=== PATIENT | female | born 1945 | race Caucasian/White ===

== ENCOUNTER 2020-06-28 23:58 | Emergency (ER) | payer MEDICARE, SELFPAY ==
--- NOTE | ~2020-06-28 | XR_ITS ---
EXAMINATION: XR WRIST, LEFT CLINICAL INFORMATION: Fall. COMPARISON: 05/07/2019 TECHNIQUE: Two views of the left wrist. FINDINGS: Osteopenia. There is repeat acute fracture of the distal radial metaphysis. There is dorsal and radial displacement of the distal fragment. Mild impaction. This is at the site of a prior fracture. There is also an acute distal ulnar metaphyseal fracture without significant displacement. Prominent soft tissue swelling of the wrist. The carpal rows are well aligned. XR/XR wrist LT min 3V IMPRESSION: Acute distal radial and ulnar metaphyseal fractures.
--- NOTE | ~2020-06-28 | XR_ITS ---
EXAMINATION: XR WRIST, LEFT CLINICAL INFORMATION: Closed reduction COMPARISON: 06/29/2020 TECHNIQUE: Two views of the left wrist. FINDINGS: Osteopenia. Fine osseous and soft tissue detail is partially obscured by overlying splinting material. There is improved alignment of the distal radial metaphyseal fracture, with residual dorsal displacement by 0.6 cm. Near-anatomic alignment of the ulnar fracture. The carpal rows remain well aligned. Prominent soft tissue swelling. XR/XR wrist LT min 3V IMPRESSION: Improved alignment of the distal radial metaphyseal fracture status post reduction. Nondisplaced ulnar fracture.
[2020-06-29 00:13] VITALS: BP 172/75; PULSE 60; RESP 16; TEMP 36.5; O2SAT 95; BMI 34.1
[2020-06-29] MEDS: Morphine Sulfate 4 MG/ML CARTRIDGE IVPUSH ×2 (00:25→01:00)
--- NOTE | 2020-06-29 00:39 | PC.NURSE ---
XRAY is at bedside
[2020-06-29] MEDS: Lidocaine HCl 1 % MPF 5 ML VIAL 10 ML SUBCUT (00:47)
[2020-06-29 01:02] VITALS: BP 154/60; PULSE 60; RESP 16; O2SAT 98
--- NOTE | 2020-06-29 01:10 | PC.NURSE ---
Provider is at bedside attemptng to reduce the left wrist
[2020-06-29 01:26] LABS: MANUAL DIFF FLAG NO
[2020-06-29 01:27] LABS: Basophils Absolute Auto 0.1 X10*3/uL (0.0-0.2); Basophils Percent Auto 0.6 % (0-2); Eosinophils Absolute Auto 0.2 X10*3/uL (0.0-0.4); Eosinophils Percent Auto 2.4 % (0-4); Hematocrit 39.3 % (37-47); Hemoglobin 12.8 g/dl (12.0-16.0); Imm Gran Abs Auto 0.01 X10*3/uL (0.00-0.03); Imm Gran Pct Auto 0.1 % (0.0-0.4); Lymphocytes Absolute Auto 2.7 X10*3/uL (1.2-4.9); Lymphocytes Percent Auto 30.8 % (20-40); Mean Corpuscular HGB Conc 32.6 g/dl (31.0-35.0); Mean Corpuscular Hemoglobin 28.6 pg (27.0-33.0); Mean Corpuscular Volume 87.7 fL (80-98); Mean Platelet Volume 10.4 fL (9.4-12.3); Monocytes Absolute Auto 0.6 X10*3/uL (0.1-1.2); Monocytes Percent Auto 7.3 % (2-11); Neutrophils Absolute Auto 5.1 X10*3/uL (2.0-8.3); Neutrophils Percent Auto 58.8 % (45-73); Platelet Count 177 X10*3/uL (160-400); Red Blood Count 4.48 X10*6/uL (4.20-5.50); Red Cell Distribution Width 13.5 % (11.0-16.0); White Blood Count 8.6 X10*3/uL (4.8-10.8)
--- NOTE | 2020-06-29 01:27 | PC.NURSE ---
repeat xray is at bedside
--- NOTE | 2020-06-29 01:29 | ED.FALL ---
HPI - Fall General Chief Complaint: Fall Stated Complaint: ?left broken arm Time Seen by Provider: 06/29/20 00:15 Source: EMS Mode of arrival: EMS Limitations: no limitations History of Present Illness HPI Narrative: This is a 75-year-old female with multiple comorbidities including history of hepatitis, liver cirrhosis, hypertension, CAD who presents via EMS from home with complaint of left wrist pain. States she walked outside her residence to walk her dog she tripped and landed onto her left wrist. States she felt a popping sensation in the wrist and denies any other injury. Denies striking head torso to the ground. Denies LOC. No neck pain. No torso pain. No lower extremity pain. No hip pain. States the only area of pain is her left wrist. Denies any other recent illness or medical complaints. Patient was given 4 mg of Zofran EN route by EMS and 50 mics of fentanyl. Placed in a splint and transferred to the emergency room. MD complaint: fall Onset (ago): minute(s) Fall from: standing Fall witnessed: no Place fall occurred: home Loss of consciousness: none Prolonged down time: no Symptoms prior to fall: none Context: tripped/slipped Location of injury: other (Left wrist) Location of injury - extremities: left: hand (Wrist) Severity: moderate Severity scale (1-10): 9 Quality: aching Associated symptoms (after fall): denies Related Data Previous Rx's Medication Instructions Recorded oxycodone 5 mg PO Q8H PRN 3 Days #10 tab 06/29/20 Allergies Allergy/AdvReac Type Severity Reaction Status Date / Time No Known Allergies Allergy Verified 06/29/20 00:23 [No Known Allergies*] Review of Systems Review of Systems: Constitutional: No Weight loss, No Fever, No Chills, No Night Sweats, No Fatigue, No Malaise ENT/Mouth: No Hearing loss, No Ear Pain, No Nasal Congestion, No Sinus Pain, No Hoarseness, No sore throat, No Rhinorrhea, No Swallowing Difficulty Eyes: No Eye Pain, No Swelling, No Redness, No Foreign Body, No Discharge, No Vision Changes Cardiovascular: No Chest Pain, No SOB, No Dyspnea on Exertion, No Orthopnea, No Edema, No Palpitations Respiratory: No Cough, No Sputum, No Wheezing, No Smoke Exposure, No Dyspnea Gastrointestinal: No Nausea, No Vomiting, No Diarrhea, No Constipation, No abdominal Pain, No Hematochezia, No Melena Genitourinary: no irregular bleeding, No Dysuria, No Urinary Frequency, No Hematuria, No Urinary Incontinence, No Urgency, No Flank Pain, No Urinary Flow Changes, No Hesitancy Musculoskeletal: No joint pain, No Myalgias, No Joint Swelling, as noted per HPI Skin: No Skin Lesions, No rash Neuro: No Weakness, No Numbness, No Paresthesias, No Loss of Consciousness, No Dizziness, No Headache Psych: No Social Issues Heme/Lymph: No Bruising, No Bleeding,No Lymphadenopathy Endocrine: No Polyuria, No Polydipsia, No Temperature Intolerance Yes all other systems are reviewed and are negative [facility] Past Medical History Medical History Cirrhosis Hepatitis C Hypercholesteremia Hypertension Surgical History Hx of appendectomy Hx of tonsillectomy S/P breast augmentation S/P CABG x 4 Tubal ligation status Social History Social History Advance Directives: No Advance Directives Information Provided: No Physical Exam Vital Signs: Vital Signs: Last Vital Signs Temp 97.7 F 06/29/20 00:13 Pulse 60 06/29/20 01:02 Resp 16 06/29/20 01:02 BP 154/60 H 06/29/20 01:02 Pulse Ox 98 06/29/20 01:02 Body Mass Index 34.1 Reviewed Const: General: cooperative; No intoxicated appearing Nutritional Appearance: average body habitus Orientation/consciousness: patient oriented x3 HENMT: Head: Yes normal to inspection Ears: hearing grossly normal bilaterally Eyes: General: appearance normal, both eyes and all related structures Visual Antoine: normal visual antoine by confrontation Neck: Neck: Yes normal visual inspection, No positive Brudzinski's sign, No positive Kernig's sign and No tender Thyroid: Thyroid normal Chest: Chest palpation & inspection: normal inspection of the chest Resp: Effort & Inspection: normal respiratory effort Auscultation: clear to auscultation bilaterally Cardio: Jugular venous distension: no JVD Rhythm: regular rhythm Heart sounds: S1 normal heart sound present and S2 normal heart sound present GI: Inspection: Yes normal to inspection Palpation (GI): Soft to palpation Percussion: Yes normal to percussion Auscultation: normal bowel sounds : General: Yes no CVA tenderness Back/Spine/Pelvis: Back: no CVA tenderness Skin: General skin exam: no rashes or lesions noted Neuro: General: patient oriented x3 Extrem: General: Yes normal to inspection Right upper extremity: wrist (Obvious deformity at the wrist joint with hematoma and abrasion to anterior) Details: abrasion Course Course Course Narrative: Uncomfortable appearing upon arrival evaluated directly upon arrival. Bedside x-ray done showed acute distal radial and ulna metaphyseal fracture. Patient was given IV morphine and hematoma block was performed with traction and reduction and placed in a sugar-tong splint and arm sling. Post reduction x-rays done showed improved alignment. Neurovascularly intact. Cap refill within normal limits. Able to move her foot digits. Sensation within normal limits. Will discuss case with orthopedics plan will be home with outpatient follow-up. Given there was abrasion on the anterior aspect the wrist I did give her empiric dose of cefazolin and will place her on p.o. antibiotics. Consultations Consultation #1: Case discussed with orthopedics Evangelina RAMÍREZ- Plan reviewed agreeable with hematoma block reduction pre and post reduction imaging reviewed. Recommendation for follow-up with Dr. Rhodes in office. Procedures Orthopedic Fracture Reduction Fracture #1: Side: left Fracture Reduction Location: radius and ulna Analgesia: hematoma block Technique: traction/counter-traction Post Reduction X-rays Demonstrate: anatomical reduction Post-reduction neuro exam: intact Post-reduction vascular exam: intact Splint Applied: Yes Patient Tolerated Procedure: well MDM - Fall Lab Data Result diagrams: 06/29/20 01:21 06/29/20 01:21 Labs: Lab Results 06/29/20 Range/Units 01:21 WBC 8.6 (4.8-10.8) X10*3/uL RBC 4.48 (4.20-5.50) X10*6/uL Hgb 12.8 (12.0-16.0) g/dl Hct 39.3 (37-47) % MCV 87.7 (80-98) fL MCH 28.6 (27.0-33.0) pg MCHC 32.6 (31.0-35.0) g/dl RDW 13.5 (11.0-16.0) % Plt Count 177 (160-400) X10*3/uL MPV 10.4 (9.4-12.3) fL Immature Gran % (Auto) 0.1 (0.0-0.4) % Neut % (Auto) 58.8 (45-73) % Lymph % (Auto) 30.8 (20-40) % [place] % (Auto) 7.3 (2-11) % Eos % (Auto) 2.4 (0-4) % Baso % (Auto) 0.6 (0-2) % Lymph # (Auto) 2.7 (1.2-4.9) X10*3/uL [place] # (Auto) 0.6 (0.1-1.2) X10*3/uL Eos # (Auto) 0.2 (0.0-0.4) X10*3/uL Baso # (Auto) 0.1 (0.0-0.2) X10*3/uL Abs Immat Gran (auto) 0.01 (0.00-0.03) X10*3/uL Absolute Neuts (auto) 5.1 (2.0-8.3) X10*3/uL Absolute Nucleated RBC 0.000 (0.0-0.012) X10*3/uL Nucleated RBC % (auto) 0.0 (0.0-0.2) /100WBC Discharge Plan Discharge Clinical Impression: Fall Fracture, wrist, open Qualifiers: Encounter type: initial encounter Laterality: left Qualified Code(s): S62.102B - Fracture of unspecified carpal bone, left wrist, initial encounter for open fracture Patient Disposition: Home, Self-Care Instructions: Wrist Fracture in Adults (ED), Splint Care (ED) Additional Instructions: Take your medication as prescribed Follow-up with Orthopedics as discussed Previous splint in place until the follow-up with orthopedics Do not drink alcohol or drive while taking pain medication Take Tylenol for [id number] pain For more severe pain take oxycodone Thank you Prescriptions: New oxycodone 5 mg tablet 5 mg PO Q8H PRN (Reason: pain) 3 Days Qty: 10 RF: 0 Referrals: Becka Rhodes MD [Physician] - 2 days (mproved alignment of the distal radial metaphyseal fracture status post reduction. Nondisplaced ulnar fracture.)
[2020-06-29] MEDS: ceFAZolin Sodium/Dextrose,Iso 2 GM/50 ML PIGGYBACK IV (01:36)
[2020-06-29 02:48] LABS: Alanine Aminotransferase 38 U/L (0-31); Albumin Level 3.9 g/dL (3.5-5.0); Alkaline Phosphatase 96 U/L (39-117); Anion Gap 15 (12-20); Aspartate Amino Transferase 53 U/L (5-31); Bilirubin Total 0.5 mg/dL (0.0-1.0); Blood Urea Nitrogen 21 mg/dL (9-16); Calcium 9.4 mg/dL (8.4-10.2); Carbon Dioxide 25 mmol/L (22-29); Chloride 105 mmol/L (96-108); Creatinine Clr Calc Pharmacy 55.3; Estimated Glomerular Filt Rate 56; Glucose Random 105 mg/dL (60-115); Potassium 3.6 mmol/L (3.3-5.1); Sodium 141 mmol/L (135-145); Total Protein 6.9 g/dL (6.5-8.0)
[2020-06-29] MEDS: Acetaminophen 325 MG TABLET 650 MG PO (04:21)
[2020-06-29] MEDS: Lidocaine HCl 1 % 20 ML VIAL SUBCUT (04:23)
== END 2020-06-29 04:24 | disposition home or self-care (01) ==
PROVIDERS: Nurse Practitioner Primary Care; Emergency Provider Internal Medicine; PCP Family Medicine
DX: S62.102A Fracture of unspecified carpal bone, left wrist, initial encounter for closed fracture (principal); M25.532 Pain in left wrist; W18.31XA Fall on same level due to stepping on an object, initial encounter; Y93.K1 Activity, walking an animal; Y92.410 Unspecified street and highway as the place of occurrence of the external cause; Y99.9 Unspecified external cause status
CPT/HCPCS: 29105; 36415; 73110; 80053; 85025; 96365; 96372; 96375; 99284; J0690; J2270

== ENCOUNTER → 2020-07-05 10:42 | Outpatient (BNVA) | payer MEDICARE, SELFPAY | PROVIDERS: PCP Family Medicine; Visit Provider Orthopaedic Surgery | DX: S52.502A Unspecified fracture of the lower end of left radius, initial encounter for closed fracture (principal); S52.602A Unspecified fracture of lower end of left ulna, initial encounter for closed fracture; G56.02 Carpal tunnel syndrome, left upper limb | CPT/HCPCS: 99202 ==

== ENCOUNTER 2020-07-07 06:53 | Day surgery (SDC) | payer MEDICARE, SELFPAY ==
--- NOTE | 2020-07-06 14:23 | P.CONAN_ITS ---
Documented by User: Deanna Colbert 07/06/20 14:25 HPI - Anesthesia Eval Consult details Narrative: 75yo F for Left Radius Distal Fracture ORIF,carpal tunnel release Pending: Cardiac clearance (07/06/20 @ 1100) PMFSH Active Problems Active Problems: All Active Problems (Updated 07/05/20 @ 11:36 by Becka Rhodes MD) Carpal tunnel syndrome of left wrist (Acute) Fracture of distal end of left ulna (Acute) Distal radius fracture, left (Acute) Past Medical History Medical History CAD (coronary artery disease) Cirrhosis Hepatitis C Hypercholesteremia Hypertension Surgical History Surgical History Hx of appendectomy Hx of tonsillectomy S/P breast augmentation S/P CABG x 4 Tubal ligation status Social History Social History Smoking Status: Former smoker Smoking Quit Date: 1993 Use of substances other than those prescribed or required for medical reasons: No Are you DNR?: No Advance Directives: No Advance Directives Information Provided: Yes Current occupational status: retired Current occupation: rt handed Meds Allergies Allergy/AdvReac Type Severity Reaction Status Date / Time No Known Allergies Allergy Verified 07/05/20 10:44 [No Known Allergies*] Exam Exam Date and Time: July 06, 2020 1423 Pertinent Lab Results Pertinent Lab Results: Laboratory Tests 06/29/20 06/29/20 01:21 01:21 WBC 8.6 Hgb 12.8 Hct 39.3 Plt Count 177 Sodium 141 Potassium 3.6 Chloride 105 Carbon Dioxide 25 BUN 21 H Creatinine 0.96 Laboratory Tests 06/29/20 01:21 Total Bilirubin 0.5 AST 53 H ALT 38 H Alkaline Phosphatase 96 Total Protein 6.9 Albumin 3.9 Assessment and Plan Assessment Anesthesia Assessment: Chart Reviewed Documented by User: Viki Giles 07/07/20 08:32 [facility] Past Medical History Medical History CAD (coronary artery disease) Cirrhosis Hepatitis C Hypercholesteremia Hypertension Surgical History Surgical History Hx of appendectomy Hx of tonsillectomy S/P breast augmentation S/P CABG x 4 Tubal ligation status Social History Social History Smoking Status: Former smoker Smoking Quit Date: 1993 Use of substances other than those prescribed or required for medical reasons: No Are you DNR?: No Advance Directives: No Advance Directives Information Provided: Yes Current occupational status: retired Current occupation: rt handed [employer] Allergies Allergy/AdvReac Type Severity Reaction Status Date / Time No Known Allergies Allergy Verified 07/05/20 10:44 [No Known Allergies*] Exam Airway Mallampati Class: II TM Dist: >3cm Neck ROM: Full Assessment and Plan Assessment Anesthesia Assessment: Anesthesia Plan Discussed and Chart Reviewed Final Anesthetic Review NPO: Yes ASA Class: III Final Preanesthetic Review: No Changes in Pt Med Stat, Meds/Allgs Chart Reviewed, Consent Obtained/Reviewed and Anes Risks/Benef Reviewed Patient Risk: Intermediate Procedure Risk: Low Assessment/Block/Sedation in SS: Assess/Block/Sedation-SS Anesthetic Plan Anesthetic Plan: MAC: and Regional Block Disposition: Standard PACU
--- NOTE | ~2020-07-07 | FL_ITS ---
EXAMINATION: XR FLUOROSCOPY WITH IMAGES CLINICAL INFORMATION: Reduction distal radial fracture. COMPARISON: Radiographs left wrist x2 exams on 06/29/2020 TECHNIQUE: Fluoroscopy performed by Dr. Becka Rhodes. Fluoroscopy time: 2.5 minutes Dose: [id number] uGy Images: 11 FINDINGS: The distal radial and distal ulnar fractures are reduced with plates and multiple screws. There is near-anatomic alignment. Improved alignment from prior exams. Ulnar variance is near neutral. No dislocation. FL/FL guidance in OR IMPRESSION: Status post reduction fractures distal left radius and distal ulnar.
[2020-07-07 07:18] VITALS: BP 154/71; PULSE 71; RESP 16; TEMP 36.4; O2SAT 97; BMI 33.1
--- NOTE | 2020-07-07 09:02 | MHC.SHP ---
Pre-Procedural Eval Section B Chief Complaint: distal radius fx Allergies: Allergies Allergy/AdvReac Type Severity Reaction Status Date / Time No Known Allergies Allergy Verified 07/05/20 10:44 [No Known Allergies*] Plan I have reviewed the history and physical and performed a pertinent physical examination on my patient. No changes have occurred unless specified.
--- NOTE | 2020-07-07 09:02 | W.PM.OPN ---
Operative Note Operative Note Date of Service: 07/07/20 Narrative: Operative Note Narrative: Preop diagnosis: 1. Left Distal radius fracture, extra-articular 2. Left distal ulnar shaft fracture Postop diagnosis: Same Procedure: 1. Left Distal radius fracture open reduction internal fixation, extra-articular 2. Left distal ulnar shaft fracture open reduction internal fixation Surgeon: Becka Rhodes MD Anesthesia: Mac plus regional block Findings: Comminution of distal ulnar shaft Implants: A 5 hole Accu Med volar locking plate, with 5x 2.3 mm locking pegs/screws, and 5 x 3.5 mm cortical screws A 3 hole Accu mid volar distal ulnar locking plate with 4 x 2.3 mm locking pegs, and 2 x 3.5 mm cortical screws and 3.5 mm locking screw Tourniquet time: 91 minutes plus 60 minutes equals 151 minutes total tourniquet time. 37 minutes down in between. EBL: 5.0 ml Specimen: None Drains: None Complications: None Disposition: Brought to the recovery room in stable condition Plan: Follow-up in 10-14 days for wound check, suture removal and postop radiographs The patient will be placed in either a [place] cast in 45? of supination Encouraged no lifting of anything heavier than a cell phone. Please encourage active and passive range of motion of the digits. Follow-up at 4-5 weeks postop for repeat radiographs. Indications: The patient is a 75 year old left distal radius and distal ulna fractures, in a patient who previously had a distal radius fracture treated non operatively. . The risks and benefits of operative treatment, including but not limited to risk of damage to blood vessels, nerves, tendons, infection, recurrence, persistent pain or numbness, incomplete resolution of preoperative symptoms, or need for further surgery were discussed with the patient and they wished to proceed with surgery. Procedure: Once consent was obtained patient was brought back to the operating suite and placed in the operating table in a supine position. A regional block was performed by the anesthesia team. Perioperative antibiotics and anesthesia was administered by the anesthesia team. A tourniquet was applied to the proximal aspect of the left upper extremity and the limb was prepped and draped in a standard surgical fashion. The limb was elevated exsanguinated with Esmarch bandage and the tourniquet inflated to 250 mm of mercury for a total tourniquet time of 91 minutes plus 60 minutes for a total of 151 minutes with 37 minutes down time in between. The FluoroScan was used throughout the case to assess our reduction, and facilitate implant placement. I made an 8 cm longitudinal incision over the distal aspect of the flexor carpi radialis tendon. The incision was made through the skin to the subcutaneous tissue using a 15. Blade. Then carefully dissected down to flexor carpi radialis tendon she tenotomy scissors. The FCR tendon sheath was then incised longitudinally using tenotomy scissors under direct visualization. The FCR tendon was then retracted ulnarly. I then made a longitudinal incision in the volar forearm fascia through the floor of FCR tendon sheath using tenotomy scissors under direct visualization. I identified the interval between the radial artery and the flexor tendons. This interval was developed further with my index finger, releasing some of the muscular fibers of the flexor pollicis longus. A dull weatlander retractor was then placed. I then created an ulnarly based flap of the pronator quadratus by releasing the radial and distal edges using a 15. Blade. A Perez elevator was used to elevate the pronator quadratus from the volar surface of the distal radius. This then revealed to us our distal radius fracture. The fracture is extra-articular. There certainly was some evidence that she had had a previous fracture that had been treated non operatively and healed with some loss of volar tilt, height and radial inclination. An open reduction was then performed on our distal radius fracture. I provisionally secured the fracture using a single 0.54 K-wire through the radial styloid , advanced across the distal radial metaphyseal fracture to the shaft. I then placed a narrow 5 hole [facility] volar locking plate on the volar surface of the distal radius. I placed a single K-wire through the distal aspect of the plate and into the distal radius. This was assessed using fluoroscopic images. I was satisfied with the placement of our plate. I then placed five 2.3 mm locking screws/pegs in the distal aspect of the plate and distal radius by 1st drilling bicortically with a 2.0 mm drill bit, measuring with a depth gauge, and placing the appropriate length locking screws/pegs. The placement of our plate and screws was then assessed again using fluoroscopic images. The once satisfied with the placement of the volar locking plate and screws on the distal aspect of the distal radius, the K-wire across the fracture was removed, and the plate was then reduced to the shaft of the radius. I then placed 5 3.5 mm cortical screws to the proximal aspect of the plate and into the shaft of the radius. This was done by 1st drilling bicortically with a 2.5 mm drill bit, measuring with a depth gauge, and placing the appropriate length screw. Final radiographs were then obtained. I was satisfied with our reduction and placement of all implants. After further evaluating the distal ulnar shaft fluoroscopically and clinically it was evident that she would benefit from open reduction internal fixation of the left distal ulna as well. There is some comminution in the distal shaft, though this fracture appear to be almost a step-cut type pattern, where it was partially transverse at the neck and then a fairly long longitudinal split of perhaps 1.5 cm, and then on another short transverse in the shaft. At this point the tourniquet was deflated at 91 minutes for a total down time of 37 minutes. The distal radius wound was irrigated with normal saline. Hemostasis was obtained with a brief period of local pressure and some bipolar electrocautery. The pronator quadratus was reduced back over the volar locking plate using some 3-0 Vicryl suture material. The subcutaneous layer was then reapproximated using some 4-0 Vicryl suture, and the skin edges were reapproximated using some 5 0 Prolene suture. The wound was then infiltrated with some 1% lidocaine with epinephrine postop pain control. I then turned my attention to the distal ulna fracture. The limb was again elevated and exsanguinated with an Esmarch bandage the tourniquet inflated to 250 mm of mercury for a 2nd tourniquet time of 60 minutes for a total combined tourniquet time of 152 minutes . This was a somewhat comminuted, long step cut type fracture of the distal shaft. I made a 6 cm longitudinal incision over the ulnar aspect of the left distal ulna. This was done using a 15. Blade through the skin the subcutaneous tissues. I carefully dissected down to the level of the ulnar aspect of the distal ulnar shaft and head. Care was taken to protect the dorsal cutaneous branch of the ulnar nerve in the distal aspect of the incision. I then made a longitudinal incision in the most ulnar insertion of the pronator quadratus. This was then reflected off the volar surface of the distal ulna. I then placed a 3 hole distal ulnar locking plate on the volar surface of the distal radius. I 1st placed a 3.5 mm cortical screw through the oval hole by drilling bicortically with a 2.8 mm drill bit, measuring with a depth gauge and placing the appropriate length screw. This provided good provisional fixation for our fracture. I then placed four 2.3 mm locking screws in the distal aspect of the plate and distal ulna by 1st positioning the drill guide, drilling bicortically with a 2.0 mm drill, measuring with a depth gauge, and then placing the appropriate length locking peg. One more 3.5 mm cortical screw was placed in the shaft. I then placed a 3.5 mm locking screw in the most proximal hole of the shaft after 1st placing the locking drill guide, drilling bicortically, and measured with a depth gauge. I was satisfied with our reduction and placement of all implants on multiple fluoroscopic images. The pronator quadratus and the ulnar fascia was repaired using some 4-0 Vicryl suture. The skin edges were reapproximated with some 5 0 Prolene suture material and the wound was infiltrated with some 1% lidocaine with epinephrine for postop pain control. The DRUJ was found to have some mild laxity, but I believe this will do well in a [place] cast in some supination. A dressing and a sugar-tong splint was then placed. The patient appears to have tolerated the procedure well and with no complications. All digits were well vascularized conclusion of the case.
[2020-07-07 13:20] VITALS: BP 139/42; PULSE 72; RESP 16; TEMP 36.3; O2SAT 98
[2020-07-07] MEDS: Acetaminophen 325 MG TABLET 650 MG PO (13:25)
[2020-07-07 13:45] VITALS: BP 159/64; PULSE 65; RESP 18; O2SAT 95
== END 2020-07-07 14:32 | disposition home or self-care (01) ==
PROVIDERS: PCP Family Medicine; Visit Provider Orthopaedic Surgery
PROC: (CPT 25607; principal; 2020-07-07 08:40)
DX: S52.552A Other extraarticular fracture of lower end of left radius, initial encounter for closed fracture (principal); S52.602A Unspecified fracture of lower end of left ulna, initial encounter for closed fracture; X58.XXXA Exposure to other specified factors, initial encounter; Y93.9 Activity, unspecified; Y92.9 Unspecified place or not applicable; I10 Essential (primary) hypertension; B19.20 Unspecified viral hepatitis C without hepatic coma; Z87.891 Personal history of nicotine dependence
CPT/HCPCS: 25607; 25545; C1713; C1769; J0690; J1100; J2405; J3010

== ENCOUNTER → 2020-07-11 13:14 | Outpatient (BNVA) | payer MEDICARE, SELFPAY | PROVIDERS: Visit Provider Physician Assistant | DX: S52.502A Unspecified fracture of the lower end of left radius, initial encounter for closed fracture (principal); S52.602A Unspecified fracture of lower end of left ulna, initial encounter for closed fracture | CPT/HCPCS: 29125; 99212 ==

== ENCOUNTER 2020-07-19 08:49 | Outpatient (REF) | payer MEDICARE, SELFPAY ==
--- NOTE | ~2020-07-19 | XR_ITS ---
EXAMINATION: XR WRIST, LEFT CLINICAL INFORMATION: Pain left wrist. COMPARISON: Left wrist 06/29/2020. TECHNIQUE: PA, lateral, and oblique views of the left wrist. FINDINGS: The cast has been removed. There is volar plate and screws stabilizing the distal radial and ulnar metaphyseal fractures. There is decrease in the radioulnar carpal joint space. There is diffuse osteopenia. The soft tissues are normal. XR/XR wrist LT min 3V IMPRESSION: Volar plate and screws stabilizing the distal radial and ulnar metaphyseal fractures in alignment. No other fracture is seen.
== END 2020-07-19 08:50 | disposition home or self-care (01) ==
LOC: HO.HOSX 08:49
PROVIDERS: Visit Provider Orthopaedic Surgery
DX: M25.532 Pain in left wrist (principal); S52.502A Unspecified fracture of the lower end of left radius, initial encounter for closed fracture; S52.202A Unspecified fracture of shaft of left ulna, initial encounter for closed fracture; X58.XXXA Exposure to other specified factors, initial encounter; Y93.9 Activity, unspecified; Y92.9 Unspecified place or not applicable; Y99.8 Other external cause status; G56.02 Carpal tunnel syndrome, left upper limb; I10 Essential (primary) hypertension; E78.00 Pure hypercholesterolemia, unspecified; Z87.891 Personal history of nicotine dependence; Z48.02 Encounter for removal of sutures; Z98.51 Tubal ligation status; Z98.890 Other specified postprocedural states
CPT/HCPCS: 73110; 99212

== ENCOUNTER → 2020-08-02 13:59 | Outpatient (BNVA) | payer MEDICARE, SELFPAY | PROVIDERS: Visit Provider Physician Assistant | DX: S52.602A Unspecified fracture of lower end of left ulna, initial encounter for closed fracture (principal); S52.502A Unspecified fracture of the lower end of left radius, initial encounter for closed fracture | CPT/HCPCS: 29075; 99212 ==

== ENCOUNTER 2020-08-09 08:34 | Outpatient (REF) | payer MEDICARE, SELFPAY ==
--- NOTE | ~2020-08-09 | XR_ITS ---
EXAMINATION: XR WRIST, LEFT CLINICAL INFORMATION: Fractures distal radius and ulna. Pain. Follow up. COMPARISON: Radiographs left wrist 07/19/2020, 06/29/2020. TECHNIQUE: The left wrist is imaged in 4 views. FINDINGS: There are distal radial and distal ulnar fracture status post open reduction and internal fixation with radial and ulnar volar side plate and multiple screws. The hardware is intact. There is no destructive process or osteolysis. No change in alignment. Fracture lines are less distinct. Again, there is generalized osteopenia. Mild narrowing radial carpal compartment again seen with scattered chondrocalcinosis. No erosive change. XR/XR wrist LT min 3V IMPRESSION: Status post open reduction and internal fixation distal radial and ulnar fractures. Hardware intact. No change in alignment. No osteolysis.
== END 2020-08-09 08:35 | disposition home or self-care (01) ==
LOC: HO.HOSX 08:34
PROVIDERS: Visit Provider Orthopaedic Surgery
DX: M25.532 Pain in left wrist (principal); S52.602D Unspecified fracture of lower end of left ulna, subsequent encounter for closed fracture with routine healing; S52.502D Unspecified fracture of the lower end of left radius, subsequent encounter for closed fracture with routine healing; G56.02 Carpal tunnel syndrome, left upper limb
CPT/HCPCS: 73110; 99212

== ENCOUNTER 2020-09-07 08:22 | Outpatient (REF) | payer MEDICARE, SELFPAY ==
--- NOTE | ~2020-09-07 | XR_ITS ---
EXAMINATION: XR WRIST, LEFT CLINICAL INFORMATION: Left wrist pain. COMPARISON: Multiple priors, most recent left wrist radiographs dated 08/09/2020. TECHNIQUE: PA, lateral, and oblique views of the left wrist. FINDINGS: Volar stabilization plates with fixation screws at the distal radius and ulna. No hardware fracture. No perihardware lucency to suggest loosening or infection. Redemonstration of distal radial and ulnar fractures in unchanged anatomic alignment. Mild increase in new bone/callus formation when compared to the prior examination. No abnormal soft tissue calcification. XR/XR wrist LT min 3V IMPRESSION: Distal radius and distal ulnar orthopedic hardware without evidence of complication. Distal radial and ulnar fractures in unchanged anatomic alignment with new bone/callus formation.
== END 2020-09-07 08:23 | disposition home or self-care (01) ==
LOC: HO.HOSX 08:22
PROVIDERS: Visit Provider Orthopaedic Surgery
DX: S52.602D Unspecified fracture of lower end of left ulna, subsequent encounter for closed fracture with routine healing (principal); S52.502D Unspecified fracture of the lower end of left radius, subsequent encounter for closed fracture with routine healing; G56.02 Carpal tunnel syndrome, left upper limb
CPT/HCPCS: 73110; 99212

== ENCOUNTER 2020-09-13 09:00 | Outpatient (RCR) | payer MEDICARE, SELFPAY | END 2020-09-26 16:22 | disposition home or self-care (01) | LOC: HO.PT 09:00 | PROVIDERS: PCP Nurse Practitioner Family; Visit Provider Nurse Practitioner Family | DX: R26.9 Unspecified abnormalities of gait and mobility (principal) | CPT/HCPCS: 97110; 97112; 97116; 97162; 97530 ==

== ENCOUNTER 2020-09-21 10:30 | Outpatient (RCR) | payer MEDICARE, SELFPAY ==
--- NOTE | 2020-07-27 11:49 | MHC.OT.OEV ---
[address] [phone] F: [phone] Occupational Therapy Evaluation Diagnosis: Post-op ORIF left distal radius fracture and left ulna fracture Date of Onset: 06/28/20 Date of Surgery: 07/07/20 Attending Provider: Dr Rhodes Prescribed Treatment: Eval and Marni MD Follow Up Appointment: 08/09/20 History of Current Condition: 75 yo female w/ history of falls, tripped and fell while she was walking the dog, landing out of her left hand/wrist. She went to the ED and x-rays showed left extra-articular distal radius fracture and left ulna shaft fracture. She was referred to Dr Rhodes and is now post-op surgical repair w/ ORIF of radius and ulna. She has been placed in sugar tong cast and now referred to OT for initiation of therapy w/ digits and shoulder. She is scheduled for cast removal when she sees Dr Rhodes in two weeks. 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, homecare, cooking Does light activities (dishes, feeding dog, walking dog) Living Situation, Family and/or Social Support: Lives alone, has dog Current Level of Function and Occupation Self Care, Employment, Leisure: Unable to do bimanual tasks, opening containers, heavy chores, plant garden Sleep: Difficulty going to sleep, ibuprophen at bedtime Driving: Using dominant right hand for driving Balance: Impaired at baseline Pain Assessment Pain Score: 2 Pain Scale Used: Numeric (0 - 10) Pain Location and Description: Pain free at rest Occasional discomfort in wrist where the plates are Aggravating Factors: Worse at nighttime cramping/aching Alleviating Factors: Occasional ibuprophen, mostly at bedtime Skin and Soft Tissue Assessment Skin and Soft Tissue: Swelling Comments: Edema in digits Nerve assessment Ulnar Nerve: Not Tested Median Nerve: Not Tested Radial Nerve: Not Tested Comments: Sensory Assessment Temperature: B/L Impaired Light Touch: B/L Impaired Comments: Reports numbness and tingling in left thumb and index finger [place] mago 3.61 diminished light touch B/L median nerve distibution of hand 4.31 dminished protection sensation B/L ulnar nerve distribution Edema Assessment Upper Extremity: Left Impaired Dexterity Assessment Dexterity: Left Impaired AROM(PROM) Strength Cervical Cervical Flexion: Cervical Extension: Cervical Lateral Flexion: Cervical Rotation: Comments: WFL Shoulder Flexion: R 170 L 80 Extension: Abduction: R 160 L 70 Internal Rotation: External Rotation: Comments: Pt w/ history of left shoulder fracture 2019 (seen in PT at [facility]) Flexion: Extension: Abduction: Internal Rotation: External Rotation: Comments: Elbow Flexion: Extension: Pronation: Supination: Comments: NT, some flexion available within sugar tong, extension blocked Flexion: Extension: Pronation: Supination: Comments: Wrist Flexion: Extension: Ulnar Deviation: Radial Deviation: Comments: NT, wrist casted in neutral Flexion: Extension: Ulnar Deviation: Radial Deviation: Comments: Thumb Thumb CMC Flexion: Thumb MCP Flexion: Thumb IP Flexion: Radial Abduction: Palmar Abduction: [place] ([place] 0-10): Comments: less than full active IP flex, full PROM within splint, limited due to cast Digits Index MCP: PIP: DIP: Long MCP: PIP: DIP: Ring MCP: PIP: DIP: Small MCP: PIP: DIP: Comments: index 1 cm tip-cast, D3-D5 tip-cast 1 cm gap w/ hook fist Gross Grasp: R 56 lb Lateral Pinch: Two-Point Pinch: Three-Jaw Audie: Comments: Patient Education Primary Language: Estonian Business Editor Required: No Current Knowledge: Understands information with skills for self-management Teaching Method: Demonstration Handouts Verbal Education Needs Identified on Evaluation: ADL's Disease Information Exercise Pain Safety How did patient/family demonstrate learning? Patient demonstrates Patient verbalizes Barriers to Learning: None Readiness for Learning: Accepting Who was educated? Patient Comments: Plan of Care Assessment: 75 yo right hand dominant female presents three weeks post-op ORIF of left distal radius fracture and ulnar shaft fracture, also with carpal tunnel release. She is in sugar tong cast and able to move into some elbow flexion, but extension blocked. She is referred to OT at this time for management of finger edema and range. At baseline, she has decreased shoulder range due to old fracture, she also has a history of falls and has [employer]ING [employer]PER[employer] for assist w/ self care and heavier homecare. She will benefit from cont'd therapy services to progress digit range, educate on edema management and progress range and strength as appropriate once cast is removed and okay for activity and progression of post-op treatment. STG Duration: 2 weeks Short Term Goals: Ind w/ Edema management techniques Ind w/ Digit ROM Update STG and LTG as appropriate LTG Duration: Senior Living Goals: Frequency and Duration: The patient will be seen 2x/wk for 8 weeks Treatment Plan: Therapeutic Exercise Therapeutic Activity Home Exercise Program Splinting Patient Education Desensitization/Sensory Re-ed Edema Control ADL Training Ultrasound Paraffin Fluidotherapy MHP Cold Packs Joint Mobilization Soft Tissue Mobilization Kinesiotaping Will progress as appropriate Electronically Signed By: Anabella Patel OTR/L Please sign and return to therapist, Thank you for your referral.
--- NOTE | 2020-09-21 11:10 | MHC.OT.DC ---
[address] [phone] F: [phone] Occupational Therapy Discharge Note Provider: Dr Rhodes Diagnosis: Post-op ORIF left distal radius fracture and left ulna fracture Date of Surgery: 07/07/20 Date of Evaluation: 07/27/20 Date of Discharge: 09/21/20 Treatments to Date: 10 Discharge Status: Achieved Goals Improved Function Discharge Summary: Maxine doing very well 11 weeks post-op. Goals met except dexterity, but improved greatly. Pt reporting mild pain and numbness occasionally only. Still motivated and has good sense of HEP. Electronically Signed By: Anabella Patel OTR/L Please Sign and return to therapist, thank you for your referral.
== END 2020-09-21 11:11 | disposition home or self-care (01) ==
LOC: HO.OT 10:30
PROVIDERS: PCP Family Medicine; Visit Provider Orthopaedic Surgery
DX: S52.502A Unspecified fracture of the lower end of left radius, initial encounter for closed fracture (principal); S52.602A Unspecified fracture of lower end of left ulna, initial encounter for closed fracture
CPT/HCPCS: 97035; 97110; 97140; 97165

== ENCOUNTER 2021-07-26 08:26 | Outpatient (REF) | payer MEDICARE, SELFPAY ==
--- NOTE | ~2021-07-26 | XR_ITS ---
EXAMINATION: XR WRIST, LEFT CLINICAL INFORMATION: Pain COMPARISON: Previous x-ray most recent August 2020 TECHNIQUE: PA, lateral, and oblique views of the left wrist. FINDINGS: The bones are osteopenic. There is orthopedic hardware with plate and screws in the distal radius and ulna that appear unchanged. There are old healed fractures of the distal radius and ulna. There is an old healed fracture of the fifth metacarpal head. There is an old ulnar styloid fracture. There is mild arthritis at the radiocarpal joint. There is question of partial ankylosis or joint space narrowing of the trapezoid capitate joint. Soft tissues are unremarkable. XR/XR wrist LT min 3V IMPRESSION: Old healed fractures of the distal radius and ulna and fifth metacarpal head.
== END 2021-07-26 08:27 | disposition home or self-care (01) ==
LOC: HO.HOSX 08:26
PROVIDERS: Visit Provider Orthopaedic Surgery
DX: M25.532 Pain in left wrist (principal)
CPT/HCPCS: 73110; 99212

== ENCOUNTER 2022-11-20 08:54 | Emergency (ER) | payer MEDICARE, SELFPAY ==
--- NOTE | ~2022-11-20 | CT_ITS ---
EXAMINATION: CT ANGIOGRAM OF THE CHEST WITH AND WITHOUT CONTRAST (CT PULMONARY ANGIOGRAM FOR PE) CLINICAL INFORMATION: Reason for Exam chest pain with positive d-dimer COMPARISON: None available. TECHNIQUE: Prior to contrast administration, noncontrast localization images were obtained. Subsequently, multidetector volumetric imaging was performed from the thoracic inlet to below the diaphragms following the administration of 65 mL Omnipaque 350 intravenous contrast. No contrast reaction reported Sagittal, coronal, and MIP oblique sagittal reformatted images were obtained on the CT workstation, uploaded to PACS, and reviewed. This CT examination was performed using dose optimization techniques as appropriate, variously including the following: *Automated exposure control *Adjustment of mA and/or kV according to patient size (this includes techniques or standardized protocols for targeted exams where dose is matched to indication/reason for exam; i.e. extremities or head) *Use of iterative reconstruction technique Total exam dose-length product 413 mGy-cm FINDINGS: QUALITY OF STUDY/CONTRAST BOLUS: Satisfactory. PULMONARY ARTERIES: No central pulmonary embolus is detected. There is no evidence of aortic dissection. No aneurysm is evident. THORACIC AORTA: No aneurysm. LUNG: There is a 3.8 x 2.9 cm soft tissue mass encasing the right lower lobe bronchus, inseparable from the right inferior pulmonary vein. Medial basal bronchus of the right lower lobe is focal bleed encased and abruptly terminates. There is atelectasis in the lateral inferior right upper lobe abutting the pleural surface with a few central calcifications in this region, perhaps the sequela of prior granulomatous disease. PLEURA: Small right pleural fluid or thickening is noted. MEDIASTINUM: Normal heart size. No pericardial effusion. No hilar or mediastinal lymphadenopathy. No evidence of septal bowing or right heart strain. 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 The heart is somewhat enlarged, especially the left atrium and ventricle. CHEST WALL/AXILLA: No axillary or internal mammary lymphadenopathy. OSSEOUS STRUCTURES: Mild loss of height is evident at T6 and T7. Generalized demineralization is present. There are degenerative changes in the mid dorsal spine. Sternotomy wires are evident. UPPER ABDOMEN: There are multiple splenic granulomata. No reflux of contrast into the hepatic veins to suggest elevated right heart pressures. CT/CT angio chest PE protocol IMPRESSION: 1. No detected central pulmonary embolus, aortic dissection or pneumothorax. 2. Ill-defined soft tissue in the right inferior hilum, encasing the right lower lobe bronchus, abutting the inferior right pulmonary vein, and focal bullae narrowing and perhaps obliterating the medial basal right lower lobe bronchus. Although perhaps the sequela of prior granulomatous disease, bronchogenic carcinoma is not excluded. 3. Patchy peripheral atelectasis in the lateral inferior right lower lobe with more central calcifications both parenchymal and pleural, perhaps the sequela of prior granulomatous exposure. 4. Cardiomegaly and coronary artery calcifications, noting changes of sternotomy and CABG, 5. Numerous splenic granulomata. 6. Mild compression fracture deformities at T6 and T7. VTE: None detected
--- NOTE | ~2022-11-20 | XR_ITS ---
EXAMINATION: XR CHEST AP portable, 9:08 AM CLINICAL INFORMATION: Chest pain COMPARISON: 02/12/2012 TECHNIQUE: Frontal view of the chest was obtained. FINDINGS: The patient is undergone median sternotomy since 2011. The lungs are clear. There are no pleural effusions. The cardiomediastinal silhouette is not enlarged. The aorta is uncoiled. Prior left shoulder fracture is noted with elevation of the left humeral head. XR/XR chest 1V IMPRESSION: 1. No acute disease, noting interval sternotomy since 2011.
--- NOTE | 2022-11-20 09:01 | ED_ITS ---
HPI - Abdominal Pain General Chief Complaint: Chest Pain Stated Complaint: EPIGASTRIC PAIN SINCE SATURDAY Time Seen by Provider: 11/20/22 08:59 Source: patient and EMS Mode of arrival: EMS Limitations: no limitations History of Present Illness HPI narrative: Discussed with EMS epigastric pain for the past 3 days, EKG in the field was not ischemic. Patient noticed when she breaths in she has pain to both sides of her chest. She is a former nurse. Onset (ago): hour(s) Pain Consistency: intermittent Location: chest Related Data Home Medications Medication Instructions Recorded Confirmed acetaminophen 325 mg tablet 0 mg PO BID 07/26/21 atorvastatin 40 mg tablet 40 mg PO DAILY PRN 07/26/21 emollient combination no.10 (AASHISH ml topical DAILY 07/26/21 Cream topical emulsion) erythromycin 5 mg/gram (0.5 %) eye 0 mg ophthalmic-Right QID 07/26/21 ointment hydrochlorothiazide 25 mg tablet 25 mg PO DAILY 07/26/21 lisinopril 20 mg tablet 20 mg PO DAILY 07/26/21 metoprolol succinate 50 mg 50 mg PO DAILY 07/26/21 tablet,extended release 24 hr Previous Rx's Medication Instructions Recorded oxycodone 5 mg tablet 5 mg PO Q8H PRN pain 3 days #10 06/29/20 tabs oxycodone-acetaminophen 5 mg-325 1 - 2 tab PO Q6H PRN pain #30 tabs 07/07/20 mg tablet Allergies Allergy/AdvReac Type Severity Reaction Status Date / Time No Known Allergies Allergy Verified 07/26/21 15:42 [No Known Allergies*] Review of Systems Review of Systems Yes all other systems are reviewed and are negative Denies Sensory deficit (Neuro) [facility] Past Medical History Medical History CAD (coronary artery disease) Cirrhosis Hypertension Hypercholesteremia Hepatitis C Surgical History S/P breast augmentation Tubal ligation status Hx of appendectomy Hx of tonsillectomy S/P CABG x 4 Social History Social History Alcohol intake: never Smoked in Last 30 Days: No Use of substances other than those prescribed or required for medical reasons: No Advance Directives: No Advance Directives Information Provided: Yes Current occupational status: retired Current occupation: rt handed Physical Exam ED Vital Signs: Vital Signs - 24 hr 11/20/22 09:05 11/20/22 11:43 Temperature 98.4 F Pulse Rate 65 65 Respiratory Rate 18 12 Blood Pressure 152/52 H 149/63 H Pulse Oximetry 95 98 Oxygen Delivery Method Room Air Room Air BMI result Body Mass Index 35.3 Const General: healthy appearing Nutritional Appearance: average body habitus Orientation/consciousness: oriented to person and patient oriented x3 Limitations: no limitations HENMT Head: Yes normal to inspection Ears: external ears normal General nose exam: Normal external nose present Mouth: Normal oral and palatal mucosa present and oropharynx normal Throat: Yes posterior oropharynx normal Eyes General: appearance normal, both eyes and all related structures Neck Neck: Yes normal visual inspection Chest Chest palpation & inspection: normal inspection of the chest Resp Auscultation: clear to auscultation bilaterally Cardio Jugular venous distension: no JVD Rate: regular rate Rhythm: regular rhythm Heart sounds: S1 normal heart sound present and S2 normal heart sound present GI Inspection: Yes normal to inspection Palpation (GI): Soft to palpation, nontender and No hepatosplenomegaly present Auscultation: normal bowel sounds General: Yes no CVA tenderness Back/Spine/Pelvis Back: no CVA tenderness Skin General skin exam: no rashes or lesions noted Neuro General: oriented to person and patient oriented x3 Cranial nerves: Yes CN's II-XII intact bilaterally Motor exam (neuro): 5/5 motor strength present throughout Sensory Exam: No Sensory deficit (Neuro) Extrem General: Yes normal to inspection Psych Appearance: grossly normal Course Reevaluation(s) Reevaluation #1: patient with a history of pulmonary cancer, ddimer positive, CT negative for PE but there is a mass in the right hilum. 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 (no elevated WBC, normal troponin, elevated ddimer) 11/20/22 09:42 11/20/22 09:42 Labs: Lab Results 11/20/22 Range/Units 09:42 WBC 8.2 (4.8-10.8) X10*3/uL RBC 4.48 (4.20-5.50) X10*6/uL Hgb 11.9 L (12.0-16.0) g/dl Hct 37.2 (37.0-47.0) % MCV 83.0 (80.0-98.0) fL MCH 26.6 L (27.0-33.0) pg MCHC 32.0 (31.0-35.0) g/dl RDW 15.5 (11.0-16.0) % Plt Count 183 (160-400) X10*3/uL MPV 10.1 (9.4-12.3) fL Immature Gran % (Auto) 0.6 H (0.0-0.4) % Neut % (Auto) 79.4 H (45-73) % Lymph % (Auto) 11.2 L (20-40) % [place] % (Auto) 7.2 (2-11) % Eos % (Auto) 1.0 (0-4) % Baso % (Auto) 0.6 (0-2) % Lymph # (Auto) 0.9 L (1.2-4.9) X10*3/uL [place] # (Auto) 0.6 (0.1-1.2) X10*3/uL Eos # (Auto) 0.1 (0.0-0.4) X10*3/uL Baso # (Auto) 0.1 (0.0-0.2) X10*3/uL Abs Immat Gran (auto) 0.05 H (0.00-0.03) X10*3/uL Absolute Neuts (auto) 6.5 (2.0-8.3) x10*3/uL Absolute Nucleated RBC 0.000 (0.0-0.012) X10*3/uL Nucleated RBC % (auto) 0.0 (0.0-0.2) /100WBC D-Dimer High Sensitivty 319 NG/ML Sodium 138 (135-145) mmol/L Potassium 3.5 (3.3-5.1) mmol/L Chloride 105 (96-108) mmol/L Carbon Dioxide 24 (22-29) mmol/L Anion Gap 13 (12-20) BUN 13 (9-16) mg/dL Creatinine 0.81 (0.5-1.4) mg/dL Estim Creat Clear Calc 60.1 Estimated GFR > 60 Random Glucose 97 (60-115) mg/dL Calcium 9.3 (8.4-10.2) mg/dL Troponin I High Sens < 2.7 (<3.5-17.0) ng/L Independent Interpretation I performed an independent interpretation of an: EKG (sinus 64, no st or twave changes) Radiology Impression Discussion of test interpretation with radiology: I have reviewed the radiologist's reading. (right hilar mass) Prescription Management I considered prescription management with: Antibiotic (no evidence of pneumonia will not start abx) Medications Administered Generic Name Dose Route Start Last Admin Trade Name Freq PRN Reason Stop Dose Admin Sodium Chloride 1,000 mls @ 250 mls/hr 11/20/22 10:45 11/20/22 11:28 Ns IVCONT 11/20/22 14:44 250 mls/hr .Q4H IRMA Administration Discontinued Medications Generic Name Dose Route Start Last Admin Trade Name Freq PRN Reason Stop Dose Admin Iohexol 100 ml 11/20/22 11:30 11/20/22 11:30 Iohexol 350 Mg/Ml 100 Ml Infus..Btl IV 11/20/22 11:31 65 ml ONCE ONE Administration Discharge Plan Discharge Clinical Impression: Lung mass Chest pain Qualifiers: Chest pain type: chest pain on breathing Qualified Code(s): R07.1 - Chest pain on breathing Patient Disposition: Home, Self-Care Instructions: Chest Pain (ED) Additional Instructions: take CAT scan to your thoracic surgeon Prescriptions: No Action oxycodone 5 mg tablet 5 mg PO Q8H PRN (Reason: pain) 3 Days Qty: 10 0RF oxycodone-acetaminophen 5-325 mg tablet 1 - 2 tab PO Q6H PRN (Reason: pain) Qty: 30 0RF lisinopril 20 mg tablet 20 mg PO DAILY hydrochlorothiazide 25 mg tablet 25 mg PO DAILY metoprolol succinate 50 mg tablet extended release 24 hr 50 mg PO DAILY atorvastatin 40 mg tablet 40 mg PO DAILY PRN AASHISH Cream Emulsion topical DAILY erythromycin 5 mg/gram (0.5 %) ointment 0 mg ophthalmic-Right QID acetaminophen 325 mg tablet 0 mg PO BID Referrals: Physician,Nonstaff [Primary Care Provider] - 5 days
--- NOTE | 2022-11-20 09:04 | ECG_ITS ---
Test Reason : CHEST PAIN Blood Pressure : / mmHG Vent. Rate : 064 BPM Atrial Rate : 064 BPM P-R Int : 194 ms QRS Dur : 088 ms QT Int : 402 ms P-R-T Axes : 046 007 022 degrees QTc Int : 414 ms Normal sinus rhythm with sinus arrhythmia Normal ECG No previous ECGs available Referred By: Rod Gallegos Electronically Signed By:LESTER AYALA
[2022-11-20 09:05] VITALS: BP 152/52; BP 170/90; PULSE 65; PULSE 70; RESP 18; TEMP 36.9; O2SAT 95; O2SAT 98; BMI 35.3
--- OUTSIDE RECORDS SUMMARY | 2022-11-20 09:28 | XMS_ITS | Continuity of Care Document ---
Author Name Unknown Organization [facility] Address Unknown Care Team Providers Care Labels Molder Name Role Phone Erik PEÑA, Kirsten Jauregui Primary Care Physician ( [phone] Encounter [facility] Date(s): 11/07/20 - 03/01/21 [facility] Attending Physician: Shaan Smith MD Referring Physician: Kirsten Valencia MD Allergies, Adverse Reactions, Alerts Substance Reaction Severity Status NKA Active Immunizations Given and Recorded Vaccine Date Status Refusal Reason SARS-CoV-2 (COVID-19) mRNA BNT-162b2 vac 04/21/20 Recorded SARS-CoV-2 (COVID-19) mRNA BNT-162b2 vac 04/01/20 Recorded SARS-CoV-2 (COVID-19) mRNA BNT-162b2 vac 03/31/20 Recorded Influenza Virus Vaccine (oldterm) 10/27/19 Recorde d Influenza Virus Vaccine (oldterm) 11/11/09 Recorde d Zoster Vaccine Live 03/27/17 Recorded pneumococcal 23-valent vaccine 03/26/17 Recorded pneumococcal 23-valent vaccine 11/24/08 Recorded pneumococcal 13-valent vaccine 12/27/15 Recorded tetanus/diphtheria/pertussis, acel(Tdap) 10/20/12 Recorded tetanus-diphtheria toxoids (Td) 01/19/08 Recorded Hepatitis A Adult Vaccine 04/06/07 Recorded Not Given Vaccine Date Status Refusal Reason influenza virus vaccine, inactivated 1 04/28/16 No t Given Patient Refuses 1Result Comment: Patient has received flu vax this season Medications aspirin 81 mg oral tablet 1 tablet = 81 mg, By Mouth, Daily, 0 Refills, Maintenance, 03/01/16 13:51:57 Start Date: 03/01/16 Status: Ordered atorvastatin 40 mg oral tablet See Instructions, TAKE 1 TABLET BY MOUTH DAILY TAKE 1 TABLET OF 40 MG WITH 1 TABLET OF 20 MG FOR TOTAL 60 MG DAILY, # 90 tablet, 0 Refills, [facility] #[id number], 158, cm, 01/04/21 12:51:00 EST, Height, 93.2, kg, 05/04/20 10:09:00 EST, Dry Weight Start Date: 01/25/21 Status: Ordered calcium citrate 950 mg oral tablet 1 tablet = 950 mg, By Mouth, 2 times a day, # 180 tablet, 0 Refills, Maintenance, 01/04/21 13:18:00EST, Tablet, [facility] #[id number], Partial fill upon patient request if the prescription is for a schedule II opioid drug., 158, cm, 01/04/21 12... Start Date: 01/04/21 Status: Ordered cholecalciferol 2000 intl units oral tablet 2 tablet, By Mouth, Daily, # 180 tablet, 1 Refills, [facility] #[id number], 158, cm, 01/04/21 12:51:00 EST, Height, 93.2, kg, 05/04/20 10:09:00 EST, Dry Weight Start Date: 01/17/21 Status: Ordered female umbilical hernia belt female umbilical hernia belt, See Instructions, # 1 each, Refills 0, Tot. Refills 0, Maintenance, stop wearing for any increase in discomfort and contact general surgeon, 09/09/19 14:53:00 EDT, Supply Start Date: 09/09/19 Status: Ordered hydrochlorothiazide 25 mg oral tablet 1, tablet, By Mouth, Daily, # 90 tablet, Refills 1, Route to Pharmacy Electronically, [facility] #[id number], 158, cm, 11/25/20 12:59:00 EDT, Height, 93.2, kg, 05/04/20 10:09:00 EST, Dry Weight Start Date: 12/30/20 Status: Ordered ibuprofen 600 mg oral tablet 1, tablet, By Mouth, Every 6 hours, PRN, for 30 days, TAKE WITH FOOD OR MILK., # 90 tablet, Refills0, Physician Stop, NEEDED FOR PAIN, Route to Pharmacy Electronically, [facility] #[id number], 158, cm, 01/04/21 12:51:00 EST, Height, 93.2, kg,... Start Date: 02/07/21 Stop Date: 03/09/21 Status: Ordered lisinopril 20 mg oral tablet 1, tablet, By Mouth, Daily, # 90 tablet, Refills 1, Route to Pharmacy Electronically, [facility] #[id number], 158, cm, 08/01/20 11:06:00 EDT, Height, 93.2, kg, 05/04/20 10:09:00 EST, Dry Weight Start Date: 10/24/20 Status: Ordered Metoprolol Succinate ER 50 mg oral tablet, extended release 1 tablet, By Mouth, Daily, # 90 tablet, 1 Refills, [facility] #[id number], 158, cm, 11/25/20 12:59:00 EDT, Height, 93.2, kg, 05/04/20 10:09:00 EST, Dry Weight Start Date: 12/30/20 Status: Ordered pantoprazole 20 mg oral delayed release tablet 1 tablet, By Mouth, Daily, # 90 tablet, 0 Refills, 158, cm, 11/25/20 12:59:00 EDT, Height, 93.2, kg, 05/04/20 10:09:00 EST, Dry Weight Start Date: 12/30/20 Status: Ordered PreserVision AREDS 2 oral capsule 1 capsule, By Mouth, 2 times a day, PLEASE DISPENSE IN BUBBLE/BLISTER PACK, # 180 capsule, 1 Refills, Maintenance, 09/18/20 20:09:00 EDT, Capsule, [facility] #[id number], PLEASE DISPENSE IN BUBBLE/BLISTER PACK, 1 capsule By Mouth 2 times a day,x9... Start Date: 09/18/20 Stop Date: 03/17/21 Status: Ordered Ventolin HFA 108 mcg/inh inhalation aerosol with adapter 2 puffs, Inhalation, Every 4 hours, TAKE 2 PUFFS EVERY 4 HOURS IF NEEDED FOR WHEEZING, # 1 each, 5 Refills, Maintenance, 02/16/20 10:48:00 EST, Inhaler, [facility] #[id number], Partial fill uponpatient request if the prescription is for a schedu... Start Date: 02/16/20 Stop Date: 08/14/20 Status: Ordered Problem List Condition Effective Dates Status Health Status Inform ant Carotid artery stenosis- dop pler 02/2020= less than 50% bilat(Confirmed) 1 Active Interstitial cystitis(Confirmed) Active Chronic lower back pain(Confirmed) Active Cirrhosis(Confirmed) Active Vitamin B12 deficiency(Confirmed) Active CAD (coronary artery disease)(Confirmed) Active Renal cyst(Confirmed) Active Aortic dilatation- abd US 2020 normal caliber(Confirmed) 2 Active Ex-smoker, 1-2 ppd X 22 year s, quit 11/18/1993(Confirmed) Active GERD (gastroesophageal reflu x disease)(Confirmed) Active History of arm fracture - 02/2019(Confirmed) Active Hemorrhoids(Confirmed) Active Hiatal hernia- EGD 11/2019(C onfirmed) 3 Active History of alcohol abuse(Confirmed) Active History of coronary artery b ypass graft x 4 04/2016(Confirmed) Active History of substance abuse(Confirmed) Active COVID-19 vaccine series comp leted- Pfizer 03/2020(Confirmed) Active Hyperlipidemia(Confirmed) Active Hypertension(Confirmed) Active Urinary frequency(Confirmed) Active Abnormal renal finding- ABD US incidental mild renal cortical thinning, normal renal function - 02/2020(Confirmed) Active H/O Malignant melanoma - 2000(Confirmed) Active Depression with anxiety(Confirmed) Active Obese class II(Confirmed) Active Obesity(Confirmed) Active Osteoarthritis(Confirmed) Active Osteoporosis - 03/2019 dexa [facility](Confirmed) Active History of Hepatitis B(Confirmed) Active Umbilical hernia(Confirmed) Active COVID-19 vaccine series star anil- 03/31 #1 Pfizer(Confirmed) Active Varicella(Confirmed) Active PVC (premature ventricular contraction)(Confirmed) Active History of Hepatitis C- foll owed by GI , gets US per GI q 6 mo(Confirmed) 4 Active Vitamin D deficiency(Confirmed) Active 1doppler 02/2020= less than 50% bilat 2- abd US 02/2020 normal caliber 3EGD 11/2019 4followed by GI , gets US per GI q 6 mo Social History Social History Type Response Tobacco Use: quit 1993 1-2pp d 31yrs. Sex
--- OUTSIDE RECORDS SUMMARY | 2022-11-20 09:28 | XMS_ITS | Continuity of Care Document ---
Author Name Unknown Organization [facility] Address [address] [place] [address], [address] [place] [address]- Care Team Providers Care Host And Hostess Name Role Phone Ishan PEÑA, [facility] Primary Care Physician ( [phone] Encounter [facility] Date(s): 03/05/22 - 03/12/22 [facility] [address] [place] [address], [address] [place], [place] [address] Attending Physician: Mane Beyer DO Allergies, Adverse Reactions, Alerts No Known Allergies Immunizations Given and Recorded Vaccine Date Status Refusal Reason influenza virus vaccine, inactivated 11/24/21 Loco rded influenza virus vaccine, inactivated 12/10/20 Loco rded [id number] bivalent booster vax 11/24/21 Recorded SARS-CoV-2 mRNA ([id number]) vax 05/26/21 Recorded tetanus/diphtheria/pertussis, acel(Tdap) 12/17/20 Recorded tetanus/diphtheria/pertussis, acel(Tdap) 10/20/12 Recorded SARS-CoV-2 (COVID-19) mRNA BNT-162b2 vac 11/26/20 Recorded SARS-CoV-2 (COVID-19) mRNA BNT-162b2 vac 04/21/20 Recorded SARS-CoV-2 (COVID-19) mRNA BNT-162b2 vac 04/01/20 Recorded SARS-CoV-2 (COVID-19) mRNA BNT-162b2 vac 03/31/20 Recorded Influenza Virus Vaccine (oldterm) 10/27/19 Recorde d Influenza Virus Vaccine (oldterm) 11/11/09 Recorde d Zoster Vaccine Live 03/27/17 Recorded pneumococcal 23-valent vaccine 03/26/17 Recorded pneumococcal 23-valent vaccine 11/24/08 Recorded pneumococcal 13-valent vaccine 12/27/15 Recorded tetanus-diphtheria toxoids (Td) 01/19/08 Recorded Hepatitis A Adult Vaccine 04/06/07 Recorded Not Given Vaccine Date Status Refusal Reason influenza virus vaccine, inactivated 1 04/28/16 No t Given Patient Refuses 1Result Comment: Patient has received flu vax this season Medications amLODIPine 5 mg oral tablet 5 mg, 1, tablet, By Mouth, Daily, # 90 tablet, Refills 3, Tot. Refills 3, Maintenance, 01/15/22 16:59:00 EST, [place] [facility] [place] upon patient request if the prescription is for a schedule II opioid drug.... Start Date: 01/15/22 Stop Date: 01/10/23 Status: Ordered aspirin 81 mg oral tablet 1 tablet = 81 mg, By Mouth, Daily, 0 Refills, Maintenance, 03/01/16 13:51:57 Start Date: 03/01/16 Status: Ordered atorvastatin 20 mg oral tablet See Instructions, TAKE 1 TABLET BY MOUTH DAILY TAKE 1 TABLET OF 20 MG WITH 1 TABLET OF 40 MG FOR TOTAL OF 60 MG DAILY, # 90 tablet, 1 Refills, [facility] #[id number], 159, cm, 07/26/21 11:39:00 EDT, Height, 93.2, kg, 05/04/20 10:09:00 EST, Dry We... 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 1 bottle., #1 each, 0 Refills, Maintenance, 03/28/21 11:42:00 EST, [facility] #[id number], Partial fill upon patient request if the prescription is for a lam... Start Date: 03/28/21 Status: Ordered Colace sodium 100 mg oral capsule 100 mg, 1, capsule, By Mouth, 2 times a day, PRN, # 20 capsule, Refills 0, Tot. Refills 0, Maintenance, for constipation, 02/24/22 11:17:00 EST, Route to Pharmacy Electronically, [facility], Partial fill upon patient request if the presc... Start Date: 02/24/22 Status: Ordered gabapentin 300 mg oral capsule 300 mg, By Mouth, 3 times a day, # 63 tablet, Refills 0, Tot. Refills 0, Maintenance, 02/24/22 11:16:00 EST, Route to Pharmacy Electronically, [facility], Partial fill upon patient request if the prescription is for a schedule II opioid... Start Date: 02/24/22 Stop Date: 03/17/22 Status: Ordered hydrochlorothiazide 25 mg oral tablet See Instructions, TAKE 1 TABLET BY MOUTH DAILY, # 90 tablet, Refills 0, Instructions Replace Required Details, Route to Pharmacy Electronically, [facility] #[id number], 159, cm, 07/26/21 11:39:00 EDT, Height, 93.2, kg, 05/04/20 10:09:00 EST, Dry... Start Date: 10/02/21 Status: Ordered lisinopril 20 mg oral tablet 1, tablet, By Mouth, Daily, OF LISINOPRIL., # 90 tablet, Refills 0, Route to Pharmacy Electronically, [facility] #[id number], 159, cm, 07/26/21 11:39:00 EDT, Height, 93.2, kg, 05/04/20 10:09:00 EST, Dry Weight Start Date: 10/16/21 Status: Ordered lisinopril 5 mg oral tablet 5 mg, 1, tablet, By Mouth, Daily, # 30 tablet, Refills 0, Maintenance, 11/01/21 10:49:00 EDT, Partial fill upon patient request if the prescription is for a schedule II opioid drug. Start Date: 11/01/21 Status: Ordered metoprolol 25 mg oral tablet, extended release 25 mg, 1, tablet, By Mouth, Daily, # 90 tablet, Refills 3, Tot. Refills 3, Maintenance, 01/15/22 16:59:00 EST, Route to Pharmacy Electronically, [facility], Partial fill upon patient request if the prescription is for a schedule II opioid drug... Start Date: 01/15/22 Stop Date: 01/10/23 Status: Ordered Multivitamin Daily, 0 Refills, Maintenance, 07/26/21 11:43:00 EDT, Partial fill upon patient request if the prescription is for a schedule II opioid drug. Start Date: 07/26/21 Status: Ordered pantoprazole 20 mg oral delayed release tablet See Instructions, TAKE 1 TABLET BY MOUTH DAILY, # 90 tablet, 0 Refills, 158, cm, 03/28/21 10:29:00 EST, Height, 93.2, kg, 05/04/20 10:09:00 EST, Dry Weight Start Date: 03/29/21 Status: Ordered PreserVision AREDS 2 oral capsule 1 capsule, By Mouth, 2 times a day, PLEASE DISPENSE IN BUBBLE/BLISTER PACK, # 180 capsule, 1 Refills, Maintenance, 09/18/20 20:09:00 EDT, Capsule, [facility] #[id number], PLEASE DISPENSE IN BUBBLE/BLISTER PACK, 1 capsule By Mouth 2 times a day,x9... Start Date: 09/18/20 Stop Date: 03/17/21 Status: Ordered Readi-Cat 2 oral suspension See Instructions, Oral Contrast 2 Bottles 450 ml each Dx: Hernia, # 900 mL, 0 Refills, Maintenance,11/01/21 15:08:00 EDT, [id number], Partial fill upon patient request if the prescription isfor a schedule II opioid drug., Oral Contrast; 2... Start Date: 11/01/21 Status: Ordered Ventolin HFA 108 mcg/inh inhalation aerosol with adapter 2 puffs, Inhalation, Every 4 hours, TAKE 2 PUFFS EVERY 4 HOURS IF NEEDED FOR WHEEZING, # 1 each, 5 Refills, Maintenance, 02/16/20 10:48:00 EST, Inhaler, [facility] #[id number], Partial fill uponpatient request if the prescription is for a schedu... Start Date: 02/16/20 Stop Date: 08/14/20 Status: Ordered Problem List Condition Confirmation Course Effective Dates Status H ealth Status Informant Interstitial cystitis Confirmed Active Chronic lower back pain Confirmed Active Cirrhosis Confirmed Active Vitamin B12 deficiency Confirmed Active CAD (coronary artery disease) Confirmed Active Renal cyst Confirmed Active Aortic dilatation- abd US 02/2020 normal caliber 1 Confirmed Active Ex-smoker, 1-2 ppd X 22 years, quit 11/18/1993 Confirmed Active GERD (gastroesophageal reflux disease) Confirmed Active History of arm fracture - 02/2019 Confirmed Active Hemorrhoids Confirmed Active Hiatal hernia- EGD 11/2019 2 Confirmed Active History of alcohol abuse Confirmed Active History of coronary artery bypass graft x 4 04/2016 Confirmed Active History of substance abuse Confirmed Active Hyperlipidemia Confirmed Active Hypertension Confirmed Active Urinary frequency Confirmed Active H/O Malignant melanoma - 2000 Confirmed Active Depression with anxiety Confirmed Active Obesity Confirmed Active Osteoarthritis Confirmed Active Osteoporosis - 03/2019 dexa [facility] Confirmed Active Prurigo nodularis- itchy unroofed nodules - dx by Dr Katharine [facility], 2013, rx Biafine topical emulsion bid Confirmed Active Severe obesity (BMI 35.0-39.9) with comorbidity Confirmed Active History of Hepatitis B Confirmed Active Umbilical hernia Confirmed Active Varicella Confirmed Active PVC (premature ventricular contraction) Confirmed Active History of Hepatitis C- followed by GI , gets US per GI q 6 mo 3 Confirmed Active Vitamin D deficiency Confirmed Active 1- abd US 02/2020 normal caliber 2EGD 11/2019 3followed by GI , gets US per GI q 6 mo Vital Signs Most recent to oldest [Reference Range]: 1 Height 160 cm (03/05/22 9:47 AM) Weight 90.2 kg (03/05/22 9:47 AM) Oxygen Saturation [94-100 %] 96 % (03/05/22 9:47 AM) Pulse Rate [55-90 bpm] 87 bpm (03/05/22 9:47 AM) Body Mass Index [18.5-24.99 kg/m2] 35.23 kg/m2 *>HHI* (03/05/22 9:47 AM) Blood Pressure [90-138/55-84 mm Hg] 142/ 66mm Hg *H* (03/05/22 9:47 AM) Respiratory Rate [16-30 br/min] 20 br/mi n (03/05/22 9:47 AM) Temperature [96.8-100.4 DegF] 98.5 DegF (03/05/22 9:47 AM) Blood pressure sites Arm, left (03/05/22 9:47 AM) Temperature Route Temporal (03/05/22 9:47 AM) Weight Obtained Via Standing scale (03/05/22 9:47 AM) Social History Social History Type Response Tobacco Use: quit 1993 1-2pp d 31yrs. Sex Patient Care team information Care Team Personnel Name: Jarod Olmstead MD Position: S Primary Care Physician Member Role: PCP Address: [facility] [address] [facility] [place] [address]- [place] Name: Wen Stoll RN Position: [facility] RN Member Role: Primary Care Nurse Name: Jeanne Gallagher Position: [facility] Outreach Member Role: Lifetime Consulting Physician Name: Katerina Campos RN Position: [facility] RN Member Role: Primary Care Nurse Name: Bryanna Guzman RN Position: [facility] RN Member Role: Primary Care Nurse Care Team Related Persons Name: ADEN GARCIA Name: FRANCIS GARCIA Address: home
--- OUTSIDE RECORDS SUMMARY | 2022-11-20 09:28 | XMS_ITS | Continuity of Care Document ---
Author Name Unknown Organization [facility] Address [address] [place] [address]- Care Team Providers Care Fiber Heel Piece Shaper Name Role Phone Erik PEÑA, Kirsten Jauregui Primary Care Physician Encounter [facility] [place] Date(s): 06/03/20 - 07/03/20 [facility] [address] [place] [id number]- Allergies, Adverse Reactions, Alerts Substance Reaction Severity Status NKA Active Immunizations Given and Recorded Vaccine Date Status Refusal Reason SARS-CoV-2 (COVID-19) mRNA BNT-162b2 vac 04/01/20 Recorded Influenza Virus Vaccine (oldterm) 10/27/19 Recorde d Influenza Virus Vaccine (oldterm) 11/11/09 Recorde d pneumococcal 23-valent vaccine 03/26/17 Recorded pneumococcal 23-valent vaccine 11/24/08 Recorded pneumococcal 13-valent vaccine 12/27/15 Recorded tetanus/diphtheria/pertussis, acel(Tdap) 10/20/12 Recorded tetanus-diphtheria toxoids (Td) 01/19/08 Recorded Not Given Vaccine Date Status Refusal Reason influenza virus vaccine, inactivated 1 04/28/16 No t Given Patient Refuses 1Result Comment: Patient has received flu vax this season Medications aspirin 81 mg oral tablet 1 tablet = 81 mg, By Mouth, Daily, 0 Refills, Maintenance, 03/01/16 13:51:57 Start Date: 03/01/16 Status: Ordered atorvastatin 20 mg oral tablet 1 tablet = 20 mg, By Mouth, Daily, Take 1 tablet of 20 mg with 1 tablet of 40 mg for total of 60 mgdaily, # 90 tablet, 1 Refills, Maintenance, 04/20/20 16:09:00 EST, Tablet, [facility] #[id number], Partial fill upon patient request if the prescr... Start Date: 04/20/20 Status: Ordered cholecalciferol 4000 intl units oral tablet = 100 mcg, By Mouth, Daily, # 90 tablet, 1 Refills, Maintenance, 02/10/20 16:38:00 EST, [facility] #[id number], Partial fill upon patient request if the prescription is for a schedule II opioid drug., 165.1, cm, 02/10/20 15:04:00 EST, Height Start Date: 02/10/20 Stop Date: 08/08/20 Status: Ordered female umbilical hernia belt female umbilical hernia belt, See Instructions, # 1 each, Refills 0, Tot. Refills 0, Maintenance, stop wearing for any increase in discomfort and contact general surgeon, 09/09/19 14:53:00 EDT, Supply Start Date: 09/09/19 Status: Ordered hydrochlorothiazide 25 mg oral tablet 25 mg, 1, tablet, By Mouth, Daily, # 90 tablet, Refills 1, Tot. Refills 1, Maintenance, 01/07/20 14:52:00 EST, Route to Pharmacy Electronically, [facility] #[id number], 165.1, cm, 12/10/19 10:57:00 EDT, Height Start Date: 01/07/20 Stop Date: 07/05/20 Status: Ordered Lipitor 40 mg oral tablet 1 tablet = 40 mg, By Mouth, Daily, Take 1 tablet of 40 mg with 1 tablet of 20 mg for total 60 mg daily, # 90 tablet, 1 Refills, Maintenance, 04/06/20 14:02:00 EST, Tablet, [facility] #[id number], 165.1, cm, 04/06/20 8:13:00 EST, Height Start Date: 04/06/20 Status: Ordered lisinopril 20 mg oral tablet 20 mg, 1, tablet, By Mouth, Daily, # 90 tablet, Refills 1, Tot. Refills 1, Maintenance, 10/29/19 14:56:00 EDT, Route to Pharmacy Electronically, [facility] #[id number], 165.1, cm, 10/28/19 9:59:00 EDT, Height Start Date: 10/29/19 Stop Date: 04/26/20 Status: Ordered metoprolol 50 mg oral tablet, extended release 50 mg, 1, tablet, By Mouth, Daily, # 90 tablet, Refills 1, Tot. Refills 1, Maintenance, 01/07/20 14:51:00 EST, Route to Pharmacy Electronically, [facility] #[id number], 165.1, cm, 12/10/19 10:57:00 EDT, Height Start Date: 01/07/20 Stop Date: 07/05/20 Status: Ordered pantoprazole 20 mg oral delayed release tablet = 20 mg, By Mouth, Daily, # 90 each, 1 Refills, Maintenance, 04/06/20 9:27:00 EST, [facility], 165.1, cm, 04/06/20 8:13:00 EST, Height Start Date: 04/06/20 Stop Date: 10/03/20 Status: Ordered PreserVision AREDS 2 oral capsule 1 capsule, By Mouth, Daily, PLEASE DISPENSE IN BUBBLE/BLISTER PACK, # 90 capsule, 1 Refills, Maintenance, 04/01/20 14:07:00 EST, Capsule, [facility] #[id number], PLEASE DISPENSE IN BUBBLE/BLISTER PACK, 1 capsule By Mouth Daily,x90 days,Instr:PLEA... Start Date: 04/01/20 Stop Date: 09/28/20 Status: Ordered Ventolin HFA 108 mcg/inh inhalation aerosol with adapter 2 puffs, Inhalation, Every 4 hours, TAKE 2 PUFFS EVERY 4 HOURS IF NEEDED FOR WHEEZING, # 1 each, 5 Refills, Maintenance, 02/16/20 10:48:00 EST, Inhaler, [facility] #[id number], Partial fill uponpatient request if the prescription is for a schedu... Start Date: 02/16/20 Stop Date: 08/14/20 Status: Ordered Vitamin D3 5000 IU Vitamin D3 5000 IU, See Instructions, # 90 capsule, Refills 0, Tot. Refills 0, Maintenance, Take one capsule daily, 07/03/19 15:28:00 EDT, Supply, 165.1, cm, 04/24/19 8:48:00 EST, Height Start Date: 07/03/19 Status: Ordered Problem List Condition Effective Dates [...] abuse(Confirmed) Active COVID-19 vaccine series comp leted- [employer] 03/2020(Confirmed) Active Hyperlipidemia(Confirmed) Active Hypertension(Confirmed) Active Urinary frequency(Confirmed) Active Abnormal renal finding- ABD US incidental mild renal cortical thinning, normal renal function - 02/2020(Confirmed) Active H/O Malignant melanoma - 2000(Confirmed) Active Depression with anxiety(Confirmed) Active Obesity(Confirmed) Active Osteoarthritis(Confirmed) Active Osteopenia(Confirmed) Active Osteoporosis - 03/2019 dexa [facility](Confirmed) Active [...]
--- OUTSIDE RECORDS SUMMARY | 2022-11-20 09:28 | XMS_ITS | Continuity of Care Document ---
Author Name Unknown Organization [facility] Address [address] [place] [id number]- Care Team Providers Care Senior Research Project Manager Name Role Phone Erik PEÑA, Kirsten Jauregui Primary Care Physician [place] [facility] [place](s): 10/25/20 - 11/24/20 [facility] [address] [place] [phone]- [place] Allergies, Adverse Reactions, Alerts Substance Reaction Severity [...] mgdaily, # 90 tablet, 1 Refills, Maintenance, 07/22/20 14:03:00 EDT, Tablet, [email or web address] #[id number], Partial fill upon patient request if the prescr... Start Date: 07/22/20 Status: Ordered cholecalciferol 4000 intl units oral tablet = 100 mcg, By Mouth, Daily, # 90 tablet, 1 Refills, Maintenance, 02/10/20 16:38:00 EST, [email or web address] #[id number], Partial fill upon patient request if the [...] tablet, Refills 1, Tot. Refills 1, Maintenance, 07/09/20 14:57:00 EDT, Route to Pharmacy Electronically, [email or web address] #[id number], 165.1, cm, 07/06/20 11:29:00 EDT, Height, 93.2, kg, 05/04/20 10:09:00 Dr... DOMINIK Start Date: 07/09/20 Stop Date: 01/05/21 Status: Ordered Lipitor 40 mg oral tablet 1 tablet = 40 mg, By Mouth, Daily, Take 1 tablet of 40 mg with 1 tablet of 20 mg for total 60 mg daily, # 90 tablet, 1 Refills, Maintenance, 07/22/20 14:03:00 EDT, Tablet, [email or web address] #[id number], 158, cm, 07/22/20 13:04:00 EDT, Height, 93.2, kg,... Start Date: 07/22/20 Stop Date: 01/18/21 Status: Ordered lisinopril 20 mg oral tablet 1, tablet, By Mouth, Daily, # 90 tablet, Refills 1, Route to Pharmacy Electronically, [email or web address] #[id number], 158, cm, 08/01/20 11:06:00 EDT, Height, 93.2, kg, 05/04/20 10:09:00 EST, Dry Weight Start Date: 10/24/20 Status: Ordered metoprolol 50 mg oral tablet, extended release 50 mg, 1, tablet, By Mouth, Daily, # 90 tablet, Refills 1, Tot. Refills 1, Maintenance, 07/09/20 14:57:00 EDT, Route to Pharmacy Electronically, [email or web address] #[id number], 165.1, cm, 07/06/20 11:29:00 EDT, Height, 93.2, kg, 05/04/20 10:09:00 EST, Dr... Start Date: 07/09/20 Stop Date: 01/05/21 Status: Ordered pantoprazole 20 mg oral delayed release tablet 1 tablet, By Mouth, Daily, # 90 tablet, 0 Refills, Maintenance, 10/06/20 11:51:00 EDT, 158, cm, 08/01/20 11:06:00 EDT, Height, 93.2, kg, 05/04/20 10:09:00 EST, Dry Weight Start Date: 10/06/20 Status: Ordered PreserVision AREDS 2 oral capsule 1 capsule, By Mouth, 2 times a day, PLEASE DISPENSE IN BUBBLE/BLISTER PACK, # 180 capsule, 1 Refills, Maintenance, 09/18/20 20:09:00 EDT, Capsule, [email or web address] #[id number], PLEASE DISPENSE IN BUBBLE/BLISTER PACK, 1 capsule By Mouth 2 times a day,x9... Start Date: 09/18/20 Stop Date: 03/17/21 Status: Ordered Ventolin HFA 108 mcg/inh inhalation aerosol with adapter 2 puffs, Inhalation, Every 4 hours, TAKE 2 PUFFS EVERY 4 HOURS IF NEEDED FOR WHEEZING, # 1 each, 5 Refills, Maintenance, 02/16/20 10:48:00 EST, Inhaler, [email or web address] #[id number], Partial fill uponpatient request if the prescription [...] abuse(Confirmed) Active COVID-19 vaccine series comp leted- [employer] 03/2020(Confirmed) Active Hyperlipidemia(Confirmed) Active Hypertension(Confirmed) Active Urinary frequency(Confirmed) Active Abnormal renal finding- ABD US incidental mild renal cortical thinning, normal renal function - 02/2020(Confirmed) Active H/O Malignant melanoma - 2000(Confirmed) Active Depression with anxiety(Confirmed) Active Obesity(Confirmed) Active Osteoarthritis(Confirmed) Active Osteoporosis - [...]
--- OUTSIDE RECORDS SUMMARY | 2022-11-20 09:28 | XMS_ITS | Continuity of Care Document ---
Author Name Unknown Organization [facility] Address [address] [place] [address]- Care Team Providers Care Volunteer Specialist Name Role Phone Erik PEÑA, Kirsten Jauregui Primary Care Physician ( [phone] Encounter [facility] Date(s): 04/01/20 - 05/01/20 [facility] [address] [place] [address]- Allergies, Adverse Reactions, Alerts Substance Reaction Severity [...] 1 Refills, Maintenance, 04/20/20 16:09:00 EST, Tablet, [facility] #[id number], Partial fill upon patient request if the prescr... Start Date: 04/20/20 Status: Ordered cholecalciferol 4000 intl units oral tablet = 100 mcg, By Mouth, Daily, # 90 tablet, 1 Refills, Maintenance, 02/10/20 16:38:00 EST, [facility] #[id number], Partial fill upon patient request if the [...] 01/07/20 14:52:00 EST, Route to Pharmacy Electronically, [facility] #[id number], 165.1, cm, 12/10/19 10:57:00 EDT, Height Start Date: 01/07/20 Stop Date: 07/05/20 Status: Ordered Lipitor 40 mg oral tablet 1 tablet = 40 mg, By Mouth, Daily, Take 1 tablet of 40 mg with 1 tablet of 20 mg for total 60 mg daily, # 90 tablet, 1 Refills, Maintenance, 04/06/20 14:02:00 EST, Tablet, [facility] #[id number], 165.1, cm, 04/06/20 8:13:00 EST, Height Start Date: 04/06/20 Status: Ordered lisinopril 20 mg oral tablet 20 mg, 1, tablet, By Mouth, Daily, # 90 tablet, Refills 1, Tot. Refills 1, Maintenance, 10/29/19 14:56:00 EDT, Route to Pharmacy Electronically, [facility] #[id number], 165.1, cm, 10/28/19 9:59:00 EDT, Height Start Date: 10/29/19 Stop Date: 04/26/20 Status: Ordered metoprolol 50 mg oral tablet, extended release 50 mg, 1, tablet, By Mouth, Daily, # 90 tablet, Refills 1, Tot. Refills 1, Maintenance, 01/07/20 14:51:00 EST, Route to Pharmacy Electronically, [facility] #[id number], 165.1, cm, 12/10/19 10:57:00 EDT, Height Start [...] 1 Refills, Maintenance, 04/01/20 14:07:00 EST, Capsule, [facility] #[id number], PLEASE DISPENSE IN BUBBLE/BLISTER PACK, 1 capsule By Mouth Daily,x90 days,Instr:PLEA... Start Date: 04/01/20 Stop Date: 09/28/20 Status: Ordered Ventolin HFA 108 mcg/inh inhalation aerosol with adapter 2 puffs, Inhalation, Every 4 hours, TAKE 2 PUFFS EVERY 4 HOURS IF NEEDED FOR WHEEZING, # 1 each, 5 Refills, Maintenance, 02/16/20 10:48:00 EST, Inhaler, [facility] #[id number], Partial fill uponpatient request if the prescription [...] 04/2016(Confirmed) Active History of substance abuse(Confirmed) Active Hyperlipidemia(Confirmed) Active Hypertension(Confirmed) Active Urinary frequency(Confirmed) Active Abnormal renal finding- ABD US incidental mild renal cortical thinning, normal renal function - 02/2020(Confirmed) Active H/O Malignant melanoma - 2000(Confirmed) Active Depression with anxiety(Confirmed) Active Obesity(Confirmed) Active Osteoarthritis(Confirmed) Active Osteopenia(Confirmed) Active Osteoporosis - 03/2019 dexa [facility](Confirmed) Active History of Hepatitis B(Confirmed) Active Umbilical hernia(Confirmed) Active COVID-19 vaccine series star anil- 2 #1 Pfizer(Confirmed) Active Varicella(Confirmed) Active PVC (premature [...]
--- OUTSIDE RECORDS SUMMARY | 2022-11-20 09:28 | XMS_ITS | Continuity of Care Document ---
Author Name Unknown Organization [facility] ter Address [address] [place] [id number]- Care Team Providers Care Fur Sorter Name Role Phone Erik PEÑA, Kirsten Jauregui Primary Care Physician ( [phone] Encounter [facility] Date(s): 05/26/19 - 05/26/[address] [address]- [facility] Discharge Disposition: A-D/C Home Attending Physician: Not on Staff, Attending MD Admitting Physician: Not on Staff, Admitting MD Referring Physician: Not on Staff, Referring MD Allergies, Adverse Reactions, Alerts Substance Reaction Severity Status NKA Active Immunizations Given and Recorded Vaccine Date Status Refusal Reason pneumococcal 23-valent vaccine 03/26/17 Recorded pneumococcal 23-valent vaccine 11/24/08 Recorded pneumococcal 13-valent vaccine 12/27/15 Recorded tetanus/diphtheria/pertussis, acel(Tdap) 10/20/12 Recorded Influenza Virus Vaccine (oldterm) 11/11/09 Recorde d tetanus-diphtheria toxoids (Td) 01/19/08 Recorded Not Given Vaccine Date Status Refusal Reason influenza virus vaccine, inactivated 1 04/28/16 No t Given Patient Refuses 1Result Comment: Patient has received flu vax this season Medications acetaminophen 325 mg oral tablet 650 mg, By Mouth, Every 4 hours, PRN, for 30 days, greater than 101F or Mild Pain, # 360 tablet, Refills 1, Tot. Refills 1, Acute 07/24/19 13:20:00 EDT, Temperature, 05/25/19 13:20:00 EDT, Route to Pharmacy Electronically, [facility] #[id number],... Start Date: 05/25/19 Stop Date: 07/24/19 Status: Ordered aspirin 81 mg oral tablet 1 tablet = 81 mg, By Mouth, Daily, 0 Refills, Maintenance, 03/01/16 13:51:57 Start Date: 03/01/16 Status: Ordered hydrochlorothiazide 25 mg oral tablet Refills 0, Maintenance, 04/24/19 8:57:00 EST Start Date: 04/24/19 Status: Ordered Lipitor 40 mg oral tablet 1 tablet = 40 mg, By Mouth, Daily, # 30 tablet, 0 Refills, Maintenance, Tablet Start Date: 04/17/16 Status: Ordered lisinopril 20 mg oral tablet 20 mg, 1, tablet, By Mouth, Daily, # 30 tablet, Refills 0, Maintenance, 04/24/17 14:04:02 Start Date: 04/24/17 Status: Ordered metoprolol succinate 50 mg oral capsule, extended release 1 capsule = 50 mg, By Mouth, Daily, # 90 capsule, 0 Refills, Maintenance, 04/24/19 9:40:00 EST, ER Capsule, [facility] #[id number], 165.1, cm, 04/24/19 8:48:00 EST, Height Start Date: 04/24/19 Stop Date: 07/23/19 Status: Ordered pantoprazole 20 mg oral delayed release tablet 20 mg, By Mouth, Daily, # 30 tablet, Refills 0, Tot. Refills 0, Maintenance, 05/02/16 11:59:13, Print Requisition Start Date: 05/02/16 Stop Date: 06/01/16 Status: Ordered PreserVision AREDS 2 oral capsule 1 capsule, By Mouth, Daily, 0 Refills, Maintenance, 03/01/16 13:51:26 Start Date: 03/01/16 Status: Ordered Vitamin B-12 1000 mcg oral tablet 1,000 mcg, 1, tablet, By Mouth, Daily, # 90 tablet, Refills 0, Maintenance, 04/24/19 8:57:00 EST Start Date: 04/24/19 Status: Ordered Vitamin D3 1000 intl units oral capsule 1 capsule = 1,000 International_Units, By Mouth, Daily, # 100 capsule, 0 Refills, Maintenance, 04/24/17 14:04:25, Capsule Start Date: 04/24/17 Status: Ordered VITAMIN D3 5000UNIT CAPSULES TAKE 1 CAPSULE BY MOUTH ONCE DAILY. 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) Active History of substance abuse(Confirmed) Active Hyperlipidemia(Confirmed) Active Hypertension(Confirmed) Active Urinary frequency(Confirmed) Active H/O Malignant melanoma - 2000(Confirmed) Active Depression with anxiety(Confirmed) Active Obesity(Confirmed) Active Osteoarthritis(Confirmed) Active Osteopenia(Confirmed) Active Osteoporosis - 03/2019 dexa [facility](Confirmed) Active History of Hepatitis B(Confirmed) Active Varicella(Confirmed) Active PVC (premature ventricular contraction)(Confirmed) Active History of Hepatitis C(Confirmed) Active Social History Social History Type Response Tobacco Use: quit 1993 1-2pp d 31yrs. Sex
--- OUTSIDE RECORDS SUMMARY | 2022-11-20 09:28 | XMS_ITS | Continuity of Care Document ---
Author Name Unknown Organization [facility] Address [address] [place] [address]- Care Team Providers Care Consultant Teacher Name Role Phone Erik PEÑA, Kirsten Jauregui Primary Care Physician ( [phone] Encounter [facility] Date(s): 03/24/21 - 04/23/21 [facility] [address] [place] [address]- Allergies, Adverse Reactions, Alerts No Known Allergies Immunizations Given and Recorded Vaccine Date Status Refusal Reason tetanus/diphtheria/pertussis, acel(Tdap) 12/17/20 Recorded tetanus/diphtheria/pertussis, acel(Tdap) 10/20/12 Recorded influenza virus vaccine, inactivated 12/10/20 Loco rded SARS-CoV-2 (COVID-19) mRNA BNT-162b2 vac 11/26/20 Recorded [...] tablet = 20 mg, By Mouth, Daily, take with Atorvastatin 40 mg to make total of 60 mg, # 30 tablet, 0 Refills, Maintenance, 04/03/21 15:44:00 EST, Partial fill upon patient request if the prescription is for a schedule II opioid drug. Start Date: 04/03/21 Status: Ordered atorvastatin 40 mg oral tablet See Instructions, TAKE 1 TABLET BY MOUTH DAILY TAKE 1 TABLET OF 40 MG WITH 1 TABLET OF 20 MG FOR TOTAL 60 MG DAILY, # 90 tablet, 0 Refills, [facility] #[id number], 158, cm, 01/04/21 12:51:00 EST, Height, 93.2, kg, 05/04/20 10:09:00 EST, Dry Weight Start Date: 01/25/21 Status: Ordered Biafine topical emulsion See Instructions, PRN Prurigo Nodularis, apply to affected area twice a day as needed. 1 bottle., #1 each, 0 Refills, Maintenance, 03/28/21 11:42:00 EST, [facility] #[id number], Partial fill upon patient request if the prescription is for a lam... Start Date: 03/28/21 Status: Ordered hydrochlorothiazide 25 mg oral tablet 1, tablet, By Mouth, Daily, # 90 tablet, Refills 1, Route to Pharmacy Electronically, [facility] #[id number], 158, cm, 11/25/20 12:59:00 EDT, Height, 93.2, kg, 05/04/20 10:09:00 EST, Dry Weight Start Date: 12/30/20 Status: Ordered lisinopril 20 mg oral tablet 20 mg, 1, tablet, By Mouth, Daily, with 5 mg to total 25 mg of lisinopril, # 90 tablet, Refills 1, Tot. Refills 1, Maintenance, 04/18/21 15:36:00 EST, Route to Pharmacy Electronically, [facility] #[id number], Partial fill upon patient request if... Start Date: 04/18/21 Stop Date: 10/15/21 Status: Ordered lisinopril 5 mg oral tablet 5 mg, 1, tablet, By Mouth, Daily, with 20 mg to total 25 mg daily, # 90 tablet, Refills 1, Tot. Refills 1, Maintenance, 04/18/21 15:37:00 EST, Route to Pharmacy Electronically, [facility] #[id number], Partial fill upon patient request if the pres... Start Date: 04/18/21 Stop Date: 10/15/21 Status: Ordered Metoprolol Succinate ER 50 mg oral tablet, extended release 1 tablet, By Mouth, Daily, # 90 tablet, 1 Refills, [facility] #[id number], 158, cm, 11/25/20 12:59:00 EDT, Height, 93.2, [...] 1 Refills, Maintenance, 09/18/20 20:09:00 EDT, Capsule, [facility] #[id number], PLEASE DISPENSE IN BUBBLE/BLISTER PACK, 1 capsule By Mouth 2 times a day,x9... 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
--- OUTSIDE RECORDS SUMMARY | 2022-11-20 09:28 | XMS_ITS | Continuity of Care Document ---
Author Name Unknown Organization [facility] Address [address] [place] [address]- Care Team Providers Care Diesel Engine Specialist Name Role Phone Erik PEÑA, Kirsten Jauregui Primary Care Physician Encounter [facility] Date(s): 07/22/20 - 07/29/20 [facility] [address] [place] [address]- Encounter Diagnosis Medicare annual wellness visit, subsequent(Discharge Diagnosis) - 07/22/20 Breast cancer screening(Discharge Diagnosis) - 07/22/20 Osteoporosis - 03/2019 dexa [facility](Discharge Diagnosis) - 07/22/20 Cirrhosis(Discharge Diagnosis) - 07/22/20 Hypertension(Discharge Diagnosis) - 07/22/20 BMI 37.0-37.9, adult(Discharge Diagnosis) - 07/22/20 Attending Physician: Kirsten Valencia MD Referring Physician: Erik PEÑA, Koko Arambula Allergies, Adverse Reactions, Alerts Substance Reaction Severity [...] 1 Refills, Maintenance, 07/22/20 14:03:00 EDT, Tablet, [facility] #[id number], Partial fill upon patient request if the prescr... Start Date: 07/22/20 Status: Ordered cholecalciferol 4000 intl units oral tablet = 100 mcg, By Mouth, Daily, # 90 tablet, 1 Refills, Maintenance, 02/10/20 16:38:00 EST, [facility] #[id number], Partial fill upon patient request if the [...] 07/09/20 14:57:00 EDT, Route to Pharmacy Electronically, [facility] #[id number], 165.1, cm, 07/06/20 11:29:00 EDT, Height, 93.2, kg, 05/04/20 10:09:00 ESTDr... Start Date: 07/09/20 Stop Date: 01/05/21 Status: Ordered Lipitor 40 mg oral tablet 1 tablet = 40 mg, By Mouth, Daily, Take 1 tablet of 40 mg with 1 tablet of 20 mg for total 60 mg daily, # 90 tablet, 1 Refills, Maintenance, 07/22/20 14:03:00 EDT, Tablet, [facility] #[id number], 158, cm, 07/22/20 13:04:00 EDT, Height, 93.2, kg,... Start Date: 07/22/20 Stop Date: 01/18/21 Status: Ordered lisinopril 20 mg oral tablet 20 mg, 1, tablet, By Mouth, Daily, # 90 tablet, Refills 1, Tot. Refills 1, Maintenance, 10/29/19 14:56:00 EDT, Route to Pharmacy Electronically, [facility] #[id number], 165.1, cm, 10/28/19 9:59:00 EDT, Height Start Date: 10/29/19 Stop Date: 04/26/20 Status: Ordered lisinopril 5 mg oral tablet 5 mg, 1, tablet, By Mouth, Daily, add to 20 mg tab for 25 mg a day dose , 07/22/20, # 30 tablet, Refills 0, Tot. Refills 0, Maintenance, 07/22/20 16:38:00 EDT, Do Not Route, Partial fill upon patient request if the prescription is for a schedule II opi... Start Date: 07/22/20 Status: Ordered metoprolol 50 mg oral tablet, extended release 50 mg, 1, tablet, By Mouth, Daily, # 90 tablet, Refills 1, Tot. Refills 1, Maintenance, 07/09/20 14:57:00 EDT, Route to Pharmacy Electronically, [facility] #[id number], 165.1, cm, 07/06/20 11:29:00 EDT, Height, 93.2, [...] 1 Refills, Maintenance, 04/01/20 14:07:00 EST, Capsule, [facility] #[id number], PLEASE DISPENSE IN BUBBLE/BLISTER PACK, 1 capsule By Mouth Daily,x90 days,Instr:PLEA... Start Date: 04/01/20 Stop Date: 09/28/20 Status: Ordered Ventolin HFA 108 mcg/inh inhalation aerosol with adapter 2 puffs, Inhalation, Every 4 hours, TAKE 2 PUFFS EVERY 4 HOURS IF NEEDED FOR WHEEZING, # 1 each, 5 Refills, Maintenance, 02/16/20 10:48:00 EST, Inhaler, [facility] #[id number], Partial fill uponpatient request if the prescription [...] gets US per GI q 6 mo Diagnosis Diagnosis Type Effective Dates Health Status Clinical Service Informant Medicare annual wellness visit, subsequent Discharge Diagnosis 07/22/20 Breast cancer screening Discharge Diagnosis 07/22/20 Osteoporosis - 03/2019 dexa [facility] Discharge Diagnosis 07/22/20 Cirrhosis Discharge Diagnosis 07/22/20 Hypertension Discharge Diagnosis 07/22/20 BMI 37.0-37.9, adult Discharge Diagnosis 07/22/20 Vital Signs Most recent to oldest [Reference Range]: 1 Height 158 cm (07/22/20 1:04 PM) Weight 93 kg (07/22/20 1:04 PM) Oxygen Saturation [94-100 %] 96 % (07/22/20 1:04 PM) Pulse Rate [55-90 bpm] 68 bpm (07/22/20 1:04 PM) Body Mass Index [18.5-24.99] 37.25 *>HHI* (07/22/20 1:04 PM) Blood Pressure [90-138/55-84 mm Hg] 144/ 79mm Hg *H* (07/22/20 1:04 PM) Respiratory Rate [16-30 br/min] 20 br/mi n (07/22/20 1:04 PM) Blood pressure sites Arm, right (07/22/20 1:04 PM) Social History Social History Type Response Tobacco Use: quit 1993 1-2pp d 31yrs. Sex
--- OUTSIDE RECORDS SUMMARY | 2022-11-20 09:28 | XMS_ITS | Continuity of Care Document ---
Author Name Unknown Organization [facility] ter Address [address] [place] [id number]- Care Team Providers [employer] Division Chair Name Role Phone Ishan PEÑA, [facility] Primary Care Physician Encounter [facility] Date(s): 02/22/22 - 02/24/[address] [address]- Discharge Disposition: A-D/C Home Attending Physician: Mane Beyer DO Admitting Physician: Mane Beyer DO Referring Physician: Mane Beyer DO Allergies, Adverse Reactions, Alerts No Known Allergies Immunizations Given and Recorded Vaccine Date Status Refusal Reason influenza virus vaccine, inactivated 11/24/21 Loco rded influenza virus vaccine, inactivated 12/10/20 Loco rded [id number] bivalent booster vax 11/24/21 Recorded SARS-CoV-2 mRNA ([id number]) vax 05/26/21 Recorded tetanus/diphtheria/pertussis, acel(Tdap) 12/17/20 Recorded tetanus/diphtheria/pertussis, acel(Tdap) 10/20/12 Recorded SARS-CoV-2 (COVID-19) mRNA BNT-162b2 vac 11/26/20 Recorded SARS-CoV-2 (COVID-19) mRNA BNT-162b2 vac 04/21/20 Recorded SARS-CoV-2 (COVID-19) mRNA BNT-162b2 vac 04/01/20 Recorded SARS-CoV-2 (COVID-19) mRNA BNT-162b2 vac 03/31/20 Recorded Influenza Virus Vaccine (oldterm) 10/27/19 Recorde d Influenza Virus Vaccine (oldterm) 11/11/09 Recorde d Zoster Vaccine Live 1/31/18 Recorded pneumococcal 23-valent vaccine 03/26/17 Recorded pneumococcal 23-valent vaccine 11/24/08 Recorded pneumococcal 13-valent vaccine 12/27/15 Recorded tetanus-diphtheria toxoids (Td) 01/19/08 Recorded Hepatitis A Adult Vaccine 04/06/07 Recorded Not Given Vaccine Date Status Refusal Reason influenza virus vaccine, inactivated 1 04/28/16 No t Given Patient Refuses 1Result Comment: Patient has received flu vax this season Medications acetaminophen 325 mg oral tablet 975 mg, By Mouth, Every 8 hours, for 7 days, # 63 tablet, Refills 0, Tot. Refills 0, Acute 03/03/2310:16:00 EST, 02/24/22 11:16:00 EST, Route to Pharmacy Electronically, [facility], Partial fill upon patient request if the prescription... Start Date: 02/24/22 Stop Date: 03/03/22 Status: Ordered amLODIPine 5 mg oral tablet 5 mg, 1, tablet, By Mouth, Daily, # 90 tablet, Refills 3, Tot. Refills 3, Maintenance, 01/15/22 16:59:00 EST, Route to Pharmacy Electronically, [facility], Partial fill upon patient request if the prescription is for a schedule II opioid drug.... Start Date: 01/15/22 Stop Date: 01/10/23 Status: Ordered amLODIPine 5 mg oral tablet 5 mg, Tablet, By Mouth, 02/24/22 9:00:00 EST Start Date: 02/24/22 Stop Date: 02/24/22 Status: Completed aspirin 81 mg oral tablet 1 tablet = 81 mg, By Mouth, Daily, 0 Refills, Maintenance, 03/01/16 13:51:57 Start Date: 03/01/16 Status: Ordered atorvastatin 20 mg oral tablet See Instructions, TAKE 1 TABLET BY MOUTH DAILY TAKE 1 TABLET OF 20 MG WITH 1 TABLET OF 40 MG FOR TOTAL OF 60 MG DAILY, # 90 tablet, 1 Refills, [email or web address] #[id number], 159, cm, 07/26/21 11:39:00 EDT, Height, 93.2, kg, 05/04/20 10:09:00 EST, Dry We... 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 1 bottle., #1 each, 0 Refills, Maintenance, 03/28/21 11:42:00 EST, [facility] #[id number], Partial fill upon patient request if the prescription is for a lam... Start Date: 03/28/21 Status: Ordered Colace sodium 100 mg oral capsule 100 mg, 1, capsule, By Mouth, 2 times a day, PRN, # 20 capsule, Refills 0, Tot. Refills 0, Maintenance, for constipation, 02/24/22 11:17:00 EST, Route to Pharmacy Electronically, [facility], Partial fill upon patient request if the presc... Start Date: 02/24/22 Status: Ordered gabapentin 300 mg oral capsule 300 mg, By Mouth, 3 times a day, # 63 tablet, Refills 0, Tot. Refills 0, Maintenance, 02/24/22 11:16:00 EST, Route to Pharmacy Electronically, [facility], Partial fill upon patient request if the prescription is for a schedule II opioid... Start Date: 02/24/22 Stop Date: 03/17/22 Status: Ordered hydrochlorothiazide 25 mg oral tablet See Instructions, TAKE 1 TABLET BY MOUTH DAILY, # 90 tablet, Refills 0, Instructions Replace Required Details, Route to Pharmacy Electronically, [facility] #[id number], 159, cm, 07/26/21 11:39:00 EDT, Height, 93.2, kg, 05/04/20 10:09:00 EST, Dry... Start Date: 10/02/21 Status: Ordered ibuprofen 600 mg oral tablet 600 mg, 1, tablet, By Mouth, 3 times a day, for 7 days, # 21 tablet, Refills 0, Tot. Refills 0, Acute 03/03/22 11:19:00 EST, 02/24/22 11:19:00 EST, Route to Pharmacy Electronically, [facility], Partial fill upon patient request if the pr... Start Date: 02/24/22 Stop Date: 03/03/22 Status: Ordered lisinopril 20 mg oral tablet 1, tablet, By Mouth, Daily, OF LISINOPRIL., # 90 tablet, Refills 0, Route to Pharmacy Electronically, [email or web address] #[id number], 159, cm, 07/26/21 11:39:00 EDT, Height, 93.2, [...] 01/15/22 16:59:00 EST, Route to Pharmacy Electronically, [facility], Partial fill upon patient request if the prescription is for a schedule II opioid drug... Start Date: 01/15/22 Stop Date: 01/10/23 Status: Ordered metoprolol 25 mg oral tablet, extended release 25 mg, XL Tablet, By Mouth, 02/24/22 9:00:00 EST Start Date: 02/24/22 Stop Date: 02/24/22 Status: Completed Multivitamin Daily, 0 Refills, Maintenance, 07/26/21 11:43:00 EDT, Partial fill upon patient request if the prescription is for a schedule II opioid drug. Start Date: 07/26/21 Status: Ordered oxyCODONE 5 mg oral tablet 5 mg, 1, tablet, By Mouth, Every 6 hours, PRN, for 3 days, # 10 tablet, Refills 0, Tot. Refills 0, Acute 02/27/22 11:17:00 EST, Pain , Moderate, 02/24/22 11:17:00 EST, Route to Pharmacy Electronically, [facility], Partial fill upon patie... Start Date: 02/24/22 Stop Date: 02/27/22 Status: Ordered OxyCODONE IR Tablet 5 mg, Tablet, By Mouth, Every 4 hours, PRN for Pain , Moderate, Routine, 02/22/22 14:16:00 EST Start Date: 02/22/22 Stop Date: 02/25/22 Status: Discontinued pantoprazole 20 mg oral delayed release tablet [...] 1 Refills, Maintenance, 09/18/20 20:09:00 EDT, Capsule, [facility] #[id number], PLEASE DISPENSE IN BUBBLE/BLISTER PACK, 1 capsule [...] 5 Refills, Maintenance, 02/16/20 10:48:00 EST, Inhaler, [facility] #[id number], Partial fill uponpatient request if the prescription [...] Confirmed Active Depression with anxiety Confirmed Active Obese class I Confirmed Active Obesity Confirmed Active Osteoarthritis Confirmed Active Osteoporosis - 03/2019 [facility] Confirmed Active Prurigo nodularis- itchy unroofed nodules - dx by Dr Katharine [facility], 2013, rx Biafine topical emulsion bid Confirmed Active History of Hepatitis B Confirmed Active Umbilical hernia Confirmed Active Varicella Confirmed Active PVC (premature ventricular contraction) Confirmed Active History of Hepatitis C- followed by GI , gets US per GI q 6 mo 3 Confirmed Active Vitamin D deficiency Confirmed Active 1- abd US 02/2020 normal caliber 2EGD 11/2019 3followed by GI , gets US per GI q 6 mo Results Radiology Reports * Exam Date Time Procedure Performing Provider Status 02/24/22 6:43 AM Chest 2 Views Frontal and Lat Baltazar Acosta; Auth (Verified) Notes: (Chest 2 Views Frontal and Lat) Reason For Exam: Tube Placement RESULT: Chest 2 Views Frontal and Lat Chest 2 Views Frontal and Lat Reason: Tube Placement; Clinical Question(s): Tube Placement COMPARISON: Chest x-ray from 02/23/2022 FINDINGS: LINES AND TUBES: Right basilar chest tube unchanged. LUNGS AND PLEURA: No pneumothorax. Minimal atelectasis and/or trace effusions at the lung bases. HEART, MEDIASTINUM AND JERRY: Status post median sternotomy. Heart size at upper limit of normal. Normal mediastinal and hilar contour. BONES AND SOFT TISSUES: No acute abnormality. IMPRESSION: Status post median sternotomy and cardiac surgery. Right basilar chest tube. No pneumothorax. Bibasilar atelectasis and/or trace effusions. WSN: [id number] Ordering Physician: May Dictated By: Rober Zepeda MD Dictated Date/Time: 02/24/22 4:02 pm Reviewed By: Rober Zepeda MD Signed By: Rober Zepeda MD Signed Date/Time: 02/24/22 4:02 pm Transcribed By: JOSEP Transcribed Date/Time: 02/24/22 4:01 pm * Exam Date Time Procedure Performing Provider Status 02/24/22 10:40 AM Chest 2 Views Frontal and Lat Cindy Roca; Auth (Verified) Notes: (Chest 2 Views Frontal and Lat) Reason For Exam: Post-pull;Other: RESULT: Chest 2 Views Frontal and Lat Chest 2 Views Frontal and Lat Reason: Other:; Post-pull; Clinical Question(s): Pneumothorax COMPARISON: Chest x-ray 02/24/2022 and 6:34 AM FINDINGS: LINES AND TUBES: Right basilar chest tube has been removed. LUNGS AND PLEURA: Right mid lung zone atelectasis and/or scarring. Trace bilateral effusions unchanged. No pneumothorax. HEART, MEDIASTINUM AND JERRY: Status post median sternotomy. Mild prominence of the cardiac silhouette, unchanged. Normal mediastinal and hilar contour. BONES AND SOFT TISSUES: No acute abnormality. IMPRESSION: Removal of right chest tube. No pneumothorax. Status post median sternotomy. Trace effusions and minimal dependent atelectasis. WSN: [id number] Ordering Physician: Sissy May Dictated By: Rober Zepeda MD Dictated Date/Time: 02/24/22 4:01 pm Reviewed By: Rober Zepeda MD Signed By: Rober Zepeda MD Signed Date/Time: 02/24/22 4:01 pm Transcribed By: JOSEP Transcribed Date/Time: 02/24/22 3:59 pm * Exam Date Time Procedure Performing Provider Status 02/23/22 6:03 AM Chest 2 Views Frontal and Lat Jazmin Echevarria; Maria R (Verified) Notes: (Chest 2 Views Frontal and Lat) Reason For Exam: Tube Placement RESULT: Chest 2 Views Frontal and Lat Chest 2 Views Frontal and Lat Reason: Tube Placement; Clinical Question(s): Tube Placement patient post robotic-assisted right lower lobe wedge resection, completion superior segmentectomy and mediastinal lymphadenectomy on 02/22/2022. COMPARISON: 02/22/[address] of the chest on 02/15/2022. FINDINGS: LINES AND TUBES: Right-sided chest tube in place, tip directed toward the posterior superior right lung. LUNGS AND PLEURA: Mild left basilar atelectasis. Increased density in the posterior infrahilar region on the right, likely related to postop status. No pulmonary vascular congestion. No pleural effusion. No pneumothorax. HEART, MEDIASTINUM AND JERRY: Heart is normal in size. Tortuous thoracic aorta. Normal mediastinal and hilar contour. BONES AND SOFT TISSUES: No acute abnormality. Median sternotomy sutures noted. IMPRESSION: Postop film demonstrates increased density in the posterior infrahilar region on the right, likely related to postoperative atelectasis. There is a right-sided chest tube in position, directed towardthe superior posterior hemithorax. WSN: [id number] Ordering Physician: May Dictated By: Manisha Concepcion MD, I Dictated Date/Time: 02/23/22 8:22 am Reviewed By: Manisha Concepcion MD, I Signed By: Manisha Concepcion MD, I Signed Date/Time: 02/23/22 8:22 am Transcribed By: JOSEP Transcribed Date/Time: 02/23/22 8:01 am * Exam Date Time Procedure Performing Provider Status 02/22/22 2:20 PM Chest Portable Sanaz Lemons; [facility] (Verified) Notes: (Chest Portable) Reason For Exam: Postop RESULT: Chest Portable Chest Portable REASON: Postop; Clinical Question(s): Postop COMPARISON: Chest radiograph from 04/29/2016; CT chest from 02/15/2022 FINDINGS: LINES AND TUBES: Interval placement of a right chest tube with side port overlying the middle lobe and the tip projecting towards the apex. LUNGS AND PLEURA: Clear lungs. Normal pulmonary vascularity. No pleural effusion. No pneumothorax. HEART, MEDIASTINUM AND JERRY: Heart is normal in size. Aorta is tortuous and partially calcified. Mild fullness of the right paratracheal soft tissues appears similar to prior studies and likely in part related to patient rotation. BONES AND SOFT TISSUES: No acute abnormality. Intact median sternotomy wires. IMPRESSION: 1. Right chest tube with tip projecting towards the apex. No pneumothorax. 2. No focal consolidation. I have personally reviewed the images and I agree with this report. WSN: [id number] Ordering Physician: May Dictated By: Joshua Joy MD Dictated Date/Time: 02/22/22 4:48 pm Reviewed By: Brian Lowe MD Signed By: Brian Lowe MD Signed Date/Time: 02/22/22 4:53 pm Transcribed By: JOSEP Transcribed Date/Time: 02/22/22 3:26 pm Vital Signs Most recent to oldest [Reference Range]: 1 2 3 Height 160 cm (12/29/22 5:27 PM) 160 cm (02/22/22 7:38 AM) 160 cm (02/20/22 3:56 PM) Weight 87.6 kg (02/22/22 5:27 PM) 87.6 kg (02/22/22 7:38 AM) 87.6 kg (02/20/22 3:56 PM) Oxygen Saturation [94-100 %] 93 % *L* (02/24/22 11:24 AM) 98 % (02/24/22 6:00 AM) 97 % (02/24/22 2:26 AM) Pulse Rate [55-90 bpm] 57 bpm (02/24/22 8:39 AM) 56 bpm (02/24/22 6:00 AM) 61 bpm (02/24/22 2:26 AM) Body Mass Index [18.5-24.99 kg/m2] 34.22 kg/m2 *>HHI* (02/22/22 5:27 PM) 34.22 kg/m2 *>HHI* (02/22/22 7:38 AM) 34.22 kg/m2 *>HHI* (02/20/22 3:56 PM) Blood Pressure [90-138/55-84 mm Hg] 117/53mm Hg (02/24/22 11:24 AM) 138/56mm Hg (02/24/22 8:40 AM) 138/56mm Hg (02/24/22 8:39 AM) Respiratory Rate [16-30 br/min] 14 br/min *L* (02/24/22 11:24 AM) 16 br/min (02/24/22 7:54 AM) 20 br/min (02/24/22 6:54 AM) Temperature [96.8-100.4 DegF] 97.6 DegF (02/24/22 11:24 AM) 97.8 DegF (02/24/22 6:00 AM) 98.1 DegF (02/24/22 2:26 AM) Liters per Minute 2 L/min (02/24/22 6:00 AM) 2 L/min (02/24/22 2:26 AM) 1 L/min (02/23/22 10:30 PM) Mode of Delivery (Oxygen) Room air (02/24/22 11:24 AM) Nasal cannula (02/24/22 6:00 AM) Nasal cannula (02/24/22 2:26 AM) Blood pressure sites Arm, left (02/24/22 11:24 AM) Arm, left (02/24/22 6:00 AM) Arm, left (02/24/22 2:26 AM) Temperature Route Oral (02/24/22 11:24 AM) Oral (02/24/22 6:00 AM) Oral (02/24/22 2:26 AM) Dry Weight 87.6 kg (02/22/22 5:27 PM) 98.4 kg (02/22/22 7:38 AM) 87.6 kg (02/20/22 3:56 PM) Weight Obtained Via Patient/family state d (02/20/22 3:56 PM) Dry Weight Obtained Via Standing scale (02/22/22 7:38 AM) Patient/family stated (02/20/22 3:56 PM) Social History Social History Type Response Tobacco Use: quit 1993 1-2pp d 31yrs. Sex History and physical note * Event Display: History and Physical Hospital Authored Date: Note * Wen Stoll RN: PERFORM Event Display: Discharge/Transfer Note Hospital Authored Date: [id number] Nursing Discharge Note Entered On: 02/24/2022 16:40 EST Performed On: 02/24/2022 16:39 EST by Wen Stoll RN Nursing Discharge Note 2 Discharge Time : 02/24/2022 16:00 EST Discharge Level of Care at Discharge : Home/Senior Care/Foster Care Patient Left Unit Via : Wheelchair Patient Accompanied Off Unit with : Responsible adult DC Instructions Provided & Signed by Pt : Yes Patient Understands D/C Instructions : Yes Patient Instructions Discharge Signed : Yes Did Pt have Specialty Bed or Wound Vac : No Wen Stoll RN - 02/24/2022 16:39 EST * Sissy PEÑA, May: MODIFY Sissy PEÑA, May: MODIFY, MODIFY Sissy PEÑA, May: MODIFY, SIGN, VERIFY Event Display: Discharge/Transfer Note Hospital Authored Date: [id number] Patient: MAXINE BOO Age: 76 years Sex: Female : 1945 Associated Diagnoses: None Author: Estiven Buck MD Discharge Information Admission Date: 02/22/2022 Discharge Date 02/24/2022 Primary Care Provider: Jarod Olmstead MD Principal Discharge Diagnosis Nodule of right lung: Present on admission - yes. Medications MEDICATION LIST (Selected) Prescriptions Prescribed Biafine topical emulsion: See Instructions, PRN Prurigo Nodularis, apply to affected area twice a day as needed. 1 bottle., # 1 each, 0 Refills, Maintenance, 03/28/21 11:42:00 EST, [facility] #[id number], Partial fill upon patient request if the prescription is for a lam... Colace sodium 100 mg oral capsule: 100 mg, 1, capsule, By Mouth, 2 times a day, PRN, # 20 capsule, Refills 0, Tot. Refills 0, Maintenance, for constipation, 02/24/22 11:17:00 EST, Route to Pharmacy Electronically, [facility], Partial fill upon patient request if the presc... PreserVision AREDS 2 oral capsule: 1 capsule, By Mouth, 2 times a day, PLEASE DISPENSE IN BUBBLE/BLISTER PACK, # 180 capsule, 1 Refills, Maintenance, 09/18/20 20:09:00 EDT, Capsule, [facility] #[id number], PLEASE DISPENSE IN BUBBLE/BLISTER PACK, 1 capsule By Mouth 2 times a day,x9... Readi-Cat 2 oral suspension: See Instructions, Oral Contrast 2 Bottles 450 ml each Dx: Hernia, # 900 mL, 0 Refills, Maintenance, 11/01/21 15:08:00 EDT, [facility] #[id number], Partial fill upon patient request if the prescription is for a schedule II opioid drug., Oral Contrast; 2... Ventolin HFA 108 mcg/inh inhalation aerosol with adapter: 2 puffs, Inhalation, Every 4 hours, TAKE 2 PUFFS EVERY 4 HOURS IF NEEDED FOR WHEEZING, # 1 each, 5 Refills, Maintenance, 02/16/20 10:48:00 EST, Inhaler, [email or web address] #[id number], Partial fill upon patient request if the prescription is for a schedu... acetaminophen 325 mg oral tablet: 975 mg, By Mouth, Every 8 hours, for 7 days, # 63 tablet, Refills0, Tot. Refills 0, Acute 03/03/22 11:16:00 EST, 02/24/22 11:16:00 EST, Route to Pharmacy Electronically, [facility], Partial fill upon patient request if the prescription... amLODIPine 5 mg oral tablet: 5 mg, 1, tablet, By Mouth, Daily, # 90 tablet, Refills 3, Tot. Refills3, Maintenance, 01/15/22 16:59:00 EST, Route to Pharmacy Electronically, [facility], Partial fill upon patient request if the prescription is for a schedule II opioid drug.... atorvastatin 20 mg oral tablet: See Instructions, TAKE 1 TABLET BY MOUTH DAILY TAKE 1 TABLET OF 20 MG WITH 1 TABLET OF 40 MG FOR TOTAL OF 60 MG DAILY, # 90 tablet, 1 Refills, [facility] #[id number], 159, cm, 07/26/21 11:39:00 EDT, Height, 93.2, kg, 05/04/20 10:09:00 EST, Dry We... gabapentin 300 mg oral capsule: 300 mg, By Mouth, 3 times a day, # 63 tablet, Refills 0, Tot. Refills 0, Maintenance, 02/24/22 11:16:00 EST, Route to Pharmacy Electronically, [facility], Partial fill upon patient request if the prescription is for a schedule II opioid... hydrochlorothiazide 25 mg oral tablet: See Instructions, TAKE 1 TABLET BY MOUTH DAILY, # 90 tablet,Refills 0, Instructions Replace Required Details, Route to Pharmacy Electronically, [facility] #[id number], 159, cm, 07/26/21 11:39:00 EDT, Height, 93.2, kg, 05/04/20 10:09:00 EST, Dry... ibuprofen 600 mg oral tablet: 600 mg, 1, tablet, By Mouth, 3 times a day, for 7 days, # 21 tablet, Refills 0, Tot. Refills 0, Acute 03/03/22 11:19:00 EST, 02/24/22 11:19:00 EST, Route to Pharmacy Electronically, [facility], Partial fill upon patient request if the pr... lisinopril 20 mg oral tablet: 1, tablet, By Mouth, Daily, OF LISINOPRIL., # 90 tablet, Refills 0, Route to Pharmacy Electronically, [facility] #[id number], 159, cm, 07/26/21 11:39:00 EDT, Height, 93.2, kg, 05/04/20 10:09:00 EST, Dry Weight metoprolol 25 mg oral tablet, extended release: 25 mg, 1, tablet, By Mouth, Daily, # 90 tablet, Refills 3, Tot. Refills 3, Maintenance, 01/15/22 16:59:00 EST, Route to Pharmacy Electronically, [facility], Partial fill upon patient request if the prescription is for a schedule II opioid drug... oxyCODONE 5 mg oral tablet: 5 mg, 1, tablet, By Mouth, Every 6 hours, PRN, for 3 days, # 10 tablet,Refills 0, Tot. Refills 0, Acute 02/27/22 11:17:00 EST, Pain , Moderate, 02/24/22 11:17:00 EST, Route to Pharmacy Electronically, [facility], Partial fill upon patie... pantoprazole 20 mg oral delayed release tablet: See Instructions, TAKE 1 TABLET BY MOUTH DAILY, # 90 tablet, 0 Refills, 158, cm, 03/28/21 10:29:00 EST, Height, 93.2, kg, 05/04/20 10:09:00 EST, Dry Weight Documented Medications Documented Multivitamin: Daily, 0 Refills, Maintenance, 07/26/21 11:43:00 EDT, Partial fill upon patient request if the prescription is for a schedule II opioid drug. aspirin 81 mg oral tablet: 1 tablet = 81 mg, By Mouth, Daily, 0 Refills, Maintenance, 03/01/16 13:51:57 lisinopril 5 mg oral tablet: 5 mg, 1, tablet, By Mouth, Daily, # 30 tablet, Refills 0, Maintenance,11/01/21 10:49:00 EDT, Partial fill upon patient request if the prescription is for a schedule II opioid drug.. Aware of diagnosis: patient, family. Procedures PREOPERATIVE DIAGNOSIS: Right lower lobe lung nodule POSTOPERATIVE DIAGNOSIS: Right lower lobe non-small cell lung cancer PROCEDURE: 1. Diagnostic bronchoscopy 2. Robotic assisted right lower lobe wedge resection 3. Robotic assisted right lower lobe completion superior segmentectomy 4. Robotic assisted mediastinal lymphadenectomy 5. Intercostal nerve blocks of right rib spaces 4 through 10 SURGEON: Mane Beyer DO . Allergies Allergic Reactions (Selected) NKA Discharge condition: good Compared to admission: improved Hospital Course Maxine Ko is a 76-year-old female with a history of CAD s/p CABG, cirrhosis, HTN, HLD, hepatitis B and C, and recently found RLL lung nodule who presented for robotic-assisted RLL wedge resection with completion superior segmentectomy and mediastinal lymph node dissection on 02/[address] Beyer. Intra-operative pathology returned as non-small cell lung cancer. The procedure was uncomplicated and there were no issues post-op. She was advanced quickly to a vegan diet and was voiding spontaneously after Alvarez removal in the OR. On POD1 her right chest tube was placed to water seal as she had no air leak, but her output was >400cc and too high to pull that day. On POD2 it decreased to 265cc in 24 hours so it was removed. Post-pull CXR showed no evidence of pneumothorax. Patient had nursing ambulation trial with no desaturations noted. The patient was cleared for discharge on 02/24. At that time she was tolerating a vegan diet without nausea or vomiting, her pain was well controlled on oral pain medications, she was ambulating and voiding spontaneously. The patient was instructed to follow-up with Dr. Beyer in 2 weeks with a CXR before her appointment. She was given scripts for Tylenol, Colace, gabapentin, ibuprofen, and oxycodone. She was already taking metoprolol prior to her surgery and was continued on her home dose. On day of discharge patient's physical exam was as follows: Vital Signs Temperature 97.8 (06:30) Systolic Blood Pressure 138 (08:42) Diastolic Blood Pressure 56 (08:42) Pulse 57 (08:42) SpO2 98 (06:30) Respiratory Rate 20 (06:55) Physical Exam Gen: No acute distress, awake and conversant Neuro: Alert and oriented x3 Head: Normocephalic, atraumatic Cardiac: RRR, no murmurs, no gallops Resp: CTAB Abdomen: Soft, non-distended, no tenderness or guarding Ext: No lower extremity edema bilaterally Skin: No rashes, warm and well perfused Wound: Incisions clean, dry, intact, covered with skin glue. Chest tube site covered with Xeroform and gauze Discharge Plan Diet/Activity/Patient Education/Follow Up Follow Up with: Jarod Olmstead; ; Daphnie Fulton Within 2 to 3 weeks The office should contact younext week with an appointment. You will also need a chest X- ray beforehand. If you do not hear backby the end of the week, please call the office.. Discharge Disposition Discharge: home. Report sent to all consultants: Ishan PEÑA, Jarod. * Dodie GARCIA, Wen: PERFORM Event Display: Patient Education/Instruction Authored Date: [id number] Inpatient Adult Discharge Instructions [address] [address] Name: MAXINE KO : 1945 Visit: 02/22/2022 05:41:00 Current Date: 02/24/2022 15:35 Account: [id number] Inpatient Adult Discharge Instructions We would like to thank you for allowing us to assist you with your healthcare needs. The following includes patient education materials and information regarding your injury/illness. Our entire staffstrives to provide an excellent experience for our patients and their families. PLEASE ENSURE YOU FOLLOW-UP PER THE INSTRUCTIONS BELOW! ?? YOUR OPINION IS IMPORTANT TO US! Please complete the survey you may receive by mail or email. Your feedback will be used to make improvements to the healthcare experiences of our patients and their families. Surveys are administered by [employer] ?? If further treatment with your primary care physician or another doctor is recommended, it is important for you to keep the appointment. Call your primary care physician or return to the Emergency Department immediately if your condition worsens, fails to improve, or new symptoms develop. If you need to find a doctor, you can call [facility] madvertise for a referral at [phone] or toll free at [phone]) or log in to [email or web address].. ?? You can view and manage your care through the patient portal or by using a health care marjorie of your choosing. [employer] is a website that allows you to securely view your medical information including your hospital discharge summary, office visit summaries, medications and follow-up visits. You can also request appointments, renew medications, and request access to your medical information using a health care marjorie of your choosing, or just ask a question. You can enroll at [email or web address] or register during your next office visit. You have been discharged from [facility], Patient Care Unit: SW5. If you have any questions regarding these instructions after you leave, please call us and we will be happy to assist you. [facility] Your Care Team Attending Physician Mane Beyer DO Consulting Providers Mane Beyer DO Discharging Providers Estiven Buck MD Reason for Admission PULMONARY NODULE ROBOT ASSIST WEDGE MLD Your Diagnosis Nodule of right lung Tests Performed Below is a partial list of the tests performed during your hospitalization. You may have had other tests and procedures not included in this list. Please discuss all test results with your provider. BUN CBC w/ Differential Creatinine Electrolytes Ionized Calcium Magnesium Level Phosphorus Level CXR W/ Frontal and Lat XR Chest Portable * Primary Care Provider Ishan PEÑA, [facility] Advance Directive Health Care Proxy on File Yes - Health Care Proxy Caregiver Relationship: Sister Discharge Vitals Temperature: 97.6 DegF Height: 160 cm Pulse Rate: 57 bpm Weight: 87.6 kg Respiratory Rate:??14 br/min??Low Body Mass Index:??34.22 kg/m2??Critical Systolic Blood Pressure: 117 mm Hg Body surface area: 1.97 Diastolic Blood Pressure:??53 mm Hg??Low ?? Oxygen Saturation:??93 %??Low ?? Studies Pending All tests and labs ordered during this hospital stay have been completed unless listed below. Please discuss all pending results with your provider listed above in these instructions. ?? COVID-19 (2019 Novel Coronavirus) PCR Pathology Tissue Request () Chest 2 Views Frontal and Lat (CXR W/ Frontal and Lat) What to do next Instructions From Your Doctor Your incisions were covered with skin glue, which will peel off on its own. Your chest tube site was covered with a dressing that should remain in place for 2 days; afterwards it may be removed and bandaged as needed for drainage. You may shower after the chest tube dressing site is removed, but donot scrub at your incisions. Discharge Orders Scheduled Follow-Up Appointments 2022 2:15 PM EST ?? With: Ailin PEÑA, Yousif Fofana Where: [facility] Gastroenterology [address] [place] [id number]- Saturday 1:00 PM EST ?? With: Where: [facility] Radiology [facility] [address] [place] [address]- Saturday 10:15 AM EST ?? With: Sylwia Elizabeth NP Where: [facility] Cardiology [address] [place] [phone]- You Need to Schedule the Following Appointments Follow Up with??Daphnie Fulton When??Within 2 to 3 weeks Why: The office should contact you next week with an appointment. You will also need a chest X-ray beforehand. If you do not hear back by the end of the week, please call the office. Where: [address] [facility] [place] [address]- [facility] (1) Follow Up with??Jarod Olmstead When??In 0 days Discharge Medications MAXINE BOO :1945 Visit Date:02/22/2022 Medications: Please continue your medications until treatment is completed or stopped by your provider. Medications not listed below should be discontinued. Discuss any questions related to medications with your provider. What How Much When Why Instructions Next Dose New Docusate (Colace sodium 100 mg oral capsule) 1 capsule Oral Twice a day as needed for for constipation Pickup at [facility] 3 As needed New Ibuprofen (ibuprofen 600 mg oral tablet) 1 tab(s) Oral 3 times a day Duration: 7 Days Pickup at [facility] 3 As needed for pain New Oxycodone (oxyCODONE 5 mg oral tablet) 1 tab(s) Oral Every 6 hours as needed for Pain , Moderate Duration: 3 Days Pickup at [facility] 3 As needed for pain Changed Acetaminophen (acetaminophen 325 mg oral tablet) 975 Milligram Oral Every 8 hours Duration: 7 Days Pickup at [facility] 3 Changed Gabapentin (gabapentin 300 mg oral capsule) 300 Milligram Oral 3 times a day Duration: 21 Days Pickup at [facility] 3 Unchanged Albuterol (Ventolin HFA 108 mcg/ inh inhalation aerosol with adapter) 2 puff(s) Inhalation Every 4 hours Duration: 30 Days TAKE 2 PUFFS EVERY 4 HOURS IF NEEDED FOR WHEEZING ?? Unchanged Amlodipine (amLODIPine 5 mg oral tablet) 1 tab(s) Oral Daily Duration: 90 Days Unchanged Aspirin (aspirin 81 mg oral tablet) 1 tab(s) Oral Daily Unchanged Atorvastatin (atorvastatin 20 mg oral tablet) See instructions TAKE 1 TABLET BY MOUTH DAILY TAKE 1 TABLET OF 20 MG WITH 1 TABLET OF 40 MG FOR TOTAL OF 60 MG DAILY?? Unchanged Barium Sulfate (Readi-Cat 2 oral suspension) See instructions Oral Contrast 2 Bottles 450 ml each Dx: Hernia ?? Unchanged Emollients, Topical (Biafine topical emulsion) See instructions Prurigo nodularis- itchy unroofed nodules - dx by Dr Katharine Boyd Derm, 2013, rx Biafine topicalemulsion bid apply to affected area twice a day as needed. ??1 bottle. ?? Unchanged Hydrochlorothiazide (hydrochlorothiazide 25 mg oral tablet) See instructions TAKE 1 TABLET BY MOUTH DAILY ?? Unchanged Lisinopril (lisinopril 20 mg oral tablet) 1 tab(s) Oral Daily OF LISINOPRIL. ?? Unchanged Lisinopril (lisinopril 5 mg oral tablet) 1 tab(s) Oral Daily Unchanged Metoprolol (metoprolol 25 mg oral tablet, extended release) 1 tab(s) Oral Daily Duration: 90 Days Unchanged Multivitamin Daily Unchanged Multivitamin With Minerals (PreserVision AREDS 2 oral capsule) 1 capsule Oral Twice a day Duration: 90 Days PLEASE DISPENSE IN BUBBLE/ BLISTER PACK ?? Unchanged Pantoprazole (pantoprazole 20 mg oral delayed release tablet) See instructions TAKE 1 TABLET BY MOUTH DAILY ?? Pharmacy Information [facility] 3: [address], [place] [id number] [phone] Test Results Below is a partial list of the most recent Laboratory test results done prior to this discharge. You may have had other tests and procedures not included in this list. Please discuss all test resultswith your provider. BUN (02/23/2022) ???BUN - 10 mg/dL CBC w/ Differential (02/23/2022) ???WBC - 6.5 k/mm3???RBC - 3.55 m/mm3???Hgb - 10.2 Gm/dL???Hct - 31.5 %???MCV - 88.7 femtoliters???MCH - 28.7 pg???MCHC - 32.4 g/dL???Platelet Count - 134 k/mm3???RDW-SD - 44.8 femtoliters???MPV - 10.6 femtoliters???Nucleated RBC (Automated) - 0.0 #/100 WBC'S???Abs. NRBC - 0.0 k/mm3???Abs. Neut - 4.6 k/mm3???Abs. Lymph - 1.2 k/mm3???Abs. [place] - 0.5 k/mm3???Abs. Eo - 0.1 k/mm3???Abs. Baso - 0.0 k/mm3???Neut % - 71.6 %???Lymph % - 18.1 %???[place] % - 7.6 %???Eos % - 1.9 %???Baso % - 0.5 %???Imm Gran - 0.3 %???Abs. Imm Gran - 0.0 k/mm3 Creatinine (02/23/2022) ???Creatinine-Blood - 0.7 mg/dL???Estimated GFR Creatinine - 87 ML/MIN/1.73 M2 Electrolytes (02/23/2022) ???Sodium - 137 mmol/L???Potassium - 3.7 mmol/L???Chloride - 101 mmol/L???Bicarbonate Level - 27 mmol/L???Anion Gap - 9 Ionized Calcium (02/23/2022) ???Calcium, Ionized pH Corrected - 1.20 mmol/L Magnesium Level (02/23/2022) ???Magnesium - 1.9 mg/dL Phosphorus Level (02/23/2022) ???Phosphorus - 3.6 mg/dL Allergies (NKA means No Known Allergies) NKA Problems Active Problems??(31) Aortic dilatation- abd US 02/2020 normal caliber?? CAD (coronary artery disease)?? Chronic lower back pain?? Cirrhosis?? Depression with anxiety?? Ex-smoker, 1-2 ppd X 22 years, quit 11/18/1993?? GERD (gastroesophageal reflux disease)?? H/O Malignant melanoma - 2000?? Hemorrhoids?? Hiatal hernia- EGD 11/2019?? History of alcohol abuse?? History of arm fracture - 02/2019?? History of coronary artery bypass graft x 4 04/2016?? History of Hepatitis B?? History of Hepatitis C- followed by GI , gets US per GI q 6 mo?? History of substance abuse?? Hyperlipidemia?? Hypertension?? Interstitial cystitis?? Obese class I?? Obesity?? Osteoarthritis?? Osteoporosis - 03/2019 dexa [facility]?? Prurigo nodularis- itchy unroofed nodules - dx by Dr Katharine Boyd Derm, 2013, rx Biafine topical?? PVC (premature ventricular contraction)?? Renal cyst?? Umbilical hernia?? Urinary frequency?? Varicella?? Vitamin B12 deficiency?? Vitamin D deficiency?? Education Materials Below is the list of Educational Leaflet Providered with your Discharge Instructions. Thoracic Post Thoracoscopy?? Valuables and Belongings I fully understand and agree that [facility] accepts no responsibility for all my personal property including clothing, toilet articles, radios, jewelry, dentures, hearing aids, rings, money, or any other property that is in my possession or is brought to me after admission. I understand certain valuables may be placed in a hospital safe for a short period of time. I understand that the hospital is not liable for loss or damage due to accident, fire, or other natural occurrence while said property is in the safe. I accept full responsibility for any personal property that I keep with me, and will not hold the hospital responsible in case of loss or disappearance. I acknowledge that i have been encouraged to send valuables and belongings home. ?? Review of Valuable and Belonging List: With patient Possessions released to: to PACU Date for Pt to Sign Valuables/Belongings: 02/22/22 17:34:00 ?? Other Discharge Information ?? Wound Assessment?? Wound Assessment?? Wound Location I: Chest, right lateral ? Pulmonary Rehab Status?? Pulmonary Rehab Discharge Status?? Respiratory Rate:??14 br/min??Low ? Common Emergency Awareness Tips IS IT A STROKE? Act FAST and Check for these signs: FACE Does the face look uneven? ARM Does one arm drift down? SPEECH Does their speech sound strange? TIME Call at any sign of stroke ?? Heart Attack Signs Chest discomfort: Most heart attacks involve discomfort in the center of the chest and lasts more than a few minutes, or goes away and comes back. It can feel like uncomfortable pressure, squeezing, fullness or pain. Discomfort in upper body: Symptoms can include pain or discomfort in one or both arms, back, neck, jaw or stomach. Shortness of breath: With or without discomfort. Other signs: Breaking out in a cold sweat, nausea, or lightheaded. Remember, MINUTES DO MATTER. If you experience any of these heart attack warning signs, call to get immediate medical attention! ?? Smoking can increase your chances of developing chronic health problems and can cause harmful effects to other family members in your house. If you smoke, you are strongly encouraged to quit. Please call [facility] [employer]AIN[employer] Link at [phone] or [phone] ([phone]) or log in to [email or web address] for referrals to smoking cessation programs. ?? The National Suicide Prevention Hotline is available 17/09 if you or someone you know needs to find a reason to keep living. By calling 2-788-638-Modabound (5848) you'll be connected to a skilled, trained counselor at a crisis center in your area. INPATIENT DISCHARGE INSTRUCTIONS SIGNATURE PAGE MAXINE BOO Location:[facility] Registration Date and Time:02/22/2022 05:41 EST Primary Care Physician: Ishan PEÑA, [facility], I MAXINE BOO, have received the above patient education materials/instructions and haveverbalized understanding. If ambulance or transport services are being used I further acknowledge being given a choice of service. ?? If you need to contact me, please call me at this number: . Patient/Power Tool Repair Technician Name: Patient/Power Tool Repair Technician Signature: Relationship to Patient: Witness Name/Signature: Date: * Sissy PEÑA, May: PERFORM, SIGN, VERIFY Event Display: Patient Education Handout Authored Date: [id number] * Sissy PEÑA, May: PERFORM Event Display: Patient Education Leaflets Authored Date: [id number] Thoracic Post Thoracoscopy ?? 309 Post-Thoracoscopy/Thoractomy Discharge Instructions General Care Pain Management ??? Please stay ahead of your pain.? Take prescribed pain medication EVERY 4-6 hours for the first 24-48 hours at home.? Once pain sets in, it is difficult to play catch up and control yourpain.? Pain after surgery is expected &&should improve daily. ? ? Stay on top of your pain control.? As mentioned above, once pain sets in, it can affect you many different ways???..such as your breathing, ambulation, appetite etc. ??? You will be able to function?? more and have more stamina if you get ahead of your pain ??? If taking more than one pain medication, alternate times so you are taking pain medications every couple of hours instead of all at once Showering/Bathing ??? After your chest tube dressing is removed: ??? SHOWER every day ??? Gently wash your incisions with an antibacterial soap.? NO BATHS until all of your incisions are completely healed (check with your surgeon). Activity ??? WALK every day. Strive to walk at least 30 minutes without stopping daily. ??? NO heavy lifting, pushing, or pulling (10 lbs maximum) for 1-2 weeks after discharge. ??? Do not drive any vehicle (car, truck, golf cart, tractor etc) ??? Continue to USE your incentive spirometer every 2-3 hours for 1 week after your hospital discharge. Exercise ??? Follow your exercise sheet as instructed (see attached). Call your surgeon if you have: ??? FEVER over 101.0 F ??? Increasing chest pain, change in pain, or shortness of breath. ??? Increasing redness, swelling, pain, or drainage from an incision. Common Questions Post-Procedure? Drainage out of the chest tube site ??? Drainage out of the chest tube incision is very typical.?? Especially when coughing or bearing down.? It???s actually better for the incision to drain and have material leave the chest cavity at any time within the first 5 days at home.? Continue to cover with dry sterile dressing andchange dressing until drainage stops At the ends of my incision, there is a string or redness/ irritation ??? In order to close the incision, surgeons use a dissolvable suture beneath the top layer of skin.? At times the ends of the string can appear before the incision heals. Continue to monitor.? If there is increasing redness, swelling, pain or drainage from the incision, please call the office. When can I fly in an airplane? Depending on the surgery/cause of hospital stay there may be restrictions on flying in an airplane.? Increases in atmospheric pressure, such as flying or deep sea diving, can affect the pressure in the chest cavity.? Please check with your surgeon if you plan or have planned a trip within the next 3 months. My bowels have been irregular since surgery, what do I do? Narcotic pain medication and anesthesia can cause constipation.Upon discharge a prescription for a stool-softener/laxative was prescribed. ??? Follow the directions and take the medicine twice daily for constipation, if needed.? If you did not receive this prescription or you have not moved your bowels within 3 days of discharge, please call the office. My chest tube site is red with thick yellow drainage? This can be normal for some chest tube incisions.? Healing starts from the inside and works its way to the skin. ??? Each week from your surgery date this incision will look better. ??? The healing process is slow, so be patient.? You can address any concerns at your post operative visit and always call the office if you have any questions. ? * [employer] , CIS S: TRANSCRIBE Rober Zepeda MD: VERIFY Event Display: Result: Authored Date: Chest 2 Views Frontal and Lat Reason: Other:; Post-pull; Clinical Question(s): Pneumothorax COMPARISON: Chest x-ray 02/24/2022 and 6:34 AM FINDINGS: LINES AND TUBES: Right basilar chest tube has been removed. LUNGS AND PLEURA: Right mid lung zone atelectasis and/or scarring. Trace bilateral effusions unchanged. No pneumothorax. HEART, MEDIASTINUM AND JERRY: Status post median sternotomy. Mild prominence of the cardiac silhouette, unchanged. Normal mediastinal and hilar contour. BONES AND SOFT TISSUES: No acute abnormality. IMPRESSION: Removal of right chest tube. No pneumothorax. Status post median sternotomy. Trace effusions and minimal dependent atelectasis. WSN: [id number] Ordering Physician: May Dictated By: Rober Zepeda MD Dictated Date/Time: 02/24/22 4:01 pm Reviewed By: Rober Zepeda MD Signed By: Rober Zepeda MD Signed Date/Time: 02/24/22 4:01 pm Transcribed By: JOSEP Transcribed Date/Time: 02/24/22 3:59 pm * Sabrina , CIS S: TRANSCRIBE Rober Zepeda MD: VERIFY Event Display: Result: Authored Date: [id number] Chest 2 Views Frontal and Lat Reason: Tube Placement; Clinical Question(s): Tube Placement COMPARISON: Chest x-ray from 02/23/2022 FINDINGS: LINES AND TUBES: Right basilar chest tube unchanged. LUNGS AND PLEURA: No pneumothorax. Minimal atelectasis and/or trace effusions at the lung bases. HEART, MEDIASTINUM AND JERRY: Status post median sternotomy. Heart size at upper limit of normal. Normal mediastinal and hilar contour. BONES AND SOFT TISSUES: No acute abnormality. IMPRESSION: Status post median sternotomy and cardiac surgery. Right basilar chest tube. No pneumothorax. Bibasilar atelectasis and/or trace effusions. WSN: [id number] Ordering Physician: Sissy May Dictated By: Rober Zepeda MD Dictated Date/Time: 02/24/22 4:02 pm Reviewed By: Rober Zepeda MD Signed By: Rober Zepeda MD Signed Date/Time: 02/24/22 4:02 pm Transcribed By: JOSEP Transcribed Date/Time: 02/24/22 4:01 pm * Event Display: Adult Preadmission Health Questionnaire Authored Date: * Event Display: Cardiac Rhythm Strips Authored Date: * Event Display: Cardiac Rhythm Strips Authored Date: * [employer] , CIS S: TRANSCManisha Umanzor MD I: VERIFY Event Display: Result: Authored Date: [id number] Chest 2 Views Frontal and Lat Reason: Tube Placement; Clinical Question(s): Tube Placement patient post robotic-assisted right lower lobe wedge resection, completion superior segmentectomy and mediastinal lymphadenectomy on 02/22/2022. COMPARISON: 02/22/[address] of the chest on 02/15/2022. FINDINGS: LINES AND TUBES: Right-sided chest tube in place, tip directed toward the posterior superior right lung. LUNGS AND PLEURA: Mild left basilar atelectasis. Increased density in the posterior infrahilar region on the right, likely related to postop status. No pulmonary vascular congestion. No pleural effusion. No pneumothorax. HEART, MEDIASTINUM AND JERRY: Heart is normal in size. Tortuous thoracic aorta. Normal mediastinal and hilar contour. BONES AND SOFT TISSUES: No acute abnormality. Median sternotomy sutures noted. IMPRESSION: Postop film demonstrates increased density in the posterior infrahilar region on the right, likely related to postoperative atelectasis. There is a right-sided chest tube in position, directed towardthe superior posterior hemithorax. WSN: [id number] Ordering Physician: Sissy May Dictated By: Manisha Concepcion MD, I Dictated Date/Time: 02/23/22 8:22 am Reviewed By: Manisha Concepcion MD, I Signed By: Manisha Concepcion MD, I Signed Date/Time: 02/23/22 8:22 am Transcribed By: JOSEP Transcribed Date/Time: 02/23/22 8:01 am Hospital Progress note * Wen Stoll RN: PERFORM, MODIFY, MODIFY, SIGN, VERIFY Event Display: Progress Note Hospital Authored Date: [id number] Patient: MAXINE BOO Age: 76 years Sex: Female : 1945 Associated Diagnoses: None Author: Dodie GARCIA, Wen Findings Problem Related to Alteration in Respiratory Function (new) : Alteration in Respiratory Function/new 02/24/2022 12:00 EST Alteration in Resp Status Related to Thoracic Surgery, Other: Segmentectomy with lymph node removal Goals & Outcomes, Respiratory Pt will maintain/resume baseline physical assessment, Pt will notdevelop complications r/t mechanical ventilation, Pt will maintain adequate nutritional intake, Pt will maintain/resume normal fluid/electrolyte balance, Pt will not develop complications r/t immobility, Pt will demonstrate proper technique w/self care procedures Interventions, Respiratory Assess/monitor tolerance to IV infusions; verify rate/dose, Assess for and report S&S of respiratory distress, Position for comfort & optimal oxygenation, Teach/encourage use of incentive spirometer Goals/Interventions, Respiratory Yes Respiratory, Problem Start 02/22/2022 18:19 Reviewed Plan with, Respiratory Patient Patient Progression, Respiratory Patient progressing according to plan . Narrative/Incidental Pt. AO x 4; pain kept at a minimum throghout shift. PRN oxy given per pt. request with positive effect. VS stable; Normal sinus to sinus bradycardia in the high 50's on school lunch monitor. Pt. started shift with R lateral chest tube in place to water seal topaz; draining serosanginous drainage. MD at bedside to pull chest tube around 0900. Pt. was transported off monitor, with MD approval, to post removal chest tube xray. Pt. is up OOB ambulating on her own with one assist stand by. Was on 2L NC while in chair and laying down; MD was able to get pt. to take O2 off. Ambulation trial without O2 during shift with PCT; pt maintained sats above 92%. MD made aware. Pt. voiding in bathroom, clear yellow urine. No bowel movement during shift; positive bowel sounds. Pt. able to make needs known, callbell within reach, see biophysical for furhter assessment. Pt. seen by MD, DC papers ordered. This RN went over DC papers and made sure pt. had all valuables and belongings upon DC. All IV's removed. Accompanied off floor with PCT. . * Sissy PEÑA, May: PERFORM, SIGN, VERIFY Event Display: Progress Note Hospital Authored Date: Patient: MAXINE BOO Age: 76 years Sex: Female : 1945 Associated Diagnoses: None Author: Sissy PEÑA, May Progress Note Overnight Events & Current Issues No acute events overnight. Chest tube placed to water seal yesterday and she has had no issues. Tolerating a diet without nausea/vomiting. Has been OOB and ambulating, ambulated to CXR this morning. Pain is well controlled and she has no SOB. However, on AM rounds she was wearing 2L NC; when asked why she reports it is for her peace of mind and comfort. RN reports that she only desaturates to 89%with ambulation briefly and then promptly brings herself back up to the 90s, all on room air. Vitals Vital Signs Vitals : VITAL SIGNS SECTION 02/24/2022 11:24 EST Temperature 97.6 DegF Temperature Route Oral Respiratory Rate 14 br/min L Systolic Blood Pressure 117 mm Hg Diastolic Blood Pressure 53 mm Hg L Blood pressure sites Arm, left Oxygen Saturation 93 % L Mode of Delivery (Oxygen) Room air . I & O Intake: PO 1043 mL. Output: urine 2100 mL. Chest Tubes Chest tube drainage 24 hours 265 mL Air Leak: No. Suction: H2O seal. Quality/Care Management DVT Prophylaxis: receiving subcutaneous LMWH. Alvarez Cath: No. Ambulation: greater than or equal to 3 times over 24 hours. Review of Systems Review of systems Constitutional: no fever. Respiratory: shortness of breath. Cardiovascular: no peripheral edema. Gastrointestinal: no abdominal pain. Results Review Surgical Pain Surgical Pain Chest tube pain Pain Control Usually Current medications (Selected) Inpatient Medications Ordered Celecoxib Capsule: 200 mg, Capsule, By Mouth, 2 times a day, Routine, 02/22/22 14:16:00 EST Gabapentin Capsule: 300 mg, Capsule, By Mouth, 3 times a day, Routine, 02/22/22 15:00:00 EST Lovenox Inj: 40 mg, Injection, Subcutaneous Injection, Daily, (DVT Prophylaxis), Routine, 02/23/22 9:00:00 EST MOM Liquid: 30 mL, Suspension, By Mouth, Daily, PRN for Constipation, Routine, 02/22/22 14:16:00 EST OxyCODONE IR Tablet: 5 mg, Tablet, By Mouth, Every 4 hours, PRN for Pain , Moderate, Routine, 02/22/22 14:16:00 EST Senokot S Tablet: 1 tablet, Tablet, By Mouth, 2 times a day, Routine, 02/22/22 14:16:00 EST Tylenol Tablet: 975 mg, Tablet, By Mouth, Every 8 hours, Routine, 02/22/22 15:00:00 EST Zofran Inj: 4 mg, Injection, IV Push, Every 6 hours, PRN for Nausea & Vomiting, Routine, 02/22/22 14:16:00 EST albuterol CFC free 90 mcg/inh inhalation aerosol: 180 mcg, 2 puffs, Inhaler, Inhalation, Every 4 hours, PRN for Wheezing/Shortness of Breath, Routine, 02/22/22 14:18:00 EST amLODIPine 5 mg oral tablet: 5 mg, Tablet, By Mouth, Daily, Routine, 02/22/22 14:18:00 EST aspirin 81 mg oral tablet, chewable: 81 mg, Chew Tablet, By Mouth, Daily, Routine, 02/22/22 14:18:00 EST atorvastatin 20 mg oral tablet: 60 mg, Tablet, By Mouth, Daily, Routine, 02/22/22 14:18:00 EST metoprolol 25 mg oral tablet, extended release: 25 mg, XL Tablet, By Mouth, Daily, Routine, 02/22/22 14:19:00 EST pantoprazole 20 mg oral delayed release tablet: 20 mg, EC Tablet, By Mouth, Daily, Indicated for: Continuation from Home, Routine, 02/22/22 14:19:00 EST Prescriptions Prescribed Biafine topical emulsion: See Instructions, PRN Prurigo Nodularis, apply to affected area twice a day as needed. 1 bottle., # 1 each, 0 Refills, Maintenance, 03/28/21 11:42:00 EST, [email or web address] #[id number], Partial fill upon patient request if the prescription is for a lam... Colace sodium 100 mg oral capsule: 100 mg, 1, capsule, By Mouth, 2 times a day, PRN, # 20 capsule, Refills 0, Tot. Refills 0, Maintenance, for constipation, 02/24/22 11:17:00 EST, Route to Pharmacy Electronically, [facility], Partial fill upon patient request if the presc... PreserVision AREDS 2 oral capsule: 1 capsule, By Mouth, 2 times a day, PLEASE DISPENSE IN BUBBLE/BLISTER PACK, # 180 capsule, 1 Refills, Maintenance, 09/18/20 20:09:00 EDT, Capsule, [facility] #[id number], PLEASE DISPENSE IN BUBBLE/BLISTER PACK, 1 capsule By Mouth 2 times a day,x9... Readi-Cat 2 oral suspension: See Instructions, Oral Contrast 2 Bottles 450 ml each Dx: Hernia, # 900 mL, 0 Refills, Maintenance, 11/01/21 15:08:00 EDT, [id number], Partial fill upon patient request if the prescription is for a schedule II opioid drug., Oral Contrast; 2... Ventolin HFA 108 mcg/inh inhalation aerosol with adapter: 2 puffs, Inhalation, Every 4 hours, TAKE 2 PUFFS EVERY 4 HOURS IF NEEDED FOR WHEEZING, # 1 each, 5 Refills, Maintenance, 02/16/20 10:48:00 EST, Inhaler, [email or web address] #[id number], Partial fill upon patient request if the prescription is for a schedu... acetaminophen 325 mg oral tablet: 975 mg, By Mouth, Every 8 hours, for 7 days, # 63 tablet, Refills0, Tot. Refills 0, Acute 03/03/22 11:16:00 EST, 02/24/22 11:16:00 EST, Route to Pharmacy Electronically, [facility], Partial fill upon patient request if the prescription... amLODIPine 5 mg oral tablet: 5 mg, 1, tablet, By Mouth, Daily, # 90 tablet, Refills 3, Tot. Refills3, Maintenance, 01/15/22 16:59:00 EST, Route to Pharmacy Electronically, [facility], Partial fill upon patient request if the prescription is for a schedule II opioid drug.... atorvastatin 20 mg oral tablet: See Instructions, TAKE 1 TABLET BY MOUTH DAILY TAKE 1 TABLET OF 20 MG WITH 1 TABLET OF 40 MG FOR TOTAL OF 60 MG DAILY, # 90 tablet, 1 Refills, [facility] #[id number], 159, cm, 07/26/21 11:39:00 EDT, Height, 93.2, kg, 05/04/20 10:09:00 EST, Dry We... gabapentin 300 mg oral capsule: 300 mg, By Mouth, 3 times a day, # 63 tablet, Refills 0, Tot. Refills 0, Maintenance, 02/24/22 11:16:00 EST, Route to Pharmacy Electronically, [facility], Partial fill upon patient request if the prescription is for a schedule II opioid... hydrochlorothiazide 25 mg oral tablet: See Instructions, TAKE 1 TABLET BY MOUTH DAILY, # 90 tablet,Refills 0, Instructions Replace Required Details, [id number], 159, cm, 07/26/21 11:39:00 EDT, Height, 93.2, kg, 05/04/20 10:09:00 EST, Dry... ibuprofen 600 mg oral tablet: 600 mg, 1, tablet, By Mouth, 3 times a day, for 7 days, # 21 tablet, Refills 0, Tot. Refills 0, Acute 03/03/22 11:19:00 EST, 02/24/22 11:19:00 EST, Route to Pharmacy Electronically, [facility], Partial fill upon patient request if the pr... lisinopril 20 mg oral tablet: 1, tablet, By Mouth, Daily, OF LISINOPRIL., # 90 tablet, Refills 0, Route to Pharm[facility] Electronically, [id number], 159, cm, 07/26/21 11:39:00 EDT, Height, 93.2, kg, 05/04/20 10:09:00 EST, Dry Weight metoprolol 25 mg oral tablet, extended release: 25 mg, 1, tablet, By Mouth, Daily, # 90 tablet, Refills 3, Tot. Refills 3, Maintenance, 01/15/22 16:59:00 EST, [facility] Pharm[facility], [facility], Partial fill upon patient request if the prescription is for a schedule II opioid drug... oxyCODONE 5 mg oral tablet: 5 mg, 1, tablet, By Mouth, Every 6 hours, PRN, for 3 days, # 10 tablet,Refills 0, Tot. Refills 0, Acute 02/27/22 11:17:00 EST, Pain , Moderate, 02/24/22 11:17:00 EST, Route to Pharmacy Electronically, [facility], Partial fill upon patie... pantoprazole 20 mg oral delayed release tablet: See Instructions, TAKE 1 TABLET BY MOUTH DAILY, # 90 tablet, 0 Refills, 158, cm, 03/28/21 10:29:00 EST, Height, 93.2, kg, 05/04/20 10:09:00 EST, Dry Weight Documented Medications Documented Multivitamin: Daily, 0 Refills, Maintenance, 07/26/21 11:43:00 EDT, Partial fill upon patient request if the prescription is for a schedule II opioid drug. aspirin 81 mg oral tablet: 1 tablet = 81 mg, By Mouth, Daily, 0 Refills, Maintenance, 03/01/16 13:51:57 lisinopril 5 mg oral tablet: 5 mg, 1, tablet, By Mouth, Daily, # 30 tablet, Refills 0, Maintenance,11/01/21 10:49:00 EDT, Partial fill upon patient request if the prescription is for a schedule II opioid drug. Physical Examination Physical exam General: NAD. Neurologic: alert & oriented x 3 . Respiratory: Chest tube dressing clean/dry/intact. Surgical wounds are clean and well approximated.. Cardiac: RRR. Abdomen/GI: soft. Extremities: no edema. Impression and Plan Maxine Ko is a 76-year-old female with a history of CAD s/p CABG, cirrhosis, HTN, HLD, hepatitis B and C, and recently found RLL lung nodule who presented for robotic-assisted RLL wedge resection with completion superior segmentectomy and mediastinal lymph node dissection on 02/[address] Beyer. Intra-operative pathology returned as non-small cell lung cancer. The procedure was uncomplicated and there were no issues post-op. Diagnosis: Non-small cell lung cancer of RLL Comment: On POD1 her right chest tube was placed to water seal as she had no air leak, but her output was >400cc and too high to pull yesterday. Today it has decreased to 265cc in 24hours so will plan for removal. Otherwise, she is on minimal supplemental oxygen but no prolonged desaturations noted by RN; she drops to 89% with ambulation then quickly normalizes on her own. Will perform ambulation trial to see if pulmonary rehab consultant eval is required but otherwise she may be cleared for discharge later today. Plan: - Vegan diet - D/C chest tube - Post-pull CXR - Pain control: Tylenol/Celebrex/gabapentin/oxycodone - Ambulation trial; if she desaturates will require Pulm rehab consultant eval - If she passes ambulation trial plan for discharge later today - Encourage OOB and ambulation - Home metoprolol resumed - DVT ppx: [place]ovenox [place] [phone] with any questions or concerns. Case discussed with Dr. Beyer. * Bryanna Guzman RN: PERFORM, SIGN, VERIFY Event Display: Progress Note Hospital Authored Date: Patient: MAXINE BOO Age: 76 years Sex: Female : 1945 Associated Diagnoses: None Author: Bryanna Guzman RN Findings Problem Related to Alteration in Respiratory Function (new) : Alteration in Respiratory Function/new 02/24/2022 6:00 EST Alteration in Resp Status Related to Thoracic Surgery, Other: Segmentectomy with lymph node removal Goals & Outcomes, Respiratory Pt will maintain/resume baseline physical assessment, Pt will notdevelop complications r/t mechanical ventilation, Pt will maintain adequate nutritional intake, Pt will maintain/resume normal fluid/electrolyte balance, Pt will not develop complications r/t immobility, Pt will demonstrate proper technique w/self care procedures Interventions, Respiratory Assess/monitor tolerance to IV infusions; verify rate/dose, Assess for and report S&S of respiratory distress, Position for comfort & optimal oxygenation, Chest tube drainage, maintain drainage/suction as ordered, Initiate pulmonary rehab nurse consult, Monitor sputum color & consistency. Report changes to MD, Teach/encourage use of incentive spirometer, Teach the proper use of inhalers Goals/Interventions, Respiratory Yes Respiratory, Problem Start 02/22/2022 18:19 Reviewed Plan with, Respiratory Patient Patient Progression, Respiratory Patient progressing according to plan . Evaluation Patient a/o x 4, intercare level. SR on cardiac tele, no edema, + pulses. Lung sounds clear w/ rub on right side. Right lateral chest tube in place, serosanguenous output to water seal [place]. Pt dressing changed satruated with serosanguenous leakage. ABD sounds +, belly soft non tender. Pt urinating CYU in bathroom. Pt ambulated around unit before bed and again to xray in the morning. Pain controlled with PRN meds. Pt sat's 96-92%, pt insists on wearing 2L of oxygen via NC. Educated pt on not needing the O2 but she states: it makes me feel better . Pt does not wear O2 when ambulating. Safetymeasures in place. See CIS for further notes.. Portable XR Chest Views * [facility] , CIS S: TRANSCRIBE Chrissy PEÑA, Brian Tamayo: VERIFY Rufino PEÑA, Joshua A: SIGN Event Display: Result: Authored Date: [id number] Chest Portable REASON: Postop; Clinical Question(s): Postop COMPARISON: Chest radiograph from 04/29/2016; CT chest from 02/15/2022 FINDINGS: LINES AND TUBES: Interval placement of a right chest tube with side port overlying the middle lobe and the tip projecting towards the apex. LUNGS AND PLEURA: Clear lungs. Normal pulmonary vascularity. No pleural effusion. No pneumothorax. HEART, MEDIASTINUM AND JERRY: Heart is normal in size. Aorta is tortuous and partially calcified. Mild fullness of the right paratracheal soft tissues appears similar to prior studies and likely in part related to patient rotation. BONES AND SOFT TISSUES: No acute abnormality. Intact median sternotomy wires. IMPRESSION: 1. Right chest tube with tip projecting towards the apex. No pneumothorax. 2. No focal consolidation. I have personally reviewed the images and I agree with this report. WSN: [id number] Ordering Physician: May Dictated By: Joshua Joy MD Dictated Date/Time: 02/22/22 4:48 pm Reviewed By: Brian Lowe MD Signed By: Brian Lowe MD Signed Date/Time: 02/22/22 4:53 pm Transcribed By: JOSEP Transcribed Date/Time: 02/22/22 3:26 pm Patient Care team information Care Team Personnel Name: Jarod Olmstead MD Position: [facility] Primary Care Physician Member Role: PCP Address: Address: [address] [place] [address] [address]rd Floor [place], [place] [address] Name: Wne Stoll RN Position: [facility] RN Member Role: Primary Care Nurse Name: Jeanne Gallagher Position: [facility] Outreach Member Role: Lifetime Consulting Physician Name: Katerina Campos RN Position: [facility] RN Member Role: Primary Care Nurse Name: Bryanna Guzman RN Position: [facility] RN Member Role: Primary Care Nurse Care Team Related Persons Name: ADEN GARCIA Name: FRANCIS GARCIA Address: [place]
--- OUTSIDE RECORDS SUMMARY | 2022-11-20 09:28 | XMS_ITS | Continuity of Care Document ---
Author Name Unknown Organization [facility] Address [address] [place] [address]- Care Team Providers Care Director Clinical Pharmacology Name Role Phone Erik PEÑA, Kirsten Jauregui Primary Care Physician Encounter [facility] Date(s): 03/24/21 - 04/23/21 [facility] [address] [place] [address]- Allergies, Adverse Reactions, Alerts No Known Allergies [...] MG DAILY, # 90 tablet, 0 Refills, [facility] #[id number], 158, cm, 01/04/21 12:51:00 EST, Height, 93.2, kg, 05/04/20 10:09:00 EST, Dry Weight Start Date: 01/25/21 Status: Ordered Biafine topical emulsion See Instructions, PRN Prurigo Nodularis, apply to affected area twice a day as needed. 1 bottle., #1 each, 0 Refills, Maintenance, 03/28/21 11:42:00 EST, [facility] #[id number], Partial fill upon patient request if the prescription is for a lam... Start Date: 03/28/21 Status: Ordered hydrochlorothiazide 25 mg oral tablet 1, tablet, By Mouth, Daily, # 90 tablet, Refills 1, Route to Pharmacy Electronically, [facility] #[id number], 158, cm, 11/25/20 12:59:00 EDT, Height, 93.2, kg, 05/04/20 10:09:00 EST, Dry Weight Start Date: 12/30/20 Status: Ordered lisinopril 20 mg oral tablet 20 mg, 1, tablet, By Mouth, Daily, with 5 mg to total 25 mg of lisinopril, # 90 tablet, Refills 1, Tot. Refills 1, Maintenance, 04/18/21 15:36:00 EST, [facility] to [facility]ically, [id number], Partial fill upon patient request if... Start Date: 04/18/21 Stop Date: 10/15/21 Status: Ordered lisinopril 5 mg oral tablet 5 mg, 1, tablet, By Mouth, Daily, with 20 mg to total 25 mg daily, # 90 tablet, Refills 1, Tot. Refills 1, Maintenance, 04/18/21 15:37:00 EST, Route to Pharmacy Electronically, [facility] #[id number], Partial fill upon patient request if the pres... Start Date: 04/18/21 Stop Date: 10/15/21 Status: Ordered Metoprolol Succinate ER 50 mg oral tablet, extended release 1 tablet, By Mouth, Daily, # 90 tablet, 1 Refills, [facility] #[id number], 158, cm, 11/25/20 12:59:00 EDT, Height, 93.2, [...] 1 Refills, Maintenance, 09/18/20 20:09:00 EDT, Capsule, [facility] #[id number], PLEASE DISPENSE IN BUBBLE/BLISTER PACK, 1 capsule By Mouth 2 times a day,x9... Start Date: 09/18/20 Stop Date: 03/17/21 Status: Ordered Ventolin HFA 108 mcg/inh inhalation aerosol with adapter 2 puffs, Inhalation, Every 4 hours, TAKE 2 PUFFS EVERY 4 HOURS IF NEEDED FOR WHEEZING, # 1 each, 5 Refills, Maintenance, 02/16/20 10:48:00 EST, Inhaler, [facility] #[id number], Partial fill uponpatient request if the prescription [...]
--- OUTSIDE RECORDS SUMMARY | 2022-11-20 09:28 | XMS_ITS | Continuity of Care Document ---
Author Name Unknown Organization [facility] Address [address] [place] [address]- Care Team Providers Care Supercalender Operator Name Role Phone Erik PEÑA, Kirsten Jauregui Primary Care Physician [place] [facility] [place] 05/01[place]19 - 05/11/19 [facility] [address] [place], [place] [id number]- [facility] Attending Physician: Lucy Montaño Admitting Physician: Lucy Montaño Referring Physician: Lucy Montaño Allergies, Adverse Reactions, Alerts Substance Reaction Severity [...] Refills, Maintenance, 04/24/19 9:40:00 EST, ER Capsule, [facility] #[id number], 165.1, cm, 04/24/19 8:48:00 EST, Height Start [...]
--- OUTSIDE RECORDS SUMMARY | 2022-11-20 09:28 | XMS_ITS | Continuity of Care Document ---
Author Name Unknown Organization [facility] Address [address] [place] [address], [address] [place] [address]- Care Team Providers Care Seed Expert Name Role Phone Ishan PEÑA, [facility] Primary Care Physician ( [phone] Encounter [facility] [place] Date(s): 09/03/22 - 09/10/22 [facility] [address] [place] [address], [address] [place] [address]- Attending Physician: Mane Beyer DO Allergies, Adverse Reactions, Alerts No Known Allergies Immunizations Given and Recorded Vaccine Date Status Refusal Reason influenza virus vaccine, inactivated 11/24/21 Loco rded influenza virus vaccine, inactivated 12/10/20 Loco rded [id number] bivalent booster vax 11/24/21 Recorded SARS-CoV-2 mRNA ([id number]) vax 05/26/21 Recorded tetanus/diphtheria/pertussis, acel(Tdap) 12/17/20 Recorded [...] has received flu vax this season Medications Aspirin Low Dose 81 mg oral delayed release tablet 1 tablet, By Mouth, Daily, R1., # 90 tablet, 2 Refills, Maintenance, 08/02/22 10:40:00 EDT, [facility], 160, cm, 07/25/22 16:17:00 EDT, Height, 87.6, kg, 02/22/22 17:27:00 EST, Dry Weight Start Date: 08/02/22 Status: Ordered atorvastatin 20 mg oral tablet 1 tablet = 20 mg, By Mouth, Daily, # 30 tablet, 0 Refills, Maintenance, 08/22/22 15:37:00 EDT, Tablet, Partial fill upon patient request if the prescription is for a schedule II opioid drug. Start Date: 08/22/22 Status: Ordered atorvastatin 40 mg oral tablet 1 tablet, By Mouth, Daily, R4., # 90 tablet, 2 Refills, Maintenance, 08/02/22 10:40:00 EDT, [facility], 160, cm, 07/25/22 16:17:00 EDT, Height, 87.6, kg, 02/22/22 17:27:00 EST, Dry Weight Start Date: 08/02/22 Status: Ordered Rick topical emulsion See Instructions, Daily, # 250 mL, 0 Refills, Maintenance, 07/13/22 15:36:00 EDT, [facility] #[id number], Partial fill upon patient request if the prescription is for a schedule II opioid drug.,Daily, 160, cm, 04/30/22 13:34:00 EST, Height, 87.6... Start Date: 07/13/22 Status: Ordered Biafine topical emulsion See Instructions, PRN Prurigo Nodularis, apply to affected area twice a day as needed. 1 bottle., #1 each, 0 Refills, Maintenance, 06/06/22 12:47:00 EDT, [id number], Partial fill upon patient request if the prescription is for a schedule II... Start Date: 06/06/22 Status: Ordered hydrochlorothiazide 25 mg oral tablet 1, tablet, By Mouth, Daily, R1., # 90 tablet, Refills 2, Maintenance, 08/02/22 10:40:00 EDT, Route to Pharmacy Electronically, [facility], 160, cm, 07/25/22 16:17:00 EDT, Height, 87.6, kg, 02/22/22 17:27:00 EST, Dry Weight Start Date: 08/02/22 Status: Ordered ibuprofen 600 mg oral tablet 1, tablet, By Mouth, 3 times a day, PRN, # 90 tablet, Refills 0, Tot. Refills 0, Maintenance, NEEDED FOR MODERATE PAIN, 07/13/22 15:37:00 EDT, Route to Pharmacy Electronically, [facility] #[id number], 160, cm, 04/30/22 13:34:00 EST, Height, 87... Start Date: 07/13/22 Status: Ordered metoprolol 25 mg oral tablet, extended release 25 mg, 1, tablet, By Mouth, Daily, # 90 tablet, Refills 3, Tot. Refills 3, Maintenance, 01/15/22 16:59:00 EST, [facility], Partial fill upon patient request [...] See Instructions, TAKE 1 TABLET BY MOUTH ONCE A DAY BEFORE BREAKFAST (TAKE AT BEDTIME)^1R4, # 90 tablet, 2 Refills, Maintenance, 08/02/22 10:40:00 EDT, 160, cm, 07/25/22 16:17:00 EDT, Height, 87.6, kg, 02/22/22 17:27:00 EST, Dry Weight Start Date: 08/02/22 Status: Ordered PreserVision AREDS 2 oral capsule 1 capsule, By Mouth, 2 times a day, PLEASE DISPENSE IN BUBBLE/BLISTER PACK, # 180 capsule, 1 Refills, Maintenance, 09/18/20 20:09:00 EDT, Capsule, [facility] #[id number], PLEASE DISPENSE IN BUBBLE/BLISTER PACK, 1 capsule By Mouth 2 times a day,x9... Start Date: 09/18/20 Stop Date: 03/17/21 Status: Ordered Stiolto Respimat 60 ACT 2.5 mcg-2.5 mcg/inh inhalation aerosol 2 puffs, Inhalation, Every 24 hours, # 1 each, 6 Refills, Maintenance, 08/13/22 14:22:00 EDT, Aerosol, [facility] #[id number], Partial fill upon patient request if the prescription is for a schedule II opioid drug., 160, cm, 08/13/22 14:12:00 EDT... Start Date: 08/13/22 Stop Date: 03/11/23 Status: Ordered Ventolin HFA 108 mcg/inh inhalation aerosol with adapter 2 puffs, Inhalation, Every 4 hours, PRN NEEDED FOR WHEEZING OR SHORTNESS OF BREATH/DYSPNEA, # 18Gm, 3 Refills, Maintenance, 08/02/22 10:40:00 EDT, [facility], 160, cm, 07/25/22 16:17:00 EDT, Height, 87.6, kg, 02/22/22 17:27:00 EST, Dry Weight Start Date: 08/02/22 Status: Ordered Problem List Condition Confirmation Course [...] rx Biafine topical emulsion bid Confirmed Active Subcutaneous mass of right supraclavicular area Confirmed Active History of Hepatitis B Confirmed [...] Team Personnel Name: Jarod Olmstead MD Position: [facility] Physician - Primary Care Member Role: PCP Address: Address: [address] [place] [address] [address] [place] [address]- Name: Wen Stoll RN Position: [facility] RN Member Role: Primary Care Nurse Name: Jeanne Gallagher Position: [facility] Outreach Member Role: Lifetime Consulting Physician Name: Katerina Campos RN Position: [facility] RN Member Role: Primary Care Nurse Name: Bryanna Guzman RN Position: [facility] RN Member Role: Primary Care Nurse Care Team Related Persons Name: ADEN GARCIA Name: FRANCIS GARCIA Address: [place]
--- OUTSIDE RECORDS SUMMARY | 2022-11-20 09:28 | XMS_ITS | Continuity of Care Document ---
Author Name Unknown Organization [facility] Address [address] [place] [address] [address] [place] [address]- Care Team Providers Care Associate Marketing Manager Name Role Phone Erik PEÑA, Kirsten Jauregui Primary Care Physician [place] [facility] [place] 07/17/19 [facility] [address] [place] [address]- [facility] Attending Physician: Luis PEÑA, Shaan Referring Physician: Kirsten Valencia MD Allergies, Adverse [...] 05/25/19 13:20:00 EDT, Route to Pharmacy Electronically, [facility] #[id number],... Start Date: 05/25/19 Stop Date: 07/24/19 Status: Ordered aspirin 81 mg oral tablet 1 tablet = 81 mg, By Mouth, Daily, 0 Refills, Maintenance, 03/01/16 13:51:57 Start Date: 03/01/16 Status: Ordered hydrochlorothiazide 25 mg oral tablet 25 mg, 1, tablet, By Mouth, Daily, # 90 tablet, Refills 1, Tot. Refills 1, Maintenance, 07/03/19 10:38:00 EDT, Route to Pharmacy Electronically, [facility] #[id number], 165.1, cm, 04/24/19 8:48:00 EST, Height Start Date: 07/03/19 Stop Date: 12/30/19 Status: Ordered Lipitor 40 mg oral tablet 1 tablet = 40 mg, By Mouth, Daily, # 90 tablet, 1 Refills, Maintenance, 07/03/19 10:23:00 EDT, Tablet, [facility] #[id number], 165.1, cm, 04/24/19 8:48:00 EST, Height Start Date: 07/03/19 Stop Date: 12/30/19 Status: Ordered lisinopril 20 mg oral tablet 20 mg, 1, tablet, By Mouth, Daily, # 90 tablet, Refills 1, Tot. Refills 1, Maintenance, 07/03/19 10:39:00 EDT, Route to Pharmacy Electronically, [facility] #[id number], 165.1, cm, 04/24/19 8:48:00 EST, Height Start Date: 07/03/19 Stop Date: 12/30/19 Status: Ordered metoprolol 50 mg oral tablet, extended release 50 mg, 1, tablet, By Mouth, Daily, # 90 tablet, Refills 0, Tot. Refills 0, Maintenance, 07/08/19 12:14:00 EDT, Route to Pharmacy Electronically, [facility] #[id number], 165.1, cm, 04/24/19 8:48:00 EST, Height Start Date: 07/08/19 Stop Date: 10/06/19 Status: Ordered pantoprazole 20 mg oral delayed release tablet = 20 mg, By Mouth, Daily, # 90 each, 1 Refills, Maintenance, 06/19/19 10:24:00 EDT, [facility], 165.1, cm, 04/24/19 8:48:00 EST, Height Start Date: 06/19/19 Stop Date: 12/16/19 Status: Ordered PreserVision AREDS 2 oral capsule 1 capsule, By Mouth, Daily, 0 Refills, Maintenance, 03/01/16 13:51:26 Start Date: 03/01/16 Status: Ordered Vitamin D3 5000 IU Vitamin [...] deficiency(Confirmed) Active CAD (coronary artery disease)(Confirmed) Active Ex-smoker, [...] contraction)(Confirmed) Active History of Hepatitis C(Confirmed) Active Vitamin D deficiency(Confirmed) Active Social History Social History Type Response Tobacco Use: quit 1993 1-2pp d 31yrs. Sex
--- OUTSIDE RECORDS SUMMARY | 2022-11-20 09:28 | XMS_ITS | Continuity of Care Document ---
Author Name Unknown Organization [facility] Address [address] [place] [address]- Care Team Providers Care Viticulturist Name Role Phone Erik PEÑA, Kirsten Jauregui Primary Care Physician [facility] Date(s): 01/08[facility]20 - 02/07/20 [facility] [address] [place], [place] [address] Allergies, Adverse Reactions, Alerts Substance Reaction Severity [...] 03/01/16 13:51:57 Start Date: 03/01/16 Status: Ordered Diflucan 150 mg oral tablet 1 tablet = 150 mg, By Mouth, Once, # 1 tablet, 0 Refills, Soft Stop, 01/13/20 13:25:00 EST, [facility] #[id number], Partial fill upon patient request, 165.1, cm, 12/10/19 10:57:00 EDT, Height Start Date: 01/13/20 Status: Ordered female umbilical hernia belt female [...] 01/07/20 14:52:00 EST, Route to Pharmacy Electronically, [facility] #[id number], 165.1, cm, 12/10/19 10:57:00 EDT, Height Start Date: 01/07/20 Stop Date: 07/05/20 Status: Ordered Lipitor 40 mg oral tablet 1 tablet = 40 mg, By Mouth, Daily, # 90 tablet, 1 Refills, Maintenance, 01/07/20 14:52:00 EST, Tablet, [facility] #[id number], 165.1, cm, 12/10/19 10:57:00 EDT, Height Start Date: 01/07/20 Stop Date: 07/05/20 Status: Ordered lisinopril 20 mg oral tablet 20 mg, 1, tablet, By Mouth, Daily, # 90 tablet, Refills 1, Tot. Refills 1, Maintenance, 10/29/19 14:56:00 EDT, Route to Pharmacy Electronically, [facility] #[id number], 165.1, cm, 10/28/19 9:59:00 EDT, Height Start Date: 10/29/19 Stop Date: 04/26/20 Status: Ordered metoprolol 50 mg oral tablet, extended release 50 mg, 1, tablet, By Mouth, Daily, # 90 tablet, Refills 1, Tot. Refills 1, Maintenance, 01/07/20 14:51:00 EST, Route to Pharmacy Electronically, [facility] #[id number], 165.1, cm, 12/10/19 10:57:00 EDT, Height Start Date: 01/07/20 Stop Date: 07/05/20 Status: Ordered pantoprazole 20 mg oral delayed release tablet = 20 mg, By Mouth, Daily, # 90 each, 0 Refills, Maintenance, 01/06/20 15:27:00 EST, [facility] Tablet, 165.1, cm, 12/10/19 10:57:00 EDT, Height Start Date: 01/06/20 Stop Date: 04/05/20 Status: Ordered PreserVision AREDS 2 oral capsule [...] Hemorrhoids(Confirmed) Active Hiatal hernia- EGD 11/2019(C onfirmed) 1 Active History of alcohol abuse(Confirmed) Active History of coronary artery b ypass graft x 4 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(Confirmed) Active History of substance abuse(Confirmed) Active Hyperlipidemia(Confirmed) Active Hypertension(Confirmed) Active Urinary frequency(Confirmed) Active H/O Malignant melanoma - 2000(Confirmed) Active Depression with anxiety(Confirmed) Active Obesity(Confirmed) Active Osteoarthritis(Confirmed) Active Osteopenia(Confirmed) Active Osteoporosis - 03/2019 dexa [facility](Confirmed) Active History of Hepatitis B(Confirmed) Active Umbilical hernia(Confirmed) Active Varicella(Confirmed) Active PVC (premature ventricular contraction)(Confirmed) Active History of Hepatitis C(Confirmed) Active Vitamin D deficiency(Confirmed) Active 1EGD 11/2019 Social History Social History Type Response Tobacco Use: quit 1993 1-2pp d 31yrs. Sex
--- OUTSIDE RECORDS SUMMARY | 2022-11-20 09:28 | XMS_ITS | Continuity of Care Document ---
Author Name Unknown Organization [facility] Address [address] [place] [address], [address] [place] [address]- Care Team Providers Care Retail Shift Leader Name Role Phone Ishan PEÑA, [facility] Primary Care Physician ( [phone] Encounter [facility] Date(s): 02/28/22 - 03/30/22 [facility] [address] [place] [address], [address] [place], [place] [address] Allergies, Adverse Reactions, Alerts No Known Allergies Immunizations Given and Recorded Vaccine Date Status Refusal Reason influenza virus vaccine, inactivated 11/24/21 Loco rded influenza virus vaccine, inactivated 12/10/20 Loco rded [id number] bivalent booster vax 11/24/21 Recorded SARS-CoV-2 mRNA ([id number]) vax 05/26/21 Recorded tetanus/diphtheria/pertussis, acel(Tdap) 12/17/20 Recorded [...] EST, Route to Pharmacy Electronically, [facility], Partial fill upon patient request if [...] MG DAILY, # 90 tablet, 1 Refills, [facility] #[id number], 159, cm, 07/26/21 11:39:00 EDT, Height, 93.2, kg, 05/04/20 10:09:00 EST, Dry We... 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 1 bottle., #1 each, 0 Refills, Maintenance, 03/28/21 11:42:00 EST, [facility] #[id number], Partial fill upon patient request if the prescription is for a lam... Start Date: 03/28/21 Status: Ordered Colace sodium 100 mg oral capsule 100 mg, 1, capsule, By Mouth, 2 times a day, PRN, # 20 capsule, Refills 0, Tot. Refills 0, Maintenance, for constipation, 02/24/22 11:17:00 EST, Route to Pharmacy Electronically, [facility], Partial fill upon patient request if the presc... Start Date: 02/24/22 Status: Ordered gabapentin 300 mg oral capsule 300 mg, By Mouth, 3 times a day, # 63 tablet, Refills 0, Tot. Refills 0, Maintenance, 02/24/22 11:16:00 EST, Route to Pharmacy Electronically, [facility], Partial fill upon patient request if the prescription is for a schedule II opioid... Start Date: 02/24/22 Stop Date: 03/17/22 Status: Ordered hydrochlorothiazide 25 mg oral tablet See Instructions, TAKE 1 TABLET BY MOUTH DAILY, # 90 tablet, Refills 0, Instructions Replace Required Details, Route to Pharmacy Electronically, [facility] #[id number], 159, cm, 07/26/21 11:39:00 EDT, Height, 93.2, kg, 05/04/20 10:09:00 EST, Dry... Start Date: 10/02/21 Status: Ordered ibuprofen 600 mg oral tablet 600 mg, 1, tablet, By Mouth, 3 times a day, PRN, for 30 days, # 90 tablet, Refills 0, Tot. Refills 0, Acute 04/19/22 11:51:00 EST, Pain , Moderate, 03/20/22 11:51:00 EST, Route to Pharmacy Electronically, [facility] #[id number], Partial fill upon patient... Start Date: 03/20/22 Stop Date: 04/19/22 Status: Ordered metoprolol 25 mg oral tablet, extended release 25 mg, 1, tablet, By Mouth, Daily, # 90 tablet, Refills 3, Tot. Refills 3, Maintenance, 01/15/22 16:59:00 EST, Route to Pharmacy Electronically, [facility], Partial fill upon patient request if the [...] 1 Refills, Maintenance, 09/18/20 20:09:00 EDT, Capsule, [facility] #[id number], PLEASE DISPENSE IN BUBBLE/BLISTER PACK, 1 capsule By Mouth 2 times a day,x9... Start Date: 09/18/20 Stop Date: 03/17/21 Status: Ordered Readi-Cat 2 oral suspension See Instructions, Oral Contrast 2 Bottles 450 ml each Dx: Hernia, # 900 mL, 0 Refills, Maintenance,11/01/21 15:08:00 EDT, [id number], Partial fill upon patient request if the prescription isfor a schedule II opioid drug., Oral Contrast; 2... Start Date: 11/01/21 Status: Ordered Ventolin HFA 108 mcg/inh inhalation aerosol with adapter 2 puffs, Inhalation, Every 4 hours, TAKE 2 PUFFS EVERY 4 HOURS IF NEEDED FOR WHEEZING, # 1 each, 5 Refills, Maintenance, 02/16/20 10:48:00 EST, Inhaler, [facility] #[id number], Partial fill uponpatient request if the prescription [...] Care team information Care Team Personnel Name: Ishan PEÑA, Jarod Position: [facility] Primary Care Physician Member Role: PCP Address: Address: [address] [place] [id number]- Name: Wen Stoll RN Position: S RN Member Role: Primary Care Nurse Name: Jeanne Gallagher Position: S Outreach Member Role: Lifetime Consulting Physician Name: Katerina Campos RN Position: S RN Member Role: Primary Care Nurse Name: Bryanna Guzman RN Position: S RN Member Role: Primary Care Nurse Care Team Related Persons Name: ADEN GARCIA Name: FRANCIS GARCIA Address: [place]
--- OUTSIDE RECORDS SUMMARY | 2022-11-20 09:29 | XMS_ITS | Continuity of Care Document ---
Author Name Unknown Organization [facility] Address [address] [place] [address]- Care Team Providers Care Advanced Manufacturing Vice President Name Role Phone Erik PEÑA, Kirsten Jauregui Primary Care Physician [facility] Date[facility]s): 10/08[facility]19 - 11/07/19 [facility] [address] [place] [address]- [facility] Allergies, Adverse Reactions, Alerts Substance Reaction Severity [...] tablet, Refills 1, Tot. Refills 1, Acute 12/07/19 20:16:00 EDT, Temperature, 10/08/19 20:16:00 EDT, Route to Pharmacy Electronically, [facility] #[id number],... Start Date: 10/08/19 Stop Date: 12/07/19 Status: Ordered aspirin 81 mg oral tablet 1 tablet = 81 mg, By Mouth, Daily, 0 Refills, Maintenance, 03/01/16 13:51:57 Start Date: 03/01/16 Status: Ordered female umbilical hernia belt female [...] 07/03/19 10:38:00 EDT, Route to Pharmacy Electronically, [facility] #[id number], 165.1, cm, 04/24/19 8:48:00 EST, Height Start Date: 07/03/19 Stop Date: 12/30/19 Status: Ordered Lipitor 40 mg oral tablet 1 tablet = 40 mg, By Mouth, Daily, # 90 tablet, 1 Refills, Maintenance, 07/03/19 10:23:00 EDT, Tablet, [facility] #[id number], 165.1, cm, 04/24/19 8:48:00 EST, Height Start Date: 07/03/19 Stop Date: 12/30/19 Status: Ordered lisinopril 20 mg oral tablet 20 mg, 1, tablet, By Mouth, Daily, # 90 tablet, Refills 1, Tot. Refills 1, Maintenance, 10/29/19 14:56:00 EDT, Route to Pharmacy Electronically, [facility] #[id number], 165.1, cm, 10/28/19 9:59:00 EDT, Height Start Date: 10/29/19 Stop Date: 04/26/20 Status: Ordered metoprolol 50 mg oral tablet, extended release 50 mg, 1, tablet, By Mouth, Daily, # 90 tablet, Refills 0, Tot. Refills 0, Maintenance, 10/08/19 20:19:00 EDT, Route to Pharmacy Electronically, [facility] #[id number], 165.1, cm, 04/24/19 8:48:00 EST, Height Start Date: 10/08/19 Stop Date: 01/06/20 Status: Ordered pantoprazole 20 mg oral delayed [...]
--- OUTSIDE RECORDS SUMMARY | 2022-11-20 09:29 | XMS_ITS | Continuity of Care Document ---
Author Name Unknown Organization [facility] Address [address] [place] [address]- Care Team Providers Care Wreath Maker Name Role Phone Erik PEÑA, Kirsten Jauregui Primary Care Physician ( [phone] Encounter [facility] [place] Date(s): 07/27/20 - 09/21/20 [facility] [address] [place] [address]- Attending Physician: Erik PEÑA, Kirsten Jauregui Allergies, Adverse Reactions, Alerts Substance Reaction Severity [...] 1 Refills, Maintenance, 07/22/20 14:03:00 EDT, Tablet, [facility] #[id number], Partial fill upon patient request if the prescr... Start Date: 07/22/20 Status: Ordered cholecalciferol 4000 intl units oral tablet = 100 mcg, By Mouth, Daily, # 90 tablet, 1 Refills, Maintenance, 02/10/20 16:38:00 EST, [facility] #[id number], Partial fill upon patient request if the [...] 07/09/20 14:57:00 EDT, Route to Pharmacy Electronically, [facility] #[id number], 165.1, cm, 07/06/20 11:29:00 EDT, Height, 93.2, kg, 05/04/20 10:09:00 ESTDr... Start Date: 07/09/20 Stop Date: 01/05/21 Status: Ordered Lipitor 40 mg oral tablet 1 tablet = 40 mg, By Mouth, Daily, Take 1 tablet of 40 mg with 1 tablet of 20 mg for total 60 mg daily, # 90 tablet, 1 Refills, Maintenance, 07/22/20 14:03:00 EDT, Tablet, [facility] #[id number], 158, cm, 07/22/20 13:04:00 EDT, Height, 93.2, kg,... Start Date: 07/22/20 Stop Date: 01/18/21 Status: Ordered lisinopril 20 mg oral tablet 20 mg, 1, tablet, By Mouth, Daily, # 90 tablet, Refills 1, Tot. Refills 1, Maintenance, 10/29/19 14:56:00 EDT, Route to Pharmacy Electronically, [facility] #[id number], 165.1, cm, 10/28/19 9:59:00 EDT, Height Start [...] 07/09/20 14:57:00 EDT, Route to Pharmacy Electronically, [facility] #[id number], 165.1, cm, 07/06/20 11:29:00 EDT, Height, 93.2, [...] 1 Refills, Maintenance, 09/18/20 20:09:00 EDT, Capsule, [facility] #[id number], PLEASE DISPENSE IN BUBBLE/BLISTER PACK, 1 capsule By Mouth 2 times a day,x9... Start Date: 09/18/20 Stop Date: 03/17/21 Status: Ordered Ventolin HFA 108 mcg/inh inhalation aerosol with adapter 2 puffs, Inhalation, Every 4 hours, TAKE 2 PUFFS EVERY 4 HOURS IF NEEDED FOR WHEEZING, # 1 each, 5 Refills, Maintenance, 02/16/20 10:48:00 EST, Inhaler, [facility] #[id number], Partial fill uponpatient request if the prescription [...]
--- OUTSIDE RECORDS SUMMARY | 2022-11-20 09:29 | XMS_ITS | Continuity of Care Document ---
Author Name Unknown Organization [facility] Address [address] [place] [address]- Care Team Providers Care Executive Housekeeper Name Role Phone Erik PEÑA, Kirsten Jauregui Primary Care Physician [place] [facility] [place] [facility] [address] [place] [address]- [place] Allergies, Adverse Reactions, Alerts No Known Allergies [...] MG DAILY, # 90 tablet, 0 Refills, [facility] #[id number], 158, cm, 01/04/21 12:51:00 EST, Height, 93.2, kg, 05/04/20 10:09:00 EST, Dry Weight Start Date: 01/25/21 Status: Ordered Biafine topical emulsion See Instructions, PRN Prurigo Nodularis, apply to affected area twice a day as needed. 1 bottle., #1 each, 0 Refills, Maintenance, 03/28/21 11:42:00 EST, [facility] #[id number], Partial fill upon patient request if the prescription is for a lam... Start Date: 03/28/21 Status: Ordered hydrochlorothiazide 25 mg oral tablet 1, tablet, By Mouth, Daily, # 90 tablet, Refills 1, Route to Pharmacy Electronically, [facility] #[id number], 158, cm, 11/25/20 12:59:00 EDT, Height, 93.2, kg, 05/04/20 10:09:00 EST, Dry Weight Start Date: 12/30/20 Status: Ordered lisinopril 20 mg oral tablet 1, tablet, By Mouth, Daily, # 90 tablet, Refills 1, Route to Pharmacy Electronically, [facility] #[id number], 158, cm, 08/01/20 11:06:00 EDT, Height, 93.2, kg, 05/04/20 10:09:00 EST, Dry Weight Start Date: 10/24/20 Status: Ordered Metoprolol Succinate ER 50 mg oral tablet, extended release 1 tablet, By Mouth, Daily, # 90 tablet, 1 Refills, [facility] #[id number], 158, cm, 11/25/20 12:59:00 EDT, Height, 93.2, [...] 1 Refills, Maintenance, 09/18/20 20:09:00 EDT, Capsule, [facility] #[id number], PLEASE DISPENSE IN BUBBLE/BLISTER PACK, 1 capsule By Mouth 2 times a day,x9... Start Date: 09/18/20 Stop Date: 03/17/21 Status: Ordered Ventolin HFA 108 mcg/inh inhalation aerosol with adapter 2 puffs, Inhalation, Every 4 hours, TAKE 2 PUFFS EVERY 4 HOURS IF NEEDED FOR WHEEZING, # 1 each, 5 Refills, Maintenance, 02/16/20 10:48:00 EST, Inhaler, [facility] #[id number], Partial fill uponpatient request if the prescription [...]
--- OUTSIDE RECORDS SUMMARY | 2022-11-20 09:29 | XMS_ITS | Continuity of Care Document ---
Author Name Unknown Organization [facility] Address [address] [place] [address]- Care Team Providers Care Wall Scraper Name Role Phone Erik PEÑA, Kirsten Jauregui Primary Care Physician [facility] Date[facility]s): 02[facility]17[facility]20 - [facility]/18/20 [facility] [address] [place], [place] [address] Allergies, Adverse Reactions, Alerts Substance Reaction Severity Status NKA Active Immunizations Given and Recorded Vaccine Date Status Refusal Reason Influenza Virus Vaccine (oldterm) 10/27/19 Recorde d [...] 03/01/16 13:51:57 Start Date: 03/01/16 Status: Ordered cholecalciferol 4000 intl units oral tablet = 100 mcg, By Mouth, Daily, # 90 tablet, 1 Refills, Maintenance, 02/10/20 16:38:00 EST, [facility] #[id number], Partial fill upon patient request if the prescription is for a schedule II opioid drug., 165.1, cm, 02/10/20 15:04:00 EST, Height Start Date: 02/10/20 Stop Date: 08/08/20 Status: Ordered clotrimazole 1% topical cream 1 application, Topically, 2 times a day, PRN rash, for 30 days, # 60 Gm, 1 Refills, Acute 04/10/20 16:32:00 EST, 02/10/20 16:32:00 EST, Cream, [facility][id number], Partial fill upon patient request if the prescription is for a schedule II opio... Start Date: 02/10/20 Stop Date: 04/10/20 Status: Ordered female umbilical hernia belt female [...] 01/07/20 14:52:00 EST, Route to Pharmacy Electronically, [facility][id number], 165.1, cm, 12/10/19 10:57:00 EDT, Height Start Date: 01/07/20 Stop Date: 07/05/20 Status: Ordered ibuprofen 600 mg oral tablet 600 mg, 1, tablet, By Mouth, Every 6 hours, PRN, for 30 days, with food or milk, # 90 tablet, Refills 0, Tot. Refills 0, Acute 04/10/20 15:09:00 EST, Pain , Mild, 03/11/20 15:09:00 EST, Route to Pharmacy Electronically, [facility][id number], Pa... Start Date: 03/11/20 Stop Date: 04/10/20 Status: Ordered Lipitor 40 mg oral tablet 1 tablet = 40 mg, By Mouth, Daily, # 90 tablet, 1 Refills, Maintenance, 01/07/20 14:52:00 EST, Tablet, [facility] #[id number], 165.1, cm, 12/10/19 10:57:00 EDT, Height Start Date: 01/07/20 Stop Date: 07/05/20 Status: Ordered lisinopril 20 mg oral tablet 20 mg, 1, tablet, By Mouth, Daily, # 90 tablet, Refills 1, Tot. Refills 1, Maintenance, 10/29/19 14:56:00 EDT, Route to Pharmacy Electronically, [facility] #[id number], 165.1, cm, 10/28/19 9:59:00 EDT, Height Start Date: 10/29/19 Stop Date: 04/26/20 Status: Ordered metoprolol 50 mg oral tablet, extended release 50 mg, 1, tablet, By Mouth, Daily, # 90 tablet, Refills 1, Tot. Refills 1, Maintenance, 01/07/20 14:51:00 EST, Route to Pharmacy Electronically, [facility] #[id number], 165.1, cm, 12/10/19 10:57:00 EDT, Height Start [...] 03/01/16 13:51:26 Start Date: 03/01/16 Status: Ordered Ventolin HFA 108 mcg/inh inhalation aerosol with adapter 2 puffs, Inhalation, Every 4 hours, TAKE 2 PUFFS EVERY 4 HOURS IF NEEDED FOR WHEEZING, # 1 each, 5 Refills, Maintenance, 02/16/20 10:48:00 EST, Inhaler, [facility][id number], Partial fill uponpatient request if the prescription [...] Status Health Status Inform ant Carotid artery stenosis(Confirmed) Active Interstitial cystitis(Confirmed) Active Chronic lower back pain(Confirmed) Active Cirrhosis(Confirmed) Active Vitamin B12 deficiency(Confirmed) Active CAD (coronary artery disease)(Confirmed) Active Renal cyst(Confirmed) Active Aortic dilatation(Confirmed) Active Ex-smoker, 1-2 ppd X 22 year [...]
--- OUTSIDE RECORDS SUMMARY | 2022-11-20 09:29 | XMS_ITS | Continuity of Care Document ---
Author Name Unknown Organization [facility] Address [address] [facility] [facility] [place] [address]- Care Team Providers Care Photogrammetric Stereo Compiler Name Role Phone Erik PEÑA, Kirsten Jauregui Primary Care Physician Encounter 03/22/20 - 04/27/20 [facility] [address] [facility] [address], [address] [place] [address]- Attending Physician: Erik PEÑA, Kirsten Jauregui Admitting Physician: Erik PEÑA, Kirsten Jauregui Referring Physician: Erik PEÑA, Kisrten Jauregui Allergies, Adverse Reactions, Alerts Substance Reaction [...] 1 Refills, Maintenance, 04/20/20 16:09:00 EST, Tablet, [facility] #[id number], Partial fill upon patient request if the prescr... Start Date: 04/20/20 Status: Ordered cholecalciferol 4000 intl units oral tablet = 100 mcg, By Mouth, Daily, # 90 tablet, 1 Refills, Maintenance, 02/10/20 16:38:00 EST, [facility] #[id number], Partial fill upon patient request if the [...] 01/07/20 14:52:00 EST, Route to Pharmacy Electronically, [facility] #[id number], 165.1, cm, 12/10/19 10:57:00 EDT, Height Start Date: 01/07/20 Stop Date: 07/05/20 Status: Ordered Lipitor 40 mg oral tablet 1 tablet = 40 mg, By Mouth, Daily, Take 1 tablet of 40 mg with 1 tablet of 20 mg for total 60 mg daily, # 90 tablet, 1 Refills, Maintenance, 04/06/20 14:02:00 EST, Tablet, [facility] #[id number], 165.1, cm, 04/06/20 8:13:00 EST, Height Start Date: 04/06/20 Status: Ordered lisinopril 20 mg oral tablet 20 mg, 1, tablet, By Mouth, Daily, # 90 tablet, Refills 1, Tot. Refills 1, Maintenance, 10/29/19 14:56:00 EDT, Route to Pharmacy Electronically, [facility] #[id number], 165.1, cm, 10/28/19 9:59:00 EDT, Height Start Date: 10/29/19 Stop Date: 04/26/20 Status: Ordered metoprolol 50 mg oral tablet, extended release 50 mg, 1, tablet, By Mouth, Daily, # 90 tablet, Refills 1, Tot. Refills 1, Maintenance, 01/07/20 14:51:00 EST, Route to Pharmacy Electronically, [facility] #[id number], 165.1, cm, 12/10/19 10:57:00 EDT, Height Start [...] 1 Refills, Maintenance, 04/01/20 14:07:00 EST, Capsule, [facility] #[id number], PLEASE DISPENSE IN BUBBLE/BLISTER PACK, 1 capsule By Mouth Daily,x90 days,Instr:PLEA... Start Date: 04/01/20 Stop Date: 09/28/20 Status: Ordered Ventolin HFA 108 mcg/inh inhalation aerosol with adapter 2 puffs, Inhalation, Every 4 hours, TAKE 2 PUFFS EVERY 4 HOURS IF NEEDED FOR WHEEZING, # 1 each, 5 Refills, Maintenance, 02/16/20 10:48:00 EST, Inhaler, [facility] #[id number], Partial fill uponpatient request if the prescription [...]
--- OUTSIDE RECORDS SUMMARY | 2022-11-20 09:29 | XMS_ITS | Continuity of Care Document ---
Author Name Unknown Organization [facility] Address [address] [place] [address]- Care Team Providers Care Sales Solutions Representative Name Role Phone Erik PEÑA, Kirsten Jauregui Primary Care Physician ( [phone] Encounter [facility] [place] Date(s): 10/08/19 - 11/07/19 [facility] [address] [place] [address]- [facility] Allergies, Adverse Reactions, Alerts Substance Reaction Severity [...] 10/08/19 20:16:00 EDT, Route to Pharmacy Electronically, [facility] #[id number],... Start Date: 10/08/19 Stop Date: 12/07/19 Status: [...] 07/03/19 10:38:00 EDT, Route to Pharmacy Electronically, [facility] #[id number], 165.1, cm, 04/24/19 8:48:00 EST, Height Start Date: 07/03/19 Stop Date: 12/30/19 Status: Ordered Lipitor 40 mg oral tablet 1 tablet = 40 mg, By Mouth, Daily, # 90 tablet, 1 Refills, Maintenance, 07/03/19 10:23:00 EDT, Tablet, [facility] #[id number], 165.1, cm, 04/24/19 8:48:00 EST, Height Start Date: 07/03/19 Stop Date: 12/30/19 Status: Ordered lisinopril 20 mg oral tablet 20 mg, 1, tablet, By Mouth, Daily, # 90 tablet, Refills 1, Tot. Refills 1, Maintenance, 10/29/19 14:56:00 EDT, Route to Pharmacy Electronically, [facility] #[id number], 165.1, cm, 10/28/19 9:59:00 EDT, Height Start Date: 10/29/19 Stop Date: 04/26/20 Status: Ordered metoprolol 50 mg oral tablet, extended release 50 mg, 1, tablet, By Mouth, Daily, # 90 tablet, Refills 0, Tot. Refills 0, Maintenance, 10/08/19 20:19:00 EDT, Route to Pharmacy Electronically, [facility] #[id number], 165.1, cm, 04/24/19 8:48:00 EST, Height Start [...]
--- OUTSIDE RECORDS SUMMARY | 2022-11-20 09:29 | XMS_ITS | Continuity of Care Document ---
Author Name Unknown Organization [facility] Address [address] [place] [address]- Care Team Providers Care Hydraulic Dredge Operator Name Role Phone Erik PEÑA, Kirsten Jauregui Primary Care Physician [place] [facility] [place]16[place] - 06/15/21 [facility] [address] [place] [address]- Allergies, Adverse Reactions, Alerts No Known Allergies [...] acetaminophen 325 mg oral tablet 650 mg, 2, tablet, By Mouth, Every 6 hours, PRN, for 30 days, no more than 3,000 mg a day total dose, # 200 tablet, Refills 1, Tot. Refills 1, Acute 07/16/21 22:19:00 EDT, pain, 05/17/21 22:19:00 EDT, Route to Pharmacy Electronically, [facility]... Start Date: 05/17/21 Stop Date: 07/16/21 Status: Ordered aspirin 81 mg oral tablet [...] drug. Start Date: 04/03/21 Status: Ordered atorvastatin 20 mg oral tablet See Instructions, TAKE 1 TABLET BY MOUTH DAILY TAKE 1 TABLET OF 20 MG WITH 1 TABLET OF 40 MG FOR TOTAL OF 60 MG DAILY, # 90 tablet, 0 Refills, [facility] #[id number], 158, cm, 04/03/21 15:11:00 EST, Height, 93.2, kg, 05/04/20 10:09:00 EST, Dry We... Start Date: 04/24/21 Status: Ordered atorvastatin 40 mg oral tablet See Instructions, TAKE 1 TABLET BY MOUTH DAILY TAKE 1 TABLET OF 40 MG WITH 1 TABLET OF 20 MG FOR TOTAL 60 MG DAILY, # 90 tablet, 0 Refills, [facility] #[id number], 158, cm, 01/04/21 12:51:00 EST, Height, 93.2, kg, 05/04/20 10:09:00 EST, Dry Weight Start Date: 01/25/21 Status: Ordered Biafine topical emulsion See Instructions, PRN Prurigo Nodularis, apply to affected area twice a day as needed. 1 bottle., #1 each, 0 Refills, Maintenance, 03/28/21 11:42:00 EST, [facility] #[id number], Partial fill upon patient request if the prescription is for a lam... Start Date: 03/28/21 Status: Ordered hydrochlorothiazide 25 mg oral tablet 1, tablet, By Mouth, Daily, # 90 tablet, Refills 1, Route to Pharmacy Electronically, [facility] #[id number], 158, cm, 11/25/20 12:59:00 EDT, Height, 93.2, kg, 05/04/20 10:09:00 EST, Dry Weight Start Date: 12/30/20 Status: Ordered lisinopril 20 mg oral tablet 20 mg, 1, tablet, By Mouth, Daily, with 5 mg to total 25 mg of lisinopril, # 90 tablet, Refills 1, Tot. Refills 1, Maintenance, 04/18/21 15:36:00 EST, Route to Pharmacy Electronically, [facility] #[id number], Partial fill upon patient request if... Start Date: 04/18/21 Stop Date: 10/15/21 Status: Ordered lisinopril 5 mg oral tablet 5 mg, 1, tablet, By Mouth, Daily, with 20 mg to total 25 mg daily, # 90 tablet, Refills 1, Tot. Refills 1, Maintenance, 04/18/21 15:37:00 EST, Route to Pharmacy Electronically, [facility] #[id number], Partial fill upon patient request if the pres... Start Date: 04/18/21 Stop Date: 10/15/21 Status: Ordered Metoprolol Succinate ER 50 mg oral tablet, extended release 1 tablet, By Mouth, Daily, # 90 tablet, 1 Refills, [facility] #[id number], 158, cm, 11/25/20 12:59:00 EDT, Height, 93.2, [...] 1 Refills, Maintenance, 09/18/20 20:09:00 EDT, Capsule, [facility] #[id number], PLEASE DISPENSE IN BUBBLE/BLISTER PACK, 1 capsule By Mouth 2 times a day,x9... Start Date: 09/18/20 Stop Date: 03/17/21 Status: Ordered Ventolin HFA 108 mcg/inh inhalation aerosol with adapter 2 puffs, Inhalation, Every 4 hours, TAKE 2 PUFFS EVERY 4 HOURS IF NEEDED FOR WHEEZING, # 1 each, 5 Refills, Maintenance, 02/16/20 10:48:00 EST, Inhaler, [facility] #[id number], Partial fill uponpatient request if the prescription is for a schedu... Start Date: 02/16/20 Stop Date: 08/14/20 Status: Ordered Vitamin D3 2000 intl units oral capsule 1 capsule = 50 mcg, By Mouth, Daily, 0 Refills, Maintenance, 04/26/21 9:36:00 EST, Partial fill upon patient request if the prescription is for a schedule II opioid drug. Start Date: 04/26/21 Status: Ordered Problem List Condition Effective Dates [...] abuse(Confirmed) Active COVID-19 vaccine series comp leted- [employer] 03/2020(Confirmed) Active Hyperlipidemia(Confirmed) Active Hypertension(Confirmed) Active Urinary [...] [facility], 2013, rx Biafine topical emulsion bid(Confirmed) Active History [...]
--- OUTSIDE RECORDS SUMMARY | 2022-11-20 09:29 | XMS_ITS | Continuity of Care Document ---
Author Name Unknown Organization [facility] Address [address] [address]- Care Team Providers Care Commercial Loan Collection Officer Name Role Phone Erik PEÑA, Kirsten Jauregui Primary Care Physician ( [phone] Encounter [facility] [place] Date(s): 03/27/21 - 05/04/21 [facility] [address] [address]- Attending Physician: Rod Cardozo MD Admitting Physician: Rod Cardozo MD Referring Physician: Rod Cardozo MD Allergies, Adverse Reactions, Alerts No Known Allergies [...] MG DAILY, # 90 tablet, 0 Refills, [facility] #[id number], 158, cm, 04/03/21 15:11:00 EST, Height, 93.2, kg, 05/04/20 10:09:00 EST, Dry We... Start Date: 04/24/21 Status: Ordered atorvastatin 40 mg oral tablet See Instructions, TAKE 1 TABLET BY MOUTH DAILY TAKE 1 TABLET OF 40 MG WITH 1 TABLET OF 20 MG FOR TOTAL 60 MG DAILY, # 90 tablet, 0 Refills, [facility] #[id number], 158, cm, 01/04/21 12:51:00 EST, Height, 93.2, kg, 05/04/20 10:09:00 EST, Dry Weight Start Date: 01/25/21 Status: Ordered Biafine topical emulsion See Instructions, PRN Prurigo Nodularis, apply to affected area twice a day as needed. 1 bottle., #1 each, 0 Refills, Maintenance, 03/28/21 11:42:00 EST, [facility] #[id number], Partial fill upon patient request if the prescription is for a lam... Start Date: 03/28/21 Status: Ordered hydrochlorothiazide 25 mg oral tablet 1, tablet, By Mouth, Daily, # 90 tablet, Refills 1, Route to Pharmacy Electronically, [facility] #[id number], 158, cm, 11/25/20 12:59:00 EDT, Height, 93.2, kg, 05/04/20 10:09:00 EST, Dry Weight Start Date: 12/30/20 Status: Ordered lisinopril 20 mg oral tablet 20 mg, 1, tablet, By Mouth, Daily, with 5 mg to total 25 mg of lisinopril, # 90 tablet, Refills 1, Tot. Refills 1, Maintenance, 04/18/21 15:36:00 EST, Route to Pharmacy Electronically, [facility] #[id number], Partial fill upon patient request if... Start Date: 04/18/21 Stop Date: 10/15/21 Status: Ordered lisinopril 5 mg oral tablet 5 mg, 1, tablet, By Mouth, Daily, with 20 mg to total 25 mg daily, # 90 tablet, Refills 1, Tot. Refills 1, Maintenance, 04/18/21 15:37:00 EST, Route to Pharmacy Electronically, [facility] #[id number], Partial fill upon patient request if the pres... Start Date: 04/18/21 Stop Date: 10/15/21 Status: Ordered Metoprolol Succinate ER 50 mg oral tablet, extended release 1 tablet, By Mouth, Daily, # 90 tablet, 1 Refills, [facility] #[id number], 158, cm, 11/25/20 12:59:00 EDT, Height, 93.2, [...] 1 Refills, Maintenance, 09/18/20 20:09:00 EDT, Capsule, [facility] #[id number], PLEASE DISPENSE IN BUBBLE/BLISTER PACK, 1 capsule By Mouth 2 times a day,x9... Start Date: 09/18/20 Stop Date: 03/17/21 Status: Ordered Ventolin HFA 108 mcg/inh inhalation aerosol with adapter 2 puffs, Inhalation, Every 4 hours, TAKE 2 PUFFS EVERY 4 HOURS IF NEEDED FOR WHEEZING, # 1 each, 5 Refills, Maintenance, 02/16/20 10:48:00 EST, Inhaler, [facility] #[id number], Partial fill uponpatient request if the prescription [...] abuse(Confirmed) Active COVID-19 vaccine series comp leted- [employer] 03/2020(Confirmed) Active Hyperlipidemia(Confirmed) Active Hypertension(Confirmed) Active Urinary frequency(Confirmed) Active Abnormal renal finding- ABD US incidental mild renal cortical thinning, normal renal function - 02/2020(Confirmed) Active H/O Malignant melanoma - 2000(Confirmed) Active Depression with anxiety(Confirmed) Active Obese class II(Confirmed) Active Obesity(Confirmed) Active Osteoarthritis(Confirmed) Active Osteoporosis - 03/2019 dexa [facility](Confirmed) Active Prurigo nodularis- itchy unr oofed nodules - dx by Dr [facility], 2013, rx Biafine topical emulsion bid(Confirmed) Active History of Hepatitis B(Confirmed) Active Umbilical hernia(Confirmed) Active COVID-19 vaccine series star anil- 2/4 #1 Pfizer(Confirmed) Active Varicella(Confirmed) Active PVC (premature [...]
--- OUTSIDE RECORDS SUMMARY | 2022-11-20 09:29 | XMS_ITS | Continuity of Care Document ---
Author Name Unknown Organization [facility] Address [address] [place] [address]- Care Team Providers Care Gauge Checker Name Role Phone Ishan PEÑA, Jarod Primary Care Physician Encounter [facility] Date(s): 03/15/22 - 04/14/22 [facility] [address] [place] [address]- [place] Allergies, Adverse Reactions, Alerts No Known Allergies Immunizations Given and Recorded Vaccine Date Status Refusal Reason influenza virus vaccine, inactivated 11/24/21 Loco rded influenza virus vaccine, inactivated 12/10/20 Loco rded [id number] bivalent booster vax 11/24/21 Recorded SARS-CoV-2 mRNA ([id number]-dxbw-yoxat) vax 05/26/21 Recorded tetanus/diphtheria/pertussis, acel(Tdap) 12/17/20 Recorded [...] 01/15/22 16:59:00 EST, Route to Pharmacy Electronically, [facility], Partial fill upon patient request [...] MG DAILY, # 90 tablet, 1 Refills, [facility] #[id number], 159, cm, 07/26/21 11:39:00 EDT, Height, 93.2, kg, 05/04/20 10:09:00 EST, Dry We... 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 1 bottle., #1 each, 0 Refills, Maintenance, 03/28/21 11:42:00 EST, [facility] #[id number], Partial fill upon patient request if the prescription is for a lam... Start Date: 03/28/21 Status: Ordered Colace sodium 100 mg oral capsule 100 mg, 1, capsule, By Mouth, 2 times a day, PRN, # 20 capsule, Refills 0, Tot. Refills 0, Maintenance, for constipation, 02/24/22 11:17:00 EST, Route to Pharmacy Electronically, [facility], Partial fill upon patient request if the presc... Start Date: 02/24/22 Status: Ordered gabapentin 300 mg oral capsule 300 mg, By Mouth, 3 times a day, # 63 tablet, Refills 0, Tot. Refills 0, Maintenance, 02/24/22 11:16:00 EST, Route to Pharmacy Electronically, [facility], Partial fill upon patient request if the prescription is for a schedule II opioid... Start Date: 02/24/22 Stop Date: 03/17/22 Status: Ordered hydrochlorothiazide 25 mg oral tablet See Instructions, TAKE 1 TABLET BY MOUTH DAILY, # 90 tablet, Refills 0, Instructions Replace Required Details, Route to Pharmacy Electronically, [facility] #[id number], 159, cm, 07/26/21 11:39:00 EDT, Height, 93.2, kg, 05/04/20 10:09:00 EST, Dry... Start Date: 10/02/21 Status: Ordered ibuprofen 600 mg oral tablet 600 mg, 1, tablet, By Mouth, 3 times a day, PRN, for 30 days, # 90 tablet, Refills 0, Tot. Refills 0, Acute 04/19/22 11:51:00 EST, Pain , Moderate, 03/20/22 11:51:00 EST, [id number], Partial fill upon patient... Start Date: 03/20/22 Stop Date: 04/19/22 Status: Ordered metoprolol 25 mg oral tablet, extended release 25 mg, 1, tablet, By Mouth, Daily, # 90 tablet, Refills 3, Tot. Refills 3, Maintenance, 01/15/22 16:59:00 EST, Route to Pharmacy Electronically, [facility], Partial fill upon patient request [...] 1 Refills, Maintenance, 09/18/20 20:09:00 EDT, Capsule, [facility] #[id number], PLEASE DISPENSE IN BUBBLE/BLISTER PACK, 1 capsule [...] 5 Refills, Maintenance, 02/16/20 10:48:00 EST, Inhaler, [facility] #[id number], Partial fill uponpatient request if the prescription [...] [facility], 2012, rx Biafine topical emulsion bid Confirmed Active [...] Team Personnel Name: Jarod Olmstead MD Position: [facility] Primary Care Physician Member Role: PCP Address: Address: [address] [place] [address] [address] [place] [address]- Name: Wen Stoll RN Position: [facility] RN Member Role: Primary Care Nurse Name: Jeanne Gallagher Position: [facility] Outreach Member Role: Lifetime Consulting Physician Name: Katerina Campos RN Position: [facility] RN Member Role: Primary Care Nurse Name: Bryanna Guzman RN Position: [facility] RN Member Role: Primary Care Nurse Care Team Related Persons Name: ADEN GARCIA Name: FRANCIS GARCIA Address: home
--- OUTSIDE RECORDS SUMMARY | 2022-11-20 09:30 | XMS_ITS | Continuity of Care Document ---
Author Name Unknown Organization [facility] Address [address] [facility] [place] [address]- Care Team Providers Care Solar Fabrication Technician Name Role Phone Ishan PEÑA, [facility] Primary Care Physician Encounter 02/15/22 - 02/22/22 [facility] [address], [address] [place] [address]- Attending Physician: Mane Beyer DO Admitting Physician: Mane Beyer DO Referring Physician: Mane Beyer DO Allergies, Adverse Reactions, Alerts No Known Allergies Immunizations Given and Recorded Vaccine Date Status Refusal Reason influenza virus vaccine, inactivated 11/24/21 Loco rded influenza virus vaccine, inactivated 12/10/20 Loco rded [id number] bivalent booster vax 11/24/21 Recorded SARS-CoV-2 mRNA (dprwgrm-jtxp-ztyiv) vax 05/26/21 Recorded tetanus/diphtheria/pertussis, acel(Tdap) 12/17/20 Recorded [...] this season Medications acetaminophen 325 mg oral capsule 1 capsule = 325 mg, By Mouth, 3 times a day, 0 Refills, Maintenance, 02/20/22 9:13:00 EST, Partial fill upon patient request if the prescription is for a schedule II opioid drug. Start Date: 02/20/22 Status: Ordered amLODIPine 5 mg oral tablet 5 mg, 1, tablet, By Mouth, Daily, # 90 tablet, Refills 3, Tot. Refills 3, Maintenance, 01/15/22 16:59:00 EST, Route to Pharmacy Electronically, [facility], Partial fill upon patient request if [...] MG DAILY, # 90 tablet, 1 Refills, [facility] #[id number], 159, cm, 07/26/21 11:39:00 EDT, Height, 93.2, kg, 05/04/20 10:09:00 EST, Dry We... 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 1 bottle., #1 each, 0 Refills, Maintenance, 03/28/21 11:42:00 EST, [facility] #[id number], Partial fill upon patient request if the prescription is for a lam... Start Date: 03/28/21 Status: Ordered gabapentin 300 mg oral capsule 300 mg, 1, capsule, By Mouth, 3 times a day, Start three days before your surgery., # 90 capsule, Refills 2, Tot. Refills 2, Maintenance, 02/20/22 9:52:00 EST, Route to Pharmacy Electronically, [facility] #[id number], Partial fill upon patient request if... Start Date: 02/20/22 Status: Ordered hydrochlorothiazide 25 mg oral tablet See Instructions, TAKE 1 TABLET BY MOUTH DAILY, # 90 tablet, Refills 0, Instructions Replace Required Details, Route to Pharmacy Electronically, [facility] #[id number], 159, cm, 07/26/21 11:39:00 EDT, Height, 93.2, kg, 05/04/20 10:09:00 EST, Dry... Start Date: 10/02/21 Status: Ordered lisinopril 20 mg oral tablet 1, tablet, By Mouth, Daily, OF LISINOPRIL., # 90 tablet, Refills 0, Route to Pharmacy Electronically, [facility] #[id number], 159, cm, 07/26/21 11:39:00 EDT, Height, 93.2, [...] 01/15/22 16:59:00 EST, Route to Pharmacy Electronically, [facility], Partial fill upon patient request if [...] 1 Refills, Maintenance, 09/18/20 20:09:00 EDT, Capsule, [facility] #[id number], PLEASE DISPENSE IN BUBBLE/BLISTER PACK, 1 capsule [...] 5 Refills, Maintenance, 02/16/20 10:48:00 EST, Inhaler, [facility] #[id number], Partial fill uponpatient request if the prescription [...] Exam Date Time Procedure Performing Provider Status 02/15/22 9:[address] Chest W/O Contrast Justin Olivares; Auth (Verified) Notes: (CT Chest W/O Contrast) Reason For Exam: Pre Op Testing;Other: RESULT: CT Chest W/O Contrast CT Chest W/O Contrast INDICATION: Pre Op Testing TECHNIQUE: Helical CT scan of the chest without IV contrast, formatted in 3 planes. Weight-based protocol was performed using automatic exposure control. CTDIvol Body: 15.59 mGy, DLP Body: 570 mGy*cm. COMPARISON: 12/19/2021 FINDINGS: Cement Cutter view findings, lines and tubes: None. Trachea and airways: Patent without evidence of tracheal or endobronchial lesion. Lungs and pleura: No significant change in a solid lobular right lower lobe lung nodule on series 3image 52 measuring 1.3 x 1 x 1.5 cm. Mild centrilobular emphysema. Otherwise clear lungs. No effusion or pneumothorax. Mediastinum and lauren: No mass or hematoma. No mediastinal or hilar lymphadenopathy. Small type I hiatal hernia. Heart: Heart is normal in size. No pericardial effusion. Status post CABG. Aorta: No aortic aneurysm. Pulmonary arteries: Normal caliber. Chest wall soft tissues: No acute abnormality. Diaphragm: Intact. Upper abdomen: Small calcified granulomas in the spleen. Vascular calcifications. Bones: No acute abnormality. Chronic posterior subluxation at the left glenohumeral joint. Prior median sternotomy. IMPRESSION: No significant change in the solid right lower lobe lobulated lung nodule which remains concerning for lung cancer. WSN: [id number] Ordering Physician: Mane Beyer Dictated By: Rober Rodriguez MD Dictated Date/Time: 02/15/22 10:42 a Reviewed By: Rober Rodriguez MD Signed By: Rober Rodriguez MD Signed Date/Time: 02/15/22 10:42 am Transcribed By: JOSEP Transcribed Date/Time: 02/15/22 10:36 am Social History Social History Type Response Tobacco Use: quit 1994 1-2pp d [address] Chest WO contrast * [facility] , CIS S: TRANSCRIBE Rober Rodriguez MD: VERIFY Event Display: Result: Authored Date: CT Chest W/O Contrast INDICATION: Pre Op Testing TECHNIQUE: Helical CT scan of the chest without IV contrast, formatted in 3 planes. Weight-based protocol was performed using automatic exposure control. CTDIvol Body: 15.59 mGy, DLP Body: 570 mGy*cm. COMPARISON: 12/19/2021 FINDINGS: Cement Cutter view findings, lines and tubes: None. Trachea and airways: Patent without evidence of tracheal or endobronchial lesion. Lungs and pleura: No significant change in a solid lobular right lower lobe lung nodule on series 3image 52 measuring 1.3 x 1 x 1.5 cm. Mild centrilobular emphysema. Otherwise clear lungs. No effusion or pneumothorax. Mediastinum and laurne: No mass or hematoma. No mediastinal or hilar lymphadenopathy. Small type I hiatal hernia. Heart: Heart is normal in size. No pericardial effusion. Status post CABG. Aorta: No aortic aneurysm. Pulmonary arteries: Normal caliber. Chest wall soft tissues: No acute abnormality. Diaphragm: Intact. Upper abdomen: Small calcified granulomas in the spleen. Vascular calcifications. Bones: No acute abnormality. Chronic posterior subluxation at the left glenohumeral joint. Prior median sternotomy. IMPRESSION: No significant change in the solid right lower lobe lobulated lung nodule which remains concerning for lung cancer. WSN: [id number] Ordering Physician: Mane Beyer Dictated By: Rober Rodriguez MD Dictated Date/Time: 02/15/22 10:42 a Reviewed By: Rober Rodriguez MD Signed By: Rober Rodriguez MD Signed Date/Time: 02/15/22 10:42 am Transcribed By: JOSEP Transcribed Date/Time: 02/15/22 10:36 am Patient Care team information Care Team Personnel Name: Jarod Olmstead MD Position: [facility] Primary Care Physician Member Role: PCP Address: Address: [address] [place] [address] [address] [place] [address]- [place] Name: Jeanne Gallagher Position: [facility] Outreach Member Role: Lifetime Consulting Physician Care Team Related Persons Name: ADEN GARCIA Name: FRANCIS GARCIA Address: home
--- OUTSIDE RECORDS SUMMARY | 2022-11-20 09:30 | XMS_ITS | Continuity of Care Document ---
Author Name Unknown Organization [facility] Address [address] [address]- Care Team Providers Care Citrix Consultant Name Role Phone Erik PEÑA, Kirsten Jauregui Primary Care Physician Encounter [facility] Date(s): 11/30/19 - 12/07/19 [facility] [address] [address]- [place] Attending Physician: Rod Cardozo MD Admitting Physician: Rod Cardozo MD Referring Physician: Kirsten Valencia MD Allergies, [...] 07/03/19 10:38:00 EDT, Route to Pharmacy Electronically, [facility] #[id number], 165.1, cm, 04/24/19 8:48:00 EST, Height Start Date: 07/03/19 Stop Date: 12/30/19 Status: Ordered Lipitor 40 mg oral tablet 1 tablet = 40 mg, By Mouth, Daily, # 90 tablet, 1 Refills, Maintenance, 07/03/19 10:23:00 EDT, [id number], 165.1, cm, 04/24/19 8:48:00 EST, Height Start Date: 07/03/19 Stop Date: 12/30/19 Status: Ordered lisinopril 20 mg oral tablet 20 mg, 1, tablet, By Mouth, Daily, # 90 tablet, Refills 1, Tot. Refills 1, Maintenance, 10/29/19 14:56:00 EDT, Route to Pharmacy Electronically, [facility] #[id number], 165.1, cm, 10/28/19 9:59:00 EDT, Height Start Date: 10/29/19 Stop Date: 04/26/20 Status: Ordered metoprolol 50 mg oral tablet, extended release 50 mg, 1, tablet, By Mouth, Daily, # 90 tablet, Refills 0, Tot. Refills 0, Maintenance, 10/08/19 20:19:00 EDT, Route to Pharmacy Electronically, [facility] #[id number], 165.1, cm, 04/24/19 8:48:00 EST, Height Start [...] Hepatitis C(Confirmed) Active Vitamin D deficiency(Confirmed) Active Vital Signs Most recent to oldest [Reference Range]: 1 Height 165.1 cm (11/30/19 11:03 AM) Weight 91.9 kg (11/30/19 11:03 AM) Oxygen Saturation [94-100 %] 97 % (11/30/19 11:03 AM) Pulse Rate [55-90 bpm] 62 bpm (11/30/19 11:03 AM) Body Mass Index [18.5-24.99] 33.71 *>HHI* (11/30/19 11:03 AM) Blood Pressure [90-138/55-84 mm Hg] 120/ 78mm Hg (11/30/19 11:03 AM) Mode of Delivery (Oxygen) Room air (11/30/19 11:03 AM) Weight Obtained Via Standing scale (11/30/19 11:03 AM) Social History Social History Type Response Tobacco Use: quit 1993 1-2pp d 31yrs. Sex
--- OUTSIDE RECORDS SUMMARY | 2022-11-20 09:30 | XMS_ITS | Continuity of Care Document ---
Author Name Unknown Organization [facility] Address [address] [place] [address] [address] [place] [address]- Care Team Providers Care Dispensing Audiologist Name Role Phone Ishan PEÑA, [facility] Primary Care Physician [place] [facility] [place] - 09/03/22 [facility] [address] [place] [address]- Attending Physician: Shaan Smith MD Allergies, Adverse Reactions, Alerts No Known Allergies Immunizations Given and Recorded Vaccine Date Status Refusal Reason influenza virus vaccine, inactivated 11/24/21 Loco rded influenza virus vaccine, inactivated 12/10/20 Loco rded [id number] bivalent booster vax 11/24/21 Recorded SARS-CoV-2 mRNA ([id number]-wnvx-lvehk) vax 05/26/21 Recorded tetanus/diphtheria/pertussis, acel(Tdap) 12/17/20 Recorded [...] tablet, 2 Refills, Maintenance, 08/02/22 10:40:00 EDT, [facility], 160, cm, 07/25/22 16:17:00 EDT, Height, [...] tablet, 2 Refills, Maintenance, 08/02/22 10:40:00 EDT, [facility], 160, cm, 07/25/22 16:17:00 EDT, Height, 87.6, kg, 02/22/22 17:27:00 EST, Dry Weight Start Date: 08/02/22 Status: Ordered Rick topical emulsion See Instructions, Daily, # 250 mL, 0 Refills, Maintenance, 07/13/22 15:36:00 EDT, [id number], Partial fill upon patient request if the prescription is for a schedule II opioid drug.,Daily, 160, cm, 04/30/22 13:34:00 EST, Height, 87.6... Start Date: 07/13/22 Status: Ordered Biafine topical emulsion See Instructions, PRN Prurigo Nodularis, apply to affected area twice a day as needed. 1 bottle., #1 each, 0 Refills, Maintenance, 06/06/22 12:47:00 EDT, [facility]/pharmacy #[id number], Partial fill upon patient request if the prescription is for a schedule II... Start Date: 06/06/22 Status: Ordered hydrochlorothiazide 25 mg oral tablet 1, tablet, By Mouth, Daily, R1., # 90 tablet, Refills 2, Maintenance, 08/02/22 10:40:00 EDT, Route to Pharmacy Electronically, [facility], 160, cm, 07/25/22 16:17:00 EDT, Height, 87.6, kg, 02/22/22 17:27:00 EST, Dry Weight Start Date: 08/02/22 Status: Ordered ibuprofen 600 mg oral tablet 1, tablet, By Mouth, 3 times a day, PRN, # 90 tablet, Refills 0, Tot. Refills 0, Maintenance, NEEDED FOR MODERATE PAIN, 07/13/22 15:37:00 EDT, Route to Pharmacy Electronically, [facility] #[id number], 160, cm, 04/30/22 13:34:00 EST, Height, 87... Start Date: 07/13/22 Status: Ordered metoprolol 25 mg oral tablet, extended release 25 mg, 1, tablet, By Mouth, Daily, # 90 tablet, Refills 3, Tot. Refills 3, Maintenance, 01/15/22 16:59:00 EST, Route to Pharmacy Electronically, [facility], Partial fill upon patient request if [...] 1 Refills, Maintenance, 09/18/20 20:09:00 EDT, Capsule, [facility] #[id number], PLEASE DISPENSE IN BUBBLE/BLISTER PACK, 1 capsule By Mouth 2 times a day,x9... Start Date: 09/18/20 Stop Date: 03/17/21 Status: Ordered Stiolto Respimat 60 ACT 2.5 mcg-2.5 mcg/inh inhalation aerosol 2 puffs, Inhalation, Every 24 hours, # 1 each, 6 Refills, Maintenance, 08/13/22 14:22:00 EDT, Aerosol, [facility] #[id number], Partial fill upon patient request if the prescription is for a schedule II opioid drug., 160, cm, 08/13/22 14:12:00 EDT... Start Date: 08/13/22 Stop Date: 03/11/23 Status: Ordered Ventolin HFA 108 mcg/inh inhalation aerosol with adapter 2 puffs, Inhalation, Every 4 hours, PRN NEEDED FOR WHEEZING OR SHORTNESS OF BREATH/DYSPNEA, # 18Gm, 3 Refills, Maintenance, 08/02/22 10:40:00 EDT, [facility], 160, cm, 07/25/22 16:17:00 EDT, Height, [...] oldest [Reference Range]: 1 Height 160 cm (08/27/22 12:06 PM) Weight 88.3 kg (08/27/22 12:06 PM) Oxygen Saturation [94-100 %] 99 % (08/27/22 12:06 PM) Pulse Rate [55-90 bpm] 61 bpm (08/27/22 12:06 PM) Body Mass Index [18.5-24.99 kg/m2] 34.49 kg/m2 *>HHI* (08/27/22 12:06 PM) Blood Pressure [90-138/55-84 mm Hg] 124/ 62mm Hg (08/27/22 12:06 PM) Temperature [96.8-100.4 DegF] 98.1 DegF (08/27/22 12:06 PM) Mode of Delivery (Oxygen) Room air (08/27/22 12:06 PM) Blood pressure sites Arm, left (08/27/22 12:06 PM) Temperature Route Oral (08/27/22 12:06 PM) Dry Weight 88.3 kg (08/27/22 12:06 PM) Weight Obtained Via Patient/family state d (08/27/22 12:06 PM) Dry Weight Obtained Via Patient/family s tated (08/27/22 12:06 PM) Social History Social History Type Response Tobacco Use: quit 1993 1-2pp d 31yrs. Sex Patient Care team information Care Team Personnel Name: Ishan PEÑA, Jarod Position: S Physician - Primary Care Member Role: PCP [facility] [address] [place] [address]- Name: Dodie GARCIA, Wen Position: [facility] RN Member Role: Primary Care Nurse Name: Jeanne Gallagher Position: [facility] Outreach Member Role: Lifetime Consulting Physician Name: Katerina Campos RN Position: [facility] RN Member Role: Primary Care Nurse Name: Bryanna Guzman RN Position: [facility] RN Member Role: Primary Care Nurse Care Team Related Persons Name: JOSE ADEN RUIZE Name: FRANCIS GARCIA Address: home
--- OUTSIDE RECORDS SUMMARY | 2022-11-20 09:30 | XMS_ITS | Continuity of Care Document ---
Author Name Unknown Organization [facility] Address [address] [place] [id number]- Care Team Providers Care Automatic Pilot Mechanic Name Role Phone Ishan PEÑA, Jarod Primary Care Physician Encounter [facility] Date(s): 03/02/22 - 04/01/22 [facility] [address] [place] [address]- Allergies, Adverse Reactions, Alerts No Known Allergies Immunizations Given and Recorded Vaccine Date Status Refusal Reason influenza virus vaccine, inactivated 11/24/21 Loco rded influenza virus vaccine, inactivated 12/10/20 Loco rded [id number] bivalent booster vax 11/24/21 Recorded SARS-CoV-2 mRNA (uwycqyr-rnxa-jgfcr) vax 05/26/21 Recorded tetanus/diphtheria/pertussis, acel(Tdap) 12/17/20 Recorded [...] 01/15/22 16:59:00 EST, Route to Pharmacy Electronically, [facility], Partial fill upon patient request [...] MG DAILY, # 90 tablet, 1 Refills, [facility] #[id number], 159, cm, 07/26/21 11:39:00 EDT, Height, 93.2, kg, 05/04/20 10:09:00 EST, Dry We... 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 1 bottle., #1 each, 0 Refills, Maintenance, 03/28/21 11:42:00 EST, [facility] #[id number], Partial fill upon patient request if the prescription is for a lam... Start Date: 03/28/21 Status: Ordered Colace sodium 100 mg oral capsule 100 mg, 1, capsule, By Mouth, 2 times a day, PRN, # 20 capsule, Refills 0, Tot. Refills 0, Maintenance, for constipation, 02/24/22 11:17:00 EST, Route to Pharmacy Electronically, [facility], Partial fill upon patient request if the presc... Start Date: 02/24/22 Status: Ordered gabapentin 300 mg oral capsule 300 mg, By Mouth, 3 times a day, # 63 tablet, Refills 0, Tot. Refills 0, Maintenance, 02/24/22 11:16:00 EST, Route to Pharmacy Electronically, [facility], Partial fill upon patient request if the prescription is for a schedule II opioid... Start Date: 02/24/22 Stop Date: 03/17/22 Status: Ordered hydrochlorothiazide 25 mg oral tablet See Instructions, TAKE 1 TABLET BY MOUTH DAILY, # 90 tablet, Refills 0, Instructions Replace Required Details, Route to Pharmacy Electronically, [facility] #[id number], 159, cm, 07/26/21 11:39:00 EDT, Height, 93.2, kg, 05/04/20 10:09:00 EST, Dry... Start Date: 10/02/21 Status: Ordered ibuprofen 600 mg oral tablet 600 mg, 1, tablet, By Mouth, 3 times a day, PRN, for 30 days, # 90 tablet, Refills 0, Tot. Refills 0, Acute 04/19/22 11:51:00 EST, Pain , Moderate, 03/20/22 11:51:00 EST, [id number], Partial fill upon patient... Start Date: 03/20/22 Stop Date: 04/19/22 Status: Ordered metoprolol 25 mg oral tablet, extended release 25 mg, 1, tablet, By Mouth, Daily, # 90 tablet, Refills 3, Tot. Refills 3, Maintenance, 01/15/22 16:59:00 EST, Route to Pharmacy Electronically, [facility], Partial fill upon patient request [...] 1 Refills, Maintenance, 09/18/20 20:09:00 EDT, Capsule, [facility] #[id number], PLEASE DISPENSE IN BUBBLE/BLISTER PACK, 1 capsule [...] 5 Refills, Maintenance, 02/16/20 10:48:00 EST, Inhaler, [facility] #[id number], Partial fill uponpatient request if the prescription [...] Team Personnel Name: Jarod Olmstead MD Position: [facility] Primary Care Physician Member Role: PCP Address: Address: [address] [place] [address] [address]rd [place] [address]- Name: Wen Stoll RN Position: [facility] RN Member Role: Primary Care Nurse Name: Jeanne Gallagher Position: [facility] Outreach Member Role: Lifetime Consulting Physician Name: Katerina Campos RN Position: [facility] RN Member Role: Primary Care Nurse Name: Bryanna Guzman RN Position: [facility] RN Member Role: Primary Care Nurse Care Team Related Persons Name: ADEN GARCIA Name: FRANCIS GARCIA Address: home
--- OUTSIDE RECORDS SUMMARY | 2022-11-20 09:30 | XMS_ITS | Continuity of Care Document ---
Author Name Unknown Organization [facility] Address [address] [place] [address]- Care Team Providers Care Parts Analyst Name Role Phone Not on Staff, PCP Primary Care Physician Unavail able Encounter [facility] Date(s): 08/02/21 - 09/01/21 [facility] [address] [place] [address]- Attending Physician: Admishaan, Lucy Admitting Physician: AdmtrLucy Referring Physician: Admtr, Ar8 Allergies, Adverse Reactions, Alerts No Known Allergies Immunizations Given and Recorded Vaccine Date Status Refusal Reason SARS-CoV-2 mRNA (hrdsgzc-sxvk-wvhgq) vax 05/26/21 Recorded tetanus/diphtheria/pertussis, acel(Tdap) 12/17/20 Recorded [...] MG DAILY, # 90 tablet, 1 Refills, [facility] #[id number], 159, cm, 07/26/21 11:39:00 EDT, Height, 93.2, kg, 05/04/20 10:09:00 EST, Dry We... 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 1 bottle., #1 each, 0 Refills, Maintenance, 03/28/21 11:42:00 EST, [facility] #[id number], Partial fill upon patient request if the prescription is for a lam... Start Date: 03/28/21 Status: Ordered hydrochlorothiazide 25 mg oral tablet 1, tablet, By Mouth, Daily, # 90 tablet, Refills 0, Route to Pharmacy Electronically, [facility] #[id number], 159, cm, 04/26/21 9:27:00 EST, Height, 93.2, kg, 05/04/20 10:09:00 EST, Dry Weight Start Date: 06/25/21 Status: Ordered lisinopril 20 mg oral tablet 20 mg, 1, tablet, By Mouth, Daily, with 5 mg to total 25 mg of lisinopril, # 90 tablet, Refills 1, Tot. Refills 1, Maintenance, 04/18/21 15:36:00 EST, Route to Pharmacy Electronically, [facility][id number], Partial fill upon patient request if... Start Date: 04/18/21 Stop Date: 10/15/21 Status: Ordered lisinopril 5 mg oral tablet 5 mg, 1, tablet, By Mouth, Daily, with 20 mg to total 25 mg daily, # 90 tablet, Refills 1, Tot. Refills 1, Maintenance, 04/18/21 15:37:00 EST, Route to Pharmacy Electronically, [facility] #[id number], Partial fill upon patient request if the pres... Start Date: 04/18/21 Stop Date: 10/15/21 Status: Ordered Metoprolol Succinate ER 50 mg oral tablet, extended release 1 tablet, By Mouth, Daily, # 90 tablet, 0 Refills, [facility] #[id number], 159, cm, 04/26/21 9:27:00 EST, Height, 93.2, kg, 05/04/20 10:09:00 EST, Dry Weight Start Date: 06/25/21 Status: Ordered Multivitamin Daily, 0 Refills, Maintenance, [...] 1 Refills, Maintenance, 09/18/20 20:09:00 EDT, Capsule, [facility] #[id number], PLEASE DISPENSE IN BUBBLE/BLISTER PACK, 1 capsule By Mouth 2 times a day,x9... Start Date: 09/18/20 Stop Date: 03/17/21 Status: Ordered Ventolin HFA 108 mcg/inh inhalation aerosol with adapter 2 puffs, Inhalation, Every 4 hours, TAKE 2 PUFFS EVERY 4 HOURS IF NEEDED FOR WHEEZING, # 1 each, 5 Refills, Maintenance, 02/16/20 10:48:00 EST, Inhaler, [facility] #[id number], Partial fill uponpatient request if the prescription [...] Active Depression with anxiety(Confirmed) Active Obese class I(Confirmed) Active Obesity(Confirmed) Active Osteoarthritis(Confirmed) Active Osteoporosis - [...]
--- OUTSIDE RECORDS SUMMARY | 2022-11-20 09:30 | XMS_ITS | Continuity of Care Document ---
Author Name Unknown Organization [facility] Address [address] [place] [address]- Care Team Providers Care Scuba Dive Training Instructor Name Role Phone Erik PEÑA, Kirsten Jauregui Primary Care Physician Encounter [facility] Date(s): 06/09/19 - 06/16/19 [facility] [address] [place] [address]- [place] Encounter Diagnosis CAD (coronary artery disease)(Discharge Diagnosis) - 06/09/19 Cirrhosis(Discharge Diagnosis) - 06/09/19 History of Hepatitis B(Discharge Diagnosis) - 06/09/19 History of Hepatitis C(Discharge Diagnosis) - 06/09/19 Vitamin D deficiency(Discharge Diagnosis) - 06/09/19 Vitamin B12 deficiency(Discharge Diagnosis) - 06/09/19 Attending Physician: Erik PEÑA, Kirsten Jauregui Allergies, [...] 05/25/19 13:20:00 EDT, Route to Pharmacy Electronically, [facility] #[id number],... Start Date: 05/25/19 Stop Date: 07/24/19 Status: [...] Refills, Maintenance, 04/24/19 9:40:00 EST, ER Capsule, [facility] #[id number], 165.1, cm, 04/24/19 8:48:00 EST, Height Start [...] 03/01/16 13:51:26 Start Date: 03/01/16 Status: Ordered VITAMIN D3 5000UNIT CAPSULES TAKE [...] Hepatitis C(Confirmed) Active Vitamin D deficiency(Confirmed) Active Diagnosis Diagnosis Type Effective Dates Health Status Clinical Service Informant CAD (coronary artery disease) Discharge Diagnosis 06/09/19 Cirrhosis Discharge Diagnosis 06/09/19 History of Hepatitis B Discharge Diagnosis 06/09/19 History of Hepatitis C Discharge Diagnosis 06/09/19 Vitamin D deficiency Discharge Diagnosis 06/09/19 Vitamin B12 deficiency Discharge Diagnosis 06/09/19 Social History Social History Type Response Tobacco Use: quit 1993 1-2pp d 31yrs. Sex
--- OUTSIDE RECORDS SUMMARY | 2022-11-20 09:30 | XMS_ITS | Continuity of Care Document ---
Author Name Unknown Organization [facility] Address [address] [place] [address], [address] [place] [address]- Care Team Providers Care Herbarium Worker Name Role Phone Ishan PEÑA, [facility] Primary Care Physician [place] [facility] [place]s): 06/04/22 - 07/04/22 [facility] [address] [place] [address], [address] [place] [address]- Allergies, Adverse Reactions, Alerts No Known Allergies Immunizations Given and Recorded Vaccine Date Status Refusal Reason influenza virus vaccine, inactivated 11/24/21 Loco rded influenza virus vaccine, inactivated 12/10/20 Loco rded [id number] bivalent booster vax 11/24/21 Recorded SARS-CoV-2 mRNA (gxekzuo-svzi-xmrbz) vax 05/26/21 Recorded tetanus/diphtheria/pertussis, acel(Tdap) 12/17/20 Recorded [...] 01/15/22 16:59:00 EST, Route to Pharmacy Electronically, [facility], Partial fill upon patient request if [...] MG DAILY, # 90 tablet, 1 Refills, [facility] #[id number], 159, cm, 07/26/21 11:39:00 EDT, Height, 93.2, kg, 05/04/20 10:09:00 EST, Dry We... 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 1 bottle., #1 each, 0 Refills, Maintenance, 06/06/22 12:47:00 EDT, [facility] #[id number], Partial fill upon patient request if the prescription is for a schedule II... Start Date: 06/06/22 Status: Ordered ibuprofen 600 mg oral tablet 1, tablet, By Mouth, 3 times a day, PRN, # 90 tablet, Refills 0, Maintenance, NEEDED FOR MODERATE PAIN, 04/18/22 9:29:00 EST, Route to Pharmacy Electronically, [id number], 160, cm, 03/15/22 14:35:00 EST, Height, 87.6, kg, 02/22/22 17:27:00 EST... Start Date: 04/18/22 Status: Ordered metoprolol 25 mg oral tablet, extended release 25 mg, 1, tablet, By Mouth, Daily, # 90 tablet, Refills 3, Tot. Refills 3, Maintenance, 01/15/22 16:59:00 EST, Route to Pharmacy Electronically, [facility], Partial fill upon patient request if [...] 1 Refills, Maintenance, 09/18/20 20:09:00 EDT, Capsule, [facility] #[id number], PLEASE DISPENSE IN BUBBLE/BLISTER PACK, 1 capsule By Mouth 2 times a day,x9... Start Date: 09/18/20 Stop Date: 03/17/21 Status: Ordered Problem List Condition Confirmation Course [...] Team Personnel Name: Jarod Olmstead MD Position: [facility] Primary Care Physician Member Role: PCP Address: Address: [address] [place] [address] [address] [place] [address]- Name: Wen Stoll RN Position: [facility] RN Member Role: Primary Care Nurse Name: Jeanne Gallagher Position: [facility] Outreach Member Role: Lifetime Consulting Physician Name: Katerina Campos RN Position: [facility] RN Member Role: Primary Care Nurse Name: Bryanna Guzman RN Position: [facility] RN Member Role: Primary Care Nurse Care Team Related Persons Name: ADEN GARCIA Name: FRANCIS GARCIA Address: [place]
--- OUTSIDE RECORDS SUMMARY | 2022-11-20 09:30 | XMS_ITS | Continuity of Care Document ---
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 1 bottle., #1 each, 0 Refills, Maintenance, 03/28/21 11:42:00 EST, [facility] #[id number], Partial fill upon patient request if the prescription is for a lam... Start Date: 03/28/21 Status: Ordered hydrochlorothiazide 25 mg oral tablet 1, tablet, By Mouth, Daily, # 90 tablet, Refills 1, Route to Pharmacy Electronically, [facility] #[id number], 158, cm, 11/25/20 12:59:00 EDT, Height, 93.2, kg, 05/04/20 10:09:00 EST, Dry Weight Start Date: 12/30/20 Status: Ordered lisinopril 20 mg oral tablet 1, tablet, By Mouth, Daily, # 90 tablet, Refills 1, Route to Pharmacy Electronically, [facility] #[id number], 158, cm, 08/01/20 11:06:00 EDT, Height, 93.2, kg, 05/04/20 10:09:00 EST, Dry Weight Start Date: 10/24/20 Status: Ordered Metoprolol Succinate ER 50 mg oral tablet, extended release 1 tablet, By Mouth, Daily, # 90 tablet, 1 Refills, [facility] #[id number], 158, cm, 11/25/20 12:59:00 EDT, Height, 93.2, [...] 1 Refills, Maintenance, 09/18/20 20:09:00 EDT, Capsule, [facility] #[id number], PLEASE DISPENSE IN BUBBLE/BLISTER PACK, 1 capsule By Mouth 2 times a day,x9... Start Date: 09/18/20 Stop Date: 03/17/21 Status: Ordered Ventolin HFA 108 mcg/inh inhalation aerosol with adapter 2 puffs, Inhalation, Every 4 hours, TAKE 2 PUFFS EVERY 4 HOURS IF NEEDED FOR WHEEZING, # 1 each, 5 Refills, Maintenance, 02/16/20 10:48:00 EST, Inhaler, [facility] #[id number], Partial fill uponpatient request if the prescription [...] oofed nodules - dx by Dr Katharine Navas, 2012, rx Biafine topical emulsion bid(Confirmed) Active [...] Diagnosis Diagnosis Type Effective Dates Health Status Cl inical Service Informant Prurigo nodularis- itchy unroofed nodules - dx by Dr Katharine Navas, 2012, rx Biafine topical emulsion bid 1 Discharge Diagnosis 03/28/21 Non-Specified H/O Malignant melanoma - 2000 Discharge Diagnosis 03/28/21 01/25/2022 11:41 DOMINIK Valencia MD, Kirsten Jauregui itchy unroofed nodules - dx by Dr Katharine [facility], 2013, rx Biafine topical emulsion bid Vital Signs Most recent to oldest [Reference Range]: 1 Height 158 cm (03/28/21 10:29 AM) Weight 92.5 kg (03/28/21 10:29 AM) Pulse Rate [55-90 bpm] 83 bpm (03/28/21 10:29 AM) Body Mass Index [18.5-24.99] 37.05 *>HHI* (03/28/21 10:29 AM) Blood Pressure [90-138/55-84 mm Hg] 134/ 79mm Hg (03/28/21 10:29 AM) Blood pressure sites Arm, left (03/28/21 10:29 AM) Social History Social History Type Response Tobacco Use: quit 1993 1-2pp d 31yrs. Sex
--- OUTSIDE RECORDS SUMMARY | 2022-11-20 09:30 | XMS_ITS | Continuity of Care Document ---
Author Name Unknown Organization [facility] Address [address] [place] [address]- Care Team Providers Care Rivet Thrower Name Role Phone Erik PEÑA, Kirsten Jauregui Primary Care Physician Encounter [facility] Date(s): 07/08/20 - 08/07/20 [facility] [address] [place] [address]- Allergies, Adverse Reactions, Alerts Substance Reaction Severity [...] 1 Refills, Maintenance, 07/22/20 14:03:00 EDT, Tablet, [facility] #[id number], Partial fill upon patient request if the prescr... Start Date: 07/22/20 Status: Ordered cholecalciferol 4000 intl units oral tablet = 100 mcg, By Mouth, Daily, # 90 tablet, 1 Refills, Maintenance, 02/10/20 16:38:00 EST, [facility] #[id number], Partial fill upon patient request if the [...] 07/09/20 14:57:00 EDT, Route to Pharmacy Electronically, [facility] #[id number], 165.1, cm, 07/06/20 11:29:00 EDT, Height, 93.2, kg, 05/04/20 10:09:00 ESTDr... Start Date: 07/09/20 Stop Date: 01/05/21 Status: Ordered Lipitor 40 mg oral tablet 1 tablet = 40 mg, By Mouth, Daily, Take 1 tablet of 40 mg with 1 tablet of 20 mg for total 60 mg daily, # 90 tablet, 1 Refills, Maintenance, 07/22/20 14:03:00 EDT, Tablet, [facility] #[id number], 158, cm, 07/22/20 13:04:00 EDT, Height, 93.2, kg,... Start Date: 07/22/20 Stop Date: 01/18/21 Status: Ordered lisinopril 20 mg oral tablet 20 mg, 1, tablet, By Mouth, Daily, # 90 tablet, Refills 1, Tot. Refills 1, Maintenance, 10/29/19 14:56:00 EDT, Route to Pharmacy Electronically, [facility] #[id number], 165.1, cm, 10/28/19 9:59:00 EDT, Height Start [...] 07/09/20 14:57:00 EDT, Route to Pharmacy Electronically, [facility] #[id number], 165.1, cm, 07/06/20 11:29:00 EDT, Height, 93.2, kg, 05/04/20 10:09:00 EST, . Start Date: 07/09/20 Stop Date: 01/05/21 Status: [...] 1 Refills, Maintenance, 04/01/20 14:07:00 EST, Capsule, [facility] #[id number], PLEASE DISPENSE IN BUBBLE/BLISTER PACK, 1 capsule By Mouth Daily,x90 days,Instr:PLEA... Start Date: 04/01/20 Stop Date: 09/28/20 Status: Ordered Ventolin HFA 108 mcg/inh inhalation aerosol with adapter 2 puffs, Inhalation, Every 4 hours, TAKE 2 PUFFS EVERY 4 HOURS IF NEEDED FOR WHEEZING, # 1 each, 5 Refills, Maintenance, 02/16/20 10:48:00 EST, Inhaler, [facility] #[id number], Partial fill uponpatient request if the prescription [...]
--- OUTSIDE RECORDS SUMMARY | 2022-11-20 09:30 | XMS_ITS | Continuity of Care Document ---
Author Name Unknown Organization [facility] Address [address] [place] [address]- Care Team Providers Care Telephone Order Supervisor Name Role Phone Kirsten Valencia MD Primary Care Physician ( [phone] [place] [facility] [place]20 - 02/18/20 [facility] [address] [place] [address]- Encounter Diagnosis Lump in neck(Discharge Diagnosis) - 02/17/20 Attending Physician: Kirsten Valencia MD Allergies, Adverse Reactions, [...] 90 tablet, 1 Refills, Maintenance, 02/10/20 16:38:00 [facility] #[id number], Partial fill upon patient request if the prescription is for a schedule II opioid drug., 165.1, cm, 02/10/20 15:04:00 EST, Height Start Date: 02/10/20 Stop Date: 08/08/20 Status: Ordered clotrimazole 1% topical cream 1 application, Topically, 2 times a day, PRN rash, for 30 days, # 60 Gm, 1 Refills, Acute 04/10/20 16:32:00 EST, 02/10/20 16:32:00 EST, Cream, [facility] #[id number], Partial fill upon patient request if the prescription is for a schedule II opio... Start Date: 02/10/20 Stop Date: 04/10/20 Status: Ordered Diflucan 150 mg oral tablet 1 tablet = 150 mg, By Mouth, Once, # 1 tablet, 0 Refills, Soft Stop, 01/13/20 13:25:00 EST, [facility] #[id number], Partial fill upon patient request, 165.1, cm, [...] 01/07/20 14:52:00 EST, Route to Pharmacy Electronically, [facility] #[id number], 165.1, cm, 12/10/19 10:57:00 EDT, Height Start Date: 01/07/20 Stop Date: 07/05/20 Status: Ordered ibuprofen 600 mg oral tablet 600 mg, 1, tablet, By Mouth, Every 6 hours, for 30 days, TK 1 T PO Q 8 H FOR 14 DAYS PRF MODERATE PAIN WF OR MILK, # 120 tablet, Refills 0, Tot. Refills 0, Acute 03/11/20 15:09:00 EST, 02/10/20 15:09:00 EST, Route to Pharmacy Electronically, [facility]... Start Date: 02/10/20 Stop Date: 03/11/20 Status: Ordered ibuprofen 600 mg oral tablet 600 mg, 1, tablet, By Mouth, Every 6 hours, PRN, for 30 days, with food or milk, # 90 tablet, Refills 0, Tot. Refills 0, Acute 04/10/20 15:09:00 EST, Pain , Mild, 03/11/20 15:09:00 EST, Route to Pharmacy Electronically, [facility] #[id number], Pa... Start Date: 03/11/20 Stop Date: 04/10/20 Status: Ordered Lipitor 40 mg oral tablet 1 tablet = 40 mg, By Mouth, Daily, # 90 tablet, 1 Refills, Maintenance, 01/07/20 14:52:00 EST, Tablet, [facility] #[id number], 165.1, cm, 12/10/19 10:57:00 EDT, Height Start Date: 01/07/20 Stop Date: 07/05/20 Status: Ordered lisinopril 20 mg oral tablet 20 mg, 1, tablet, By Mouth, Daily, # 90 tablet, Refills 1, Tot. Refills 1, Maintenance, 10/29/19 14:56:00 EDT, Route to Pharmacy Electronically, [facility] #[id number], 165.1, cm, 10/28/19 9:59:00 EDT, Height Start Date: 10/29/19 Stop Date: 04/26/20 Status: Ordered metoprolol 50 mg oral tablet, extended release 50 mg, 1, tablet, By Mouth, Daily, # 90 tablet, Refills 1, Tot. Refills 1, Maintenance, 01/07/20 14:51:00 EST, Route to Pharmacy Electronically, [facility] #[id number], 165.1, cm, 12/10/19 10:57:00 EDT, Height Start [...] 5 Refills, Maintenance, 02/16/20 10:48:00 EST, Inhaler, [facility] #[id number], Partial fill uponpatient request if the prescription [...] Active Vitamin D deficiency(Confirmed) Active 1EGD 11/2019 Diagnosis Diagnosis Type Effective Dates Health Status Cl inical Service Informant Lump in neck Discharge Diagnosis 02/17/20 Vital Signs Most recent to oldest [Reference Range]: 1 Height 165.1 cm (02/10/20 3:04 PM) Social History Social History Type Response Tobacco Use: quit 1993 1-2pp d 31yrs. Sex
--- OUTSIDE RECORDS SUMMARY | 2022-11-20 09:30 | XMS_ITS | Continuity of Care Document ---
Author Name Unknown Organization [facility] Address [address] [place] [address]- Care Team Providers Care Supervisor Yard Name Role Phone Ishan PEÑA, [facility] Primary Care Physician [place] [facility] [place](s): 07/25/22 - 08/24/22 [facility] [address] [place] [address]- Attending Physician: Lucy Montaño Admitting Physician: AdmLucy quiros Referring Physician: Admtr, ArLarry Allergies, Adverse Reactions, Alerts No Known Allergies Immunizations Given and Recorded Vaccine Date Status Refusal Reason influenza virus vaccine, inactivated 11/24/21 Loco rded influenza virus vaccine, inactivated 12/10/20 Loco rded [id number] bivalent booster vax 11/24/21 Recorded SARS-CoV-2 mRNA ([id number]) vax 05/26/21 Recorded tetanus/diphtheria/pertussis, acel(Tdap) 12/17/20 Recorded [...] tablet, 2 Refills, Maintenance, 08/02/22 10:40:00 EDT, [facility], 160, cm, 07/25/22 16:17:00 EDT, Height, [...] tablet, 2 Refills, Maintenance, 08/02/22 10:40:00 EDT, [facility], 160, cm, 07/25/22 16:17:00 EDT, Height, 87.6, kg, 02/22/22 17:27:00 EST, Dry Weight Start Date: 08/02/22 Status: Ordered Rick topical emulsion See Instructions, Daily, # 250 mL, 0 Refills, Maintenance, 07/13/22 15:36:00 EDT, [facility] #[id number], Partial fill upon patient request if the prescription is for a schedule II opioid drug.,Daily, 160, cm, 04/30/22 13:34:00 EST, Height, 87.6... Start Date: 07/13/22 Status: Ordered Biafine topical emulsion See Instructions, PRN Prurigo Nodularis, apply to affected area twice a day as needed. 1 bottle., #1 each, 0 Refills, Maintenance, 06/06/22 12:47:00 EDT, [facility]/pharmacy #[id number], Partial fill upon patient request if the prescription is for a schedule II... Start Date: 06/06/22 Status: Ordered hydrochlorothiazide 25 mg oral tablet 1, tablet, By Mouth, Daily, R1., # 90 tablet, Refills 2, Maintenance, 08/02/22 10:40:00 EDT, Route to Pharmacy Electronically, [facility], 160, cm, 07/25/22 16:17:00 EDT, Height, 87.6, kg, 02/22/22 17:27:00 EST, Dry Weight Start Date: 08/02/22 Status: Ordered ibuprofen 600 mg oral tablet 1, tablet, By Mouth, 3 times a day, PRN, # 90 tablet, Refills 0, Tot. Refills 0, Maintenance, NEEDED FOR MODERATE PAIN, 07/13/22 15:37:00 EDT, Route to Pharmacy Electronically, [facility] #[id number], 160, cm, 04/30/22 13:34:00 EST, Height, 87... Start Date: 07/13/22 Status: Ordered metoprolol 25 mg oral tablet, extended release 25 mg, 1, tablet, By Mouth, Daily, # 90 tablet, Refills 3, Tot. Refills 3, Maintenance, 01/15/22 16:59:00 EST, [facility], Partial fill upon patient request [...] 1 Refills, Maintenance, 09/18/20 20:09:00 EDT, Capsule, [facility] #[id number], PLEASE DISPENSE IN BUBBLE/BLISTER PACK, 1 capsule By Mouth 2 times a day,x9... Start Date: 09/18/20 Stop Date: 03/17/21 Status: Ordered Stiolto Respimat 60 ACT 2.5 mcg-2.5 mcg/inh inhalation aerosol 2 puffs, Inhalation, Every 24 hours, # 1 each, 6 Refills, Maintenance, 08/13/22 14:22:00 EDT, Aerosol, [facility] #[id number], Partial fill upon patient request if the prescription is for a schedule II opioid drug., 160, cm, 08/13/22 14:12:00 EDT... Start Date: 08/13/22 Stop Date: 03/11/23 Status: Ordered Ventolin HFA 108 mcg/inh inhalation aerosol with adapter 2 puffs, Inhalation, Every 4 hours, PRN NEEDED FOR WHEEZING OR SHORTNESS OF BREATH/DYSPNEA, # 18Gm, 3 Refills, Maintenance, 08/02/22 10:40:00 EDT, [facility], 160, cm, 07/25/22 16:17:00 EDT, Height, [...] Use: quit 1993 1-2pp d 31yrs. Sex MG Breast Views * Event Display: MM Mammogram Authored Date: Patient Care team information Care Team Personnel Name: Jarod Olmstead MD Position: [facility] Physician - Primary Care Member Role: PCP Address: Address: [address] [place] [id number]- Name: Wen Stoll RN Position: [facility] RN Member Role: Primary Care Nurse Name: Jeanne Gallagher Position: [facility] Outreach Member Role: [employer] Consulting Physician Name: Katerina Campos RN Position: [facility] RN Member Role: Primary Care Nurse Name: Bryanna Guzman RN Position: [facility] RN Member Role: Primary Care Nurse Care Team Related Persons Name: ADEN GARCIA Name: FRANCIS GARCIA Address: [place]
--- OUTSIDE RECORDS SUMMARY | 2022-11-20 09:30 | XMS_ITS | Continuity of Care Document ---
Author Name Unknown Organization [facility] Address [address] [place] [address]- Care Team Providers Care Research Recruiter Name Role Phone Erik PEÑA, Kirsten Jauregui Primary Care Physician Encounter [facility] [place] Date(s): 04/20/20 - 05/20/20 [facility] [address] [place] [address]- Allergies, Adverse Reactions, Alerts Substance Reaction Severity [...] 1 Refills, Maintenance, 04/20/20 16:09:00 EST, Tablet, [facility] #[id number], Partial fill upon patient request if the prescr... Start Date: 04/20/20 Status: Ordered cholecalciferol 4000 intl units oral tablet = 100 mcg, By Mouth, Daily, # 90 tablet, 1 Refills, Maintenance, 02/10/20 16:38:00 EST, [facility] #[id number], Partial fill upon patient request if the [...] 01/07/20 14:52:00 EST, Route to Pharmacy Electronically, [facility] #[id number], 165.1, cm, 12/10/19 10:57:00 EDT, Height Start Date: 01/07/20 Stop Date: 07/05/20 Status: Ordered Lipitor 40 mg oral tablet 1 tablet = 40 mg, By Mouth, Daily, Take 1 tablet of 40 mg with 1 tablet of 20 mg for total 60 mg daily, # 90 tablet, 1 Refills, Maintenance, 04/06/20 14:02:00 EST, Tablet, [facility] #[id number], 165.1, cm, 04/06/20 8:13:00 EST, Height Start Date: 04/06/20 Status: Ordered lisinopril 20 mg oral tablet 20 mg, 1, tablet, By Mouth, Daily, # 90 tablet, Refills 1, Tot. Refills 1, Maintenance, 10/29/19 14:56:00 EDT, Route to Pharmacy Electronically, [facility] #[id number], 165.1, cm, 10/28/19 9:59:00 EDT, Height Start Date: 10/29/19 Stop Date: 04/26/20 Status: Ordered metoprolol 50 mg oral tablet, extended release 50 mg, 1, tablet, By Mouth, Daily, # 90 tablet, Refills 1, Tot. Refills 1, Maintenance, 01/07/20 14:51:00 EST, Route to Pharmacy Electronically, [facility] #[id number], 165.1, cm, 12/10/19 10:57:00 EDT, Height Start [...] 1 Refills, Maintenance, 04/01/20 14:07:00 EST, Capsule, [facility] #[id number], PLEASE DISPENSE IN BUBBLE/BLISTER PACK, 1 capsule By Mouth Daily,x90 days,Instr:PLEA... Start Date: 04/01/20 Stop Date: 09/28/20 Status: Ordered Ventolin HFA 108 mcg/inh inhalation aerosol with adapter 2 puffs, Inhalation, Every 4 hours, TAKE 2 PUFFS EVERY 4 HOURS IF NEEDED FOR WHEEZING, # 1 each, 5 Refills, Maintenance, 02/16/20 10:48:00 EST, Inhaler, [facility] #[id number], Partial fill uponpatient request if the prescription [...]
--- OUTSIDE RECORDS SUMMARY | 2022-11-20 09:30 | XMS_ITS | Continuity of Care Document ---
Author Name Unknown Organization [facility] Address [address] [place] [address]- Care Team Providers Care Coding Assistant Name Role Phone Erik PEÑA, Kirsten Jauregui Primary Care Physician [place] [facility] [place] 09[place] [facility] [address] [place] [address]- Attending Physician: Lucy Montaño Admitting Physician: Lucy Montaño Referring Physician: AdmtrLucy Allergies, Adverse Reactions, Alerts Substance Reaction Severity [...] 1 Refills, Maintenance, 07/22/20 14:03:00 EDT, Tablet, [facility] #[id number], Partial fill upon patient request if the prescr... Start Date: 07/22/20 Status: Ordered cholecalciferol 4000 intl units oral tablet = 100 mcg, By Mouth, Daily, # 90 tablet, 1 Refills, Maintenance, 02/10/20 16:38:00 EST, [facility] #[id number], Partial fill upon patient request if the [...] 07/09/20 14:57:00 EDT, Route to Pharmacy Electronically, [facility] #[id number], 165.1, cm, 07/06/20 11:29:00 EDT, Height, 93.2, kg, 05/04/20 10:09:00 ESTDr... Start Date: 07/09/20 Stop Date: 01/05/21 Status: Ordered Lipitor 40 mg oral tablet 1 tablet = 40 mg, By Mouth, Daily, Take 1 tablet of 40 mg with 1 tablet of 20 mg for total 60 mg daily, # 90 tablet, 1 Refills, Maintenance, 07/22/20 14:03:00 EDT, Tablet, [facility] #[id number], 158, cm, 07/22/20 13:04:00 EDT, Height, 93.2, kg,... Start Date: 07/22/20 Stop Date: 01/18/21 Status: Ordered lisinopril 20 mg oral tablet 20 mg, 1, tablet, By Mouth, Daily, # 90 tablet, Refills 1, Tot. Refills 1, Maintenance, 10/29/19 14:56:00 EDT, Route to Pharmacy Electronically, [facility] #[id number], 165.1, cm, 10/28/19 9:59:00 EDT, Height Start [...] 07/09/20 14:57:00 EDT, Route to Pharmacy Electronically, [facility] #[id number], 165.1, cm, 07/06/20 11:29:00 EDT, Height, 93.2, [...] 1 Refills, Maintenance, 09/18/20 20:09:00 EDT, Capsule, [facility] #[id number], PLEASE DISPENSE IN BUBBLE/BLISTER PACK, 1 capsule By Mouth 2 times a day,x9... Start Date: 09/18/20 Stop Date: 03/17/21 Status: Ordered Ventolin HFA 108 mcg/inh inhalation aerosol with adapter 2 puffs, Inhalation, Every 4 hours, TAKE 2 PUFFS EVERY 4 HOURS IF NEEDED FOR WHEEZING, # 1 each, 5 Refills, Maintenance, 02/16/20 10:48:00 EST, Inhaler, [facility] #[id number], Partial fill uponpatient request if the prescription [...]
--- OUTSIDE RECORDS SUMMARY | 2022-11-20 09:30 | XMS_ITS | Continuity of Care Document ---
Author Name Unknown Organization [facility] Address [address] [place] [address]- Care Team Providers Care Collection Systems Modeler Name Role Phone Erik PEÑA, Kirsten Jauregui Primary Care Physician Encounter [facility] Date(s): 01/11/20 - 02/10/20 [facility] [address] [place], [place] [address] Allergies, Adverse Reactions, Alerts Substance Reaction [...] tablet, 1 Refills, Maintenance, 02/10/20 16:38:00 EST, [facility] #[id number], Partial fill upon patient request if the prescription is for a schedule II opioid drug., 165.1, cm, 02/10/20 15:04:00 EST, Height Start Date: 02/10/20 Stop Date: 08/08/20 Status: Ordered clotrimazole 1% topical cream 1 application, Topically, 2 times a day, PRN rash, for 30 days, # 60 Gm, 1 Refills, Acute 04/10/20 16:32:00 EST, 02/10/20 16:32:00 EST, Cream, [facility] #[id number], Partial fill upon patient request if the prescription is for a schedule II opio... Start Date: 02/10/20 Stop Date: 04/10/20 Status: Ordered Diflucan 150 mg oral tablet 1 tablet = 150 mg, By Mouth, Once, # 1 tablet, 0 Refills, Soft Stop, 01/13/20 13:25:00 EST, [facility] #[id number], Partial fill upon patient request, 165.1, cm, [...] 01/07/20 14:52:00 EST, Route to Pharmacy Electronically, [facility] #[id number], 165.1, cm, 12/10/19 10:57:00 EDT, Height Start [...] 02/10/20 15:09:00 EST, Route to Pharmacy Electronically, [facility]... Start Date: 02/10/20 Stop Date: 03/11/20 Status: Ordered ibuprofen 600 mg oral tablet 600 mg, 1, tablet, By Mouth, Every 6 hours, PRN, for 30 days, with food or milk, # 90 tablet, Refills 0, Tot. Refills 0, Acute 04/10/20 15:09:00 EST, Pain , Mild, 03/11/20 15:09:00 EST, Route to Pharmacy Electronically, [facility] #[id number], Pa... Start Date: 03/11/20 Stop Date: 04/10/20 Status: Ordered Lipitor 40 mg oral tablet 1 tablet = 40 mg, By Mouth, Daily, # 90 tablet, 1 Refills, Maintenance, 01/07/20 14:52:00 EST, Tablet, [facility] #[id number], 165.1, cm, 12/10/19 10:57:00 EDT, Height Start Date: 01/07/20 Stop Date: 07/05/20 Status: Ordered lisinopril 20 mg oral tablet 20 mg, 1, tablet, By Mouth, Daily, # 90 tablet, Refills 1, Tot. Refills 1, Maintenance, 10/29/19 14:56:00 EDT, Route to Pharmacy Electronically, [facility] #[id number], 165.1, cm, 10/28/19 9:59:00 EDT, Height Start Date: 10/29/19 Stop Date: 04/26/20 Status: Ordered metoprolol 50 mg oral tablet, extended release 50 mg, 1, tablet, By Mouth, Daily, # 90 tablet, Refills 1, Tot. Refills 1, Maintenance, 01/07/20 14:51:00 EST, Route to Pharmacy Electronically, [facility] #[id number], 165.1, cm, 12/10/19 10:57:00 EDT, Height Start [...] 03/01/16 13:51:26 Start Date: 03/01/16 Status: Ordered triamcinolone 0.1% topical cream 1 application, Topically, 2 times a day, PRN Rash, for 7 days, becareful to not over use apply a thin film to affected area, # 30 Gm, 0 Refills, Acute 02/17/20 16:33:00 EST, 02/10/20 16:33:00 EST, Cream, [facility] #[id number], Partial fill upo... Start Date: 02/10/20 Stop Date: 02/17/20 Status: Ordered Vitamin D3 5000 IU Vitamin [...]
--- OUTSIDE RECORDS SUMMARY | 2022-11-20 09:30 | XMS_ITS | Continuity of Care Document ---
Author Name Unknown Organization [facility] Address [address] [place] [address]- Care Team Providers Care Tooler Name Role Phone Erik PEÑA, Kirsten Jauregui Primary Care Physician [place] [facility] [place] 06/07/21 - 07/07/21 [facility] [address] [place] [address]- Attending Physician: Lucy Montaño Admitting Physician: AdmLucy quiros Referring Physician: AdmtrLucy Allergies, Adverse Reactions, Alerts No Known Allergies [...] 05/17/21 22:19:00 EDT, Route to Pharmacy Electronically, [facility]... Start Date: 05/17/21 Stop Date: 07/16/21 [...] MG DAILY, # 90 tablet, 0 Refills, [facility][id number], 158, cm, 04/03/21 15:11:00 EST, Height, 93.2, kg, 05/04/20 10:09:00 EST, Dry We... Start Date: 04/24/21 Status: Ordered atorvastatin 40 mg oral tablet See Instructions, TAKE 1 TABLET BY MOUTH DAILY TAKE 1 TABLET OF 40 MG WITH 1 TABLET OF 20 MG FOR TOTAL 60 MG DAILY, # 90 tablet, 0 Refills, [facility] #[id number], 158, cm, 01/04/21 12:51:00 EST, Height, 93.2, kg, 05/04/20 10:09:00 EST, Dry Weight Start Date: 01/25/21 Status: Ordered Biafine topical emulsion See Instructions, PRN Prurigo Nodularis, apply to affected area twice a day as needed. 1 bottle., #1 each, 0 Refills, Maintenance, 03/28/21 11:42:00 EST, [facility] #[id number], Partial fill upon patient request if the prescription is for a lam... Start Date: 03/28/21 Status: Ordered hydrochlorothiazide 25 mg oral tablet 1, tablet, By Mouth, Daily, # 90 tablet, Refills 0, Route to Pharmacy Electronically, [facility] #[id number], 159, cm, 04/26/21 9:27:00 EST, Height, 93.2, kg, 05/04/20 10:09:00 EST, Dry Weight Start Date: 06/25/21 Status: Ordered lisinopril 20 mg oral tablet 20 mg, 1, tablet, By Mouth, Daily, with 5 mg to total 25 mg of lisinopril, # 90 tablet, Refills 1, Tot. Refills 1, Maintenance, 04/18/21 15:36:00 EST, Route to Pharmacy Electronically, [facility] #[id number], Partial fill upon patient request if... Start Date: 04/18/21 Stop Date: 10/15/21 Status: Ordered lisinopril 5 mg oral tablet 5 mg, 1, tablet, By Mouth, Daily, with 20 mg to total 25 mg daily, # 90 tablet, Refills 1, Tot. Refills 1, Maintenance, 04/18/21 15:37:00 EST, Route to Pharmacy Electronically, [facility] #[id number], Partial fill upon patient request if the pres... Start Date: 04/18/21 Stop Date: 10/15/21 Status: Ordered Metoprolol Succinate ER 50 mg oral tablet, extended release 1 tablet, By Mouth, Daily, # 90 tablet, 0 Refills, [facility] #[id number], 159, cm, 04/26/21 9:27:00 EST, Height, 93.2, kg, 05/04/20 10:09:00 EST, Dry Weight Start Date: 06/25/21 Status: Ordered pantoprazole 20 mg oral delayed [...] 1 Refills, Maintenance, 09/18/20 20:09:00 EDT, Capsule, [facility] #[id number], PLEASE DISPENSE IN BUBBLE/BLISTER PACK, 1 capsule By Mouth 2 times a day,x9... Start Date: 09/18/20 Stop Date: 03/17/21 Status: Ordered Ventolin HFA 108 mcg/inh inhalation aerosol with adapter 2 puffs, Inhalation, Every 4 hours, TAKE 2 PUFFS EVERY 4 HOURS IF NEEDED FOR WHEEZING, # 1 each, 5 Refills, Maintenance, 02/16/20 10:48:00 EST, Inhaler, [facility] #[id number], Partial fill uponpatient request if the prescription [...]
--- OUTSIDE RECORDS SUMMARY | 2022-11-20 09:30 | XMS_ITS | Continuity of Care Document ---
Author Name Unknown Organization [facility] Address [address] [place] [address] [address] [place] [address]- Care Team Providers Care Straight Line Edger Name Role Phone Ishan PEÑA, [facility] Primary Care Physician [facility] Date[facility]s): 11/06/22 - 11/13/22 [facility] [address] [place], [place] [address] Attending Physician: Darlene Wilde MD Allergies, Adverse Reactions, Alerts No Known Allergies Immunizations Given and Recorded Vaccine Date Status Refusal Reason influenza virus vaccine, inactivated 11/24/21 Loco rded influenza virus vaccine, inactivated 12/10/20 Loco rded [id number] bivalent booster vax 11/24/21 Recorded SARS-CoV-2 mRNA ([id number]) vax 05/26/21 Recorded tetanus/diphtheria/pertussis, acel(Tdap) 12/17/20 Recorded [...] Recorded Hepatitis A Adult Vaccine 04/06/07 Recorded Medications Aspirin Low Dose 81 mg oral delayed release tablet 1 tablet, By Mouth, Daily, R1., # 90 tablet, 2 Refills, Maintenance, 08/02/22 10:40:00 [facility], [facility], cm, 07/25/22 16:17:00 EDT, [...] tablet, 2 Refills, Maintenance, 08/02/22 10:40:00 EDT, [facility], 160, cm, 07/25/22 16:17:00 EDT, Height, 87.6, kg, 02/22/22 17:27:00 EST, Dry Weight Start Date: 08/02/22 Status: Ordered Rick topical emulsion See Instructions, Daily, # 250 mL, 0 Refills, Maintenance, 07/13/22 15:36:00 EDT, [facility] #[id number], Partial fill upon patient request if the prescription is for a schedule II opioid drug.,Daily, 160, cm, 04/30/22 13:34:00 EST, Height, 87.6... Start Date: 07/13/22 Status: Ordered barium sulfate 2% oral suspension See Instructions, Please dispense 2 450 mls bottles to equal 900 mls. Please follow the intructionsprovided, # 2 each, 0 Refills, Maintenance, 11/06/22 13:38:00 EDT, [facility]/pharmacy #[id number], Partial fillupon patient request if the prescription is for a s... Start Date: 11/06/22 Status: Ordered Biafine topical emulsion See Instructions, PRN Prurigo Nodularis, apply to affected area twice a day as needed. 1 bottle., #1 each, 0 Refills, Maintenance, 06/06/22 12:47:00 EDT, [facility]/pharmacy #[id number], Partial fill upon patient request if the prescription is for a schedule II... Start Date: 06/06/22 Status: Ordered hydrochlorothiazide 25 mg oral tablet 1, tablet, By Mouth, Daily, R1., # 90 tablet, Refills 2, Maintenance, 08/02/22 10:40:00 EDT, [facility], 160, cm, 07/25/22 16:17:00 EDT, Height, 87.6, kg, 02/22/22 17:27:00 EST, Dry Weight Start Date: 08/02/22 Status: Ordered ibuprofen 600 mg oral tablet 1, tablet, By Mouth, 3 times a day, PRN, # 90 tablet, Refills 0, Tot. Refills 0, Maintenance, NEEDED FOR MODERATE PAIN, 07/13/22 15:37:00 EDT, Route to Pharmacy Electronically, [facility] #[id number], 160, cm, 04/30/22 13:34:00 EST, Height, 87... Start Date: 07/13/22 Status: Ordered metoprolol 25 mg oral tablet, extended release 25 mg, 1, tablet, By Mouth, Daily, # 90 tablet, Refills 3, Tot. Refills 3, Maintenance, 01/15/22 16:59:00 EST, [facility], Partial fill upon patient request if the prescription is for a schedule II opioid drug... Start Date: 01/15/22 Stop Date: 01/10/23 Status: Ordered MULTI FOR HER 50+ TABS MULTI FOR HER 50+ TABS, 1, tablet, By Mouth, Daily, # 90 tablet, 3 Refills, Maintenance, R1., 10/15/22 15:19:00 EDT, 160, cm, 08/27/22 12:06:00 EDT, Height, 88.3, kg, 08/27/22 12:10:00 EDT, Dry Weight Start Date: 10/15/22 Status: Ordered Multivitamin Daily, 0 Refills, Maintenance, [...] Start Date: 08/02/22 Status: Ordered PreserVision AREDS Lutein oral capsule 1 capsule, By Mouth, 2 times a day with meals, ^1R1,1R4., # 180 capsule, 3 Refills, Maintenance, 10/15/22 15:19:00 EDT, [facility], 90, TAKE 1 CAPSULE BY MOUTH TWICE A DAY WITH MEALS^1R1,1R4,160, cm, 08/27/22 12:06:00 EDT, Height, 88.3, kg, 0... Start Date: 10/15/22 Status: Ordered Stiolto Respimat 60 ACT 2.5 mcg-2.5 mcg/inh inhalation aerosol 2 puffs, Inhalation, Every 24 hours, # 1 each, 6 Refills, Maintenance, 08/13/22 14:22:00 EDT, Aerosol, [facility] #[id number], Partial fill upon patient request if the prescription is for a schedule II opioid drug., 160, cm, 08/13/22 14:12:00 EDT... Start Date: 08/13/22 Stop Date: 03/11/23 Status: Ordered Ventolin HFA 108 mcg/inh inhalation aerosol with adapter 2 puffs, Inhalation, Every 4 hours, PRN NEEDED FOR WHEEZING OR SHORTNESS OF BREATH/DYSPNEA, # 18Gm, 3 Refills, Maintenance, 08/02/22 10:40:00 EDT, [facility], 160, cm, 07/25/22 16:17:00 EDT, Height, [...] oldest [Reference Range]: 1 Height 160 cm (11/06/22 11:11 AM) Weight 88.4 kg (11/06/22 11:11 AM) Pulse Rate [55-90 bpm] 57 bpm (11/06/22 11:11 AM) Body Mass Index [18.5-24.99 kg/m2] 34.53 kg/m2 *>HHI* (11/06/22 11:11 AM) Blood Pressure [90-138/55-84 mm Hg] 145/ 65mm Hg *H* (11/06/22 11:11 AM) Respiratory Rate [16-30 br/min] 18 br/mi n (11/06/22 11:11 AM) Temperature [96.8-100.4 DegF] 98.0 DegF (11/06/22 11:11 AM) Blood pressure sites Arm, left (11/06/22 11:11 AM) Temperature Route Temporal (11/06/22 11:11 AM) Weight Obtained Via Standing scale (11/06/22 11:11 AM) Social History Social History Type Response Tobacco Use: quit 1993 1-2pp d 31yrs. Sex Patient Care team information Care Team Personnel Name: Jarod Olmstead MD Position: [facility] Physician - Primary Care Member Role: PCP Address: Address: [address] [place] [address] Name: Wen Stoll RN Position: S RN Member Role: Primary Care Nurse Name: Jeanne Gallagher [place] Position: [facility] ASIF KEN[place]ON Member Role: Lifetime Consulting Physician Name: Katerina Campos RN Position: S RN Member Role: Primary Care Nurse Name: Bryanna Guzman RN Position: [facility] RN Member Role: Primary Care Nurse Care Team Related Persons Name: ADEN GARCIA Name: FRANCIS GARCIA Address: [place]
--- OUTSIDE RECORDS SUMMARY | 2022-11-20 09:31 | XMS_ITS | Continuity of Care Document ---
Author Name Unknown Organization [facility] [place] [address] [address]- Care Team Providers Care Apparel Designer Name Role Phone Erik PEÑA, Kirsten Jauregui Primary Care Physician Encounter [facility] Date(s): 03/27/21 - 04/26/21 [facility] [address] [address]- Attending Physician: Lucy Montaño Admitting Physician: Lucy [...] MG DAILY, # 90 tablet, 0 Refills, [facility] #[id number], 158, cm, 04/03/21 15:11:00 EST, Height, 93.2, kg, 05/04/20 10:09:00 EST, Dry We... Start Date: 04/24/21 Status: Ordered atorvastatin 40 mg oral tablet See Instructions, TAKE 1 TABLET BY MOUTH DAILY TAKE 1 TABLET OF 40 MG WITH 1 TABLET OF 20 MG FOR TOTAL 60 MG DAILY, # 90 tablet, 0 Refills, [facility] #[id number], 158, cm, 01/04/21 12:51:00 EST, Height, 93.2, kg, 05/04/20 10:09:00 EST, Dry Weight Start Date: 01/25/21 Status: Ordered Biafine topical emulsion See Instructions, PRN Prurigo Nodularis, apply to affected area twice a day as needed. 1 bottle., #1 each, 0 Refills, Maintenance, 03/28/21 11:42:00 EST, [facility] #[id number], Partial fill upon patient request if the prescription is for a lam... Start Date: 03/28/21 Status: Ordered hydrochlorothiazide 25 mg oral tablet 1, tablet, By Mouth, Daily, # 90 tablet, Refills 1, Route to Pharmacy Electronically, [facility] #[id number], 158, cm, 11/25/20 12:59:00 EDT, Height, 93.2, kg, 05/04/20 10:09:00 EST, Dry Weight Start Date: 12/30/20 Status: Ordered lisinopril 20 mg oral tablet 20 mg, 1, tablet, By Mouth, Daily, with 5 mg to total 25 mg of lisinopril, # 90 tablet, Refills 1, Tot. Refills 1, Maintenance, 04/18/21 15:36:00 EST, Route to Pharmacy Electronically, [facility] #[id number], Partial fill upon patient request if... Start Date: 04/18/21 Stop Date: 10/15/21 Status: Ordered lisinopril 5 mg oral tablet 5 mg, 1, tablet, By Mouth, Daily, with 20 mg to total 25 mg daily, # 90 tablet, Refills 1, Tot. Refills 1, Maintenance, 04/18/21 15:37:00 EST, Route to Pharmacy Electronically, [facility] #[id number], Partial fill upon patient request if the pres... Start Date: 04/18/21 Stop Date: 10/15/21 Status: Ordered Metoprolol Succinate ER 50 mg oral tablet, extended release 1 tablet, By Mouth, Daily, # 90 tablet, 1 Refills, [facility] #[id number], 158, cm, 11/25/20 12:59:00 EDT, Height, 93.2, [...] 1 Refills, Maintenance, 09/18/20 20:09:00 EDT, Capsule, [facility] #[id number], PLEASE DISPENSE IN BUBBLE/BLISTER PACK, 1 capsule By Mouth 2 times a day,x9... Start Date: 09/18/20 Stop Date: 03/17/21 Status: Ordered Ventolin HFA 108 mcg/inh inhalation aerosol with adapter 2 puffs, Inhalation, Every 4 hours, TAKE 2 PUFFS EVERY 4 HOURS IF NEEDED FOR WHEEZING, # 1 each, 5 Refills, Maintenance, 02/16/20 10:48:00 EST, Inhaler, [facility] #[id number], Partial fill uponpatient request if the prescription [...]
--- OUTSIDE RECORDS SUMMARY | 2022-11-20 09:31 | XMS_ITS | Continuity of Care Document ---
Author Name Unknown Organization [facility] Address [address] [place] [address]- Care Team Providers Care Product Management Intern Name Role Phone Erik PEÑA, Kirsten Jauregui Primary Care Physician [place] [facility] [place]20 [facility] [address] [place], [place] [address] Allergies, Adverse Reactions, Alerts Substance Reaction [...] tablet, 1 Refills, Maintenance, 02/10/20 16:38:00 EST, [facility] #[id number], Partial fill upon patient request if the prescription is for a schedule II opioid drug., 165.1, cm, 02/10/20 15:04:00 EST, Height Start Date: 02/10/20 Stop Date: 08/08/20 Status: Ordered clotrimazole 1% topical cream 1 application, Topically, 2 times a day, PRN rash, for 30 days, # 60 Gm, 1 Refills, Acute 04/10/20 16:32:00 EST, 02/10/20 16:32:00 EST, Cream, [facility] #[id number], Partial fill upon patient request if the [...] 01/07/20 14:52:00 EST, Route to Pharmacy Electronically, [facility] #[id number], 165.1, cm, 12/10/19 10:57:00 EDT, Height Start Date: 01/07/20 Stop Date: 07/05/20 Status: Ordered ibuprofen 600 mg oral tablet 600 mg, 1, tablet, By Mouth, Every 6 hours, PRN, for 30 days, with food or milk, # 90 tablet, Refills 0, Tot. Refills 0, Acute 04/10/20 15:09:00 EST, Pain , Mild, 03/11/20 15:09:00 EST, Route to Pharmacy Electronically, [facility] #[id number], Pa... Start Date: 03/11/20 Stop Date: 04/10/20 Status: Ordered Lipitor 40 mg oral tablet 1 tablet = 40 mg, By Mouth, Daily, # 90 tablet, 1 Refills, Maintenance, 01/07/20 14:52:00 EST, Tablet, [facility] #[id number], 165.1, cm, 12/10/19 10:57:00 EDT, Height Start Date: 01/07/20 Stop Date: 07/05/20 Status: Ordered lisinopril 20 mg oral tablet 20 mg, 1, tablet, By Mouth, Daily, # 90 tablet, Refills 1, Tot. Refills 1, Maintenance, 10/29/19 14:56:00 EDT, Route to Pharmacy Electronically, [facility] #[id number], 165.1, cm, 10/28/19 9:59:00 EDT, Height Start Date: 10/29/19 Stop Date: 04/26/20 Status: Ordered metoprolol 50 mg oral tablet, extended release 50 mg, 1, tablet, By Mouth, Daily, # 90 tablet, Refills 1, Tot. Refills 1, Maintenance, 01/07/20 14:51:00 EST, Route to Pharmacy Electronically, [facility] #[id number], 165.1, cm, 12/10/19 10:57:00 EDT, Height Start [...] 5 Refills, Maintenance, 02/16/20 10:48:00 EST, Inhaler, [facility] #[id number], Partial fill uponpatient request if the prescription [...] gets US per GI q 6 mo(Confirmed) 2 Active Vitamin D deficiency(Confirmed) Active 1EGD 11/2019 2followed by GI , gets US per GI q 6 mo Social History Social History Type Response Tobacco Use: quit 1993 1-2pp d 31yrs. Sex
--- OUTSIDE RECORDS SUMMARY | 2022-11-20 09:31 | XMS_ITS | Continuity of Care Document ---
Author Name Unknown Organization [facility] Address [address] [place] [address]- Care Team Providers Care Youth Associate Name Role Phone Ishan PEÑA, [facility] Primary Care Physician [facility]): 03[facility]16[facility]22 - 04/15/22 [facility] [address] [place] [address] Allergies, Adverse Reactions, Alerts No Known Allergies Immunizations Given and Recorded Vaccine Date Status Refusal Reason influenza virus vaccine, inactivated 11/24/21 Loco rded influenza virus vaccine, inactivated 12/10/20 Loco rded [id number] bivalent booster vax 11/24/21 Recorded SARS-CoV-2 mRNA ([id number]-[id number]-vyyid) vax 05/26/21 Recorded tetanus/diphtheria/pertussis, acel(Tdap) 12/17/20 Recorded [...] 01/15/22 16:59:00 EST, Route to Pharmacy Electronically, [facility], Partial fill upon patient request [...] MG DAILY, # 90 tablet, 1 Refills, [facility] #[id number], 159, cm, 07/26/21 11:39:00 EDT, Height, 93.2, kg, 05/04/20 10:09:00 EST, Dry We... 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 1 bottle., #1 each, 0 Refills, Maintenance, 03/28/21 11:42:00 EST, [facility] #[id number], Partial fill upon patient request if the prescription is for a lam... Start Date: 03/28/21 Status: Ordered Colace sodium 100 mg oral capsule 100 mg, 1, capsule, By Mouth, 2 times a day, PRN, # 20 capsule, Refills 0, Tot. Refills 0, Maintenance, for constipation, 02/24/22 11:17:00 EST, Route to Pharmacy Electronically, [facility], Partial fill upon patient request if the presc... Start Date: 02/24/22 Status: Ordered gabapentin 300 mg oral capsule 300 mg, By Mouth, 3 times a day, # 63 tablet, Refills 0, Tot. Refills 0, Maintenance, 02/24/22 11:16:00 EST, Route to Pharmacy Electronically, [facility], Partial fill upon patient request if the prescription is for a schedule II opioid... Start Date: 02/24/22 Stop Date: 03/17/22 Status: Ordered hydrochlorothiazide 25 mg oral tablet See Instructions, TAKE 1 TABLET BY MOUTH DAILY, # 90 tablet, Refills 0, Instructions Replace Required Details, Route to Pharmacy Electronically, [facility] #[id number], 159, cm, 07/26/21 11:39:00 EDT, Height, 93.2, kg, 05/04/20 10:09:00 EST, Dry... Start Date: 10/02/21 Status: Ordered ibuprofen 600 mg oral tablet 600 mg, 1, tablet, By Mouth, 3 times a day, PRN, for 30 days, # 90 tablet, Refills 0, Tot. Refills 0, Acute 04/19/22 11:51:00 EST, Pain , Moderate, 03/20/22 11:51:00 EST, [id number] Partial fill upon patient... Start Date: 03/20/22 Stop Date: 04/19/22 Status: Ordered metoprolol 25 mg oral tablet, extended release 25 mg, 1, tablet, By Mouth, Daily, # 90 tablet, Refills 3, Tot. Refills 3, Maintenance, 01/15/22 16:59:00 EST, Route to Pharmacy Electronically, [facility], Partial fill upon patient request if the [...] 1 Refills, Maintenance, 09/18/20 20:09:00 EDT, Capsule, [facility] #[id number], PLEASE DISPENSE IN BUBBLE/BLISTER PACK, 1 capsule By Mouth 2 times a day,x9... Start Date: 09/18/20 Stop Date: 03/17/21 Status: Ordered Readi-Cat 2 oral suspension See Instructions, Oral Contrast 2 Bottles 450 ml each Dx: Hernia, # 900 mL, 0 Refills, Maintenance,11/01/21 15:08:00 EDT, [id number], Partial fill upon patient request if the prescription isfor a schedule II opioid drug., Oral Contrast; 2... Start Date: 11/01/21 Status: Ordered Ventolin HFA 108 mcg/inh inhalation aerosol with adapter 2 puffs, Inhalation, Every 4 hours, TAKE 2 PUFFS EVERY 4 HOURS IF NEEDED FOR WHEEZING, # 1 each, 5 Refills, Maintenance, 02/16/20 10:48:00 EST, Inhaler, [facility] #[id number], Partial fill uponpatient request if the prescription [...] Team Personnel Name: Jarod Olmstead MD Position: [facility] Primary Care Physician Member Role: PCP Address: Address: [address] [place] [address] [address] [place] [address]- Name: Wen Stoll RN Position: S RN Member Role: Primary Care Nurse Name: Jeanne Gallagher Position: [facility] Outreach Member Role: Lifetime Consulting Physician Name: Katerina Campos RN Position: S RN Member Role: Primary Care Nurse Name: Bryanna Guzman RN Position: S RN Member Role: Primary Care Nurse Care Team Related Persons Name: ADEN GARCIA Name: FRANCIS GARCIA Address: home
--- OUTSIDE RECORDS SUMMARY | 2022-11-20 09:31 | XMS_ITS | Continuity of Care Document ---
Author Name Unknown Organization [facility] Address [address] [place] [address]- Care Team Providers Care Peat Shredder Tender Name Role Phone Ishan PEÑA, [facility] Primary Care Physician Encounter [facility] Date(s): 03/19/22 - 04/18/22 [facility] [address] [place] [address]- Allergies, Adverse Reactions, Alerts No Known Allergies Immunizations Given and Recorded Vaccine Date Status Refusal Reason influenza virus vaccine, inactivated 11/24/21 Loco rded influenza virus vaccine, inactivated 12/10/20 Loco rded [id number] bivalent booster vax 11/24/21 Recorded SARS-CoV-2 mRNA ([id number]-[id number]) vax 05/26/21 Recorded tetanus/diphtheria/pertussis, acel(Tdap) 12/17/20 Recorded [...] 01/15/22 16:59:00 EST, Route to Pharmacy Electronically, [facility], Partial fill upon patient request if [...] MG DAILY, # 90 tablet, 1 Refills, [facility] #[id number], 159, cm, 07/26/21 11:39:00 EDT, Height, 93.2, kg, 05/04/20 10:09:00 EST, Dry We... 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 1 bottle., #1 each, 0 Refills, Maintenance, 03/28/21 11:42:00 EST, [facility] #[id number], Partial fill upon patient request if the prescription is for a lam... Start Date: 03/28/21 Status: Ordered Colace sodium 100 mg oral capsule 100 mg, 1, capsule, By Mouth, 2 times a day, PRN, # 20 capsule, Refills 0, Tot. Refills 0, Maintenance, for constipation, 02/24/22 11:17:00 EST, Route to Pharmacy Electronically, [facility], Partial fill upon patient request if the presc... Start Date: 02/24/22 Status: Ordered gabapentin 300 mg oral capsule 300 mg, By Mouth, 3 times a day, # 63 tablet, Refills 0, Tot. Refills 0, Maintenance, 02/24/22 11:16:00 EST, Route to Pharmacy Electronically, [facility], Partial fill upon patient request if the prescription is for a schedule II opioid... Start Date: 02/24/22 Stop Date: 03/17/22 Status: Ordered hydrochlorothiazide 25 mg oral tablet See Instructions, TAKE 1 TABLET BY MOUTH DAILY, # 90 tablet, Refills 0, Instructions Replace Required Details, Route to Pharmacy Electronically, [facility] #[id number], 159, cm, 07/26/21 11:39:00 EDT, Height, 93.2, kg, 05/04/20 10:09:00 EST, Dry... Start Date: 10/02/21 Status: Ordered ibuprofen 600 mg oral tablet 1, tablet, By Mouth, 3 times a day, PRN, # 90 tablet, Refills 0, Maintenance, NEEDED FOR MODERATE PAIN, 04/18/22 9:29:00 EST, Route to Pharmacy Electronically, [id number], 160, cm, 03/15/22 14:35:00 EST, Height, 87.6, kg, 02/22/22 17:27:00 EST... Start Date: 04/18/22 Status: Ordered metoprolol 25 mg oral tablet, extended release 25 mg, 1, tablet, By Mouth, Daily, # 90 tablet, Refills 3, Tot. Refills 3, Maintenance, 01/15/22 16:59:00 EST, Route to Pharmacy Electronically, [facility], Partial fill upon patient request if the [...] 1 Refills, Maintenance, 09/18/20 20:09:00 EDT, Capsule, [facility] #[id number], PLEASE DISPENSE IN BUBBLE/BLISTER PACK, 1 capsule By Mouth 2 times a day,x9... Start Date: 09/18/20 Stop Date: 03/17/21 Status: Ordered Readi-Cat 2 oral suspension See Instructions, Oral Contrast 2 Bottles 450 ml each Dx: Hernia, # 900 mL, 0 Refills, Maintenance,11/01/21 15:08:00 EDT, [id number], Partial fill upon patient request if the prescription isfor a schedule II opioid drug., Oral Contrast; 2... Start Date: 11/01/21 Status: Ordered Ventolin HFA 108 mcg/inh inhalation aerosol with adapter 2 puffs, Inhalation, Every 4 hours, TAKE 2 PUFFS EVERY 4 HOURS IF NEEDED FOR WHEEZING, # 1 each, 5 Refills, Maintenance, 02/16/20 10:48:00 EST, Inhaler, [facility] #[id number], Partial fill uponpatient request if the prescription [...] Team Personnel Name: Jarod Olmstead MD Position: [facility] Primary Care Physician Member Role: PCP Address: Address: [address] [place] [address] [address] [place] [address]- Name: Wen Stoll RN Position: S RN Member Role: Primary Care Nurse Name: Jeanne Gallagher Position: [facility] Outreach Member Role: Lifetime Consulting Physician Name: Katerina Campos RN Position: S RN Member Role: Primary Care Nurse Name: Bryanna Guzman RN Position: S RN Member Role: Primary Care Nurse Care Team Related Persons Name: ADEN GARCIA Name: FRANCIS GARCIA Address: [place]
--- OUTSIDE RECORDS SUMMARY | 2022-11-20 09:31 | XMS_ITS | Continuity of Care Document ---
Author Name Unknown Organization [facility] As formerly [facility] Address [address] [place] [address] [address] [place] [address]- Care Team Providers Care Sales Engagement Manager Name Role Phone Erik PEÑA, Kirsten Jauregui Primary Care Physician ( [phone] [place] [facility] [place] - 05/02/[address] [place] [address]- Attending Physician: Luis PEÑA, Shaan Referring Physician: Erik PEÑA, Kirsten Jauregui Allergies, Adverse [...] 1 Refills, Maintenance, 04/20/20 16:09:00 EST, Tablet, [facility] #[id number], Partial fill upon patient request if the prescr... Start Date: 04/20/20 Status: Ordered cholecalciferol 4000 intl units oral tablet = 100 mcg, By Mouth, Daily, # 90 tablet, 1 Refills, Maintenance, 02/10/20 16:38:00 EST, [facility] #[id number], Partial fill upon patient request if the [...] 01/07/20 14:52:00 EST, Route to Pharmacy Electronically, [facility] #[id number], 165.1, cm, 12/10/19 10:57:00 EDT, Height Start Date: 01/07/20 Stop Date: 07/05/20 Status: Ordered Lipitor 40 mg oral tablet 1 tablet = 40 mg, By Mouth, Daily, Take 1 tablet of 40 mg with 1 tablet of 20 mg for total 60 mg daily, # 90 tablet, 1 Refills, Maintenance, 04/06/20 14:02:00 EST, Tablet, [facility] #[id number], 165.1, cm, 04/06/20 8:13:00 EST, Height Start Date: 04/06/20 Status: Ordered lisinopril 20 mg oral tablet 20 mg, 1, tablet, By Mouth, Daily, # 90 tablet, Refills 1, Tot. Refills 1, Maintenance, 10/29/19 14:56:00 EDT, Route to Pharmacy Electronically, [facility] #[id number], 165.1, cm, 10/28/19 9:59:00 EDT, Height Start Date: 10/29/19 Stop Date: 04/26/20 Status: Ordered metoprolol 50 mg oral tablet, extended release 50 mg, 1, tablet, By Mouth, Daily, # 90 tablet, Refills 1, Tot. Refills 1, Maintenance, 01/07/20 14:51:00 EST, Route to Pharmacy Electronically, [facility] #[id number], 165.1, cm, 12/10/19 10:57:00 EDT, Height Start [...] 1 Refills, Maintenance, 04/01/20 14:07:00 EST, Capsule, [facility] #[id number], PLEASE DISPENSE IN BUBBLE/BLISTER PACK, 1 capsule By Mouth Daily,x90 days,Instr:PLEA... Start Date: 04/01/20 Stop Date: 09/28/20 Status: Ordered Ventolin HFA 108 mcg/inh inhalation aerosol with adapter 2 puffs, Inhalation, Every 4 hours, TAKE 2 PUFFS EVERY 4 HOURS IF NEEDED FOR WHEEZING, # 1 each, 5 Refills, Maintenance, 02/16/20 10:48:00 EST, Inhaler, [facility] #[id number], Partial fill uponpatient request if the prescription [...] oldest [Reference Range]: 1 Height 165.1 cm (04/25/20 11:16 AM) Weight 94.9 kg (04/25/20 11:16 AM) Oxygen Saturation [94-100 %] 96 % (04/25/20 11:16 AM) Pulse Rate [55-90 bpm] 67 bpm (04/25/20 11:16 AM) Body Mass Index [18.5-24.99] 34.82 *>HHI* (04/25/20 11:16 AM) Blood Pressure [90-138/55-84 mm Hg] 169/ 75mm Hg *H* (04/25/20 11:16 AM) Respiratory Rate [16-30 br/min] 14 br/mi n *L* (04/25/20 11:16 AM) Blood pressure sites Arm, right (04/25/20 11:16 AM) Weight Obtained Via Standing scale (04/25/20 11:16 AM) Social History Social History Type Response Tobacco Use: quit 1993 1-2pp d 31yrs. Sex
--- OUTSIDE RECORDS SUMMARY | 2022-11-20 09:31 | XMS_ITS | Continuity of Care Document ---
Author Name Unknown Organization [facility] Address [address] [address]- Care Team Providers Care Fish Cake Maker Name Role Phone Erik PEÑA, Kirsten Jauregui Primary Care Physician Encounter [facility] [place] Date(s): 05/03/21 - 05/10/21 [facility] [address] [address]- Attending Physician: Rod Cardozo MD Admitting Physician: Rod Cardozo MD Referring Physician: Kirsten Valencia MD Allergies, Adverse Reactions, Alerts No Known [...] Status Refusal Reason influenza virus vaccine, inactivated 04/28/16 No t Given Patient Refuses 1Result [...] MG DAILY, # 90 tablet, 0 Refills, [facility] #[id number], 158, cm, 04/03/21 15:11:00 EST, Height, 93.2, kg, 05/04/20 10:09:00 EST, Dry We... Start Date: 04/24/21 Status: Ordered atorvastatin 40 mg oral tablet See Instructions, TAKE 1 TABLET BY MOUTH DAILY TAKE 1 TABLET OF 40 MG WITH 1 TABLET OF 20 MG FOR TOTAL 60 MG DAILY, # 90 tablet, 0 Refills, [facility] #[id number], 158, cm, 01/04/21 12:51:00 EST, Height, 93.2, kg, 05/04/20 10:09:00 EST, Dry Weight Start Date: 01/25/21 Status: Ordered Biafine topical emulsion See Instructions, PRN Prurigo Nodularis, apply to affected area twice a day as needed. 1 bottle., #1 each, 0 Refills, Maintenance, 03/28/21 11:42:00 EST, [facility] #[id number], Partial fill upon patient request if the prescription is for a lam... Start Date: 03/28/21 Status: Ordered hydrochlorothiazide 25 mg oral tablet 1, tablet, By Mouth, Daily, # 90 tablet, Refills 1, Route to Pharmacy Electronically, [facility] #[id number], 158, cm, 11/25/20 12:59:00 EDT, Height, 93.2, kg, 05/04/20 10:09:00 EST, Dry Weight Start Date: 12/30/20 Status: Ordered lisinopril 20 mg oral tablet 20 mg, 1, tablet, By Mouth, Daily, with 5 mg to total 25 mg of lisinopril, # 90 tablet, Refills 1, Tot. Refills 1, Maintenance, 04/18/21 15:36:00 EST, Route to Pharmacy Electronically, [facility] #[id number], Partial fill upon patient request if... Start Date: 04/18/21 Stop Date: 10/15/21 Status: Ordered lisinopril 5 mg oral tablet 5 mg, 1, tablet, By Mouth, Daily, with 20 mg to total 25 mg daily, # 90 tablet, Refills 1, Tot. Refills 1, Maintenance, 04/18/21 15:37:00 EST, Route to Pharmacy Electronically, [facility] #[id number], Partial fill upon patient request if the pres... Start Date: 04/18/21 Stop Date: 10/15/21 Status: Ordered Metoprolol Succinate ER 50 mg oral tablet, extended release 1 tablet, By Mouth, Daily, # 90 tablet, 1 Refills, [facility] #[id number], 158, cm, 11/25/20 12:59:00 EDT, Height, 93.2, [...] 1 Refills, Maintenance, 09/18/20 20:09:00 EDT, Capsule, [facility] #[id number], PLEASE DISPENSE IN BUBBLE/BLISTER PACK, 1 capsule By Mouth 2 times a day,x9... Start Date: 09/18/20 Stop Date: 03/17/21 Status: Ordered Ventolin HFA 108 mcg/inh inhalation aerosol with adapter 2 puffs, Inhalation, Every 4 hours, TAKE 2 PUFFS EVERY 4 HOURS IF NEEDED FOR WHEEZING, # 1 each, 5 Refills, Maintenance, 02/16/20 10:48:00 EST, Inhaler, [facility] #[id number], Partial fill uponpatient request if the prescription [...] abuse(Confirmed) Active COVID-19 vaccine series comp leted- [facility] 03/2020(Confirmed) Active Hyperlipidemia(Confirmed) Active Hypertension(Confirmed) Active Urinary [...] hernia(Confirmed) Active COVID-19 vaccine series star anil- 2/ #1 Pfizer(Confirmed) Active Varicella(Confirmed) Active PVC (premature [...]
--- OUTSIDE RECORDS SUMMARY | 2022-11-20 09:31 | XMS_ITS | Continuity of Care Document ---
Author Name Unknown Organization [facility] Address [address] [place] [address]- Care Team Providers Care Clinical Documentation Improvement Specialist Name Role Phone Erik PEÑA, Kirsten Jauregui Primary Care Physician Encounter [facility] Date(s): 05/12/21 - 06/11/21 [facility] [address] [place] [address]- Allergies, Adverse Reactions, Alerts No Known Allergies [...] 05/17/21 22:19:00 EDT, Route to Pharmacy Electronically, [facility]... Start Date: 05/17/21 Stop Date: 07/16/21 [...] MG DAILY, # 90 tablet, 0 Refills, [facility] #[id number], 158, cm, 04/03/21 15:11:00 EST, Height, 93.2, kg, 05/04/20 10:09:00 EST, Dry We... Start Date: 04/24/21 Status: Ordered atorvastatin 40 mg oral tablet See Instructions, TAKE 1 TABLET BY MOUTH DAILY TAKE 1 TABLET OF 40 MG WITH 1 TABLET OF 20 MG FOR TOTAL 60 MG DAILY, # 90 tablet, 0 Refills, [facility] #[id number], 158, cm, 01/04/21 12:51:00 EST, Height, 93.2, kg, 05/04/20 10:09:00 EST, Dry Weight Start Date: 01/25/21 Status: Ordered Biafine topical emulsion See Instructions, PRN Prurigo Nodularis, apply to affected area twice a day as needed. 1 bottle., #1 each, 0 Refills, Maintenance, 03/28/21 11:42:00 EST, [facility] #[id number], Partial fill upon patient request if the prescription is for a lam... Start Date: 03/28/21 Status: Ordered hydrochlorothiazide 25 mg oral tablet 1, tablet, By Mouth, Daily, # 90 tablet, Refills 1, Route to Pharmacy Electronically, [facility] #[id number], 158, cm, 11/25/20 12:59:00 EDT, Height, 93.2, kg, 05/04/20 10:09:00 EST, Dry Weight Start Date: 12/30/20 Status: Ordered lisinopril 20 mg oral tablet 20 mg, 1, tablet, By Mouth, Daily, with 5 mg to total 25 mg of lisinopril, # 90 tablet, Refills 1, Tot. Refills 1, Maintenance, 04/18/21 15:36:00 EST, Route to Pharmacy Electronically, [facility] #[id number], Partial fill upon patient request if... Start Date: 04/18/21 Stop Date: 10/15/21 Status: Ordered lisinopril 5 mg oral tablet 5 mg, 1, tablet, By Mouth, Daily, with 20 mg to total 25 mg daily, # 90 tablet, Refills 1, Tot. Refills 1, Maintenance, 04/18/21 15:37:00 EST, Route to Pharmacy Electronically, [facility] #[id number], Partial fill upon patient request if the pres... Start Date: 04/18/21 Stop Date: 10/15/21 Status: Ordered Metoprolol Succinate ER 50 mg oral tablet, extended release 1 tablet, By Mouth, Daily, # 90 tablet, 1 Refills, [facility] #[id number], 158, cm, 11/25/20 12:59:00 EDT, Height, 93.2, [...] 1 Refills, Maintenance, 09/18/20 20:09:00 EDT, Capsule, [facility] #[id number], PLEASE DISPENSE IN BUBBLE/BLISTER PACK, 1 capsule By Mouth 2 times a day,x9... Start Date: 09/18/20 Stop Date: 03/17/21 Status: Ordered Ventolin HFA 108 mcg/inh inhalation aerosol with adapter 2 puffs, Inhalation, Every 4 hours, TAKE 2 PUFFS EVERY 4 HOURS IF NEEDED FOR WHEEZING, # 1 each, 5 Refills, Maintenance, 02/16/20 10:48:00 EST, Inhaler, [facility] #[id number], Partial fill uponpatient request if the prescription [...] abuse(Confirmed) Active COVID-19 vaccine series comp leted- [email or web address] 03/2020(Confirmed) Active Hyperlipidemia(Confirmed) Active Hypertension(Confirmed) Active Urinary frequency(Confirmed) Active Abnormal renal finding- ABD US incidental mild renal cortical thinning, normal renal function - 02/2020(Confirmed) Active H/O Malignant melanoma - 2000(Confirmed) Active Depression with anxiety(Confirmed) Active Obese class II(Confirmed) Active Obesity(Confirmed) Active Osteoarthritis(Confirmed) Active Osteoporosis - 03/2019 [facility]xa [facility](Confirmed) Active Prurigo nodularis- itchy unr oofed nodules - dx by Dr Katharine [facility], 2013, rx Biafine topical emulsion bid(Confirmed) [...]
--- OUTSIDE RECORDS SUMMARY | 2022-11-20 09:31 | XMS_ITS | Continuity of Care Document ---
Author Name Unknown Organization [facility] Address [address] [place] [address]- Care Team Providers Care Cabin Worker Name Role Phone Erik PEÑA, Kirsten Jauregui Primary Care Physician Encounter [facility] [place] Date(s): 07/05/20 - 08/04/20 [facility] [address] [place] [id number]- Allergies, Adverse Reactions, Alerts Substance Reaction Severity [...] 1 Refills, Maintenance, 07/22/20 14:03:00 EDT, Tablet, [facility] #[id number], Partial fill upon patient request if the prescr... Start Date: 07/22/20 Status: Ordered cholecalciferol 4000 intl units oral tablet = 100 mcg, By Mouth, Daily, # 90 tablet, 1 Refills, Maintenance, 02/10/20 16:38:00 EST, [facility] #[id number], Partial fill upon patient request if the [...] 07/09/20 14:57:00 EDT, Route to Pharmacy Electronically, [facility] #[id number], 165.1, cm, 07/06/20 11:29:00 EDT, Height, 93.2, kg, 05/04/20 10:09:00 Dr.. DOMINIK. Start Date: 07/09/20 Stop Date: 01/05/21 Status: Ordered Lipitor 40 mg oral tablet 1 tablet = 40 mg, By Mouth, Daily, Take 1 tablet of 40 mg with 1 tablet of 20 mg for total 60 mg daily, # 90 tablet, 1 Refills, Maintenance, 07/22/20 14:03:00 EDT, Tablet, [facility] #[id number], 158, cm, 07/22/20 13:04:00 EDT, Height, 93.2, kg,... Start Date: 07/22/20 Stop Date: 01/18/21 Status: Ordered lisinopril 20 mg oral tablet 20 mg, 1, tablet, By Mouth, Daily, # 90 tablet, Refills 1, Tot. Refills 1, Maintenance, 10/29/19 14:56:00 EDT, Route to Pharmacy Electronically, [facility] #[id number], 165.1, cm, 10/28/19 9:59:00 EDT, Height Start [...] 07/09/20 14:57:00 EDT, Route to Pharmacy Electronically, [facility] #[id number], 165.1, cm, 07/06/20 11:29:00 EDT, Height, 93.2, [...] 1 Refills, Maintenance, 04/01/20 14:07:00 EST, Capsule, [facility] #[id number], PLEASE DISPENSE IN BUBBLE/BLISTER PACK, 1 capsule By Mouth Daily,x90 days,Instr:PLEA... Start Date: 04/01/20 Stop Date: 09/28/20 Status: Ordered Ventolin HFA 108 mcg/inh inhalation aerosol with adapter 2 puffs, Inhalation, Every 4 hours, TAKE 2 PUFFS EVERY 4 HOURS IF NEEDED FOR WHEEZING, # 1 each, 5 Refills, Maintenance, 02/16/20 10:48:00 EST, Inhaler, [facility] #[id number], Partial fill uponpatient request if the prescription [...] abuse(Confirmed) Active COVID-19 vaccine series comp leted- [facility] 03/2020(Confirmed) Active Hyperlipidemia(Confirmed) Active Hypertension(Confirmed) Active Urinary [...]
--- OUTSIDE RECORDS SUMMARY | 2022-11-20 09:31 | XMS_ITS | Continuity of Care Document ---
Author Name Unknown Organization [facility] Address [address] [address]- Care Team Providers Care Skein Tier Name Role Phone Erik PEÑA, Kirsten Jauregui Primary Care Physician [place] [facility] [place]17[place]21 - 04/19/21 [facility] [address] [address]- Attending Physician: Hawa Odom Admitting Physician: Hawa Odom Referring Physician: Kirsten Valencia MD Allergies, Adverse [...] MG DAILY, # 90 tablet, 0 Refills, [facility] #[id number], 158, cm, 01/04/21 12:51:00 EST, Height, 93.2, kg, 05/04/20 10:09:00 EST, Dry Weight Start Date: 01/25/21 Status: Ordered Biafine topical emulsion See Instructions, PRN Prurigo Nodularis, apply to affected area twice a day as needed. 1 bottle., #1 each, 0 Refills, Maintenance, 03/28/21 11:42:00 EST, [facility] #[id number], Partial fill upon patient request if the prescription is for a lam... Start Date: 03/28/21 Status: Ordered hydrochlorothiazide 25 mg oral tablet 1, tablet, By Mouth, Daily, # 90 tablet, Refills 1, Route to Pharmacy Electronically, [facility] #[id number], 158, cm, 11/25/20 12:59:00 EDT, Height, 93.2, kg, 05/04/20 10:09:00 EST, Dry Weight Start Date: 12/30/20 Status: Ordered lisinopril 20 mg oral tablet 20 mg, 1, tablet, By Mouth, Daily, with 5 mg to total 25 mg of lisinopril, # 90 tablet, Refills 1, Tot. Refills 1, Maintenance, 04/18/21 15:36:00 EST, Route to Pharmacy Electronically, [facility] #[id number], Partial fill upon patient request if... Start Date: 04/18/21 Stop Date: 10/15/21 Status: Ordered lisinopril 5 mg oral tablet 5 mg, 1, tablet, By Mouth, Daily, with 20 mg to total 25 mg daily, # 90 tablet, Refills 1, Tot. Refills 1, Maintenance, 04/18/21 15:37:00 EST, Route to Pharmacy Electronically, [facility] #[id number], Partial fill upon patient request if the pres... Start Date: 04/18/21 Stop Date: 10/15/21 Status: Ordered Metoprolol Succinate ER 50 mg oral tablet, extended release 1 tablet, By Mouth, Daily, # 90 tablet, 1 Refills, [facility] #[id number], 158, cm, 11/25/20 12:59:00 EDT, Height, 93.2, [...] 1 Refills, Maintenance, 09/18/20 20:09:00 EDT, Capsule, [facility] #[id number], PLEASE DISPENSE IN BUBBLE/BLISTER PACK, 1 capsule By Mouth 2 times a day,x9... Start Date: 09/18/20 Stop Date: 03/17/21 Status: Ordered Ventolin HFA 108 mcg/inh inhalation aerosol with adapter 2 puffs, Inhalation, Every 4 hours, TAKE 2 PUFFS EVERY 4 HOURS IF NEEDED FOR WHEEZING, # 1 each, 5 Refills, Maintenance, 02/16/20 10:48:00 EST, Inhaler, [facility] #[id number], Partial fill uponpatient request if the prescription [...]
--- OUTSIDE RECORDS SUMMARY | 2022-11-20 09:31 | XMS_ITS | Continuity of Care Document ---
Author Name Unknown Organization [facility] Address [address] [place] [address]- Care Team Providers Care Truck Terminal Manager Name Role Phone Erik PEÑA, Kirsten Jauregui Primary Care Physician ( [phone] Encounter [facility] Date(s): 05/10/21 - 06/09/21 [facility] [address] [place] [address]- Allergies, Adverse Reactions, Alerts No Known Allergies [...] 05/17/21 22:19:00 EDT, Route to Pharmacy Electronically, [facility]... Start Date: 05/17/21 Stop Date: 07/16/21 [...] MG DAILY, # 90 tablet, 0 Refills, [email or web address] #[id number], 158, cm, 04/03/21 15:11:00 EST, Height, 93.2, kg, 05/04/20 10:09:00 EST, Dry We... Start Date: 04/24/21 Status: Ordered atorvastatin 40 mg oral tablet See Instructions, TAKE 1 TABLET BY MOUTH DAILY TAKE 1 TABLET OF 40 MG WITH 1 TABLET OF 20 MG FOR TOTAL 60 MG DAILY, # 90 tablet, 0 Refills, [email or web address] #[id number], 158, cm, 01/04/21 12:51:00 EST, Height, 93.2, kg, 05/04/20 10:09:00 EST, Dry Weight Start Date: 01/25/21 Status: Ordered Biafine topical emulsion See Instructions, PRN Prurigo Nodularis, apply to affected area twice a day as needed. 1 bottle., #1 each, 0 Refills, Maintenance, 03/28/21 11:42:00 EST, [facility] #[id number], Partial fill upon patient request if the prescription is for a lam... Start Date: 03/28/21 Status: Ordered hydrochlorothiazide 25 mg oral tablet 1, tablet, By Mouth, Daily, # 90 tablet, Refills 1, Route to Pharmacy Electronically, [facility] #[id number], 158, cm, 11/25/20 12:59:00 EDT, Height, 93.2, kg, 05/04/20 10:09:00 EST, Dry Weight Start Date: 12/30/20 Status: Ordered lisinopril 20 mg oral tablet 20 mg, 1, tablet, By Mouth, Daily, with 5 mg to total 25 mg of lisinopril, # 90 tablet, Refills 1, Tot. Refills 1, Maintenance, 04/18/21 15:36:00 EST, Route to Pharmacy Electronically, [facility] #[id number], Partial fill upon patient request if... Start Date: 04/18/21 Stop Date: 10/15/21 Status: Ordered lisinopril 5 mg oral tablet 5 mg, 1, tablet, By Mouth, Daily, with 20 mg to total 25 mg daily, # 90 tablet, Refills 1, Tot. Refills 1, Maintenance, 04/18/21 15:37:00 EST, Route to Pharmacy Electronically, [facility] #[id number], Partial fill upon patient request if the pres... Start Date: 04/18/21 Stop Date: 10/15/21 Status: Ordered Metoprolol Succinate ER 50 mg oral tablet, extended release 1 tablet, By Mouth, Daily, # 90 tablet, 1 Refills, [facility] #[id number], 158, cm, 11/25/20 12:59:00 EDT, Height, 93.2, [...] 1 Refills, Maintenance, 09/18/20 20:09:00 EDT, Capsule, [facility] #[id number], PLEASE DISPENSE IN BUBBLE/BLISTER PACK, 1 capsule By Mouth 2 times a day,x9... Start Date: 09/18/20 Stop Date: 03/17/21 Status: Ordered Ventolin HFA 108 mcg/inh inhalation aerosol with adapter 2 puffs, Inhalation, Every 4 hours, TAKE 2 PUFFS EVERY 4 HOURS IF NEEDED FOR WHEEZING, # 1 each, 5 Refills, Maintenance, 02/16/20 10:48:00 EST, Inhaler, [facility] #[id number], Partial fill uponpatient request if the prescription [...] abuse(Confirmed) Active COVID-19 vaccine series comp leted- [employer] 03/2020(Confirmed) Active Hyperlipidemia(Confirmed) Active Hypertension(Confirmed) Active Urinary [...]
--- OUTSIDE RECORDS SUMMARY | 2022-11-20 09:31 | XMS_ITS | Continuity of Care Document ---
Author Name Unknown Organization [facility] Address [address] [place] [address], [address] [place] [address]- Care Team Providers Care Rail Splitter Name Role Phone Juan PEÑA, Roshni Kaplan Primary Care Physician Encounter [facility] R [id number] Date(s): 12/12/21 - 12/19/21 [facility] Thoracic Surgery [address] [place] [address], [address] [place], [place] [address] Attending Physician: Daphnie Fulton MD Referring Physician: Shaan Smith MD Allergies, Adverse Reactions, Alerts No Known Allergies Immunizations Given and Recorded Vaccine Date Status Refusal Reason SARS-CoV-2 mRNA ([id number]) vax 05/26/21 Recorded tetanus/diphtheria/pertussis, acel(Tdap) 12/17/20 Recorded [...] MG DAILY, # 90 tablet, 1 Refills, [facility] #[id number], 159, cm, 07/26/21 11:39:00 EDT, Height, 93.2, kg, 05/04/20 10:09:00 EST, Dry We... 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 1 bottle., #1 each, 0 Refills, Maintenance, 03/28/21 11:42:00 EST, [facility] #[id number], Partial fill upon patient request if the prescription is for a lam... Start Date: 03/28/21 Status: Ordered hydrochlorothiazide 25 mg oral tablet See Instructions, TAKE 1 TABLET BY MOUTH DAILY, # 90 tablet, Refills 0, Instructions Replace Required Details, Route to Pharmacy Electronically, [facility] #[id number], 159, cm, 07/26/21 11:39:00 EDT, Height, 93.2, kg, 05/04/20 10:09:00 EST, Dry... Start Date: 10/02/21 Status: Ordered lisinopril 20 mg oral tablet 1, tablet, By Mouth, Daily, OF LISINOPRIL., # 90 tablet, Refills 0, Route to Pharmacy Electronically, [facility] #[id number], 159, cm, 07/26/21 11:39:00 EDT, Height, 93.2, kg, 05/04/20 10:09:00 EST, Dry Weight Start Date: 10/16/21 Status: Ordered lisinopril 5 mg oral tablet 5 mg, 1, tablet, By Mouth, Daily, # 30 tablet, Refills 0, Maintenance, 11/01/21 10:49:00 EDT, Partial fill upon patient request if the prescription is for a schedule II opioid drug. Start Date: 11/01/21 Status: Ordered Metoprolol Succinate ER 50 mg oral tablet, extended release 1 tablet, By Mouth, Daily, # 90 tablet, 0 Refills, [facility] #[id number], 159, cm, 04/26/21 9:27:00 EST, Height, 93.2, [...] 1 Refills, Maintenance, 09/18/20 20:09:00 EDT, Capsule, [facility] #[id number], PLEASE DISPENSE IN BUBBLE/BLISTER PACK, 1 capsule By Mouth 2 times a day,x9... Start Date: 09/18/20 Stop Date: 03/17/21 Status: Ordered Readi-Cat 2 oral suspension See Instructions, Oral Contrast 2 Bottles 450 ml each Dx: Hernia, # 900 mL, 0 Refills, Maintenance,11/01/21 15:08:00 EDT, [id number], Partial fill upon patient request if the prescription isfor a schedule II opioid drug., Oral Contrast; 2... Start Date: 11/01/21 Status: Ordered Ventolin HFA 108 mcg/inh inhalation aerosol with adapter 2 puffs, Inhalation, Every 4 hours, TAKE 2 PUFFS EVERY 4 HOURS IF NEEDED FOR WHEEZING, # 1 each, 5 Refills, Maintenance, 02/16/20 10:48:00 EST, Inhaler, [facility] #[id number], Partial fill uponpatient request if the prescription is for a schedu... Start Date: 02/16/20 Stop Date: 08/14/20 Status: Ordered Problem List Condition Confirmation Course Effective Dates Status H ealth Status Informant Carotid artery stenosis- doppler 02/2020= less than 50% bilat 1 Confirmed Active Interstitial cystitis Confirmed Active Chronic lower back pain Confirmed Active Cirrhosis Confirmed Active Vitamin B12 deficiency Confirmed Active CAD (coronary artery disease) Confirmed Active Renal cyst Confirmed Active Aortic dilatation- abd US 02/2020 normal caliber 2 Confirmed Active Ex-smoker, 1-2 ppd X 22 years, quit 11/18/1993 Confirmed Active GERD (gastroesophageal reflux disease) Confirmed Active History of arm fracture - 02/2019 Confirmed Active Hemorrhoids Confirmed Active Hiatal hernia- EGD 11/2019 3 Confirmed Active History of alcohol abuse Confirmed Active History of coronary artery bypass graft x 4 04/2016 Confirmed Active History of substance abuse Confirmed Active COVID-19 vaccine series completed- Pfizer 03/2020 Confirmed Active Hyperlipidemia Confirmed Active Hypertension Confirmed Active Urinary frequency Confirmed Active Abnormal renal finding- ABD US incidental mild renal cortical thinning, normal renal function - 02/2020 Confirmed Active H/O Malignant melanoma - 2000 Confirmed Active Depression with anxiety Confirmed Active Obese class II Confirmed Active Obesity Confirmed Active Osteoarthritis Confirmed Active Osteoporosis - 03/2019 [facility] Confirmed Active Prurigo nodularis- itchy unroofed nodules - dx by Dr Katharine [facility], 2012, rx Biafine topical emulsion bid Confirmed Active History of Hepatitis B Confirmed Active Umbilical hernia Confirmed Active COVID-19 vaccine series started- 03/31 #1 Pfizer Confirmed Active Varicella Confirmed Active PVC (premature ventricular contraction) Confirmed Active History of Hepatitis C- followed by GI , gets US per GI q 6 mo 4 Confirmed Active Vitamin D deficiency Confirmed Active 1doppler 02/2020= less than 50% bilat 2- abd US 02/2020 normal caliber 3EGD 11/2019 4followed by GI , gets US per GI q 6 mo Vital Signs Most recent to oldest [Reference Range]: 1 Height 159 cm (12/12/21 10:03 AM) Weight 89.8 kg (12/12/21 10:03 AM) Oxygen Saturation [94-100 %] 98 % (10/18/22 10:03 AM) Pulse Rate [55-90 bpm] 63 bpm (12/12/21 10:03 AM) Body Mass Index [18.5-24.99 kg/m2] 35.52 kg/m2 *>HHI* (12/12/21 10:03 AM) Blood Pressure [90-138/55-84 mm Hg] 126/ 88mm Hg (12/12/21 10:03 AM) Respiratory Rate [16-30 br/min] 16 br/mi n (12/12/21 10:03 AM) Temperature [96.8-100.4 DegF] 98.7 DegF (12/12/21 10:03 AM) Mode of Delivery (Oxygen) Room air (12/12/21 10:03 AM) Blood pressure sites Arm, right (12/12/21 10:03 AM) Temperature Route Temporal (12/12/21 10:03 AM) Weight Obtained Via Standing scale (12/12/21 10:03 AM) Social History Social History Type Response Tobacco Use: quit 1993 1-2pp d 31yrs. Sex Patient Care team information Personnel Name: Juan PEÑA, Roshni Kaplan Address: Address: [address] [place], [place] [address]
--- OUTSIDE RECORDS SUMMARY | 2022-11-20 09:31 | XMS_ITS | Continuity of Care Document ---
Author Name Unknown Organization [facility] Address [address] [place] [address], [address] [place] [address]- Care Team Providers Care Contract Mail Carrier Name Role Phone Ishan PEÑA, [facility] Primary Care Physician Encounter [facility] Date(s): 02/16/22 - 03/18/22 [facility] Thoracic Surgery [address] [place] [address], [address] [place], [place] [address] Allergies, Adverse Reactions, Alerts No Known Allergies Immunizations Given and Recorded Vaccine Date Status Refusal Reason influenza virus vaccine, inactivated 11/24/21 Loco rded influenza virus vaccine, inactivated 12/10/20 Loco rded [id number] bivalent booster vax 11/24/21 Recorded SARS-CoV-2 mRNA ([id number]) vax 05/26/21 Recorded tetanus/diphtheria/pertussis, acel(Tdap) 12/17/20 Recorded [...] EST, Route to Pharmacy Electronically, [facility], Partial fill upon patient request if [...] MG DAILY, # 90 tablet, 1 Refills, [facility] #[id number], 159, cm, 07/26/21 11:39:00 EDT, Height, 93.2, kg, 05/04/20 10:09:00 EST, Dry We... 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 1 bottle., #1 each, 0 Refills, Maintenance, 03/28/21 11:42:00 EST, [facility] #[id number], Partial fill upon patient request if the prescription is for a lam... Start Date: 03/28/21 Status: Ordered Colace sodium 100 mg oral capsule 100 mg, 1, capsule, By Mouth, 2 times a day, PRN, # 20 capsule, Refills 0, Tot. Refills 0, Maintenance, for constipation, 02/24/22 11:17:00 EST, Route to Pharmacy Electronically, [facility], Partial fill upon patient request if the presc... Start Date: 02/24/22 Status: Ordered gabapentin 300 mg oral capsule 300 mg, By Mouth, 3 times a day, # 63 tablet, Refills 0, Tot. Refills 0, Maintenance, 02/24/22 11:16:00 EST, Route to Pharmacy Electronically, [facility], Partial fill upon patient request if the prescription is for a schedule II opioid... Start Date: 02/24/22 Stop Date: 03/17/22 Status: Ordered hydrochlorothiazide 25 mg oral tablet See Instructions, TAKE 1 TABLET BY MOUTH DAILY, # 90 tablet, Refills 0, Instructions Replace Required Details, Route to Pharmacy Electronically, [facility] #[id number], 159, cm, 07/26/21 11:39:00 EDT, Height, 93.2, kg, 05/04/20 10:09:00 EST, Dry... Start Date: 10/02/21 Status: Ordered metoprolol 25 mg oral tablet, extended release 25 mg, 1, tablet, By Mouth, Daily, # 90 tablet, Refills 3, Tot. Refills 3, Maintenance, 01/15/22 16:59:00 EST, Route to Pharmacy Electronically, [facility], Partial fill upon patient request if [...] 1 Refills, Maintenance, 09/18/20 20:09:00 EDT, Capsule, [facility] #[id number], PLEASE DISPENSE IN BUBBLE/BLISTER PACK, 1 capsule By Mouth 2 times a day,x9... Start Date: 09/18/20 Stop Date: 03/17/21 Status: Ordered Readi-Cat 2 oral suspension See Instructions, Oral Contrast 2 Bottles 450 ml each Dx: Hernia, # 900 mL, 0 Refills, Maintenance,11/01/21 15:08:00 EDT, [id number], Partial fill upon patient request if the prescription isfor a schedule II opioid drug., Oral Contrast; 2... Start Date: 11/01/21 Status: Ordered Ventolin HFA 108 mcg/inh inhalation aerosol with adapter 2 puffs, Inhalation, Every 4 hours, TAKE 2 PUFFS EVERY 4 HOURS IF NEEDED FOR WHEEZING, # 1 each, 5 Refills, Maintenance, 02/16/20 10:48:00 EST, Inhaler, [facility] #[id number], Partial fill uponpatient request if the prescription [...] Team Personnel Name: Jarod Olmstead MD Position: [facility] Primary Care Physician Member Role: PCP Address: Address: [address] [place] [id number]- Name: Wen Stoll RN Position: [facility] RN Member Role: Primary Care Nurse Name: Jeanne Gallagher Position: [facility] Outreach Member Role: Lifetime Consulting Physician Name: Katerina Campos RN Position: [facility] RN Member Role: Primary Care Nurse Name: Bryanna Guzman RN Position: [facility] RN Member Role: Primary Care Nurse Care Team Related Persons Name: ADEN GARCIA Name: FRANCIS GARCIA Address: home
--- OUTSIDE RECORDS SUMMARY | 2022-11-20 09:31 | XMS_ITS | Continuity of Care Document ---
Author Name Unknown Organization [facility] Address [address] [place] [address]- Care Team Providers Care Mfts Name Role Phone Erik PEÑA, Kirsten Jauregui Primary Care Physician Encounter [facility] Date(s): 03/24/21 - 04/23/21 [facility] [address] [place] [address]- Allergies, Adverse Reactions, Alerts No Known Allergies [...] MG DAILY, # 90 tablet, 0 Refills, [facility] #[id number], 158, cm, 01/04/21 12:51:00 EST, Height, 93.2, kg, 05/04/20 10:09:00 EST, Dry Weight Start Date: 01/25/21 Status: Ordered Biafine topical emulsion See Instructions, PRN Prurigo Nodularis, apply to affected area twice a day as needed. 1 bottle., #1 each, 0 Refills, Maintenance, 03/28/21 11:42:00 EST, [facility] #[id number], Partial fill upon patient request if the prescription is for a lam... Start Date: 03/28/21 Status: Ordered hydrochlorothiazide 25 mg oral tablet 1, tablet, By Mouth, Daily, # 90 tablet, Refills 1, Route to Pharmacy Electronically, [facility] #[id number], 158, cm, 11/25/20 12:59:00 EDT, Height, 93.2, kg, 05/04/20 10:09:00 EST, Dry Weight Start Date: 12/30/20 Status: Ordered lisinopril 20 mg oral tablet 20 mg, 1, tablet, By Mouth, Daily, with 5 mg to total 25 mg of lisinopril, # 90 tablet, Refills 1, Tot. Refills 1, Maintenance, 04/18/21 15:36:00 EST, Route to Pharmacy Electronically, [facility] #[id number], Partial fill upon patient request if... Start Date: 04/18/21 Stop Date: 10/15/21 Status: Ordered lisinopril 5 mg oral tablet 5 mg, 1, tablet, By Mouth, Daily, with 20 mg to total 25 mg daily, # 90 tablet, Refills 1, Tot. Refills 1, Maintenance, 04/18/21 15:37:00 EST, Route to Pharmacy Electronically, [facility] #[id number], Partial fill upon patient request if the pres... Start Date: 04/18/21 Stop Date: 10/15/21 Status: Ordered Metoprolol Succinate ER 50 mg oral tablet, extended release 1 tablet, By Mouth, Daily, # 90 tablet, 1 Refills, [facility] #[id number], 158, cm, 11/25/20 12:59:00 EDT, Height, 93.2, [...] 1 Refills, Maintenance, 09/18/20 20:09:00 EDT, Capsule, [facility] #[id number], PLEASE DISPENSE IN BUBBLE/BLISTER PACK, 1 capsule By Mouth 2 times a day,x9... Start Date: 09/18/20 Stop Date: 03/17/21 Status: Ordered Ventolin HFA 108 mcg/inh inhalation aerosol with adapter 2 puffs, Inhalation, Every 4 hours, TAKE 2 PUFFS EVERY 4 HOURS IF NEEDED FOR WHEEZING, # 1 each, 5 Refills, Maintenance, 02/16/20 10:48:00 EST, Inhaler, [facility] #[id number], Partial fill uponpatient request if the prescription [...]
--- OUTSIDE RECORDS SUMMARY | 2022-11-20 09:31 | XMS_ITS | Continuity of Care Document ---
Author Name Unknown Organization [facility] Address [address] [place] [address] ve [address] [place] [address]- Care Team Providers Care Warehouse Coordinator Name Role Phone Juan PEÑA, Roshni Kaplan Primary Care Physician [phone] Encounter [facility] Date(s): 11/01/21 - 12/01/21 [facility] [address] [place] [address]- Attending Physician: Lucy Montaño Admitting Physician: Lucy Montaño Referring Physician: AdmtrLucy Allergies, Adverse Reactions, Alerts No Known Allergies Immunizations Given and Recorded Vaccine Date Status Refusal Reason SARS-CoV-2 mRNA ([id number]) vax 05/26/21 Recorded tetanus/diphtheria/pertussis, acel(Tdap) 12/17/20 Recorded [...] MG DAILY, # 90 tablet, 1 Refills, [facility] #[id number], 159, cm, 07/26/21 11:39:00 EDT, Height, 93.2, kg, 05/04/20 10:09:00 EST, Dry We... 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 1 bottle., #1 each, 0 Refills, Maintenance, 03/28/21 11:42:00 EST, [facility] #[id number], Partial fill upon patient request if the prescription is for a lam... Start Date: 03/28/21 Status: Ordered hydrochlorothiazide 25 mg oral tablet See Instructions, TAKE 1 TABLET BY MOUTH DAILY, # 90 tablet, Refills 0, Instructions Replace Required Details, Route to Pharmacy Electronically, [facility] #[id number], 159, cm, 07/26/21 11:39:00 EDT, Height, 93.2, kg, 05/04/20 10:09:00 EST, Dry... Start Date: 10/02/21 Status: Ordered lisinopril 20 mg oral tablet 1, tablet, By Mouth, Daily, OF LISINOPRIL., # 90 tablet, Refills 0, Route to Pharmacy Electronically, [facility] #[id number], 159, cm, 07/26/21 11:39:00 EDT, Height, 93.2, [...] Mouth, Daily, # 90 tablet, 0 Refills, [facility] #[id number], 159, cm, 04/26/21 9:27:00 EST, Height, 93.2, [...] 1 Refills, Maintenance, 09/18/20 20:09:00 EDT, Capsule, [facility] #[id number], PLEASE DISPENSE IN BUBBLE/BLISTER PACK, 1 capsule By Mouth 2 times a day,x9... Start Date: 09/18/20 Stop Date: 03/17/21 Status: Ordered Readi-Cat 2 oral suspension See Instructions, Oral Contrast 2 Bottles 450 ml each Dx: Hernia, # 900 mL, 0 Refills, Maintenance,11/01/21 15:08:00 EDT, [id number], Partial fill upon patient request if the prescription isfor a schedule II opioid drug., Oral Contrast; 2... Start Date: 11/01/21 Status: Ordered Ventolin HFA 108 mcg/inh inhalation aerosol with adapter 2 puffs, Inhalation, Every 4 hours, TAKE 2 PUFFS EVERY 4 HOURS IF NEEDED FOR WHEEZING, # 1 each, 5 Refills, Maintenance, 02/16/20 10:48:00 EST, Inhaler, [facility] #[id number], Partial fill uponpatient request if the prescription [...] team information Personnel Name: Juan PEÑA, Roshni N Address: Address: [address] [place] [address]- [place]
--- OUTSIDE RECORDS SUMMARY | 2022-11-20 09:31 | XMS_ITS | Continuity of Care Document ---
Author Name Unknown Organization [facility] Address [address] [place] [address]- Care Team Providers Care Foil Wrapper Name Role Phone Erik PEÑA, Kirsten Jauregui Primary Care Physician [facility] Date(s): 02/07/21 - 03/09/21 [facility] [address] [place] [address]- Allergies, Adverse Reactions, Alerts No Known Allergies [...] MG DAILY, # 90 tablet, 0 Refills, [facility] #[id number], 158, cm, 01/04/21 12:51:00 EST, Height, 93.2, kg, 05/04/20 10:09:00 EST, Dry Weight Start Date: 01/25/21 Status: Ordered calcium citrate 950 mg oral tablet 1 tablet = 950 mg, By Mouth, 2 times a day, # 180 tablet, 0 Refills, Maintenance, 01/04/21 13:18:00EST, Tablet, [facility] #[id number], Partial fill upon patient request if the prescription is for a schedule II opioid drug., 158, cm, 01/04/21 12... Start Date: 01/04/21 Status: Ordered cholecalciferol 2000 intl units oral tablet 2 tablet, By Mouth, Daily, # 180 tablet, 1 Refills, [facility] #[id number], 158, cm, 01/04/21 12:51:00 EST, Height, 93.2, [...] tablet, Refills 1, Route to Pharmacy Electronically, [facility] #[id number], 158, cm, 11/25/20 12:59:00 EDT, Height, 93.2, kg, 05/04/20 10:09:00 EST, Dry Weight Start Date: 12/30/20 Status: Ordered lisinopril 20 mg oral tablet 1, tablet, By Mouth, Daily, # 90 tablet, Refills 1, Route to Pharmacy Electronically, [facility] #[id number], 158, cm, 08/01/20 11:06:00 EDT, Height, 93.2, kg, 05/04/20 10:09:00 EST, Dry Weight Start Date: 10/24/20 Status: Ordered Metoprolol Succinate ER 50 mg oral tablet, extended release 1 tablet, By Mouth, Daily, # 90 tablet, 1 Refills, [facility] #[id number], 158, cm, 11/25/20 12:59:00 EDT, Height, 93.2, [...] 1 Refills, Maintenance, 09/18/20 20:09:00 EDT, Capsule, [facility] #[id number], PLEASE DISPENSE IN BUBBLE/BLISTER PACK, 1 capsule By Mouth 2 times a day,x9... Start Date: 09/18/20 Stop Date: 03/17/21 Status: Ordered Ventolin HFA 108 mcg/inh inhalation aerosol with adapter 2 puffs, Inhalation, Every 4 hours, TAKE 2 PUFFS EVERY 4 HOURS IF NEEDED FOR WHEEZING, # 1 each, 5 Refills, Maintenance, 02/16/20 10:48:00 EST, Inhaler, [facility] #[id number], Partial fill uponpatient request if the prescription [...]
--- OUTSIDE RECORDS SUMMARY | 2022-11-20 09:31 | XMS_ITS | Continuity of Care Document ---
Author Name Unknown Organization [facility] Address [address] [place] [address], [address] [place] [address]- Care Team Providers Care Applications Development Consultant Name Role Phone Ishan PEÑA, [facility] Primary Care Physician [facility] Date[facility]s): 02/20/22 - 02/27/22 [facility] [address] [place] [address], [address] [place], [place] [address] Attending Physician: Mane Beyer DO Allergies, Adverse Reactions, Alerts No Known Allergies Immunizations Given and Recorded Vaccine Date Status Refusal Reason influenza virus vaccine, inactivated 11/24/21 Loco rded influenza virus vaccine, inactivated 12/10/20 Loco rded [id number] bivalent booster vax 11/24/21 Recorded SARS-CoV-2 mRNA ([id number]) vax 05/26/21 Recorded tetanus/diphtheria/pertussis, acel(Tdap) 12/17/20 Recorded [...] 02/24/22 11:16:00 EST, Route to Pharmacy Electronically, [facility], Partial fill upon patient request if the prescription... Start Date: 02/24/22 Stop Date: 03/03/22 Status: Ordered amLODIPine 5 mg oral tablet 5 mg, 1, tablet, By Mouth, Daily, # 90 tablet, Refills 3, Tot. Refills 3, Maintenance, 01/15/22 16:59:00 EST, Route to Pharmacy Electronically, [facility], Partial fill upon patient request if [...] MG DAILY, # 90 tablet, 1 Refills, [facility] #[id number], 159, cm, 07/26/21 11:39:00 EDT, Height, 93.2, kg, 05/04/20 10:09:00 EST, Dry We... 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 1 bottle., #1 each, 0 Refills, Maintenance, 03/28/21 11:42:00 EST, [facility] #[id number], Partial fill upon patient request if the prescription is for a lam... Start Date: 03/28/21 Status: Ordered Colace sodium 100 mg oral capsule 100 mg, 1, capsule, By Mouth, 2 times a day, PRN, # 20 capsule, Refills 0, Tot. Refills 0, Maintenance, for constipation, 02/24/22 11:17:00 EST, Route to Pharmacy Electronically, [facility], Partial fill upon patient request if the presc... Start Date: 02/24/22 Status: Ordered gabapentin 300 mg oral capsule 300 mg, By Mouth, 3 times a day, # 63 tablet, Refills 0, Tot. Refills 0, Maintenance, 02/24/22 11:16:00 EST, Route to Pharmacy Electronically, [facility], Partial fill upon patient request if the prescription is for a schedule II opioid... Start Date: 02/24/22 Stop Date: 03/17/22 Status: Ordered hydrochlorothiazide 25 mg oral tablet See Instructions, TAKE 1 TABLET BY MOUTH DAILY, # 90 tablet, Refills 0, Instructions Replace Required Details, Route to Pharmacy Electronically, [facility] #[id number], 159, cm, 07/26/21 11:39:00 EDT, Height, 93.2, kg, 05/04/20 10:09:00 EST, Dry... Start Date: 10/02/21 Status: Ordered ibuprofen 600 mg oral tablet 600 mg, 1, tablet, By Mouth, 3 times a day, for 7 days, # 21 tablet, Refills 0, Tot. Refills 0, Acute 03/03/22 11:19:00 EST, 02/24/22 11:19:00 EST, Route to Pharmacy Electronically, [facility], Partial fill upon patient request if the pr... Start Date: 02/24/22 Stop Date: 03/03/22 Status: Ordered lisinopril 20 mg oral tablet 1, tablet, By Mouth, Daily, OF LISINOPRIL., # 90 tablet, Refills 0, Route to Pharmacy Electronically, [facility] #[id number], 159, cm, 07/26/21 11:39:00 EDT, Height, 93.2, [...] 01/15/22 16:59:00 EST, Route to Pharmacy Electronically, [facility], Partial fill upon patient request if [...] 1 Refills, Maintenance, 09/18/20 20:09:00 EDT, Capsule, [facility] #[id number], PLEASE DISPENSE IN BUBBLE/BLISTER PACK, 1 capsule By Mouth 2 times a day,x9... Start Date: 09/18/20 Stop Date: 03/17/21 Status: Ordered Readi-Cat 2 oral suspension See Instructions, Oral Contrast 2 Bottles 450 ml each Dx: Hernia, # 900 mL, 0 Refills, Maintenance,11/01/21 15:08:00 EDT, [facility]/pharmacy #[id number], Partial fill upon patient request if the prescription isfor a schedule II opioid drug., Oral Contrast; 2... Start Date: 11/01/21 Status: Ordered Ventolin HFA 108 mcg/inh inhalation aerosol with adapter 2 puffs, Inhalation, Every 4 hours, TAKE 2 PUFFS EVERY 4 HOURS IF NEEDED FOR WHEEZING, # 1 each, 5 Refills, Maintenance, 02/16/20 10:48:00 EST, Inhaler, [facility] #[id number], Partial fill uponpatient request if the prescription [...] recent to oldest [Reference Range]: 1 Height 159.0 cm (02/20/22 9:08 AM) Weight 89.2 kg (02/20/22 9:08 AM) Oxygen Saturation [94-100 %] 99 % (02/20/22 9:08 AM) Pulse Rate [55-90 bpm] 73 bpm (02/20/22 9:08 AM) Body Mass Index [18.5-24.99 kg/m2] 35.28 kg/m2 *>HHI* (02/20/22 9:08 AM) Blood Pressure [90-138/55-84 mm Hg] 128/ 58mm Hg (02/20/22 9:08 AM) Respiratory Rate [16-30 br/min] 16 br/mi n (02/20/22 9:08 AM) Temperature [96.8-100.4 DegF] 97.0 DegF (02/20/22 9:08 AM) Blood pressure sites Arm, right (02/20/22 9:08 AM) Temperature Route Temporal (02/20/22 9:08 AM) Weight Obtained Via Standing scale (02/20/22 9:08 AM) Social History Social History Type Response Tobacco Use: quit 1993 1-2pp d 31yrs. Sex Patient Care team information Care Team Personnel Name: Jarod Olmstead MD Position: [facility] Primary Care Physician Member Role: PCP Address: Address: [address] [place] [address] [address] [place], [place] [address] Name: Wen Stoll RN Position: [facility] RN Member Role: Primary Care Nurse Name: Jeanne Gallagher Position: [facility] Outreach Member Role: Lifetime Consulting Physician Name: Katerina Campos RN Position: [facility] RN Member Role: Primary Care Nurse Name: Bryanna Guzman RN Position: [facility] RN Member Role: Primary Care Nurse Care Team Related Persons Name: ADEN GARCIA Name: FRANCIS GARCIA Address: [place]
--- OUTSIDE RECORDS SUMMARY | 2022-11-20 09:32 | XMS_ITS | Continuity of Care Document ---
Author Name Unknown Organization [facility] Address [address] [place] [address], [address] [place] [address]- Care Team Providers Care Indirect Sales Exec Name Role Phone Juan PEÑA, Roshni Kaplan Primary Care Physician [phone] [facility]counter [facility] Date[facility]s): 11/23/21 - 01/03/22 [facility] [address] [place] [address], [address] [place], [place] [address] Attending Physician: Mane Beyer DO Referring Physician: Shaan Smith MD Allergies, Adverse Reactions, Alerts No Known Allergies Immunizations Given and Recorded Vaccine Date Status Refusal Reason SARS-CoV-2 mRNA (heuecrx-mczc-amyra) vax 05/26/21 Recorded tetanus/diphtheria/pertussis, acel(Tdap) 12/17/20 Recorded [...] MG DAILY, # 90 tablet, 1 Refills, [facility] #[id number], 159, cm, 07/26/21 11:39:00 EDT, Height, 93.2, kg, 05/04/20 10:09:00 EST, Dry We... 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 1 bottle., #1 each, 0 Refills, Maintenance, 03/28/21 11:42:00 EST, [facility] #[id number], Partial fill upon patient request if the prescription is for a lam... Start Date: 03/28/21 Status: Ordered hydrochlorothiazide 25 mg oral tablet See Instructions, TAKE 1 TABLET BY MOUTH DAILY, # 90 tablet, Refills 0, Instructions Replace Required Details, Route to Pharmacy Electronically, [facility] #[id number], 159, cm, 07/26/21 11:39:00 EDT, Height, 93.2, kg, 05/04/20 10:09:00 EST, Dry... Start Date: 10/02/21 Status: Ordered lisinopril 20 mg oral tablet 1, tablet, By Mouth, Daily, OF LISINOPRIL., # 90 tablet, Refills 0, Route to Pharmacy Electronically, [facility] #[id number], 159, cm, 07/26/21 11:39:00 EDT, Height, 93.2, [...] Mouth, Daily, # 90 tablet, 0 Refills, [facility] #[id number], 159, cm, 04/26/21 9:27:00 EST, Height, 93.2, [...] 1 Refills, Maintenance, 09/18/20 20:09:00 EDT, Capsule, [facility] #[id number], PLEASE DISPENSE IN BUBBLE/BLISTER PACK, 1 capsule By Mouth 2 times a day,x9... Start Date: 09/18/20 Stop Date: 03/17/21 Status: Ordered Readi-Cat 2 oral suspension See Instructions, Oral Contrast 2 Bottles 450 ml each Dx: Hernia, # 900 mL, 0 Refills, Maintenance,11/01/21 15:08:00 EDT, [facility]/pharmacy #[id number], Partial fill upon patient request if the prescription isfor a schedule II opioid drug., Oral Contrast; 2... Start Date: 11/01/21 Status: Ordered Ventolin HFA 108 mcg/inh inhalation aerosol with adapter 2 puffs, Inhalation, Every 4 hours, TAKE 2 PUFFS EVERY 4 HOURS IF NEEDED FOR WHEEZING, # 1 each, 5 Refills, Maintenance, 02/16/20 10:48:00 EST, Inhaler, [facility] #[id number], Partial fill uponpatient request if the prescription [...] recent to oldest [Reference Range]: 1 2 Height 159 cm (12/14/21 8:33 AM) 159 cm (12/14/21 8:21 AM) Weight 89.8 kg (12/14/21 8:33 AM) 89.8 kg (12/14/21 8:21 AM) Social History Social History Type Response Tobacco Use: quit 1993 1-2pp d 31yrs. Sex Patient Care team information Care Team Personnel Name: Jeanne Gallagher Position: [facility] Outreach Member Role: Lifetime Consulting Physician Name: Roshni Martinez MD Position: Reference Physician Member Role: PCP Address: Address: [address] [place] [address] [address] Care Team Related Persons Name: ADEN GARCIA Name: FRACNIS GARCIA Address: home
--- OUTSIDE RECORDS SUMMARY | 2022-11-20 09:32 | XMS_ITS | Continuity of Care Document ---
Author Name Unknown Organization [facility] Address [address] [place] [address]- Care Team Providers Care Platform Beater Name Role Phone Ishan PEÑA, Jarod Primary Care Physician [facility] 12[facility]19[facility]21 - 01/18/22 [facility] [address] [place] [address]- Allergies, Adverse Reactions, Alerts No Known Allergies Immunizations Given and Recorded Vaccine Date Status Refusal Reason SARS-CoV-2 mRNA (zyqkudp-[id number]-uujgg) vax 05/26/21 Recorded tetanus/diphtheria/pertussis, acel(Tdap) 12/17/20 Recorded [...] 01/15/22 16:59:00 EST, Route to Pharmacy Electronically, [facility], Partial fill upon patient [...] MG DAILY, # 90 tablet, 1 Refills, [facility] #[id number], 159, cm, 07/26/21 11:39:00 EDT, Height, 93.2, kg, 05/04/20 10:09:00 EST, Dry We... 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 1 bottle., #1 each, 0 Refills, Maintenance, 03/28/21 11:42:00 EST, [facility] #[id number], Partial fill upon patient request if the prescription is for a lam... Start Date: 03/28/21 Status: Ordered hydrochlorothiazide 25 mg oral tablet See Instructions, TAKE 1 TABLET BY MOUTH DAILY, # 90 tablet, Refills 0, Instructions Replace Required Details, Route to Pharmacy Electronically, [facility] #[id number], 159, cm, 07/26/21 11:39:00 EDT, Height, 93.2, kg, 05/04/20 10:09:00 EST, Dry... Start Date: 10/02/21 Status: Ordered lisinopril 20 mg oral tablet 1, tablet, By Mouth, Daily, OF LISINOPRIL., # 90 tablet, Refills 0, Route to Pharmacy Electronically, [facility] #[id number], 159, cm, 07/26/21 11:39:00 EDT, Height, 93.2, [...] 01/15/22 16:59:00 EST, Route to Pharmacy Electronically, [facility], Partial fill upon patient request if [...] 1 Refills, Maintenance, 09/18/20 20:09:00 EDT, Capsule, [facility] #[id number], PLEASE DISPENSE IN BUBBLE/BLISTER PACK, 1 capsule By Mouth 2 times a day,x9... Start Date: 09/18/20 Stop Date: 03/17/21 Status: Ordered Readi-Cat 2 oral suspension See Instructions, Oral Contrast 2 Bottles 450 ml each Dx: Hernia, # 900 mL, 0 Refills, Maintenance,11/01/21 15:08:00 EDT, [facility]/pharmacy #[id number], Partial fill upon patient request if the prescription isfor a schedule II opioid drug., Oral Contrast; 2... Start Date: 11/01/21 Status: Ordered Ventolin HFA 108 mcg/inh inhalation aerosol with adapter 2 puffs, Inhalation, Every 4 hours, TAKE 2 PUFFS EVERY 4 HOURS IF NEEDED FOR WHEEZING, # 1 each, 5 Refills, Maintenance, 02/16/20 10:48:00 EST, Inhaler, [facility] #[id number], Partial fill uponpatient request if the prescription [...] Team Personnel Name: Jarod Olmstead MD Position: [facility] Primary Care Physician Member Role: PCP Address: Address: [address] [place] [id number] Name: Jeanne Gallagher Position: [facility] Outreach Member Role: Lifetime Consulting Physician Care Team Related Persons Name: ADEN GARCIA Name: FRANCIS GARCIA Address: [address]
--- OUTSIDE RECORDS SUMMARY | 2022-11-20 09:32 | XMS_ITS | Continuity of Care Document ---
Author Name Unknown Organization [facility] Address [address] [address]- Care Team Providers Care Professor Of Musicology Name Role Phone Erik PEÑA, Kirsten Jauregui Primary Care Physician [facility] 03/17[facility]21 - 04/16/21 [facility] [address] [address]- [place] Allergies, Adverse Reactions, Alerts No Known [...] MG DAILY, # 90 tablet, 0 Refills, [facility] #[id number], 158, cm, 01/04/21 12:51:00 EST, Height, 93.2, kg, 05/04/20 10:09:00 EST, Dry Weight Start Date: 01/25/21 Status: Ordered Biafine topical emulsion See Instructions, PRN Prurigo Nodularis, apply to affected area twice a day as needed. 1 bottle., #1 each, 0 Refills, Maintenance, 03/28/21 11:42:00 EST, [facility] #[id number], Partial fill upon patient request if the prescription is for a lam... Start Date: 03/28/21 Status: Ordered hydrochlorothiazide 25 mg oral tablet 1, tablet, By Mouth, Daily, # 90 tablet, Refills 1, Route to Pharmacy Electronically, [facility] #[id number], 158, cm, 11/25/20 12:59:00 EDT, Height, 93.2, kg, 05/04/20 10:09:00 EST, Dry Weight Start Date: 12/30/20 Status: Ordered lisinopril 20 mg oral tablet 1, tablet, By Mouth, Daily, # 90 tablet, Refills 1, Route to Pharmacy Electronically, [facility] #[id number], 158, cm, 08/01/20 11:06:00 EDT, Height, 93.2, kg, 05/04/20 10:09:00 EST, Dry Weight Start Date: 10/24/20 Status: Ordered Metoprolol Succinate ER 50 mg oral tablet, extended release 1 tablet, By Mouth, Daily, # 90 tablet, 1 Refills, [facility] #[id number], 158, cm, 11/25/20 12:59:00 EDT, Height, 93.2, [...] 1 Refills, Maintenance, 09/18/20 20:09:00 EDT, Capsule, [facility] #[id number], PLEASE DISPENSE IN BUBBLE/BLISTER PACK, 1 capsule By Mouth 2 times a day,x9... Start Date: 09/18/20 Stop Date: 03/17/21 Status: Ordered Ventolin HFA 108 mcg/inh inhalation aerosol with adapter 2 puffs, Inhalation, Every 4 hours, TAKE 2 PUFFS EVERY 4 HOURS IF NEEDED FOR WHEEZING, # 1 each, 5 Refills, Maintenance, 02/16/20 10:48:00 EST, Inhaler, [facility] #[id number], Partial fill uponpatient request if the prescription [...]
--- OUTSIDE RECORDS SUMMARY | 2022-11-20 09:32 | XMS_ITS | Continuity of Care Document ---
Author Name Unknown Organization [facility] Address [address] [place] [address], [address] [place] [address]- Care Team Providers Care Paper Bag Making Machinist Name Role Phone Ishan PEÑA, [facility] Primary Care Physician [facility]): 12[facility]13/21 - 01/12/22 [facility] [address] [place] [address], [address] [place], [place] [address] Allergies, Adverse Reactions, Alerts No Known Allergies Immunizations Given and Recorded Vaccine Date Status Refusal Reason SARS-CoV-2 mRNA (aztgzjm-[id number]-dzonh) vax 05/26/21 Recorded tetanus/diphtheria/pertussis, acel(Tdap) 12/17/20 Recorded [...] MG DAILY, # 90 tablet, 1 Refills, [facility] #[id number], 159, cm, 07/26/21 11:39:00 EDT, Height, 93.2, kg, 05/04/20 10:09:00 EST, Dry We... 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 1 bottle., #1 each, 0 Refills, Maintenance, 03/28/21 11:42:00 EST, [facility] #[id number], Partial fill upon patient request if the prescription is for a lam... Start Date: 03/28/21 Status: Ordered hydrochlorothiazide 25 mg oral tablet See Instructions, TAKE 1 TABLET BY MOUTH DAILY, # 90 tablet, Refills 0, Instructions Replace Required Details, Route to Pharmacy Electronically, [facility] #[id number], 159, cm, 07/26/21 11:39:00 EDT, Height, 93.2, kg, 05/04/20 10:09:00 EST, Dry... Start Date: 10/02/21 Status: Ordered lisinopril 20 mg oral tablet 1, tablet, By Mouth, Daily, OF LISINOPRIL., # 90 tablet, Refills 0, Route to Pharmacy Electronically, [facility] #[id number], 159, cm, 07/26/21 11:39:00 EDT, Height, 93.2, [...] Mouth, Daily, # 90 tablet, 0 Refills, [facility] #[id number], 159, cm, 04/26/21 9:27:00 EST, Height, 93.2, [...] 1 Refills, Maintenance, 09/18/20 20:09:00 EDT, Capsule, [facility] #[id number], PLEASE DISPENSE IN BUBBLE/BLISTER PACK, 1 capsule [...] 5 Refills, Maintenance, 02/16/20 10:48:00 EST, Inhaler, [facility] #[id number], Partial fill uponpatient request if the prescription [...] Personnel Name: Ishan PEÑA, Jarod Position: S Primary Care Physician Member Role: PCP Address: Address: [address] [place] [address] [address] [place] [address]- [place] Name: Jeanne Gallagher Position: [facility] Outreach Member Role: Lifetime Consulting Physician Care Team Related Persons Name: ADEN GARCIA Name: FRANCIS GARCIA Address: home
--- OUTSIDE RECORDS SUMMARY | 2022-11-20 09:32 | XMS_ITS | Continuity of Care Document ---
Author Name Unknown Organization [facility] Address [address] [address]- Care Team Providers Care Review Appraiser Name Role Phone Erik PEÑA, Kirsten Jauregui Primary Care Physician Encounter [facility] Date(s): 07/06/20 - 07/13/20 [facility] [address] [address]- Attending Physician: Hawa Odom Admitting Physician: Hawa Odom Referring Physician: Not on Staff, Referring MD [...] 1 Refills, Maintenance, 04/20/20 16:09:00 EST, Tablet, [facility] #[id number], Partial fill upon patient request if the prescr... Start Date: 04/20/20 Status: Ordered cholecalciferol 4000 intl units oral tablet = 100 mcg, By Mouth, Daily, # 90 tablet, 1 Refills, Maintenance, 02/10/20 16:38:00 EST, [facility] #[id number], Partial fill upon patient request if the [...] 07/09/20 14:57:00 EDT, Route to Pharmacy Electronically, [facility] #[id number], 165.1, cm, 07/06/20 11:29:00 EDT, Height, 93.2, kg, 05/04/20 10:09:00 ESTDr... Start Date: 07/09/20 Stop Date: 01/05/21 Status: Ordered Lipitor 40 mg oral tablet 1 tablet = 40 mg, By Mouth, Daily, Take 1 tablet of 40 mg with 1 tablet of 20 mg for total 60 mg daily, # 90 tablet, 1 Refills, Maintenance, 04/06/20 14:02:00 EST, Tablet, [facility] #[id number], 165.1, cm, 04/06/20 8:13:00 EST, Height Start Date: 04/06/20 Status: Ordered lisinopril 20 mg oral tablet 20 mg, 1, tablet, By Mouth, Daily, # 90 tablet, Refills 1, Tot. Refills 1, Maintenance, 10/29/19 14:56:00 EDT, Route to Pharmacy Electronically, [facility] #[id number], 165.1, cm, 10/28/19 9:59:00 EDT, Height Start Date: 10/29/19 Stop Date: 04/26/20 Status: Ordered metoprolol 50 mg oral tablet, extended release 50 mg, 1, tablet, By Mouth, Daily, # 90 tablet, Refills 1, Tot. Refills 1, Maintenance, 07/09/20 14:57:00 EDT, Route to Pharmacy Electronically, [facility] #[id number], 165.1, cm, 07/06/20 11:29:00 EDT, Height, 93.2, kg, 05/04/20 10:09:00 EST, Start Date: 07/09/20 Stop Date: 01/05/21 Status: [...] 1 Refills, Maintenance, 04/01/20 14:07:00 EST, Capsule, [facility] #[id number], PLEASE DISPENSE IN BUBBLE/BLISTER PACK, 1 capsule By Mouth Daily,x90 days,Instr:PLEA... Start Date: 04/01/20 Stop Date: 09/28/20 Status: Ordered Ventolin HFA 108 mcg/inh inhalation aerosol with adapter 2 puffs, Inhalation, Every 4 hours, TAKE 2 PUFFS EVERY 4 HOURS IF NEEDED FOR WHEEZING, # 1 each, 5 Refills, Maintenance, 02/16/20 10:48:00 EST, Inhaler, [facility] #[id number], Partial fill uponpatient request if the prescription [...] oldest [Reference Range]: 1 Height 165.1 cm (07/06/20 11:29 AM) Weight 93 kg (07/06/20 11:29 AM) Oxygen Saturation [94-100 %] 97 % (07/06/20 11:29 AM) Pulse Rate [55-90 bpm] 64 bpm (07/06/20 11:29 AM) Body Mass Index [18.5-24.99] 34.12 *>HHI* (07/06/20 11:29 AM) Blood Pressure [90-138/55-84 mm Hg] 138/ 86mm Hg (07/06/20 11:29 AM) Mode of Delivery (Oxygen) Room air (07/06/20 11:29 AM) Blood pressure sites Arm, right (07/06/20 11:29 AM) Weight Obtained Via Standing scale (07/06/20 11:29 AM) Social History Social History Type Response Tobacco Use: quit 1993 1-2pp d 31yrs. Sex
--- OUTSIDE RECORDS SUMMARY | 2022-11-20 09:32 | XMS_ITS | Continuity of Care Document ---
Author Name Unknown Organization [facility] Address [address] [place] [address]- Care Team Providers Care Content Writer Name Role Phone Erik PEÑA, Kirsten Jauregui Primary Care Physician En[facility] Date(s): 05/23/21 - 06/22/21 [facility] [address] [place] [address]- Allergies, Adverse Reactions, Alerts No Known Allergies [...] 05/17/21 22:19:00 EDT, Route to Pharmacy Electronically, [facility]... Start Date: 05/17/21 Stop Date: 07/16/21 [...] MG DAILY, # 90 tablet, 0 Refills, [facility] #[id number], 158, cm, 04/03/21 15:11:00 EST, Height, 93.2, kg, 05/04/20 10:09:00 EST, Dry We... Start Date: 04/24/21 Status: Ordered atorvastatin 40 mg oral tablet See Instructions, TAKE 1 TABLET BY MOUTH DAILY TAKE 1 TABLET OF 40 MG WITH 1 TABLET OF 20 MG FOR TOTAL 60 MG DAILY, # 90 tablet, 0 Refills, [facility] #[id number], 158, cm, 01/04/21 12:51:00 EST, Height, 93.2, kg, 05/04/20 10:09:00 EST, Dry Weight Start Date: 01/25/21 Status: Ordered Biafine topical emulsion See Instructions, PRN Prurigo Nodularis, apply to affected area twice a day as needed. 1 bottle., #1 each, 0 Refills, Maintenance, 03/28/21 11:42:00 EST, [facility] #[id number], Partial fill upon patient request if the prescription is for a lam... Start Date: 03/28/21 Status: Ordered hydrochlorothiazide 25 mg oral tablet 1, tablet, By Mouth, Daily, # 90 tablet, Refills 1, Route to Pharmacy Electronically, [facility] #[id number], 158, cm, 11/25/20 12:59:00 EDT, Height, 93.2, kg, 05/04/20 10:09:00 EST, Dry Weight Start Date: 12/30/20 Status: Ordered lisinopril 20 mg oral tablet 20 mg, 1, tablet, By Mouth, Daily, with 5 mg to total 25 mg of lisinopril, # 90 tablet, Refills 1, Tot. Refills 1, Maintenance, 04/18/21 15:36:00 EST, Route to Pharmacy Electronically, [facility] #[id number], Partial fill upon patient request if... Start Date: 04/18/21 Stop Date: 10/15/21 Status: Ordered lisinopril 5 mg oral tablet 5 mg, 1, tablet, By Mouth, Daily, with 20 mg to total 25 mg daily, # 90 tablet, Refills 1, Tot. Refills 1, Maintenance, 04/18/21 15:37:00 EST, Route to Pharmacy Electronically, [facility] #[id number], Partial fill upon patient request if the pres... Start Date: 04/18/21 Stop Date: 10/15/21 Status: Ordered Metoprolol Succinate ER 50 mg oral tablet, extended release 1 tablet, By Mouth, Daily, # 90 tablet, 1 Refills, [facility] #[id number], 158, cm, 11/25/20 12:59:00 EDT, Height, 93.2, [...] 1 Refills, Maintenance, 09/18/20 20:09:00 EDT, Capsule, [facility] #[id number], PLEASE DISPENSE IN BUBBLE/BLISTER PACK, 1 capsule By Mouth 2 times a day,x9... Start Date: 09/18/20 Stop Date: 03/17/21 Status: Ordered Ventolin HFA 108 mcg/inh inhalation aerosol with adapter 2 puffs, Inhalation, Every 4 hours, TAKE 2 PUFFS EVERY 4 HOURS IF NEEDED FOR WHEEZING, # 1 each, 5 Refills, Maintenance, 02/16/20 10:48:00 EST, Inhaler, [facility] #[id number], Partial fill uponpatient request if the prescription [...] abuse(Confirmed) Active COVID-19 vaccine series comp leted- Hiri 03/2020(Confirmed) Active Hyperlipidemia(Confirmed) Active Hypertension(Confirmed) Active Urinary [...]
--- OUTSIDE RECORDS SUMMARY | 2022-11-20 09:32 | XMS_ITS | Continuity of Care Document ---
Author Name Unknown Organization [facility] Address [address] [place] [address]- Care Team Providers Care Daytime Caregiver Name Role Phone Ishan PEÑA, Jarod Primary Care Physician Encounter [facility] Date(s): 05/01/22 - 05/31/22 [facility] [address] [place] [address]- Allergies, Adverse Reactions, Alerts No Known Allergies Immunizations Given and Recorded Vaccine Date Status Refusal Reason influenza virus vaccine, inactivated 11/24/21 Loco rded influenza virus vaccine, inactivated 12/10/20 Loco rded [id number] bivalent booster vax 11/24/21 Recorded SARS-CoV-2 mRNA (rryqfau-[id number]) vax 05/26/21 Recorded tetanus/diphtheria/pertussis, acel(Tdap) 12/17/20 Recorded [...] 01/15/22 16:59:00 EST, Route to Pharmacy Electronically, [facility], Partial fill upon patient request [...] MG DAILY, # 90 tablet, 1 Refills, [facility] #[id number], 159, cm, 07/26/21 11:39:00 EDT, Height, 93.2, kg, 05/04/20 10:09:00 EST, Dry We... 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 1 bottle., #1 each, 0 Refills, Maintenance, 03/28/21 11:42:00 EST, [facility] #[id number], Partial fill upon patient request if the prescription is for a lam... Start Date: 03/28/21 Status: Ordered ibuprofen 600 mg oral tablet 1, tablet, By Mouth, 3 times a day, PRN, # 90 tablet, Refills 0, Maintenance, NEEDED FOR MODERATE PAIN, 04/18/22 9:29:00 EST, Route to Pharmacy Electronically, [facility] [id number], 160, cm, 03/15/22 14:35:00 EST, Height, 87.6, kg, 02/22/22 17:27:00 EST... Start Date: 04/18/22 Status: Ordered metoprolol 25 mg oral tablet, extended release 25 mg, 1, tablet, By Mouth, Daily, # 90 tablet, Refills 3, Tot. Refills 3, Maintenance, 01/15/22 16:59:00 EST, Route to Pharmacy Electronically, [facility], Partial fill upon patient request [...] 1 Refills, Maintenance, 09/18/20 20:09:00 EDT, Capsule, [facility] #[id number], PLEASE DISPENSE IN BUBBLE/BLISTER PACK, 1 capsule [...] Team Personnel Name: Ishan PEÑA, Jarod Position: [facility] Primary Care Physician Member Role: PCP Address: Address: [address] [place] [address] [address] [place] [address]- Name: Wen Stoll RN Position: S RN Member Role: Primary Care Nurse Name: Jeanne Gallagher Position: S Outreach Member Role: Lifetime Consulting Physician Name: Katerina Campos RN Position: S RN Member Role: Primary Care Nurse Name: Bryanna Guzman RN Position: S RN Member Role: Primary Care Nurse Care Team Related Persons Name: ADEN GARCIA Name: FRANCIS GARCIA Address: [place]
--- OUTSIDE RECORDS SUMMARY | 2022-11-20 09:32 | XMS_ITS | Continuity of Care Document ---
Author Name Unknown Organization [facility] Address [address] [facility] [place] [address]- Care Team Providers Care Perforator Typist Name Role Phone Erik PEÑA, Kirsten Jauregui Primary Care Physician Encounter 03/28/20 - 04/04/20 [facility] [address], [address] [place] [address]- Attending Physician: Erik PEÑA, Kirsten Jauregui Admitting Physician: Erik PEÑA, Kirsten Jauregui Referring Physician: Erik PEÑA, Kirsten Jauregui Allergies, [...] tablet, 1 Refills, Maintenance, 02/10/20 16:38:00 EST, [facility] #[id number], Partial fill upon patient request if the prescription is for a schedule II opioid drug., 165.1, cm, 02/10/20 15:04:00 EST, Height Start Date: 02/10/20 Stop Date: 08/08/20 Status: Ordered clotrimazole 1% topical cream 1 application, Topically, 2 times a day, PRN rash, for 30 days, # 60 Gm, 1 Refills, Acute 04/10/20 16:32:00 EST, 02/10/20 16:32:00 EST, Cream, [facility] #[id number], Partial fill upon patient request if the [...] 01/07/20 14:52:00 EST, Route to Pharmacy Electronically, [facility] #[id number], 165.1, cm, 12/10/19 10:57:00 EDT, Height Start Date: 01/07/20 Stop Date: 07/05/20 Status: Ordered ibuprofen 600 mg oral tablet 600 mg, 1, tablet, By Mouth, Every 6 hours, PRN, for 30 days, with food or milk, # 90 tablet, Refills 0, Tot. Refills 0, Acute 04/10/20 15:09:00 EST, Pain , Mild, 03/11/20 15:09:00 EST, Route to Pharmacy Electronically, [facility] #[id number], Pa... Start Date: 03/11/20 Stop Date: 04/10/20 Status: Ordered Lipitor 40 mg oral tablet 1 tablet = 40 mg, By Mouth, Daily, # 90 tablet, 1 Refills, Maintenance, 01/07/20 14:52:00 EST, Tablet, [facility] #45496, 165.1, cm, 12/10/19 10:57:00 EDT, Height Start Date: 01/07/20 Stop Date: 07/05/20 Status: Ordered lisinopril 20 mg oral tablet 20 mg, 1, tablet, By Mouth, Daily, # 90 tablet, Refills 1, Tot. Refills 1, Maintenance, 10/29/19 14:56:00 EDT, Route to Pharmacy Electronically, [facility] #[id number], 165.1, cm, 10/28/19 9:59:00 EDT, Height Start Date: 10/29/19 Stop Date: 04/26/20 Status: Ordered metoprolol 50 mg oral tablet, extended release 50 mg, 1, tablet, By Mouth, Daily, # 90 tablet, Refills 1, Tot. Refills 1, Maintenance, 01/07/20 14:51:00 EST, Route to Pharmacy Electronically, [facility] #43652, 165.1, cm, 12/10/19 10:57:00 EDT, Height Start Date: 01/07/20 Stop Date: 07/05/20 Status: Ordered pantoprazole 20 mg oral delayed release tablet = 20 mg, By Mouth, Daily, # 90 each, 0 Refills, Maintenance, 04/01/20 13:14:00 EST, [facility] Tablet, 165.1, cm, 03/09/20 8:11:00 EST, Height Start Date: 04/01/20 Stop Date: 06/30/20 Status: Ordered PreserVision AREDS 2 oral capsule 1 capsule, By Mouth, Daily, PLEASE DISPENSE IN BUBBLE/BLISTER PACK, # 90 capsule, 1 Refills, Maintenance, 04/01/20 14:07:00 EST, Capsule, [facility] #[id number], PLEASE DISPENSE IN BUBBLE/BLISTER PACK, 1 capsule By Mouth Daily,x90 days,Instr:PLEA... Start Date: 04/01/20 Stop Date: 09/28/20 Status: Ordered Ventolin HFA 108 mcg/inh inhalation aerosol with adapter 2 puffs, Inhalation, Every 4 hours, TAKE 2 PUFFS EVERY 4 HOURS IF NEEDED FOR WHEEZING, # 1 each, 5 Refills, Maintenance, 02/16/20 10:48:00 EST, Inhaler, [facility] #[id number], Partial fill uponpatient request if the prescription [...]
--- OUTSIDE RECORDS SUMMARY | 2022-11-20 09:32 | XMS_ITS | Continuity of Care Document ---
Author Name Unknown Organization [facility] Address [address] [address]- Care Team Providers Care Security Auditor Name Role Phone Erik PEÑA, Kirsten Jauregui Primary Care Physician ( [phone] Encounter [facility] Date(s): 07/06/20 - 08/05/20 [facility] [address] [address] [place] Allergies, Adverse Reactions, Alerts Substance Reaction [...] 1 Refills, Maintenance, 07/22/20 14:03:00 EDT, Tablet, [facility] #[id number], Partial fill upon patient request if the prescr... Start Date: 07/22/20 Status: Ordered cholecalciferol 4000 intl units oral tablet = 100 mcg, By Mouth, Daily, # 90 tablet, 1 Refills, Maintenance, 02/10/20 16:38:00 EST, [facility] #[id number], Partial fill upon patient request if the [...] 07/09/20 14:57:00 EDT, Route to Pharmacy Electronically, [facility] #[id number], 165.1, cm, 07/06/20 11:29:00 EDT, Height, 93.2, kg, 05/04/20 10:09:00 Dr... DOMINIK Start Date: 07/09/20 Stop Date: 01/05/21 Status: Ordered Lipitor 40 mg oral tablet 1 tablet = 40 mg, By Mouth, Daily, Take 1 tablet of 40 mg with 1 tablet of 20 mg for total 60 mg daily, # 90 tablet, 1 Refills, Maintenance, 07/22/20 14:03:00 EDT, Tablet, [facility] #[id number], 158, cm, 07/22/20 13:04:00 EDT, Height, 93.2, kg,... Start Date: 07/22/20 Stop Date: 01/18/21 Status: Ordered lisinopril 20 mg oral tablet 20 mg, 1, tablet, By Mouth, Daily, # 90 tablet, Refills 1, Tot. Refills 1, Maintenance, 10/29/19 14:56:00 EDT, Route to Pharmacy Electronically, [facility] #[id number], 165.1, cm, 10/28/19 9:59:00 EDT, Height Start [...] 07/09/20 14:57:00 EDT, Route to Pharmacy Electronically, [facility] #[id number], 165.1, cm, 07/06/20 11:29:00 EDT, Height, 93.2, [...] 1 Refills, Maintenance, 04/01/20 14:07:00 EST, Capsule, [facility] #[id number], PLEASE DISPENSE IN BUBBLE/BLISTER PACK, 1 capsule By Mouth Daily,x90 days,Instr:PLECooper... Start Date: 04/01/20 Stop Date: 09/28/20 Status: Ordered Ventolin HFA 108 mcg/inh inhalation aerosol with adapter 2 puffs, Inhalation, Every 4 hours, TAKE 2 PUFFS EVERY 4 HOURS IF NEEDED FOR WHEEZING, # 1 each, 5 Refills, Maintenance, 02/16/20 10:48:00 EST, Inhaler, [facility] #[id number], Partial fill uponpatient request if the prescription [...] abuse(Confirmed) Active COVID-19 vaccine series comp leted- Alter-G 03/2020(Confirmed) Active Hyperlipidemia(Confirmed) Active Hypertension(Confirmed) Active Urinary [...]
--- OUTSIDE RECORDS SUMMARY | 2022-11-20 09:32 | XMS_ITS | Continuity of Care Document ---
Author Name Unknown Organization [facility] Address [address] [place] [address]- Care Team Providers Care High Energy Forming Equipment Operator Name Role Phone Erik PEÑA, Kirsten Jauregui Primary Care Physician Encounter [facility] Date(s): 08/22/20 - 09/21/20 [facility] [address] [place] [address]- Allergies, Adverse Reactions, Alerts Substance Reaction Severity [...] 1 Refills, Maintenance, 07/22/20 14:03:00 EDT, Tablet, [facility] #[id number], Partial fill upon patient request if the prescr... Start Date: 07/22/20 Status: Ordered cholecalciferol 4000 intl units oral tablet = 100 mcg, By Mouth, Daily, # 90 tablet, 1 Refills, Maintenance, 02/10/20 16:38:00 EST, [facility] #[id number], Partial fill upon patient request if the [...] 07/09/20 14:57:00 EDT, Route to Pharmacy Electronically, [facility] #[id number], 165.1, cm, 07/06/20 11:29:00 EDT, Height, 93.2, kg, 05/04/20 10:09:00 ESTDr... Start Date: 07/09/20 Stop Date: 01/05/21 Status: Ordered Lipitor 40 mg oral tablet 1 tablet = 40 mg, By Mouth, Daily, Take 1 tablet of 40 mg with 1 tablet of 20 mg for total 60 mg daily, # 90 tablet, 1 Refills, Maintenance, 07/22/20 14:03:00 EDT, Tablet, [facility] #[id number], 158, cm, 07/22/20 13:04:00 EDT, Height, 93.2, kg,... Start Date: 07/22/20 Stop Date: 01/18/21 Status: Ordered lisinopril 20 mg oral tablet 20 mg, 1, tablet, By Mouth, Daily, # 90 tablet, Refills 1, Tot. Refills 1, Maintenance, 10/29/19 14:56:00 EDT, Route to Pharmacy Electronically, [facility] #[id number], 165.1, cm, 10/28/19 9:59:00 EDT, Height Start [...] 07/09/20 14:57:00 EDT, Route to Pharmacy Electronically, [facility] #[id number], 165.1, cm, 07/06/20 11:29:00 EDT, Height, 93.2, [...] 1 Refills, Maintenance, 09/18/20 20:09:00 EDT, Capsule, [facility] #[id number], PLEASE DISPENSE IN BUBBLE/BLISTER PACK, 1 capsule By Mouth 2 times a day,x9... Start Date: 09/18/20 Stop Date: 03/17/21 Status: Ordered Ventolin HFA 108 mcg/inh inhalation aerosol with adapter 2 puffs, Inhalation, Every 4 hours, TAKE 2 PUFFS EVERY 4 HOURS IF NEEDED FOR WHEEZING, # 1 each, 5 Refills, Maintenance, 02/16/20 10:48:00 EST, Inhaler, [facility] #[id number], Partial fill uponpatient request if the prescription [...] abuse(Confirmed) Active COVID-19 vaccine series comp leted- Exavio 03/2020(Confirmed) Active Hyperlipidemia(Confirmed) Active Hypertension(Confirmed) Active Urinary [...]
--- OUTSIDE RECORDS SUMMARY | 2022-11-20 09:32 | XMS_ITS | Continuity of Care Document ---
Author Name Unknown Organization [facility] Address [address] [place] [address]- Care Team Providers Care Bumper Operator Name Role Phone Ishan PEÑA, [facility] Primary Care Physician Encounter [facility] Date(s): 02/21/22 - 03/23/22 [facility] [address] [place] [address] Allergies, Adverse Reactions, Alerts No Known Allergies Immunizations Given and Recorded Vaccine Date Status Refusal Reason influenza virus vaccine, inactivated 11/24/21 Loco rded influenza virus vaccine, inactivated 12/10/20 Loco rded [id number] bivalent booster vax 11/24/21 Recorded SARS-CoV-2 mRNA ([id number]) vax 05/26/21 Recorded tetanus/diphtheria/pertussis, acel(Tdap) 12/17/20 Recorded [...] 01/15/22 16:59:00 EST, Route to Pharmacy Electronically, [facility], Partial fill upon patient request [...] MG DAILY, # 90 tablet, 1 Refills, [id number], 159, cm, 07/26/21 11:39:00 EDT, Height, 93.2, kg, 05/04/20 10:09:00 EST, Dry We... 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 1 bottle., #1 each, 0 Refills, Maintenance, 03/28/21 11:42:00 EST, [facility] #[id number], Partial fill upon patient request if the prescription is for a lam... Start Date: 03/28/21 Status: Ordered Colace sodium 100 mg oral capsule 100 mg, 1, capsule, By Mouth, 2 times a day, PRN, # 20 capsule, Refills 0, Tot. Refills 0, Maintenance, for constipation, 02/24/22 11:17:00 EST, Route to Pharmacy Electronically, [facility], Partial fill upon patient request if the presc... Start Date: 02/24/22 Status: Ordered gabapentin 300 mg oral capsule 300 mg, By Mouth, 3 times a day, # 63 tablet, Refills 0, Tot. Refills 0, Maintenance, 02/24/22 11:16:00 EST, Route to Pharmacy Electronically, [facility], Partial fill upon patient request if the prescription is for a schedule II opioid... Start Date: 02/24/22 Stop Date: 03/17/22 Status: Ordered hydrochlorothiazide 25 mg oral tablet See Instructions, TAKE 1 TABLET BY MOUTH DAILY, # 90 tablet, Refills 0, Instructions Replace Required Details, Route to Pharmacy Electronically, [facility] #[id number], 159, cm, 07/26/21 11:39:00 EDT, Height, 93.2, kg, 05/04/20 10:09:00 EST, Dry... Start Date: 10/02/21 Status: Ordered ibuprofen 600 mg oral tablet 600 mg, 1, tablet, By Mouth, 3 times a day, PRN, for 30 days, # 90 tablet, Refills 0, Tot. Refills 0, Acute 04/19/22 11:51:00 EST, Pain , Moderate, 03/20/22 11:51:00 EST, [id number] Partial fill upon patient... Start Date: 03/20/22 Stop Date: 04/19/22 Status: Ordered metoprolol 25 mg oral tablet, extended release 25 mg, 1, tablet, By Mouth, Daily, # 90 tablet, Refills 3, Tot. Refills 3, Maintenance, 01/15/22 16:59:00 EST, Route to Pharmacy Electronically, [facility], Partial fill upon patient request if the [...] 1 Refills, Maintenance, 09/18/20 20:09:00 EDT, Capsule, [facility] #[id number], PLEASE DISPENSE IN BUBBLE/BLISTER PACK, 1 capsule By Mouth 2 times a day,x9... Start Date: 09/18/20 Stop Date: 03/17/21 Status: Ordered Readi-Cat 2 oral suspension See Instructions, Oral Contrast 2 Bottles 450 ml each Dx: Hernia, # 900 mL, 0 Refills, Maintenance,11/01/21 15:08:00 EDT, [id number], Partial fill upon patient request if the prescription isfor a schedule II opioid drug., Oral Contrast; 2... Start Date: 11/01/21 Status: Ordered Ventolin HFA 108 mcg/inh inhalation aerosol with adapter 2 puffs, Inhalation, Every 4 hours, TAKE 2 PUFFS EVERY 4 HOURS IF NEEDED FOR WHEEZING, # 1 each, 5 Refills, Maintenance, 02/16/20 10:48:00 EST, Inhaler, [facility][id number], Partial fill uponpatient request if the prescription [...] Team Personnel Name: Ishan PEÑA, Jarod Position: [facility] Primary Care Physician Member Role: PCP Address: Address: [address] [place] [address] [address] [place] [address]- Name: Wen Stoll RN Position: S RN Member Role: Primary Care Nurse Name: Jeanne Gallagher Position: [facility] Outreach Member Role: Lifetime Consulting Physician Name: Katerina Campos RN Position: S RN Member Role: Primary Care Nurse Name: Bryanna Guzman RN Position: S RN Member Role: Primary Care Nurse Care Team Related Persons Name: ADEN GARCIA Name: FRANCIS GARCIA Address: [place]
--- OUTSIDE RECORDS SUMMARY | 2022-11-20 09:32 | XMS_ITS | Continuity of Care Document ---
Author Name Unknown Organization [facility] Address [address] [place] [address]- Care Team Providers Care Manager Laundry Name Role Phone Erik PEÑA, Kirsten Jauregui Primary Care Physician En[place] [facility] Date(s): 02/09/20 - 03/10/20 [facility] [address] [place], [place] [address] Allergies, Adverse Reactions, Alerts Substance Reaction [...] tablet, 1 Refills, Maintenance, 02/10/20 16:38:00 EST, [facility] #[id number], Partial fill upon patient request if the prescription is for a schedule II opioid drug., 165.1, cm, 02/10/20 15:04:00 EST, Height Start Date: 02/10/20 Stop Date: 08/08/20 Status: Ordered clotrimazole 1% topical cream 1 application, Topically, 2 times a day, PRN rash, for 30 days, # 60 Gm, 1 Refills, Acute 04/10/20 16:32:00 EST, 02/10/20 16:32:00 EST, Cream, [facility] #[id number], Partial fill upon patient request if the [...] 01/07/20 14:52:00 EST, Route to Pharmacy Electronically, [facility] #[id number], 165.1, cm, 12/10/19 10:57:00 EDT, Height Start Date: 01/07/20 Stop Date: 07/05/20 Status: Ordered ibuprofen 600 mg oral tablet 600 mg, 1, tablet, By Mouth, Every 6 hours, PRN, for 30 days, with food or milk, # 90 tablet, Refills 0, Tot. Refills 0, Acute 04/10/20 15:09:00 EST, Pain , Mild, 03/11/20 15:09:00 EST, Route to Pharmacy Electronically, [facility] #[id number], Pa... Start Date: 03/11/20 Stop Date: 04/10/20 Status: Ordered Lipitor 40 mg oral tablet 1 tablet = 40 mg, By Mouth, Daily, # 90 tablet, 1 Refills, Maintenance, 01/07/20 14:52:00 EST, Tablet, [facility] #[id number], 165.1, cm, 12/10/19 10:57:00 EDT, Height Start Date: 01/07/20 Stop Date: 07/05/20 Status: Ordered lisinopril 20 mg oral tablet 20 mg, 1, tablet, By Mouth, Daily, # 90 tablet, Refills 1, Tot. Refills 1, Maintenance, 10/29/19 14:56:00 EDT, Route to Pharmacy Electronically, [facility] #[id number], 165.1, cm, 10/28/19 9:59:00 EDT, Height Start Date: 10/29/19 Stop Date: 04/26/20 Status: Ordered metoprolol 50 mg oral tablet, extended release 50 mg, 1, tablet, By Mouth, Daily, # 90 tablet, Refills 1, Tot. Refills 1, Maintenance, 01/07/20 14:51:00 EST, Route to Pharmacy Electronically, [facility] #[id number], 165.1, cm, 12/10/19 10:57:00 EDT, Height Start [...] 5 Refills, Maintenance, 02/16/20 10:48:00 EST, Inhaler, [facility] #[id number], Partial fill uponpatient request if the prescription [...]
--- OUTSIDE RECORDS SUMMARY | 2022-11-20 09:32 | XMS_ITS | Continuity of Care Document ---
Author Name Unknown Organization [facility] Address [address] [place] [id number]- Care Team Providers Care Waste Picker Name Role Phone Ishan PEÑA, [facility] Primary [facility] Physician Encounter [facility] Date(s): 01/12/22 - 02/11/[address] [address]- Allergies, Adverse Reactions, Alerts No Known Allergies Immunizations Given and Recorded Vaccine Date Status Refusal Reason influenza virus vaccine, inactivated 11/24/21 Loco rded influenza virus vaccine, inactivated 12/10/20 Loco rded [id number] bivalent booster vax 11/24/21 Recorded SARS-CoV-2 mRNA ([id number]) vax 05/26/21 Recorded tetanus/diphtheria/pertussis, acel(Tdap) 12/17/20 Recorded [...] 01/15/22 16:59:00 EST, Route to Pharmacy Electronically, [facility], Partial fill upon patient request if [...] MG DAILY, # 90 tablet, 1 Refills, [facility] #[id number], 159, cm, 07/26/21 11:39:00 EDT, Height, 93.2, kg, 05/04/20 10:09:00 EST, Dry We... 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 1 bottle., #1 each, 0 Refills, Maintenance, 03/28/21 11:42:00 EST, [facility] #[id number], Partial fill upon patient request if the prescription is for a lam... Start Date: 03/28/21 Status: Ordered hydrochlorothiazide 25 mg oral tablet See Instructions, TAKE 1 TABLET BY MOUTH DAILY, # 90 tablet, Refills 0, Instructions Replace Required Details, Route to Pharmacy Electronically, [facility] #[id number], 159, cm, 07/26/21 11:39:00 EDT, Height, 93.2, kg, 05/04/20 10:09:00 EST, Dry... Start Date: 10/02/21 Status: Ordered lisinopril 20 mg oral tablet 1, tablet, By Mouth, Daily, OF LISINOPRIL., # 90 tablet, Refills 0, Route to Pharmacy Electronically, [facility] #[id number], 159, cm, 07/26/21 11:39:00 EDT, Height, 93.2, [...] 01/15/22 16:59:00 EST, Route to Pharmacy Electronically, [facility], Partial fill upon patient request if [...] 1 Refills, Maintenance, 09/18/20 20:09:00 EDT, Capsule, [facility] #[id number], PLEASE DISPENSE IN BUBBLE/BLISTER PACK, 1 capsule By Mouth 2 times a day,x9... Start Date: 09/18/20 Stop Date: 03/17/21 Status: Ordered Readi-Cat 2 oral suspension See Instructions, Oral Contrast 2 Bottles 450 ml each Dx: Hernia, # 900 mL, 0 Refills, Maintenance,11/01/21 15:08:00 EDT, [id number], Partial fill upon patient request if the prescription isfor a schedule II opioid drug., Oral Contrast; 2... Start Date: 11/01/21 Status: Ordered Ventolin HFA 108 mcg/inh inhalation aerosol with adapter 2 puffs, Inhalation, Every 4 hours, TAKE 2 PUFFS EVERY 4 HOURS IF NEEDED FOR WHEEZING, # 1 each, 5 Refills, Maintenance, 02/16/20 10:48:00 EST, Inhaler, [facility] #[id number], Partial fill uponpatient request if the prescription [...] Team Personnel Name: Jarod Olmstead MD Position: [facility] Primary Care Physician Member Role: PCP Address: Address: [address] [place] [id number] Name: Jeanne Gallagher Position: [facility] Outreach Member Role: Lifetime Consulting Physician Care Team Related Persons Name: ADEN GARCIA Name: FRANCIS GARCIA Address: home
--- OUTSIDE RECORDS SUMMARY | 2022-11-20 09:32 | XMS_ITS | Continuity of Care Document ---
Author Name Unknown Organization [facility] Address [address] [place] [address]- Care Team Providers Care Regional Sales Director Name Role Phone Erik PEÑA, Kirsten Jauregui Primary Care Physician Encounter 05/23/20 - 05/30/20 [facility] [address], [address] [place] [address]- Attending Physician: Erik PEÑA, Kirsten Jauregui Admitting [...] 1 Refills, Maintenance, 04/20/20 16:09:00 EST, Tablet, [facility] #[id number], Partial fill upon patient request if the prescr... Start Date: 04/20/20 Status: Ordered cholecalciferol 4000 intl units oral tablet = 100 mcg, By Mouth, Daily, # 90 tablet, 1 Refills, Maintenance, 02/10/20 16:38:00 EST, [facility] #[id number], Partial fill upon patient request if the [...] 01/07/20 14:52:00 EST, Route to Pharmacy Electronically, [facility] #[id number], 165.1, cm, 12/10/19 10:57:00 EDT, Height Start Date: 01/07/20 Stop Date: 07/05/20 Status: Ordered Lipitor 40 mg oral tablet 1 tablet = 40 mg, By Mouth, Daily, Take 1 tablet of 40 mg with 1 tablet of 20 mg for total 60 mg daily, # 90 tablet, 1 Refills, Maintenance, 04/06/20 14:02:00 EST, Tablet, [facility] #[id number], 165.1, cm, 04/06/20 8:13:00 EST, Height Start Date: 04/06/20 Status: Ordered lisinopril 20 mg oral tablet 20 mg, 1, tablet, By Mouth, Daily, # 90 tablet, Refills 1, Tot. Refills 1, Maintenance, 10/29/19 14:56:00 EDT, Route to Pharmacy Electronically, [facility] #[id number], 165.1, cm, 10/28/19 9:59:00 EDT, Height Start Date: 10/29/19 Stop Date: 04/26/20 Status: Ordered metoprolol 50 mg oral tablet, extended release 50 mg, 1, tablet, By Mouth, Daily, # 90 tablet, Refills 1, Tot. Refills 1, Maintenance, 01/07/20 14:51:00 EST, Route to Pharmacy Electronically, [facility] #[id number], 165.1, cm, 12/10/19 10:57:00 EDT, Height Start [...] 1 Refills, Maintenance, 04/01/20 14:07:00 EST, Capsule, [facility] #[id number], PLEASE DISPENSE IN BUBBLE/BLISTER PACK, 1 capsule By Mouth Daily,x90 days,Instr:PLEA... Start Date: 04/01/20 Stop Date: 09/28/20 Status: Ordered Ventolin HFA 108 mcg/inh inhalation aerosol with adapter 2 puffs, Inhalation, Every 4 hours, TAKE 2 PUFFS EVERY 4 HOURS IF NEEDED FOR WHEEZING, # 1 each, 5 Refills, Maintenance, 02/16/20 10:48:00 EST, Inhaler, [facility] #[id number], Partial fill uponpatient request if the prescription [...]
--- OUTSIDE RECORDS SUMMARY | 2022-11-20 09:32 | XMS_ITS | Continuity of Care Document ---
Author Name Unknown Organization [facility] Address [address] [place] [address]- Care Team Providers Care Grinder Set Up Operator Surface Name Role Phone Erik PEÑA, Kirsten Jauregui Primary Care Physician [facility] Date(s): 04/01/20 - 05/01/20 [facility] [address] [place] [address]- Allergies, Adverse Reactions, Alerts Substance Reaction Severity [...] 1 Refills, Maintenance, 04/20/20 16:09:00 EST, Tablet, [facility] #[id number], Partial fill upon patient request if the prescr... Start Date: 04/20/20 Status: Ordered cholecalciferol 4000 intl units oral tablet = 100 mcg, By Mouth, Daily, # 90 tablet, 1 Refills, Maintenance, 02/10/20 16:38:00 EST, [facility] #[id number], Partial fill upon patient request if the [...] 01/07/20 14:52:00 EST, Route to Pharmacy Electronically, [facility] #[id number], 165.1, cm, 12/10/19 10:57:00 EDT, Height Start Date: 01/07/20 Stop Date: 07/05/20 Status: Ordered Lipitor 40 mg oral tablet 1 tablet = 40 mg, By Mouth, Daily, Take 1 tablet of 40 mg with 1 tablet of 20 mg for total 60 mg daily, # 90 tablet, 1 Refills, Maintenance, 04/06/20 14:02:00 EST, Tablet, [facility] #13056, 165.1, cm, 04/06/20 8:13:00 EST, Height Start Date: 04/06/20 Status: Ordered lisinopril 20 mg oral tablet 20 mg, 1, tablet, By Mouth, Daily, # 90 tablet, Refills 1, Tot. Refills 1, Maintenance, 10/29/19 14:56:00 EDT, Route to Pharmacy Electronically, [facility] #[id number], 165.1, cm, 10/28/19 9:59:00 EDT, Height Start Date: 10/29/19 Stop Date: 04/26/20 Status: Ordered metoprolol 50 mg oral tablet, extended release 50 mg, 1, tablet, By Mouth, Daily, # 90 tablet, Refills 1, Tot. Refills 1, Maintenance, 01/07/20 14:51:00 EST, Route to Pharmacy Electronically, [facility] #[id number], 165.1, cm, 12/10/19 10:57:00 EDT, Height Start [...] 1 Refills, Maintenance, 04/01/20 14:07:00 EST, Capsule, [facility] #[id number], PLEASE DISPENSE IN BUBBLE/BLISTER PACK, 1 capsule By Mouth Daily,x90 days,Instr:PLEA... Start Date: 04/01/20 Stop Date: 09/28/20 Status: Ordered Ventolin HFA 108 mcg/inh inhalation aerosol with adapter 2 puffs, Inhalation, Every 4 hours, TAKE 2 PUFFS EVERY 4 HOURS IF NEEDED FOR WHEEZING, # 1 each, 5 Refills, Maintenance, 02/16/20 10:48:00 EST, Inhaler, [facility] #[id number], Partial fill uponpatient request if the prescription [...]
--- OUTSIDE RECORDS SUMMARY | 2022-11-20 09:33 | XMS_ITS | Continuity of Care Document ---
Author Name Unknown Organization [facility] Address [address] [place] [address]- Care Team Providers Care Bee Breeder Name Role Phone Erik PEÑA, Kirsten Jauregui Primary Care Physician [facility] Date(s): 03/29/21 - 04/28/21 [facility] [address] [place] [address]- Allergies, Adverse Reactions, Alerts No Known Allergies [...] MG DAILY, # 90 tablet, 0 Refills, [facility] #[id number], 158, cm, 04/03/21 15:11:00 EST, Height, 93.2, kg, 05/04/20 10:09:00 EST, Dry We... Start Date: 04/24/21 Status: Ordered atorvastatin 40 mg oral tablet See Instructions, TAKE 1 TABLET BY MOUTH DAILY TAKE 1 TABLET OF 40 MG WITH 1 TABLET OF 20 MG FOR TOTAL 60 MG DAILY, # 90 tablet, 0 Refills, [facility] #[id number], 158, cm, 01/04/21 12:51:00 EST, Height, 93.2, kg, 05/04/20 10:09:00 EST, Dry Weight Start Date: 01/25/21 Status: Ordered Biafine topical emulsion See Instructions, PRN Prurigo Nodularis, apply to affected area twice a day as needed. 1 bottle., #1 each, 0 Refills, Maintenance, 03/28/21 11:42:00 EST, [facility] #[id number], Partial fill upon patient request if the prescription is for a lam... Start Date: 03/28/21 Status: Ordered hydrochlorothiazide 25 mg oral tablet 1, tablet, By Mouth, Daily, # 90 tablet, Refills 1, Route to Pharmacy Electronically, [facility] #[id number], 158, cm, 11/25/20 12:59:00 EDT, Height, 93.2, kg, 05/04/20 10:09:00 EST, Dry Weight Start Date: 12/30/20 Status: Ordered lisinopril 20 mg oral tablet 20 mg, 1, tablet, By Mouth, Daily, with 5 mg to total 25 mg of lisinopril, # 90 tablet, Refills 1, Tot. Refills 1, Maintenance, 04/18/21 15:36:00 EST, Route to Pharmacy Electronically, [facility] #[id number], Partial fill upon patient request if... Start Date: 04/18/21 Stop Date: 10/15/21 Status: Ordered lisinopril 5 mg oral tablet 5 mg, 1, tablet, By Mouth, Daily, with 20 mg to total 25 mg daily, # 90 tablet, Refills 1, Tot. Refills 1, Maintenance, 04/18/21 15:37:00 EST, Route to Pharmacy Electronically, [facility] #[id number], Partial fill upon patient request if the pres... Start Date: 04/18/21 Stop Date: 10/15/21 Status: Ordered Metoprolol Succinate ER 50 mg oral tablet, extended release 1 tablet, By Mouth, Daily, # 90 tablet, 1 Refills, [facility] #[id number], 158, cm, 11/25/20 12:59:00 EDT, Height, 93.2, [...] 1 Refills, Maintenance, 09/18/20 20:09:00 EDT, Capsule, [facility] #[id number], PLEASE DISPENSE IN BUBBLE/BLISTER PACK, 1 capsule By Mouth 2 times a day,x9... Start Date: 09/18/20 Stop Date: 03/17/21 Status: Ordered Ventolin HFA 108 mcg/inh inhalation aerosol with adapter 2 puffs, Inhalation, Every 4 hours, TAKE 2 PUFFS EVERY 4 HOURS IF NEEDED FOR WHEEZING, # 1 each, 5 Refills, Maintenance, 02/16/20 10:48:00 EST, Inhaler, [facility] #[id number], Partial fill uponpatient request if the prescription [...]
--- OUTSIDE RECORDS SUMMARY | 2022-11-20 09:33 | XMS_ITS | Continuity of Care Document ---
Author Name Unknown Organization [facility] Address [address] [place] [address]- Care Team Providers Care Doctor Assistant Name Role Phone Not on Staff, PCP Primary Care Physician Unavail able [facility]counter [facility] Date[facility]s): 07/27/21 - 08/26/21 [facility] [address] [place] [address]- Allergies, Adverse Reactions, Alerts No Known Allergies Immunizations Given and Recorded Vaccine Date Status Refusal Reason SARS-CoV-2 mRNA ([id number]-[id number]) vax 05/26/21 Recorded tetanus/diphtheria/pertussis, acel(Tdap) 12/17/20 Recorded [...] MG DAILY, # 90 tablet, 1 Refills, [facility] #[id number], 159, cm, 07/26/21 11:39:00 EDT, Height, 93.2, kg, 05/04/20 10:09:00 EST, Dry We... 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 1 bottle., #1 each, 0 Refills, Maintenance, 03/28/21 11:42:00 EST, [facility] #[id number], Partial fill upon patient request if the prescription is for a lam... Start Date: 03/28/21 Status: Ordered hydrochlorothiazide 25 mg oral tablet 1, tablet, By Mouth, Daily, # 90 tablet, Refills 0, Route to Pharmacy Electronically, [facility] #[id number], 159, cm, 04/26/21 9:27:00 EST, Height, 93.2, kg, 05/04/20 10:09:00 EST, Dry Weight Start Date: 06/25/21 Status: Ordered lisinopril 20 mg oral tablet 20 mg, 1, tablet, By Mouth, Daily, with 5 mg to total 25 mg of lisinopril, # 90 tablet, Refills 1, Tot. Refills 1, Maintenance, 04/18/21 15:36:00 EST, Route to Pharmacy Electronically, [facility] #[id number], Partial fill upon patient request if... Start Date: 04/18/21 Stop Date: 10/15/21 Status: Ordered lisinopril 5 mg oral tablet 5 mg, 1, tablet, By Mouth, Daily, with 20 mg to total 25 mg daily, # 90 tablet, Refills 1, Tot. Refills 1, Maintenance, 04/18/21 15:37:00 EST, Route to Pharmacy Electronically, [facility] #[id number], Partial fill upon patient request if the pres... Start Date: 04/18/21 Stop Date: 10/15/21 Status: Ordered Metoprolol Succinate ER 50 mg oral tablet, extended release 1 tablet, By Mouth, Daily, # 90 tablet, 0 Refills, [facility] #[id number], 159, cm, 04/26/21 9:27:00 EST, Height, 93.2, [...] 1 Refills, Maintenance, 09/18/20 20:09:00 EDT, Capsule, [facility] #[id number], PLEASE DISPENSE IN BUBBLE/BLISTER PACK, 1 capsule By Mouth 2 times a day,x9... Start Date: 09/18/20 Stop Date: 03/17/21 Status: Ordered Ventolin HFA 108 mcg/inh inhalation aerosol with adapter 2 puffs, Inhalation, Every 4 hours, TAKE 2 PUFFS EVERY 4 HOURS IF NEEDED FOR WHEEZING, # 1 each, 5 Refills, Maintenance, 02/16/20 10:48:00 EST, Inhaler, [facility] #[id number], Partial fill uponpatient request if the prescription [...]
--- OUTSIDE RECORDS SUMMARY | 2022-11-20 09:33 | XMS_ITS | Continuity of Care Document ---
Author Name Unknown Organization [facility] Address [address], [address] [place] [address]- Care Team Providers Care Multimedia Developer Name Role Phone Erik PEÑA, Kirsten Jauregui Primary Care Physician Encounter 05/22/21 - 05/29/21 [facility] [address], [address] [place] [address]- Attending Physician: Yousif Parisi MD Admitting Physician: Yousif Parisi MD Referring Physician: Yousif Parisi MD Allergies, Adverse Reactions, Alerts No Known [...] 05/17/21 22:19:00 EDT, Route to Pharmacy Electronically, [facility]... Start Date: 05/17/21 Stop Date: 07/16/21 [...] MG DAILY, # 90 tablet, 0 Refills, [facility] #[id number], 158, cm, 04/03/21 15:11:00 EST, Height, 93.2, kg, 05/04/20 10:09:00 EST, Dry We... Start Date: 04/24/21 Status: Ordered atorvastatin 40 mg oral tablet See Instructions, TAKE 1 TABLET BY MOUTH DAILY TAKE 1 TABLET OF 40 MG WITH 1 TABLET OF 20 MG FOR TOTAL 60 MG DAILY, # 90 tablet, 0 Refills, [facility] #[id number], 158, cm, 01/04/21 12:51:00 EST, Height, 93.2, kg, 05/04/20 10:09:00 EST, Dry Weight Start Date: 01/25/21 Status: Ordered Biafine topical emulsion See Instructions, PRN Prurigo Nodularis, apply to affected area twice a day as needed. 1 bottle., #1 each, 0 Refills, Maintenance, 03/28/21 11:42:00 EST, [email or web address] #[id number], Partial fill upon patient request if the prescription is for a lam... Start Date: 03/28/21 Status: Ordered hydrochlorothiazide 25 mg oral tablet 1, tablet, By Mouth, Daily, # 90 tablet, Refills 1, Route to Pharmacy Electronically, [facility] #[id number], 158, cm, 11/25/20 12:59:00 EDT, Height, 93.2, kg, 05/04/20 10:09:00 EST, Dry Weight Start Date: 12/30/20 Status: Ordered lisinopril 20 mg oral tablet 20 mg, 1, tablet, By Mouth, Daily, with 5 mg to total 25 mg of lisinopril, # 90 tablet, Refills 1, Tot. Refills 1, Maintenance, 04/18/21 15:36:00 EST, Route to Pharmacy Electronically, [email or web address] #[id number], Partial fill upon patient request if... Start Date: 04/18/21 Stop Date: 10/15/21 Status: Ordered lisinopril 5 mg oral tablet 5 mg, 1, tablet, By Mouth, Daily, with 20 mg to total 25 mg daily, # 90 tablet, Refills 1, Tot. Refills 1, Maintenance, 04/18/21 15:37:00 EST, Route to Pharmacy Electronically, [facility] #[id number], Partial fill upon patient request if the pres... Start Date: 04/18/21 Stop Date: 10/15/21 Status: Ordered Metoprolol Succinate ER 50 mg oral tablet, extended release 1 tablet, By Mouth, Daily, # 90 tablet, 1 Refills, [facility] #[id number], 158, cm, 11/25/20 12:59:00 EDT, Height, 93.2, [...] 1 Refills, Maintenance, 09/18/20 20:09:00 EDT, Capsule, [email or web address] #[id number], PLEASE DISPENSE IN BUBBLE/BLISTER PACK, 1 capsule By Mouth 2 times a day,x9... Start Date: 09/18/20 Stop Date: 03/17/21 Status: Ordered Ventolin HFA 108 mcg/inh inhalation aerosol with adapter 2 puffs, Inhalation, Every 4 hours, TAKE 2 PUFFS EVERY 4 HOURS IF NEEDED FOR WHEEZING, # 1 each, 5 Refills, Maintenance, 02/16/20 10:48:00 EST, Inhaler, [email or web address] #[id number], Partial fill uponpatient request if the prescription [...] abuse(Confirmed) Active COVID-19 vaccine series comp leted- [facility] 03/2020(Confirmed) Active Hyperlipidemia(Confirmed) Active Hypertension(Confirmed) Active Urinary [...]
--- OUTSIDE RECORDS SUMMARY | 2022-11-20 09:33 | XMS_ITS | Continuity of Care Document ---
Author Name Unknown Organization [facility] Address [address] [place] [address], [address] [place] [address]- Care Team Providers Care Pastry Finisher Name Role Phone Ishan PEÑA, [facility] Primary Care Physician ( [phone] Encounter [facility] Date(s): 03/20/22 - 04/19/22 [facility] [address] [place] [address], [address] [place], [place] [address] Allergies, Adverse Reactions, Alerts No Known Allergies Immunizations Given and Recorded Vaccine Date Status Refusal Reason influenza virus vaccine, inactivated 11/24/21 Loco rded influenza virus vaccine, inactivated 12/10/20 Loco rded [id number] bivalent booster vax 11/24/21 Recorded SARS-CoV-2 mRNA ([id number]-[id number]-witrh) vax 05/26/21 Recorded tetanus/diphtheria/pertussis, acel(Tdap) 12/17/20 Recorded [...] 01/15/22 16:59:00 EST, Route to Pharmacy Electronically, [facility], Partial fill upon patient request [...] MG DAILY, # 90 tablet, 1 Refills, [facility] #[id number], 159, cm, 07/26/21 11:39:00 EDT, Height, 93.2, kg, 05/04/20 10:09:00 EST, Dry We... 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 1 bottle., #1 each, 0 Refills, Maintenance, 03/28/21 11:42:00 EST, [facility] #[id number], Partial fill upon patient request if the prescription is for a lam... Start Date: 03/28/21 Status: Ordered Colace sodium 100 mg oral capsule 100 mg, 1, capsule, By Mouth, 2 times a day, PRN, # 20 capsule, Refills 0, Tot. Refills 0, Maintenance, for constipation, 02/24/22 11:17:00 EST, Route to Pharmacy Electronically, [facility], Partial fill upon patient request if the presc... Start Date: 02/24/22 Status: Ordered gabapentin 300 mg oral capsule 300 mg, By Mouth, 3 times a day, # 63 tablet, Refills 0, Tot. Refills 0, Maintenance, 02/24/22 11:16:00 EST, Route to Pharmacy Electronically, [facility], Partial fill upon patient request if the prescription is for a schedule II opioid... Start Date: 02/24/22 Stop Date: 03/17/22 Status: Ordered hydrochlorothiazide 25 mg oral tablet See Instructions, TAKE 1 TABLET BY MOUTH DAILY, # 90 tablet, Refills 0, Instructions Replace Required Details, Route to Pharmacy Electronically, [facility] #[id number], 159, cm, 07/26/21 11:39:00 EDT, Height, 93.2, kg, 05/04/20 10:09:00 EST, Dry... Start Date: 10/02/21 Status: Ordered ibuprofen 600 mg oral tablet 1, tablet, By Mouth, 3 times a day, PRN, # 90 tablet, Refills 0, Maintenance, NEEDED FOR MODERATE PAIN, 04/18/22 9:29:00 EST, Route to Pharmacy Electronically, [facility] [id number], 160, cm, 03/15/22 14:35:00 EST, Height, 87.6, kg, 02/22/22 17:27:00 EST... Start Date: 04/18/22 Status: Ordered metoprolol 25 mg oral tablet, extended release 25 mg, 1, tablet, By Mouth, Daily, # 90 tablet, Refills 3, Tot. Refills 3, Maintenance, 01/15/22 16:59:00 EST, Route to Pharmacy Electronically, [facility], Partial fill upon patient request if the [...] 1 Refills, Maintenance, 09/18/20 20:09:00 EDT, Capsule, [facility] #[id number], PLEASE DISPENSE IN BUBBLE/BLISTER PACK, 1 capsule By Mouth 2 times a day,x9... Start Date: 09/18/20 Stop Date: 03/17/21 Status: Ordered Readi-Cat 2 oral suspension See Instructions, Oral Contrast 2 Bottles 450 ml each Dx: Hernia, # 900 mL, 0 Refills, Maintenance,11/01/21 15:08:00 EDT, [id number], Partial fill upon patient request if the prescription isfor a schedule II opioid drug., Oral Contrast; 2... Start Date: 11/01/21 Status: Ordered Ventolin HFA 108 mcg/inh inhalation aerosol with adapter 2 puffs, Inhalation, Every 4 hours, TAKE 2 PUFFS EVERY 4 HOURS IF NEEDED FOR WHEEZING, # 1 each, 5 Refills, Maintenance, 02/16/20 10:48:00 EST, Inhaler, [facility] #[id number], Partial fill uponpatient request if the prescription [...] Team Personnel Name: Ishan PEÑA, Jarod Position: [facility] Primary Care Physician Member Role: PCP Address: Address: [address] [place] [id number]- Name: Wen Stoll RN Position: S RN Member Role: Primary Care Nurse Name: Jeanne Gallagher Position: S Outreach Member Role: Lifetime Consulting Physician Name: Katerina Campos RN Position: S RN Member Role: Primary Care Nurse Name: Bryanna Guzman RN Position: S RN Member Role: Primary Care Nurse Care Team Related Persons Name: ADEN GARCIA Name: FRANCIS GARCIA Address: [address]
--- OUTSIDE RECORDS SUMMARY | 2022-11-20 09:33 | XMS_ITS | Continuity of Care Document ---
Author Name Unknown Organization [facility] [place] [address] [facility] [place] [address]- Care Team Providers Care Field Crop Farmer Name Role Phone Erik PEÑA, Kirsten Jauregui Primary Care Physician Encounter 11/07/20 - 11/14/20 [facility] [address], [address] [place] [address]- Attending Physician: Yousif Parisi MD Admitting Physician: Yousif Parisi MD Referring Physician: Yousif Parisi MD Allergies, Adverse Reactions, Alerts Substance Reaction [...] 1 Refills, Maintenance, 07/22/20 14:03:00 EDT, Tablet, [facility] #[id number], Partial fill upon patient request if the prescr... Start Date: 07/22/20 Status: Ordered cholecalciferol 4000 intl units oral tablet = 100 mcg, By Mouth, Daily, # 90 tablet, 1 Refills, Maintenance, 02/10/20 16:38:00 EST, [facility] #[id number], Partial fill upon patient request if the [...] 07/09/20 14:57:00 EDT, Route to Pharmacy Electronically, [facility] #[id number], 165.1, cm, 07/06/20 11:29:00 EDT, Height, 93.2, kg, 05/04/20 10:09:00 ESTDr... Start Date: 07/09/20 Stop Date: 01/05/21 Status: Ordered Lipitor 40 mg oral tablet 1 tablet = 40 mg, By Mouth, Daily, Take 1 tablet of 40 mg with 1 tablet of 20 mg for total 60 mg daily, # 90 tablet, 1 Refills, Maintenance, 07/22/20 14:03:00 EDT, Tablet, [facility] #[id number], 158, cm, 07/22/20 13:04:00 EDT, Height, 93.2, kg,... Start Date: 07/22/20 Stop Date: 01/18/21 Status: Ordered lisinopril 20 mg oral tablet 1, tablet, By Mouth, Daily, # 90 tablet, Refills 1, Route to Pharmacy Electronically, [facility] #[id number], 158, cm, 08/01/20 11:06:00 EDT, Height, 93.2, kg, 05/04/20 10:09:00 EST, Dry Weight Start Date: 10/24/20 Status: Ordered metoprolol 50 mg oral tablet, extended release 50 mg, 1, tablet, By Mouth, Daily, # 90 tablet, Refills 1, Tot. Refills 1, Maintenance, 07/09/20 14:57:00 EDT, Route to Pharmacy Electronically, [facility] #[id number], 165.1, cm, 07/06/20 11:29:00 EDT, Height, 93.2, kg, 05/04/20 10:09:00 EST, [facility] Start Date: 07/09/20 Stop Date: 01/05/21 Status: [...] 1 Refills, Maintenance, 09/18/20 20:09:00 EDT, Capsule, [facility] #[id number], PLEASE DISPENSE IN BUBBLE/BLISTER PACK, 1 capsule By Mouth 2 times a day,x9... Start Date: 09/18/20 Stop Date: 03/17/21 Status: Ordered Ventolin HFA 108 mcg/inh inhalation aerosol with adapter 2 puffs, Inhalation, Every 4 hours, TAKE 2 PUFFS EVERY 4 HOURS IF NEEDED FOR WHEEZING, # 1 each, 5 Refills, Maintenance, 02/16/20 10:48:00 EST, Inhaler, [facility] #[id number], Partial fill uponpatient request if the prescription [...]
--- OUTSIDE RECORDS SUMMARY | 2022-11-20 09:33 | XMS_ITS | Continuity of Care Document ---
Author Name Unknown Organization [facility] Address [address] [place] [address]- Care Team Providers Care Poultry Husbandry Worker Name Role Phone Ishan PEÑA, [facility] Primary Care Physician Encounter [facility] Date(s): 02/14/22 - 03/16/22 [facility] [address] [place] [address]- Allergies, Adverse Reactions, Alerts No Known Allergies Immunizations Given and Recorded Vaccine Date Status Refusal Reason influenza virus vaccine, inactivated 11/24/21 Loco rded influenza virus vaccine, inactivated 12/10/20 Loco rded [id number] bivalent booster vax 11/24/21 Recorded SARS-CoV-2 mRNA (nwlgdib-msgk-eeeje) vax 05/26/21 Recorded tetanus/diphtheria/pertussis, acel(Tdap) 12/17/20 Recorded [...] 23-valent vaccine 11/24/08 Recorded pneumococcal 13-valent vaccine 11/1/16 Recorded tetanus-diphtheria toxoids (Td) 01/19/08 Recorded Hepatitis [...] 01/15/22 16:59:00 EST, Route to Pharmacy Electronically, [facility], Partial fill upon patient [...] MG DAILY, # 90 tablet, 1 Refills, [facility] #[id number], 159, cm, 07/26/21 11:39:00 EDT, Height, 93.2, kg, 05/04/20 10:09:00 EST, Dry We... 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 1 bottle., #1 each, 0 Refills, Maintenance, 03/28/21 11:42:00 EST, [facility] #[id number], Partial fill upon patient request if the prescription is for a lam... Start Date: 03/28/21 Status: Ordered Colace sodium 100 mg oral capsule 100 mg, 1, capsule, By Mouth, 2 times a day, PRN, # 20 capsule, Refills 0, Tot. Refills 0, Maintenance, for constipation, 02/24/22 11:17:00 EST, Route to Pharmacy Electronically, [facility], Partial fill upon patient request if the presc... Start Date: 02/24/22 Status: Ordered gabapentin 300 mg oral capsule 300 mg, By Mouth, 3 times a day, # 63 tablet, Refills 0, Tot. Refills 0, Maintenance, 02/24/22 11:16:00 EST, Route to Pharmacy Electronically, [facility], Partial fill upon patient request if the prescription is for a schedule II opioid... Start Date: 02/24/22 Stop Date: 03/17/22 Status: Ordered hydrochlorothiazide 25 mg oral tablet See Instructions, TAKE 1 TABLET BY MOUTH DAILY, # 90 tablet, Refills 0, Instructions Replace Required Details, Route to Pharmacy Electronically, [facility] #[id number], 159, cm, 07/26/21 11:39:00 EDT, Height, 93.2, kg, 05/04/20 10:09:00 EST, Dry... Start Date: 10/02/21 Status: Ordered metoprolol 25 mg oral tablet, extended release 25 mg, 1, tablet, By Mouth, Daily, # 90 tablet, Refills 3, Tot. Refills 3, Maintenance, 01/15/22 16:59:00 EST, Route to Pharmacy Electronically, [facility], Partial fill upon patient [...] 1 Refills, Maintenance, 09/18/20 20:09:00 EDT, Capsule, [facility] #[id number], PLEASE DISPENSE IN BUBBLE/BLISTER PACK, 1 capsule By Mouth 2 times a day,x9... Start Date: 09/18/20 Stop Date: 03/17/21 Status: Ordered Readi-Cat 2 oral suspension See Instructions, Oral Contrast 2 Bottles 450 ml each Dx: Hernia, # 900 mL, 0 Refills, Maintenance,11/01/21 15:08:00 EDT, [id number], Partial fill upon patient request if the prescription isfor a schedule II opioid drug., Oral Contrast; 2... Start Date: 11/01/21 Status: Ordered Ventolin HFA 108 mcg/inh inhalation aerosol with adapter 2 puffs, Inhalation, Every 4 hours, TAKE 2 PUFFS EVERY 4 HOURS IF NEEDED FOR WHEEZING, # 1 each, 5 Refills, Maintenance, 02/16/20 10:48:00 EST, Inhaler, [facility] #[id number], Partial fill uponpatient request if the prescription [...] Team Personnel Name: Jarod Olmstead MD Position: [facility] Primary Care Physician Member Role: PCP Address: Address: [address] [place] [address] [address] [place] [address]- Name: Wen Stoll RN Position: [facility] RN Member Role: Primary Care Nurse Name: Jeanne Gallagher Position: [facility] Outreach Member Role: Lifetime Consulting Physician Name: Katerina Campos RN Position: [facility] RN Member Role: Primary Care Nurse Name: Bryanna Guzman RN Position: [facility] RN Member Role: Primary Care Nurse Care Team Related Persons Name: ADEN GARCIA Name: FRANCIS GARCIA Address: home
--- OUTSIDE RECORDS SUMMARY | 2022-11-20 09:33 | XMS_ITS | Continuity of Care Document ---
Author Name Unknown Organization [facility] Address [address] [place] [address]- Care Team Providers Care Mandrel Press Hand Name Role Phone Erik PEÑA, Kirsten Jauregui Primary Care Physician Encounter [facility] Date(s): 07/01/20 - 07/31/20 [facility] [address] [place] [address]- Allergies, Adverse Reactions, Alerts Substance Reaction Severity [...] 1 Refills, Maintenance, 07/22/20 14:03:00 EDT, Tablet, [facility] #[id number], Partial fill upon patient request if the prescr... Start Date: 07/22/20 Status: Ordered cholecalciferol 4000 intl units oral tablet = 100 mcg, By Mouth, Daily, # 90 tablet, 1 Refills, Maintenance, 02/10/20 16:38:00 EST, [facility] #[id number], Partial fill upon patient request if the [...] 07/09/20 14:57:00 EDT, Route to Pharmacy Electronically, [facility] #[id number], 165.1, cm, 07/06/20 11:29:00 EDT, Height, 93.2, kg, 05/04/20 10:09:00 ESTDr... Start Date: 07/09/20 Stop Date: 01/05/21 Status: Ordered Lipitor 40 mg oral tablet 1 tablet = 40 mg, By Mouth, Daily, Take 1 tablet of 40 mg with 1 tablet of 20 mg for total 60 mg daily, # 90 tablet, 1 Refills, Maintenance, 07/22/20 14:03:00 EDT, Tablet, [facility] #36349, 158, cm, 07/22/20 13:04:00 EDT, Height, 93.2, kg,... Start Date: 07/22/20 Stop Date: 01/18/21 Status: Ordered lisinopril 20 mg oral tablet 20 mg, 1, tablet, By Mouth, Daily, # 90 tablet, Refills 1, Tot. Refills 1, Maintenance, 10/29/19 14:56:00 EDT, Route to Pharmacy Electronically, [facility] #[id number], 165.1, cm, 10/28/19 9:59:00 EDT, Height Start [...] 07/09/20 14:57:00 EDT, Route to Pharmacy Electronically, [facility] #[id number], 165.1, cm, 07/06/20 11:29:00 EDT, Height, 93.2, [...] 1 Refills, Maintenance, 04/01/20 14:07:00 EST, Capsule, [facility] #[id number], PLEASE DISPENSE IN BUBBLE/BLISTER PACK, 1 capsule By Mouth Daily,x90 days,Instr:PLEA... Start Date: 04/01/20 Stop Date: 09/28/20 Status: Ordered Ventolin HFA 108 mcg/inh inhalation aerosol with adapter 2 puffs, Inhalation, Every 4 hours, TAKE 2 PUFFS EVERY 4 HOURS IF NEEDED FOR WHEEZING, # 1 each, 5 Refills, Maintenance, 02/16/20 10:48:00 EST, Inhaler, [facility] #[id number], Partial fill uponpatient request if the prescription [...]
--- OUTSIDE RECORDS SUMMARY | 2022-11-20 09:34 | XMS_ITS | Continuity of Care Document ---
Author Name Unknown Organization [facility] Address [address] [place] [address], [address] [place] [address]- Care Team Providers Care It Communications Manager Name Role Phone Ishan PEÑA, Jarod Primary Care Physician Encounter [facility] Date(s): 02/13/22 - 02/20/22 [facility] [address] [place] [address], [address] [place] [address]- Attending Physician: Daphnie Fulton MD Referring Physician: Jarod Olmstead MD Allergies, Adverse Reactions, Alerts No Known Allergies Immunizations Given and Recorded Vaccine Date Status Refusal Reason influenza virus vaccine, inactivated 11/24/21 Loco rded influenza virus vaccine, inactivated 12/10/20 Loco rded [id number] bivalent booster vax 11/24/21 Recorded SARS-CoV-2 mRNA (osxebya-bldt-qwwal) vax 05/26/21 Recorded tetanus/diphtheria/pertussis, acel(Tdap) 12/17/20 Recorded [...] 01/15/22 16:59:00 EST, Route to Pharmacy Electronically, [facility], Partial fill upon patient request [...] MG DAILY, # 90 tablet, 1 Refills, [facility] #[id number], 159, cm, 07/26/21 11:39:00 EDT, Height, 93.2, kg, 05/04/20 10:09:00 EST, Dry We... 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 1 bottle., #1 each, 0 Refills, Maintenance, 03/28/21 11:42:00 EST, [facility] #[id number], Partial fill upon patient request if the prescription is for a lam... Start Date: 03/28/21 Status: Ordered gabapentin 300 mg oral capsule 300 mg, 1, capsule, By Mouth, 3 times a day, Start three days before your surgery., # 90 capsule, Refills 2, Tot. Refills 2, Maintenance, 02/20/22 9:52:00 EST, Route to Pharmacy Electronically, [facility][id number], Partial fill upon patient request if... Start Date: 02/20/22 Status: Ordered hydrochlorothiazide 25 mg oral tablet See Instructions, TAKE 1 TABLET BY MOUTH DAILY, # 90 tablet, Refills 0, Instructions Replace Required Details, Route to Pharmacy Electronically, [facility] #[id number], 159, cm, 07/26/21 11:39:00 EDT, Height, 93.2, kg, 05/04/20 10:09:00 EST, Dry... Start Date: 10/02/21 Status: Ordered lisinopril 20 mg oral tablet 1, tablet, By Mouth, Daily, OF LISINOPRIL., # 90 tablet, Refills 0, Route to Pharmacy Electronically, [facility] #[id number], 159, cm, 07/26/21 11:39:00 EDT, Height, 93.2, [...] 01/15/22 16:59:00 EST, Route to Pharmacy Electronically, [facility], Partial fill upon patient request if [...] 1 Refills, Maintenance, 09/18/20 20:09:00 EDT, Capsule, [facility] #[id number], PLEASE DISPENSE IN BUBBLE/BLISTER PACK, 1 capsule [...] 5 Refills, Maintenance, 02/16/20 10:48:00 EST, Inhaler, [facility] #[id number], Partial fill uponpatient request if the prescription [...] oldest [Reference Range]: 1 Height 159.0 cm (02/13/22 11:08 AM) Weight 89.7 kg (02/13/22 11:08 AM) Oxygen Saturation [94-100 %] 99 % (02/13/22 11:08 AM) Pulse Rate [55-90 bpm] 58 bpm (02/13/22 11:08 AM) Body Mass Index [18.5-24.99 kg/m2] 35.48 kg/m2 *>HHI* (02/13/22 11:08 AM) Blood Pressure [90-138/55-84 mm Hg] 112/ 70mm Hg (02/13/22 11:08 AM) Temperature [96.8-100.4 DegF] 97.8 DegF (02/13/22 11:08 AM) Mode of Delivery (Oxygen) Room air (02/13/22 11:08 AM) Blood pressure sites Arm, right (02/13/22 11:08 AM) Temperature Route Temporal (02/13/22 11:08 AM) Weight Obtained Via Standing scale (02/13/22 11:08 AM) Social History Social History Type Response Tobacco Use: quit 1993 1-2pp d 31yrs. Sex Patient Care team information Care Team Personnel Name: Jarod Olmstead MD Position: [facility] Primary Care Physician Member Role: PCP Address: Address: [facility] [address] [place] [address]- Name: Jeanne Gallagher Position: [facility] Outreach Member Role: Lifetime Consulting Physician Care Team Related Persons Name: ADEN GARCIA Name: FRANCIS GARCIA Address: home
--- OUTSIDE RECORDS SUMMARY | 2022-11-20 09:34 | XMS_ITS | Continuity of Care Document ---
Author Name Unknown Organization [facility] Address [address] [place] [address]- Care Team Providers Care Configuration Developer Name Role Phone Erik PEÑA, Kirsten Jauregui Primary Care Physician Encounter [facility] Date(s): 09/09/19 - 10/09/19 [facility] [address] [place] [address]- [facility] Allergies, Adverse Reactions, Alerts Substance Reaction Severity [...] 10/08/19 20:16:00 EDT, Route to Pharmacy Electronically, [facility][id number],... Start Date: 10/08/19 Stop Date: 12/07/19 Status: [...] 07/03/19 10:38:00 EDT, Route to Pharmacy Electronically, [facility] #[id number], 165.1, cm, 04/24/19 8:48:00 EST, Height Start Date: 07/03/19 Stop Date: 12/30/19 Status: Ordered Lipitor 40 mg oral tablet 1 tablet = 40 mg, By Mouth, Daily, # 90 tablet, 1 Refills, Maintenance, 07/03/19 10:23:00 EDT, Tablet, [facility] #40902, 165.1, cm, 04/24/19 8:48:00 EST, Height Start Date: 07/03/19 Stop Date: 12/30/19 Status: Ordered lisinopril 20 mg oral tablet 20 mg, 1, tablet, By Mouth, Daily, # 90 tablet, Refills 1, Tot. Refills 1, Maintenance, 07/03/19 10:39:00 EDT, Route to Pharmacy Electronically, [facility] #[id number], 165.1, cm, 04/24/19 8:48:00 EST, Height Start Date: 07/03/19 Stop Date: 12/30/19 Status: Ordered metoprolol 50 mg oral tablet, extended release 50 mg, 1, tablet, By Mouth, Daily, # 90 tablet, Refills 0, Tot. Refills 0, Maintenance, 10/08/19 20:19:00 EDT, Route to Pharmacy Electronically, [facility] #[id number], 165.1, cm, 04/24/19 8:48:00 EST, Height Start [...]
--- OUTSIDE RECORDS SUMMARY | 2022-11-20 09:34 | XMS_ITS | Continuity of Care Document ---
Author Name Unknown Organization [facility] Address [address] [place] [address]- Care Team Providers Care Cord Tire Builder Name Role Phone Ishan PEÑA, Jarod Primary Care Physician Encounter [facility] Date(s): 03/16/22 - 04/15/22 [facility] [address] [place] [address] [place] Allergies, Adverse Reactions, Alerts No Known Allergies Immunizations Given and Recorded Vaccine Date Status Refusal Reason influenza virus vaccine, inactivated 11/24/21 Loco rded influenza virus vaccine, inactivated 12/10/20 Loco rded [id number] bivalent booster vax 11/24/21 Recorded SARS-CoV-2 mRNA (aadsmxl-axlg-hfssw) vax 05/26/21 Recorded tetanus/diphtheria/pertussis, acel(Tdap) 12/17/20 Recorded [...] 01/15/22 16:59:00 EST, Route to Pharmacy Electronically, [facility], Partial fill upon patient request [...] MG DAILY, # 90 tablet, 1 Refills, [facility] #[id number], 159, cm, 07/26/21 11:39:00 EDT, Height, 93.2, kg, 05/04/20 10:09:00 EST, Dry We... 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 1 bottle., #1 each, 0 Refills, Maintenance, 03/28/21 11:42:00 EST, [facility] #[id number], Partial fill upon patient request if the prescription is for a lam... Start Date: 03/28/21 Status: Ordered Colace sodium 100 mg oral capsule 100 mg, 1, capsule, By Mouth, 2 times a day, PRN, # 20 capsule, Refills 0, Tot. Refills 0, Maintenance, for constipation, 02/24/22 11:17:00 EST, Route to Pharmacy Electronically, [facility], Partial fill upon patient request if the presc... Start Date: 02/24/22 Status: Ordered gabapentin 300 mg oral capsule 300 mg, By Mouth, 3 times a day, # 63 tablet, Refills 0, Tot. Refills 0, Maintenance, 02/24/22 11:16:00 EST, Route to Pharmacy Electronically, [facility], Partial fill upon patient request if the prescription is for a schedule II opioid... Start Date: 02/24/22 Stop Date: 03/17/22 Status: Ordered hydrochlorothiazide 25 mg oral tablet See Instructions, TAKE 1 TABLET BY MOUTH DAILY, # 90 tablet, Refills 0, Instructions Replace Required Details, Route to Pharmacy Electronically, [facility] #[id number], 159, cm, 07/26/21 11:39:00 EDT, Height, 93.2, [...] 01/15/22 16:59:00 EST, Route to Pharmacy Electronically, [facility], Partial fill upon patient request [...] 1 Refills, Maintenance, 09/18/20 20:09:00 EDT, Capsule, [facility] #[id number], PLEASE DISPENSE IN BUBBLE/BLISTER PACK, 1 capsule [...] 5 Refills, Maintenance, 02/16/20 10:48:00 EST, Inhaler, [facility] #[id number], Partial fill uponpatient request if the prescription [...] Team Personnel Name: Jarod Olmstead MD Position: [facility] Primary Care Physician Member Role: PCP Address: Address: [address] [place] [address] [address] [place] [address]- Name: Wen Stoll RN Position: [facility] RN Member Role: Primary Care Nurse Name: Jeanne Gallagher Position: [facility] Outreach Member Role: Lifetime Consulting Physician Name: Katerina Campos RN Position: [facility] RN Member Role: Primary Care Nurse Name: Bryanna Guzman RN Position: [facility] RN Member Role: Primary Care Nurse Care Team Related Persons Name: ADEN GARCIA Name: FRANCIS GARCIA Address: home
--- OUTSIDE RECORDS SUMMARY | 2022-11-20 09:34 | XMS_ITS | Continuity of Care Document ---
Author Name Unknown Organization [facility] Address [address] [place] [address]- Care Team Providers Care Inspector Quality Assurance Name Role Phone Erik PEÑA, Kirsten Jauregui Primary Care Physician Encounter [facility] Date(s): 10/29/19 - 11/28/19 [facility] [address] [place] [address]- [facility] Attending Physician: Lucy Montaño Admitting Physician: AdmtrLucy Referring Physician: Admtr, Ar8 Allergies, Adverse Reactions, Alerts Substance Reaction Severity [...] 10/08/19 20:16:00 EDT, Route to Pharmacy Electronically, [facility] #[id number],... Start Date: 10/08/19 Stop Date: 12/07/19 Status: [...] 07/03/19 10:38:00 EDT, Route to Pharmacy Electronically, [facility] #[id number], 165.1, cm, 04/24/19 8:48:00 EST, Height Start Date: 07/03/19 Stop Date: 12/30/19 Status: Ordered Lipitor 40 mg oral tablet 1 tablet = 40 mg, By Mouth, Daily, # 90 tablet, 1 Refills, Maintenance, 07/03/19 10:23:00 EDT, Tablet, [facility] #70805, 165.1, cm, 04/24/19 8:48:00 EST, Height Start Date: 07/03/19 Stop Date: 12/30/19 Status: Ordered lisinopril 20 mg oral tablet 20 mg, 1, tablet, By Mouth, Daily, # 90 tablet, Refills 1, Tot. Refills 1, Maintenance, 10/29/19 14:56:00 EDT, Route to Pharmacy Electronically, [facility] #97409, 165.1, cm, 10/28/19 9:59:00 EDT, Height Start Date: 10/29/19 Stop Date: 04/26/20 Status: Ordered metoprolol 50 mg oral tablet, extended release 50 mg, 1, tablet, By Mouth, Daily, # 90 tablet, Refills 0, Tot. Refills 0, Maintenance, 10/08/19 20:19:00 EDT, Route to Pharmacy Electronically, [facility] #15482, 165.1, cm, 04/24/19 8:48:00 EST, Height Start [...]
--- OUTSIDE RECORDS SUMMARY | 2022-11-20 09:34 | XMS_ITS | Continuity of Care Document ---
Author Name Unknown Organization [facility] Address [address] [place] [address]- Care Team Providers Care Mail Processor Name Role Phone Erik PEÑA, Kirsten Jauregui Primary Care Physician Encounter [facility] Date(s): 02/10/20 - 03/11/20 [facility] [address] [place], [place] [address] Allergies, Adverse Reactions, Alerts Substance Reaction [...] tablet, 1 Refills, Maintenance, 02/10/20 16:38:00 EST, [facility] #[id number], Partial fill upon patient request if the prescription is for a schedule II opioid drug., 165.1, cm, 02/10/20 15:04:00 EST, Height Start Date: 02/10/20 Stop Date: 08/08/20 Status: Ordered clotrimazole 1% topical cream 1 application, Topically, 2 times a day, PRN rash, for 30 days, # 60 Gm, 1 Refills, Acute 04/10/20 16:32:00 EST, 02/10/20 16:32:00 EST, Cream, [facility] #[id number], Partial fill upon patient request if the [...] 01/07/20 14:52:00 EST, Route to Pharmacy Electronically, [facility] #[id number], 165.1, cm, 12/10/19 10:57:00 EDT, Height Start Date: 01/07/20 Stop Date: 07/05/20 Status: Ordered ibuprofen 600 mg oral tablet 600 mg, 1, tablet, By Mouth, Every 6 hours, PRN, for 30 days, with food or milk, # 90 tablet, Refills 0, Tot. Refills 0, Acute 04/10/20 15:09:00 EST, Pain , Mild, 03/11/20 15:09:00 EST, Route to Pharmacy Electronically, [facility] #[id number], Pa... Start Date: 03/11/20 Stop Date: 04/10/20 Status: Ordered Lipitor 40 mg oral tablet 1 tablet = 40 mg, By Mouth, Daily, # 90 tablet, 1 Refills, Maintenance, 01/07/20 14:52:00 EST, Tablet, [facility] #48603, 165.1, cm, 12/10/19 10:57:00 EDT, Height Start Date: 01/07/20 Stop Date: 07/05/20 Status: Ordered lisinopril 20 mg oral tablet 20 mg, 1, tablet, By Mouth, Daily, # 90 tablet, Refills 1, Tot. Refills 1, Maintenance, 10/29/19 14:56:00 EDT, Route to Pharmacy Electronically, [facility] #[id number], 165.1, cm, 10/28/19 9:59:00 EDT, Height Start Date: 10/29/19 Stop Date: 04/26/20 Status: Ordered metoprolol 50 mg oral tablet, extended release 50 mg, 1, tablet, By Mouth, Daily, # 90 tablet, Refills 1, Tot. Refills 1, Maintenance, 01/07/20 14:51:00 EST, Route to Pharmacy Electronically, [facility] #[id number], 165.1, cm, 12/10/19 10:57:00 EDT, Height Start [...] 5 Refills, Maintenance, 02/16/20 10:48:00 EST, Inhaler, [facility] #[id number], Partial fill uponpatient request if the prescription [...]
--- OUTSIDE RECORDS SUMMARY | 2022-11-20 09:34 | XMS_ITS | Continuity of Care Document ---
Author Name Unknown Organization [facility] Address [address] [place] [address]- Care Team Providers Care Domestic Freight Forwarder Name Role Phone Not on Staff, PCP Primary Care Physician Unavail able [facility] Date[facility]): 08/[facility]21 - 09/01/21 [facility] [address] [place] [address]- Allergies, Adverse Reactions, Alerts No Known Allergies Immunizations Given and Recorded Vaccine Date Status Refusal Reason SARS-CoV-2 mRNA ([id number]) vax 05/26/21 Recorded tetanus/diphtheria/pertussis, acel(Tdap) 12/17/20 Recorded [...] Refusal Reason influenza virus vaccine, inactivated 1 3/4/17 No t Given Patient Refuses 1Result Comment: [...] MG DAILY, # 90 tablet, 1 Refills, [facility] #[id number], 159, cm, 07/26/21 11:39:00 EDT, Height, 93.2, kg, 05/04/20 10:09:00 EST, Dry We... 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 1 bottle., #1 each, 0 Refills, Maintenance, 03/28/21 11:42:00 EST, [facility] #[id number], Partial fill upon patient request if the prescription is for a lam... Start Date: 03/28/21 Status: Ordered hydrochlorothiazide 25 mg oral tablet 1, tablet, By Mouth, Daily, # 90 tablet, Refills 0, Route to Pharmacy Electronically, [email or web address][id number], 159, cm, 04/26/21 9:27:00 EST, Height, 93.2, kg, 05/04/20 10:09:00 EST, Dry Weight Start Date: 06/25/21 Status: Ordered lisinopril 20 mg oral tablet 20 mg, 1, tablet, By Mouth, Daily, with 5 mg to total 25 mg of lisinopril, # 90 tablet, Refills 1, Tot. Refills 1, Maintenance, 04/18/21 15:36:00 EST, Route to Pharmacy Electronically, [facility] #[id number], Partial fill upon patient request if... Start Date: 04/18/21 Stop Date: 10/15/21 Status: Ordered lisinopril 5 mg oral tablet 5 mg, 1, tablet, By Mouth, Daily, with 20 mg to total 25 mg daily, # 90 tablet, Refills 1, Tot. Refills 1, Maintenance, 04/18/21 15:37:00 EST, Route to Pharmacy Electronically, [facility] #[id number], Partial fill upon patient request if the pres... Start Date: 04/18/21 Stop Date: 10/15/21 Status: Ordered Metoprolol Succinate ER 50 mg oral tablet, extended release 1 tablet, By Mouth, Daily, # 90 tablet, 0 Refills, [facility] #[id number], 159, cm, 04/26/21 9:27:00 EST, Height, 93.2, [...] 1 Refills, Maintenance, 09/18/20 20:09:00 EDT, Capsule, [facility] #[id number], PLEASE DISPENSE IN BUBBLE/BLISTER PACK, 1 capsule By Mouth 2 times a day,x9... Start Date: 09/18/20 Stop Date: 03/17/21 Status: Ordered Ventolin HFA 108 mcg/inh inhalation aerosol with adapter 2 puffs, Inhalation, Every 4 hours, TAKE 2 PUFFS EVERY 4 HOURS IF NEEDED FOR WHEEZING, # 1 each, 5 Refills, Maintenance, 02/16/20 10:48:00 EST, Inhaler, [facility] #[id number], Partial fill uponpatient request if the prescription [...]
--- OUTSIDE RECORDS SUMMARY | 2022-11-20 09:34 | XMS_ITS | Continuity of Care Document ---
Author Name Unknown Organization [facility] Address [address] [facility], [facility] [address] [place] [address]- Care Team Providers Care Cans Vacuum Tester Name Role Phone Erik PEÑA, Kirsten Jauregui Primary Care Physician ( [phone] Encounter 08/23/20 - 09/29/20 [facility] [address], [address] [place] [address]- Attending Physician: Yousif Parisi MD Admitting Physician: [...] 1 Refills, Maintenance, 07/22/20 14:03:00 EDT, Tablet, [facility] #[id number], Partial fill upon patient request if the prescr... Start Date: 07/22/20 Status: Ordered cholecalciferol 4000 intl units oral tablet = 100 mcg, By Mouth, Daily, # 90 tablet, 1 Refills, Maintenance, 02/10/20 16:38:00 EST, [facility] #[id number], Partial fill upon patient request if the [...] 07/09/20 14:57:00 EDT, Route to Pharmacy Electronically, [facility] #[id number], 165.1, cm, 07/06/20 11:29:00 EDT, Height, 93.2, kg, 05/04/20 10:09:00 ESTDr... Start Date: 07/09/20 Stop Date: 01/05/21 Status: Ordered Lipitor 40 mg oral tablet 1 tablet = 40 mg, By Mouth, Daily, Take 1 tablet of 40 mg with 1 tablet of 20 mg for total 60 mg daily, # 90 tablet, 1 Refills, Maintenance, 07/22/20 14:03:00 EDT, Tablet, [facility] #[id number], 158, cm, 07/22/20 13:04:00 EDT, Height, 93.2, kg,... Start Date: 07/22/20 Stop Date: 01/18/21 Status: Ordered lisinopril 20 mg oral tablet 20 mg, 1, tablet, By Mouth, Daily, # 90 tablet, Refills 1, Tot. Refills 1, Maintenance, 10/29/19 14:56:00 EDT, Route to Pharmacy Electronically, [facility] #[id number], 165.1, cm, 10/28/19 9:59:00 EDT, Height Start [...] 07/09/20 14:57:00 EDT, Route to Pharmacy Electronically, [facility] #[id number], 165.1, cm, 07/06/20 11:29:00 EDT, Height, 93.2, [...] PACK, # 180 capsule, 1 Refills, Maintenance, 07/25/21 20:09:00 EDT, Capsule, [facility] #[id number], PLEASE DISPENSE IN BUBBLE/BLISTER PACK, 1 capsule By Mouth 2 times a day,x9... Start Date: 09/18/20 Stop Date: 03/17/21 Status: Ordered Ventolin HFA 108 mcg/inh inhalation aerosol with adapter 2 puffs, Inhalation, Every 4 hours, TAKE 2 PUFFS EVERY 4 HOURS IF NEEDED FOR WHEEZING, # 1 each, 5 Refills, Maintenance, 02/16/20 10:48:00 EST, Inhaler, [facility] #[id number], Partial fill uponpatient request if the prescription [...]
--- OUTSIDE RECORDS SUMMARY | 2022-11-20 09:34 | XMS_ITS | Continuity of Care Document ---
Author Name Unknown Organization [facility] Address [address] [place] [address]- Care Team Providers Care Mouthpiece Maker Name Role Phone Erik PEÑA, Kirsten Jauregui Primary Care Physician [facility] Date[facility]s): 04/01/20 - 05/01/20 [facility] [address] [place] [address]- Allergies, Adverse Reactions, Alerts Substance Reaction Severity [...] 1 Refills, Maintenance, 04/20/20 16:09:00 EST, Tablet, [facility] #[id number], Partial fill upon patient request if the prescr... Start Date: 04/20/20 Status: Ordered cholecalciferol 4000 intl units oral tablet = 100 mcg, By Mouth, Daily, # 90 tablet, 1 Refills, Maintenance, 02/10/20 16:38:00 EST, [facility] #[id number], Partial fill upon patient request if the [...] 01/07/20 14:52:00 EST, Route to Pharmacy Electronically, [facility] #[id number], 165.1, cm, 12/10/19 10:57:00 EDT, Height Start Date: 01/07/20 Stop Date: 07/05/20 Status: Ordered Lipitor 40 mg oral tablet 1 tablet = 40 mg, By Mouth, Daily, Take 1 tablet of 40 mg with 1 tablet of 20 mg for total 60 mg daily, # 90 tablet, 1 Refills, Maintenance, 04/06/20 14:02:00 EST, Tablet, [facility] #[id number], 165.1, cm, 04/06/20 8:13:00 EST, Height Start Date: 04/06/20 Status: Ordered lisinopril 20 mg oral tablet 20 mg, 1, tablet, By Mouth, Daily, # 90 tablet, Refills 1, Tot. Refills 1, Maintenance, 10/29/19 14:56:00 EDT, Route to Pharmacy Electronically, [facility] #[id number], 165.1, cm, 10/28/19 9:59:00 EDT, Height Start Date: 10/29/19 Stop Date: 04/26/20 Status: Ordered metoprolol 50 mg oral tablet, extended release 50 mg, 1, tablet, By Mouth, Daily, # 90 tablet, Refills 1, Tot. Refills 1, Maintenance, 01/07/20 14:51:00 EST, Route to Pharmacy Electronically, [facility] #[id number], 165.1, cm, 12/10/19 10:57:00 EDT, Height Start [...] 1 Refills, Maintenance, 04/01/20 14:07:00 EST, Capsule, [facility] #[id number], PLEASE DISPENSE IN BUBBLE/BLISTER PACK, 1 capsule By Mouth Daily,x90 days,Instr:PLEA... Start Date: 04/01/20 Stop Date: 09/28/20 Status: Ordered Ventolin HFA 108 mcg/inh inhalation aerosol with adapter 2 puffs, Inhalation, Every 4 hours, TAKE 2 PUFFS EVERY 4 HOURS IF NEEDED FOR WHEEZING, # 1 each, 5 Refills, Maintenance, 02/16/20 10:48:00 EST, Inhaler, [facility] #[id number], Partial fill uponpatient request if the prescription [...]
--- OUTSIDE RECORDS SUMMARY | 2022-11-20 09:34 | XMS_ITS | Continuity of Care Document ---
Author Name Unknown Organization [facility] Address [address] [facility] [place] [address]- Care Team Providers Care Cokeman Name Role Phone Erik PEÑA, Kirsten Jauregui Primary Care Physician Encounter 04/01/20 - 04/08/20 [facility] [address], [address] [place] [address]- Attending Physician: Erik PEÑA, Kirsten Jauregui Admitting [...] tablet, 1 Refills, Maintenance, 02/10/20 16:38:00 EST, [facility] #[id number], Partial fill upon patient request if the prescription is for a schedule II opioid drug., 165.1, cm, 02/10/20 15:04:00 EST, Height Start Date: 02/10/20 Stop Date: 08/08/20 Status: Ordered clotrimazole 1% topical cream 1 application, Topically, 2 times a day, PRN rash, for 30 days, # 60 Gm, 1 Refills, Acute 04/10/20 16:32:00 EST, 02/10/20 16:32:00 EST, Cream, [facility] #[id number], Partial fill upon patient request if the [...] 01/07/20 14:52:00 EST, Route to Pharmacy Electronically, [facility] #[id number], 165.1, cm, 12/10/19 10:57:00 EDT, Height Start Date: 01/07/20 Stop Date: 07/05/20 Status: Ordered ibuprofen 600 mg oral tablet 600 mg, 1, tablet, By Mouth, Every 6 hours, PRN, for 30 days, with food or milk, # 90 tablet, Refills 0, Tot. Refills 0, Acute 04/10/20 15:09:00 EST, Pain , Mild, 03/11/20 15:09:00 EST, Route to Pharmacy Electronically, [facility] #[id number], Pa... Start Date: 03/11/20 Stop Date: 04/10/20 Status: Ordered Lipitor 40 mg oral tablet See Instructions, 1.5 tablets By Mouth for total dosage of 60 mg daily. Increased on 04/06/2020, # 90 tablet, 1 Refills, Maintenance, 04/06/20 14:02:00 EST, Tablet, [facility] #48836, 165.1, cm, 04/06/20 8:13:00 EST, Height Start Date: 04/06/20 Status: Ordered lisinopril 20 mg oral tablet 20 mg, 1, tablet, By Mouth, Daily, # 90 tablet, Refills 1, Tot. Refills 1, Maintenance, 10/29/19 14:56:00 EDT, Route to Pharmacy Electronically, [facility] #[id number], 165.1, cm, 10/28/19 9:59:00 EDT, Height Start Date: 10/29/19 Stop Date: 04/26/20 Status: Ordered metoprolol 50 mg oral tablet, extended release 50 mg, 1, tablet, By Mouth, Daily, # 90 tablet, Refills 1, Tot. Refills 1, Maintenance, 01/07/20 14:51:00 EST, Route to Pharmacy Electronically, [facility] #[id number], 165.1, cm, 12/10/19 10:57:00 EDT, Height Start [...] 1 Refills, Maintenance, 04/01/20 14:07:00 EST, Capsule, [facility] #[id number], PLEASE DISPENSE IN BUBBLE/BLISTER PACK, 1 capsule By Mouth Daily,x90 days,Instr:PLEA... Start Date: 04/01/20 Stop Date: 09/28/20 Status: Ordered Ventolin HFA 108 mcg/inh inhalation aerosol with adapter 2 puffs, Inhalation, Every 4 hours, TAKE 2 PUFFS EVERY 4 HOURS IF NEEDED FOR WHEEZING, # 1 each, 5 Refills, Maintenance, 02/16/20 10:48:00 EST, Inhaler, [email or web address] #[id number], Partial fill uponpatient request if the prescription [...]
--- OUTSIDE RECORDS SUMMARY | 2022-11-20 09:34 | XMS_ITS | Continuity of Care Document ---
Author Name Unknown Organization [facility] Address [address] [place] [address]- Care Team Providers Care High School Library Media Specialist Name Role Phone Erik PEÑA, Kirsten Jauregui Primary Care Physician [facility] Date[facility]s): 04/01/20 - 05/01/20 [facility] [address] [place] [address]- Allergies, Adverse Reactions, Alerts Substance Reaction Severity [...] 1 Refills, Maintenance, 04/20/20 16:09:00 EST, Tablet, [facility] #[id number], Partial fill upon patient request if the prescr... Start Date: 04/20/20 Status: Ordered cholecalciferol 4000 intl units oral tablet = 100 mcg, By Mouth, Daily, # 90 tablet, 1 Refills, Maintenance, 02/10/20 16:38:00 EST, [facility] #[id number], Partial fill upon patient request if the [...] 01/07/20 14:52:00 EST, Route to Pharmacy Electronically, [facility] #[id number], 165.1, cm, 12/10/19 10:57:00 EDT, Height Start Date: 01/07/20 Stop Date: 07/05/20 Status: Ordered Lipitor 40 mg oral tablet 1 tablet = 40 mg, By Mouth, Daily, Take 1 tablet of 40 mg with 1 tablet of 20 mg for total 60 mg daily, # 90 tablet, 1 Refills, Maintenance, 04/06/20 14:02:00 EST, Tablet, [facility] #[id number], 165.1, cm, 04/06/20 8:13:00 EST, Height Start Date: 04/06/20 Status: Ordered lisinopril 20 mg oral tablet 20 mg, 1, tablet, By Mouth, Daily, # 90 tablet, Refills 1, Tot. Refills 1, Maintenance, 10/29/19 14:56:00 EDT, Route to Pharmacy Electronically, [facility] #[id number], 165.1, cm, 10/28/19 9:59:00 EDT, Height Start Date: 10/29/19 Stop Date: 04/26/20 Status: Ordered metoprolol 50 mg oral tablet, extended release 50 mg, 1, tablet, By Mouth, Daily, # 90 tablet, Refills 1, Tot. Refills 1, Maintenance, 01/07/20 14:51:00 EST, Route to Pharmacy Electronically, [facility] #56521, 165.1, cm, 12/10/19 10:57:00 EDT, Height Start [...] 1 Refills, Maintenance, 04/01/20 14:07:00 EST, Capsule, [facility] #[id number], PLEASE DISPENSE IN BUBBLE/BLISTER PACK, 1 capsule By Mouth Daily,x90 days,Instr:PLEA... Start Date: 04/01/20 Stop Date: 09/28/20 Status: Ordered Ventolin HFA 108 mcg/inh inhalation aerosol with adapter 2 puffs, Inhalation, Every 4 hours, TAKE 2 PUFFS EVERY 4 HOURS IF NEEDED FOR WHEEZING, # 1 each, 5 Refills, Maintenance, 02/16/20 10:48:00 EST, Inhaler, [facility] #[id number], Partial fill uponpatient request if the prescription [...]
--- OUTSIDE RECORDS SUMMARY | 2022-11-20 09:34 | XMS_ITS | Continuity of Care Document ---
Author Name Unknown Organization [facility] Address [address] [place] [address]- Care Team Providers Care Paperhanger And Painter Name Role Phone Erik PEÑA, Kirsten Jauregui Primary Care Physician Encounter [facility] Date(s): 03/09/21 - 07/07/21 [facility] [address] [place] [id number] Attending Physician: Elias Hackett MD Admitting Physician: Elias Hackett MD Referring Physician: Erik PEÑA, Kirsten Jauregui Allergies, [...] 05/17/21 22:19:00 EDT, Route to Pharmacy Electronically, [facility]... Start Date: 05/17/21 Stop Date: 07/16/21 [...] MG DAILY, # 90 tablet, 0 Refills, [facility] #[id number], 158, cm, 04/03/21 15:11:00 EST, Height, 93.2, kg, 05/04/20 10:09:00 EST, Dry We... Start Date: 04/24/21 Status: Ordered atorvastatin 40 mg oral tablet See Instructions, TAKE 1 TABLET BY MOUTH DAILY TAKE 1 TABLET OF 40 MG WITH 1 TABLET OF 20 MG FOR TOTAL 60 MG DAILY, # 90 tablet, 0 Refills, [facility] #[id number], 158, cm, 01/04/21 12:51:00 EST, Height, 93.2, kg, 05/04/20 10:09:00 EST, Dry Weight Start Date: 01/25/21 Status: Ordered Biafine topical emulsion See Instructions, PRN Prurigo Nodularis, apply to affected area twice a day as needed. 1 bottle., #1 each, 0 Refills, Maintenance, 03/28/21 11:42:00 EST, [facility] #[id number], Partial fill upon patient request if the prescription is for a lam... Start Date: 03/28/21 Status: Ordered hydrochlorothiazide 25 mg oral tablet 1, tablet, By Mouth, Daily, # 90 tablet, Refills 0, Route to Pharmacy Electronically, [facility] #[id number], 159, cm, 04/26/21 9:27:00 EST, Height, 93.2, kg, 05/04/20 10:09:00 EST, Dry Weight Start Date: 06/25/21 Status: Ordered lisinopril 20 mg oral tablet 20 mg, 1, tablet, By Mouth, Daily, with 5 mg to total 25 mg of lisinopril, # 90 tablet, Refills 1, Tot. Refills 1, Maintenance, 04/18/21 15:36:00 EST, Route to Pharmacy Electronically, [facility][id number], Partial fill upon patient request if... Start Date: 04/18/21 Stop Date: 10/15/21 Status: Ordered lisinopril 5 mg oral tablet 5 mg, 1, tablet, By Mouth, Daily, with 20 mg to total 25 mg daily, # 90 tablet, Refills 1, Tot. Refills 1, Maintenance, 04/18/21 15:37:00 EST, Route to Pharmacy Electronically, [facility] #[id number], Partial fill upon patient request if the pres... Start Date: 04/18/21 Stop Date: 10/15/21 Status: Ordered Metoprolol Succinate ER 50 mg oral tablet, extended release 1 tablet, By Mouth, Daily, # 90 tablet, 0 Refills, [facility] #[id number], 159, cm, 04/26/21 9:27:00 EST, Height, 93.2, [...] 1 Refills, Maintenance, 09/18/20 20:09:00 EDT, Capsule, [email or web address] #[id number], PLEASE DISPENSE IN BUBBLE/BLISTER PACK, 1 capsule By Mouth 2 times a day,x9... Start Date: 09/18/20 Stop Date: 03/17/21 Status: Ordered Ventolin HFA 108 mcg/inh inhalation aerosol with adapter 2 puffs, Inhalation, Every 4 hours, TAKE 2 PUFFS EVERY 4 HOURS IF NEEDED FOR WHEEZING, # 1 each, 5 Refills, Maintenance, 02/16/20 10:48:00 EST, Inhaler, [email or web address] #[id number], Partial fill uponpatient request if the prescription [...]
--- OUTSIDE RECORDS SUMMARY | 2022-11-20 09:34 | XMS_ITS | Continuity of Care Document ---
Author Name Unknown Organization [facility] Address [address] [place] [address]- Care Team Providers Care Mica Patcher Name Role Phone Erik PEÑA, Kirsten Jauregui Primary Care Physician En[place] [facility] Date(s): 11/16/19 - 11/16/[address] [address]- [facility] Discharge Disposition: A-D/C Home Attending Physician: Yousif Parisi MD Admitting Physician: [...] 10/08/19 20:16:00 EDT, Route to Pharmacy Electronically, [facility] #[id number],... Start Date: 10/08/19 Stop Date: 12/07/19 Status: [...] 07/03/19 10:38:00 EDT, Route to Pharmacy Electronically, [facility] #[id number], 165.1, cm, 04/24/19 8:48:00 EST, Height Start Date: 07/03/19 Stop Date: 12/30/19 Status: Ordered Lipitor 40 mg oral tablet 1 tablet = 40 mg, By Mouth, Daily, # 90 tablet, 1 Refills, Maintenance, 07/03/19 10:23:00 EDT, Tablet, [facility] #[id number], 165.1, cm, 04/24/19 8:48:00 EST, Height Start Date: 07/03/19 Stop Date: 12/30/19 Status: Ordered lisinopril 20 mg oral tablet 20 mg, 1, tablet, By Mouth, Daily, # 90 tablet, Refills 1, Tot. Refills 1, Maintenance, 10/29/19 14:56:00 EDT, Route to Pharmacy Electronically, [facility] #[id number], 165.1, cm, 10/28/19 9:59:00 EDT, Height Start Date: 10/29/19 Stop Date: 04/26/20 Status: Ordered metoprolol 50 mg oral tablet, extended release 50 mg, 1, tablet, By Mouth, Daily, # 90 tablet, Refills 0, Tot. Refills 0, Maintenance, 10/08/19 20:19:00 EDT, Route to Pharmacy Electronically, [facility] #[id number], 165.1, cm, 04/24/19 8:48:00 EST, Height Start [...] Hepatitis C(Confirmed) Active Vitamin D deficiency(Confirmed) Active Procedures Procedure Date Related Diagnosis Body Site Status Esophagogastroduodenoscopy and biopsy 11/16/19 Completed Vital Signs Most recent to oldest [Reference Range]: 1 2 3 Height 165.1 cm (11/16/19 7:41 AM) Weight 89.8 kg (11/16/19 7:41 AM) Oxygen Saturation [94-100 %] 96 % (11/16/19 9:13 AM) 97 % (11/16/19 9:05 AM) 100 % (11/16/19 9:00 AM) Pulse Rate [55-90 bpm] 62 bpm (11/16/19 9:13 AM) 63 bpm (11/16/19 7:41 AM) Body Mass Index [18.5-24.99] 32.94 *>HHI* (11/16/19 7:41 AM) Blood Pressure [90-138/55-84 mm Hg] 155/89mm Hg *H* (11/16/19 9:13 AM) 127/105mm Hg (11/16/19 9:05 AM) 151/75mm Hg *H* (11/16/19 9:00 AM) Respiratory Rate [16-30 br/min] 17 br/min (11/16/19 9:13 AM) 15 br/min *L* (11/16/19 9:05 AM) 14 br/min *L* (11/16/19 9:00 AM) Temperature [96.8-100.4 DegF] 97.3 DegF (11/16/19 7:41 AM) Mode of Delivery (Oxygen) Room air (11/16/19 9:13 AM) Room air (11/16/19 9:05 AM) Room air (11/16/19 9:00 AM) Blood pressure sites Arm, left (11/16/19 9:13 AM) Arm, left (11/16/19 9:05 AM) Arm, left (11/16/19 9:00 AM) Temperature Route Temporal (11/16/19 7:41 AM) Social History Social History Type Response Tobacco Use: quit 1993 1-2pp d 31yrs. Sex
--- OUTSIDE RECORDS SUMMARY | 2022-11-20 09:34 | XMS_ITS | Continuity of Care Document ---
Author Name Unknown Organization [facility] [place] [address] [address] [place] [address]- Care Team Providers Care Supervisor Agency Appointments Name Role Phone Ishan PEÑA, Jarod Primary Care Physician Encounter [facility] Date(s): 07/24/22 - 10/26/[address] [place] [address]- Attending Physician: Shaan Smith MD Referring Physician: Not on Staff, Referring MD Allergies, Adverse Reactions, Alerts No Known Allergies Immunizations Given and Recorded Vaccine Date Status Refusal Reason influenza virus vaccine, inactivated 11/24/21 [facility] influenza virus vaccine, inactivated 12/10/20 [facility] [id number] bivalent booster vax 11/24/21 Recorded SARS-CoV-2 mRNA ([id number]) vax 05/26/21 Recorded tetanus/diphtheria/pertussis, acel(Tdap) 12/17/20 Recorded [...] tablet, 2 Refills, Maintenance, 08/02/22 10:40:00 EDT, [facility], 160, cm, 07/25/22 16:17:00 EDT, Height, [...] tablet, 2 Refills, Maintenance, 08/02/22 10:40:00 EDT, [facility], 160, cm, 07/25/22 16:17:00 EDT, Height, 87.6, kg, 02/22/22 17:27:00 EST, Dry Weight Start Date: 08/02/22 Status: Ordered Rick topical emulsion See Instructions, Daily, # 250 mL, 0 Refills, Maintenance, 07/13/22 15:36:00 EDT, [facility] #[id number], Partial fill upon patient request if the prescription is for a schedule II opioid drug.,Daily, 160, cm, 04/30/22 13:34:00 EST, Height, 87.6... Start Date: 07/13/22 Status: Ordered Biafine topical emulsion See Instructions, PRN Prurigo Nodularis, apply to affected area twice a day as needed. 1 bottle., #1 each, 0 Refills, Maintenance, 06/06/22 12:47:00 EDT, [facility]/pharmacy #[id number], Partial fill upon patient request if the prescription is for a schedule II... Start Date: 06/06/22 Status: Ordered hydrochlorothiazide 25 mg oral tablet 1, tablet, By Mouth, Daily, R1., # 90 tablet, Refills 2, Maintenance, 08/02/22 10:40:00 EDT, Route to Pharmacy Electronically, [facility], 160, cm, 07/25/22 16:17:00 EDT, Height, 87.6, kg, 02/22/22 17:27:00 EST, Dry Weight Start Date: 08/02/22 Status: Ordered ibuprofen 600 mg oral tablet 1, tablet, By Mouth, 3 times a day, PRN, # 90 tablet, Refills 0, Tot. Refills 0, Maintenance, NEEDED FOR MODERATE PAIN, 07/13/22 15:37:00 EDT, Route to Pharmacy Electronically, [facility] #[id number], 160, cm, 04/30/22 13:34:00 EST, Height, 87... Start Date: 07/13/22 Status: Ordered metoprolol 25 mg oral tablet, extended release 25 mg, 1, tablet, By Mouth, Daily, # 90 tablet, Refills 3, Tot. Refills 3, Maintenance, 01/15/22 16:59:00 EST, Route to Pharmacy Electronically, [facility], Partial fill upon patient request if [...] capsule, 3 Refills, Maintenance, 10/15/22 15:19:00 EDT, [facility], 90, TAKE 1 CAPSULE BY MOUTH TWICE A DAY WITH MEALS^1R1,1R4,160, cm, 08/27/22 12:06:00 EDT, Height, 88.3, kg, 0... Start Date: 10/15/22 Status: Ordered Stiolto Respimat 60 ACT 2.5 mcg-2.5 mcg/inh inhalation aerosol 2 puffs, Inhalation, Every 24 hours, # 1 each, 6 Refills, Maintenance, 08/13/22 14:22:00 EDT, Aerosol, [facility] #[id number], Partial fill upon patient request if the prescription is for a schedule II opioid drug., 160, cm, 08/13/22 14:12:00 EDT... Start Date: 08/13/22 Stop Date: 03/11/23 Status: Ordered Ventolin HFA 108 mcg/inh inhalation aerosol with adapter 2 puffs, Inhalation, Every 4 hours, PRN NEEDED FOR WHEEZING OR SHORTNESS OF BREATH/DYSPNEA, # 18Gm, 3 Refills, Maintenance, 08/02/22 10:40:00 EDT, [facility], 160, cm, 07/25/22 16:17:00 EDT, Height, [...] Team Personnel Name: Jarod Olmstead MD Position: [facility] Physician - Primary Care Member Role: PCP Address: Address: [address] [place] [id number]- Name: Wen Stoll RN Position: [facility] RN Member Role: Primary Care Nurse Name: Jeanne Gallagher MA Position: [facility] [place] Member Role: Lifetime Consulting Physician Name: Katerina Campos RN Position: S RN Member Role: Primary Care Nurse Name: Bryanna Guzman RN Position: [facility] RN Member Role: Primary Care Nurse Care Team Related Persons Name: ADEN GARCIA Name: FRANCIS GARCIA Address: [facility] [address]
--- OUTSIDE RECORDS SUMMARY | 2022-11-20 09:34 | XMS_ITS | Continuity of Care Document ---
Author Name Unknown Organization [facility] Address [address] [place] [address] [address] [place] [address]- Care Team Providers Care Flight Attendant Name Role Phone Juan PEÑA, Roshni Kaplan Primary Care Physician [phone] Encounter [facility] Date(s): 11/01/21 - 11/08/21 [facility] [address] [place] [address]- Attending Physician: Shaan Smith MD Allergies, Adverse Reactions, Alerts No Known Allergies Immunizations Given and Recorded Vaccine Date Status Refusal Reason SARS-CoV-2 mRNA ([id number]) vax 05/26/21 Recorded tetanus/diphtheria/pertussis, acel(Tdap) 12/17/20 Recorded [...] MG DAILY, # 90 tablet, 1 Refills, [facility] #[id number], 159, cm, 07/26/21 11:39:00 EDT, Height, 93.2, kg, 05/04/20 10:09:00 EST, Dry We... 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 1 bottle., #1 each, 0 Refills, Maintenance, 03/28/21 11:42:00 EST, [facility] #[id number], Partial fill upon patient request if the prescription is for a lam... Start Date: 03/28/21 Status: Ordered hydrochlorothiazide 25 mg oral tablet See Instructions, TAKE 1 TABLET BY MOUTH DAILY, # 90 tablet, Refills 0, Instructions Replace Required Details, Route to Pharmacy Electronically, [facility] #[id number], 159, cm, 07/26/21 11:39:00 EDT, Height, 93.2, kg, 05/04/20 10:09:00 EST, Dry... Start Date: 10/02/21 Status: Ordered lisinopril 20 mg oral tablet 1, tablet, By Mouth, Daily, OF LISINOPRIL., # 90 tablet, Refills 0, Route to Pharmacy Electronically, [facility] #[id number], 159, cm, 07/26/21 11:39:00 EDT, Height, 93.2, [...] Mouth, Daily, # 90 tablet, 0 Refills, [facility] #[id number], 159, cm, 04/26/21 9:27:00 EST, Height, 93.2, [...] 1 Refills, Maintenance, 09/18/20 20:09:00 EDT, Capsule, [facility] #[id number], PLEASE DISPENSE IN BUBBLE/BLISTER PACK, 1 capsule By Mouth 2 times a day,x9... Start Date: 09/18/20 Stop Date: 03/17/21 Status: Ordered Readi-Cat 2 oral suspension See Instructions, Oral Contrast 2 Bottles 450 ml each Dx: Hernia, # 900 mL, 0 Refills, Maintenance,11/01/21 15:08:00 EDT, [id number], Partial fill upon patient request if the prescription isfor a schedule II opioid drug., Oral Contrast; 2... Start Date: 11/01/21 Status: Ordered Ventolin HFA 108 mcg/inh inhalation aerosol with adapter 2 puffs, Inhalation, Every 4 hours, TAKE 2 PUFFS EVERY 4 HOURS IF NEEDED FOR WHEEZING, # 1 each, 5 Refills, Maintenance, 02/16/20 10:48:00 EST, Inhaler, [id number], Partial fill uponpatient request if the prescription [...] oldest [Reference Range]: 1 Height 159 cm (11/01/21 10:47 AM) Weight 88.2 kg (11/01/21 10:47 AM) Pulse Rate [55-90 bpm] 56 bpm (11/01/21 10:47 AM) Body Mass Index [18.5-24.99] 34.89 *>HHI* (11/01/21 10:47 AM) Blood Pressure [90-138/55-84 mm Hg] 160/ 77mm Hg *H* (11/01/21 10:47 AM) Respiratory Rate [16-30 br/min] 18 br/mi n (11/01/21 10:47 AM) Temperature [96.8-100.4 DegF] 98.3 DegF (11/01/21 10:47 AM) Blood pressure sites Arm, right (11/01/21 10:47 AM) Temperature Route Temporal (11/01/21 10:47 AM) Weight Obtained Via Standing scale (11/01/21 10:47 AM) Social History Social History Type Response Tobacco Use: quit 1993 1-2pp d 31yrs. Sex Care Team Personnel Name: Roshni Martinez MD Address: [address] [place] [address] [address] [place] [address]-
--- OUTSIDE RECORDS SUMMARY | 2022-11-20 09:34 | XMS_ITS | Continuity of Care Document ---
Author Name Unknown Organization [facility] Address [address] [place] [address]- Care Team Providers Care Electrical Lineman Name Role Phone Erik PEÑA, Kirsten Jauregui Primary Care Physician ( [phone] Encounter [facility] Date(s): 07/27/19 - 08/26/19 [facility] [address] [place] [address]- Attending Physician: Lucy Montaño Admitting Physician: Lucy [...] 07/03/19 10:38:00 EDT, Route to Pharmacy Electronically, [facility] #[id number], 165.1, cm, 04/24/19 8:48:00 EST, Height Start Date: 07/03/19 Stop Date: 12/30/19 Status: Ordered Lipitor 40 mg oral tablet 1 tablet = 40 mg, By Mouth, Daily, # 90 tablet, 1 Refills, Maintenance, 07/03/19 10:23:00 EDT, Tablet, [facility] #95038, 165.1, cm, 04/24/19 8:48:00 EST, Height Start Date: 07/03/19 Stop Date: 12/30/19 Status: Ordered lisinopril 20 mg oral tablet 20 mg, 1, tablet, By Mouth, Daily, # 90 tablet, Refills 1, Tot. Refills 1, Maintenance, 07/03/19 10:39:00 EDT, Route to Pharmacy Electronically, [facility] #[id number], 165.1, cm, 04/24/19 8:48:00 EST, Height Start Date: 07/03/19 Stop Date: 12/30/19 Status: Ordered metoprolol 50 mg oral tablet, extended release 50 mg, 1, tablet, By Mouth, Daily, # 90 tablet, Refills 0, Tot. Refills 0, Maintenance, 07/08/19 12:14:00 EDT, Route to Pharmacy Electronically, [facility] #39492, 165.1, cm, 04/24/19 8:48:00 EST, Height Start [...]
--- OUTSIDE RECORDS SUMMARY | 2022-11-20 09:35 | XMS_ITS | Continuity of Care Document ---
Author Name Unknown Organization [facility] Address [address] [address]- Care Team Providers Care Tile Layer Supervisor Name Role Phone Erik PEÑA, Kirsten Jauregui Primary Care Physician Encounter [facility] Date(s): 11/25/20 - 12/02/20 [facility] [address] [address]- Attending Physician: Michael Ledbetter MD Admitting Physician: Michael Ledbetter MD Referring Physician: Kirsten Valencia MD Allergies, [...] 1 Refills, Maintenance, 07/22/20 14:03:00 EDT, Tablet, [facility] #[id number], Partial fill upon patient request if the prescr... Start Date: 07/22/20 Status: Ordered cholecalciferol 4000 intl units oral tablet = 100 mcg, By Mouth, Daily, # 90 tablet, 1 Refills, Maintenance, 02/10/20 16:38:00 EST, [facility] #[id number], Partial fill upon patient request if the [...] 07/09/20 14:57:00 EDT, Route to Pharmacy Electronically, [facility] #[id number], 165.1, cm, 07/06/20 11:29:00 EDT, Height, 93.2, kg, 05/04/20 10:09:00 ESTDr... Start Date: 07/09/20 Stop Date: 01/05/21 Status: Ordered Lipitor 40 mg oral tablet 1 tablet = 40 mg, By Mouth, Daily, Take 1 tablet of 40 mg with 1 tablet of 20 mg for total 60 mg daily, # 90 tablet, 1 Refills, Maintenance, 07/22/20 14:03:00 EDT, Tablet, [facility] #70203, 158, cm, 07/22/20 13:04:00 EDT, Height, 93.2, kg,... Start Date: 07/22/20 Stop Date: 01/18/21 Status: Ordered lisinopril 20 mg oral tablet 1, tablet, By Mouth, Daily, # 90 tablet, Refills 1, Route to Pharmacy Electronically, [facility] #40414, 158, cm, 08/01/20 11:06:00 EDT, Height, 93.2, kg, 05/04/20 10:09:00 EST, Dry Weight Start Date: 10/24/20 Status: Ordered metoprolol 50 mg oral tablet, extended release 50 mg, 1, tablet, By Mouth, Daily, # 90 tablet, Refills 1, Tot. Refills 1, Maintenance, 07/09/20 14:57:00 EDT, Route to Pharmacy Electronically, [facility] #89382, 165.1, cm, 07/06/20 11:29:00 EDT, Height, 93.2, kg, 05/04/20 10:09:[address] Start Date: 07/09/20 Stop Date: 01/05/21 [...] 1 Refills, Maintenance, 09/18/20 20:09:00 EDT, Capsule, [facility] #08924, PLEASE DISPENSE IN BUBBLE/BLISTER PACK, 1 capsule By Mouth 2 times a day,x9... Start Date: 09/18/20 Stop Date: 03/17/21 Status: Ordered Ventolin HFA 108 mcg/inh inhalation aerosol with adapter 2 puffs, Inhalation, Every 4 hours, TAKE 2 PUFFS EVERY 4 HOURS IF NEEDED FOR WHEEZING, # 1 each, 5 Refills, Maintenance, 02/16/20 10:48:00 EST, Inhaler, [facility] #76807, Partial fill uponpatient request if the prescription [...] oldest [Reference Range]: 1 Height 158 cm (11/25/20 12:59 PM) Weight 92.3 kg (11/25/20 12:59 PM) Oxygen Saturation [94-100 %] 96 % (11/25/20 12:59 PM) Pulse Rate [55-90 bpm] 60 bpm (11/25/20 12:59 PM) Body Mass Index [18.5-24.99] 36.97 *>HHI* (11/25/20 12:59 PM) Weight Obtained Via Standing scale (11/25/20 12:59 PM) Social History Social History Type Response Tobacco Use: quit 1993 1-2pp d 31yrs. Sex
--- OUTSIDE RECORDS SUMMARY | 2022-11-20 09:35 | XMS_ITS | Continuity of Care Document ---
Author Name Unknown Organization [facility] Address [address] [place] [address]- Care Team Providers Care Veterinary Pathologist Name Role Phone Ishan PEÑA, [facility] Primary Care Physician Encounter 04/16/22 - 04/23/22 [facility] [address], [address] [place] [address]- Attending Physician: Not on Staff, Referring MD Admitting Physician: Not on Staff, Referring MD Referring Physician: Carlos PEÑA, [facility] Allergies, Adverse Reactions, Alerts No Known Allergies Immunizations Given and Recorded Vaccine Date Status Refusal Reason influenza virus vaccine, inactivated 11/24/21 Loco rded influenza virus vaccine, inactivated 12/10/20 Loco rded [id number] bivalent booster vax 11/24/21 Recorded SARS-CoV-2 mRNA ([id number]-[id number]) vax 05/26/21 Recorded tetanus/diphtheria/pertussis, acel(Tdap) 12/17/20 Recorded [...] 01/15/22 16:59:00 EST, Route to Pharmacy Electronically, [facility], Partial fill upon patient request [...] MG DAILY, # 90 tablet, 1 Refills, [facility] #70379, 159, cm, 07/26/21 11:39:00 EDT, Height, 93.2, kg, 05/04/20 10:09:00 EST, Dry We... 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 1 bottle., #1 each, 0 Refills, Maintenance, 03/28/21 11:42:00 EST, [facility] #[id number], Partial fill upon patient request if the prescription is for a lam... Start Date: 03/28/21 Status: Ordered Colace sodium 100 mg oral capsule 100 mg, 1, capsule, By Mouth, 2 times a day, PRN, # 20 capsule, Refills 0, Tot. Refills 0, Maintenance, for constipation, 02/24/22 11:17:00 EST, Route to Pharmacy Electronically, [facility], Partial fill upon patient request if the presc... Start Date: 02/24/22 Status: Ordered gabapentin 300 mg oral capsule 300 mg, By Mouth, 3 times a day, # 63 tablet, Refills 0, Tot. Refills 0, Maintenance, 02/24/22 11:16:00 EST, Route to Pharmacy Electronically, [facility], Partial fill upon patient request if the prescription is for a schedule II opioid... Start Date: 02/24/22 Stop Date: 03/17/22 Status: Ordered hydrochlorothiazide 25 mg oral tablet See Instructions, TAKE 1 TABLET BY MOUTH DAILY, # 90 tablet, Refills 0, Instructions Replace Required Details, Route to Pharmacy Electronically, [facility] #[id number], 159, cm, 07/26/21 11:39:00 EDT, Height, 93.2, kg, 05/04/20 10:09:00 EST, Dry... Start Date: 10/02/21 Status: Ordered ibuprofen 600 mg oral tablet 1, tablet, By Mouth, 3 times a day, PRN, # 90 tablet, Refills 0, Maintenance, NEEDED FOR MODERATE PAIN, 04/18/22 9:29:00 EST, Route to Pharmacy Electronically, [facility], 160, cm, 03/15/22 14:35:00 EST, Height, 87.6, kg, 02/22/22 17:27:00 EST... Start Date: 04/18/22 Status: Ordered metoprolol 25 mg oral tablet, extended release 25 mg, 1, tablet, By Mouth, Daily, # 90 tablet, Refills 3, Tot. Refills 3, Maintenance, 01/15/22 16:59:00 EST, Route to Pharmacy Electronically, [facility], Partial fill upon patient request [...] 1 Refills, Maintenance, 09/18/20 20:09:00 EDT, Capsule, [facility] #[id number], PLEASE DISPENSE IN BUBBLE/BLISTER PACK, 1 capsule [...] 5 Refills, Maintenance, 02/16/20 10:48:00 EST, Inhaler, [facility] #17414, Partial fill uponpatient request if the prescription [...] Exam Date Time Procedure Performing Provider Status 04/16/22 8:49 AM US Liver Nazanin Sanon; Auth (V erified) Notes: (US Liver) Reason For Exam: cirrhosis;Other: RESULT: US Liver US Liver Reason: Cirrhosis COMPARISON: Liver ultrasound 05/22/2021. CT abdomen and pelvis 11/22/2021. IMAGING TECHNIQUE: Grayscale and color Doppler ultrasound examination of the liver. FINDINGS: Study is mildly suboptimal due to bowel gas. Liver: Coarse hepatic echotexture. No suspicious lesion. Smooth hepatic contour. Main portal vein patent with normal hepatopetal direction of flow. Biliary Tree: No intrahepatic or extrahepatic bile duct dilation is identified. Common duct: 0.3 cm. IMPRESSION: Coarse hepatic echotexture likely due to underlying hepatocellular disease. No suspicious lesion. I have personally reviewed the images and I agree with this report. WSN: [id number] Ordering Physician: Maria Fernanda Gonzalez Dictated By: Solitario Gupta DO Dictated Date/Time: 04/16/22 9:04 am Reviewed By: Melonie Wilde MD Signed By: Melonie Wilde MD Signed Date/Time: 04/16/22 9:09 am Transcribed By: JOSEP Transcribed Date/Time: 04/16/22 9:00 am Social History Social History Type Response Tobacco Use: quit 1993 1-2pp d 31yrs. Sex US Liver * BHSPowerscribe , CIS S: TRANSCRIBE Solitario Gupta DO: SIGN Melonie Wilde MD: VERIFY Event Display: Result: Authored Date: [id number] US Liver Reason: Cirrhosis COMPARISON: Liver ultrasound 05/22/2021. CT abdomen and pelvis 11/22/2021. IMAGING TECHNIQUE: Grayscale and color Doppler ultrasound examination of the liver. FINDINGS: Study is mildly suboptimal due to bowel gas. Liver: Coarse hepatic echotexture. No suspicious lesion. Smooth hepatic contour. Main portal vein patent with normal hepatopetal direction of flow. Biliary Tree: No intrahepatic or extrahepatic bile duct dilation is identified. Common duct: 0.3 cm. IMPRESSION: Coarse hepatic echotexture likely due to underlying hepatocellular disease. No suspicious lesion. I have personally reviewed the images and I agree with this report. WSN: [id number] Ordering Physician: Maria Fernanda Gonzalez Dictated By: Solitario Gupta DO Dictated Date/Time: 04/16/22 9:04 am Reviewed By: Melonie Wilde MD Signed By: Melonie Wilde MD Signed Date/Time: 04/16/22 9:09 am Transcribed By: JOSEP Transcribed Date/Time: 04/16/22 9:00 am Patient Care team information Care Team Personnel Name: Jarod Olmstead MD Position: [facility] Primary Care Physician Member Role: PCP Address: Address: [address] [place] [address] Name: Wen Stoll RN Position: [facility] RN Member Role: Primary Care Nurse Name: Jeanne Gallagher Position: [facility] Outreach Member Role: [employer] Consulting Physician Name: Katerina Campos RN Position: [facility] RN Member Role: Primary Care Nurse Name: Bryanna Guzman RN Position: S RN Member Role: Primary Care Nurse Care Team Related Persons Name: ADEN GARCIA Name: FRANCIS GARCIA Address: [place]
--- OUTSIDE RECORDS SUMMARY | 2022-11-20 09:35 | XMS_ITS | Continuity of Care Document ---
Author Name Unknown Organization [facility] Address [address] [place] [address]- Care Team Providers Care Wireless Engineer Name Role Phone Jarod Olmstead MD Primary Care Physician Encounter [facility] ACCT R [id number] Date(s): 03/15/22 - 04/14/22 [facility] [address] [place] [address]- Attending Physician: Lucy Montaño Admitting Physician: Admtr, Lucy Referring Physician: Admtr, Ar8 Allergies, Adverse Reactions, Alerts No Known Allergies Immunizations Given and Recorded Vaccine Date Status Refusal Reason influenza virus vaccine, inactivated 11/24/21 Loco rded influenza virus vaccine, inactivated 12/10/20 Loco rded [id number] bivalent booster vax 11/24/21 Recorded SARS-CoV-2 mRNA ([id number]-[id number]) vax 05/26/21 Recorded tetanus/diphtheria/pertussis, acel(Tdap) 12/17/20 Recorded [...] 16:59:00 EST, Route to Pharmacy Electronically, [facility], Partial fill upon patient [...] MG DAILY, # 90 tablet, 1 Refills, [facility] #[id number], 159, cm, 07/26/21 11:39:00 EDT, Height, 93.2, kg, 05/04/20 10:09:00 EST, Dry We... 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 1 bottle., #1 each, 0 Refills, Maintenance, 03/28/21 11:42:00 EST, [facility] #54698, Partial fill upon patient request if the prescription is for a lam... Start Date: 03/28/21 Status: Ordered Colace sodium 100 mg oral capsule 100 mg, 1, capsule, By Mouth, 2 times a day, PRN, # 20 capsule, Refills 0, Tot. Refills 0, Maintenance, for constipation, 02/24/22 11:17:00 EST, Route to Pharmacy Electronically, [facility], Partial fill upon patient request if the presc... Start Date: 02/24/22 Status: Ordered gabapentin 300 mg oral capsule 300 mg, By Mouth, 3 times a day, # 63 tablet, Refills 0, Tot. Refills 0, Maintenance, 02/24/22 11:16:00 EST, Route to Pharmacy Electronically, [facility], Partial fill upon patient request if the prescription is for a schedule II opioid... Start Date: 02/24/22 Stop Date: 03/17/22 Status: Ordered hydrochlorothiazide 25 mg oral tablet See Instructions, TAKE 1 TABLET BY MOUTH DAILY, # 90 tablet, Refills 0, Instructions Replace Required Details, Route to Pharmacy Electronically, [facility] #[id number], 159, cm, 07/26/21 11:39:00 EDT, Height, 93.2, kg, 05/04/20 10:09:00 EST, Dry... Start Date: 10/02/21 Status: Ordered ibuprofen 600 mg oral tablet 600 mg, 1, tablet, By Mouth, 3 times a day, PRN, for 30 days, # 90 tablet, Refills 0, Tot. Refills 0, Acute 04/19/22 11:51:00 EST, Pain , Moderate, 03/20/22 11:51:00 EST, [id number] Partial fill upon patient... Start Date: 03/20/22 Stop Date: 04/19/22 Status: Ordered metoprolol 25 mg oral tablet, extended release 25 mg, 1, tablet, By Mouth, Daily, # 90 tablet, Refills 3, Tot. Refills 3, Maintenance, 01/15/22 16:59:00 EST, Route to Pharmacy Electronically, [facility], Partial fill upon patient [...] 1 Refills, Maintenance, 09/18/20 20:09:00 EDT, Capsule, [facility] #79033, PLEASE DISPENSE IN BUBBLE/BLISTER PACK, 1 capsule By Mouth 2 times a day,x9... Start Date: 09/18/20 Stop Date: 03/17/21 Status: Ordered Readi-Cat 2 oral suspension See Instructions, Oral Contrast 2 Bottles 450 ml each Dx: Hernia, # 900 mL, 0 Refills, Maintenance,11/01/21 15:08:00 EDT, [id number], Partial fill upon patient request if the prescription isfor a schedule II opioid drug., Oral Contrast; 2... Start Date: 11/01/21 Status: Ordered Ventolin HFA 108 mcg/inh inhalation aerosol with adapter 2 puffs, Inhalation, Every 4 hours, TAKE 2 PUFFS EVERY 4 HOURS IF NEEDED FOR WHEEZING, # 1 each, 5 Refills, Maintenance, 02/16/20 10:48:00 EST, Inhaler, [facility] #54827, Partial fill uponpatient request if the prescription [...] Team Personnel Name: Jarod Olmstead MD Position: [facility] Primary Care Physician Member Role: PCP Address: Address: [address] [place] [address]- Name: Wen Stoll RN Position: S RN [...]
--- OUTSIDE RECORDS SUMMARY | 2022-11-20 09:35 | XMS_ITS | Continuity of Care Document ---
Author Name Unknown Organization [facility] Address [address] [address]- Care Team Providers Care Cashier Receptionist Name Role Phone Erik PEÑA, Kirsten Jauregui Primary Care Physician ( [phone] [place] [facility] [place] [id number] Date(s): 05/03/21 - 06/02/21 [facility] [address] [address]- Attending Physician: AdmLucy quiros Admitting Physician: AdmtrLucy Referring Physician: Admtr, Ar8 [...] 05/17/21 22:19:00 EDT, Route to Pharmacy Electronically, [facility]... Start Date: 05/17/21 Stop Date: 07/16/21 [...] MG DAILY, # 90 tablet, 0 Refills, [facility] #07369, 158, cm, 04/03/21 15:11:00 EST, Height, 93.2, kg, 05/04/20 10:09:00 EST, Dry We... Start Date: 04/24/21 Status: Ordered atorvastatin 40 mg oral tablet See Instructions, TAKE 1 TABLET BY MOUTH DAILY TAKE 1 TABLET OF 40 MG WITH 1 TABLET OF 20 MG FOR TOTAL 60 MG DAILY, # 90 tablet, 0 Refills, [facility] #04708, 158, cm, 01/04/21 12:51:00 EST, Height, 93.2, kg, 05/04/20 10:09:00 EST, Dry Weight Start Date: 01/25/21 Status: Ordered Biafine topical emulsion See Instructions, PRN Prurigo Nodularis, apply to affected area twice a day as needed. 1 bottle., #1 each, 0 Refills, Maintenance, 03/28/21 11:42:00 EST, [facility] #[id number], Partial fill upon patient request if the prescription is for a lam... Start Date: 03/28/21 Status: Ordered hydrochlorothiazide 25 mg oral tablet 1, tablet, By Mouth, Daily, # 90 tablet, Refills 1, Route to Pharmacy Electronically, [facility] #66376, 158, cm, 11/25/20 12:59:00 EDT, Height, 93.2, kg, 05/04/20 10:09:00 EST, Dry Weight Start Date: 12/30/20 Status: Ordered lisinopril 20 mg oral tablet 20 mg, 1, tablet, By Mouth, Daily, with 5 mg to total 25 mg of lisinopril, # 90 tablet, Refills 1, Tot. Refills 1, Maintenance, 04/18/21 15:36:00 EST, Route to Pharmacy Electronically, [facility][id number], Partial fill upon patient request if... Start Date: 04/18/21 Stop Date: 10/15/21 Status: Ordered lisinopril 5 mg oral tablet 5 mg, 1, tablet, By Mouth, Daily, with 20 mg to total 25 mg daily, # 90 tablet, Refills 1, Tot. Refills 1, Maintenance, 04/18/21 15:37:00 EST, Route to Pharmacy Electronically, [facility] #[id number], Partial fill upon patient request if the pres... Start Date: 04/18/21 Stop Date: 10/15/21 Status: Ordered Metoprolol Succinate ER 50 mg oral tablet, extended release 1 tablet, By Mouth, Daily, # 90 tablet, 1 Refills, [facility] #85755, 158, cm, 11/25/20 12:59:00 EDT, Height, 93.2, [...] 1 Refills, Maintenance, 09/18/20 20:09:00 EDT, Capsule, [facility] #45921, PLEASE DISPENSE IN BUBBLE/BLISTER PACK, 1 capsule By Mouth 2 times a day,x9... Start Date: 09/18/20 Stop Date: 03/17/21 Status: Ordered Ventolin HFA 108 mcg/inh inhalation aerosol with adapter 2 puffs, Inhalation, Every 4 hours, TAKE 2 PUFFS EVERY 4 HOURS IF NEEDED FOR WHEEZING, # 1 each, 5 Refills, Maintenance, 02/16/20 10:48:00 EST, Inhaler, [facility] #[id number], Partial fill uponpatient request if the prescription [...] abuse(Confirmed) Active COVID-19 vaccine series comp leted- CAD [employer] 03/2020(Confirmed) Active Hyperlipidemia(Confirmed) Active Hypertension(Confirmed) Active Urinary [...]
--- OUTSIDE RECORDS SUMMARY | 2022-11-20 09:35 | XMS_ITS | Continuity of Care Document ---
Author Name Unknown Organization [facility] Address [address] [place] [address]- Care Team Providers Care Regulatory Scientist Name Role Phone Erik PEÑA, Kirsten Jauregui Primary Care Physician Encounter [facility] Date(s): 06/09/19 - 06/19/19 [facility] [address] [place] [address]- [facility] Attending Physician: Lucy Montaño Admitting Physician: AdmLucy [...] 05/25/19 13:20:00 EDT, Route to Pharmacy Electronically, [facility][id number],... Start Date: 05/25/19 Stop Date: 07/24/19 Status: [...] Refills, Maintenance, 04/24/19 9:40:00 EST, ER Capsule, [facility] #75028, 165.1, cm, 04/24/19 8:48:00 EST, Height Start [...]
--- OUTSIDE RECORDS SUMMARY | 2022-11-20 09:35 | XMS_ITS | Continuity of Care Document ---
Author Name Unknown Organization [facility] Address [address] [place] [address]- Care Team Providers Care Functional Architect Name Role Phone Robert Olmstead [facility] Primary Care Physician Encounter [facility] Date(s): 02/05/22 - 02/12/22 [facility] [address] [place] [address]- Encounter Diagnosis CAD (coronary artery disease)(Discharge Diagnosis) - 02/05/22 Cirrhosis(Discharge Diagnosis) - 02/05/22 H/O Malignant melanoma - 2000(Discharge Diagnosis) - 02/05/22 Hyperlipidemia(Discharge Diagnosis) - 02/05/22 Hypertension(Discharge Diagnosis) - 02/05/22 Obese class II(Discharge Diagnosis) - 02/05/22 Osteoarthritis(Discharge Diagnosis) - 02/05/22 Osteoporosis - 03/2019 dexa [facility](Discharge Diagnosis) - 02/05/22 Umbilical hernia(Discharge Diagnosis) - 02/05/22 Lung nodule(Discharge Diagnosis) - 02/05/22 Annual physical exam(Discharge Diagnosis) - 02/05/22 Aortic dilatation- abd US 02/2020 normal caliber(Discharge Diagnosis) - 02/05/22 Attending Physician: Ishan PEÑA [facility] Allergies, Adverse Reactions, Alerts No Known Allergies Immunizations Given and Recorded Vaccine Date Status Refusal Reason influenza virus vaccine, inactivated 11/24/21 Loco rded influenza virus vaccine, inactivated 12/10/20 Loco rded [id number] bivalent booster vax 11/24/21 Recorded SARS-CoV-2 mRNA (rpewbep-bzsa-oelom) vax 05/26/21 Recorded tetanus/diphtheria/pertussis, acel(Tdap) 12/17/20 Recorded [...] 01/15/22 16:59:00 EST, Route to Pharmacy Electronically, [facility], Partial fill upon patient request if [...] MG DAILY, # 90 tablet, 1 Refills, [facility] #[id number], 159, cm, 07/26/21 11:39:00 EDT, Height, 93.2, kg, 05/04/20 10:09:00 EST, Dry We... 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 1 bottle., #1 each, 0 Refills, Maintenance, 03/28/21 11:42:00 EST, [facility] #[id number], Partial fill upon patient request if the prescription is for a lam... Start Date: 03/28/21 Status: Ordered hydrochlorothiazide 25 mg oral tablet See Instructions, TAKE 1 TABLET BY MOUTH DAILY, # 90 tablet, Refills 0, Instructions Replace Required Details, Route to Pharmacy Electronically, [facility] #[id number], 159, cm, 07/26/21 11:39:00 EDT, Height, 93.2, kg, 05/04/20 10:09:00 EST, Dry... Start Date: 10/02/21 Status: Ordered lisinopril 20 mg oral tablet 1, tablet, By Mouth, Daily, OF LISINOPRIL., # 90 tablet, Refills 0, Route to Pharmacy Electronically, [facility] #[id number], 159, cm, 07/26/21 11:39:00 EDT, Height, 93.2, [...] 01/15/22 16:59:00 EST, Route to Pharmacy Electronically, [facility], Partial fill upon patient request if [...] 1 Refills, Maintenance, 09/18/20 20:09:00 EDT, Capsule, [facility] #[id number], PLEASE DISPENSE IN BUBBLE/BLISTER PACK, 1 capsule [...] 5 Refills, Maintenance, 02/16/20 10:48:00 EST, Inhaler, [facility] #[id number], Partial fill uponpatient request if the prescription [...] Effective Dates Health Status Clinical Service Informant Aortic dilatation- abd US 02/2020 normal caliber Discharge Diagnosis 02/05/22 CAD (coronary artery disease) Discharge Diagnosis 02/05/22 Cirrhosis Discharge Diagnosis 02/05/22 H/O Malignant melanoma - 2000 Discharge Diagnosis 02/05/22 Hyperlipidemia Discharge Diagnosis 02/05/22 Hypertension Discharge Diagnosis 02/05/22 Obese class II Discharge Diagnosis 02/05/22 Osteoarthritis Discharge Diagnosis 02/05/22 Osteoporosis - 03/2019 dexa [facility] Discharge Diagnosis 02/05/22 Umbilical hernia Discharge Diagnosis 02/05/22 Lung nodule Discharge Diagnosis 02/05/22 Annual physical exam Discharge Diagnosis 02/05/22 Procedures Procedure Date Related Diagnosis Body Site Status Tonsillectomy Completed Vital Signs Most recent to oldest [Reference Range]: 1 Height 159.0 cm (02/05/22 11:42 AM) Weight 90.4 kg (02/05/22 11:42 AM) Oxygen Saturation [94-100 %] 96 % (02/05/22 11:42 AM) Pulse Rate [55-90 bpm] 67 bpm (02/05/22 11:42 AM) Body Mass Index [18.5-24.99 kg/m2] 35.76 kg/m2 *>HHI* (02/05/22 11:42 AM) Blood Pressure [90-138/55-84 mm Hg] 111/ 71mm Hg (02/05/22 11:42 AM) Temperature [96.8-100.4 DegF] 98.6 DegF (02/05/22 11:42 AM) Mode of Delivery (Oxygen) Room air (02/05/22 11:42 AM) Blood pressure sites Arm, left (02/05/22 11:42 AM) Temperature Route Temporal (02/05/22 11:42 AM) Weight Obtained Via Standing scale (02/05/22 11:42 AM) Social History Social History Type Response Tobacco Use: quit 1993 1-2pp d 31yrs. Sex Note * Mojgan Sal: PERFORM, SIGN, VERIFY Event Display: Patient Education/Instruction Authored Date: [id number] [facility] *[facility] Clinical Summary Name CARRIER ADIN KO Age 76 Years 1945 PCP Ishan PEÑA, Jarod PCP Visit Date 02/05/2022 11:38:00 Additional Instructions: Scheduled Appointments?? Future Appointments ?*[facility] [address] ?[place],??[place],??[address] ?Phone:??--?Fax:??-- ?Appt. Date:??02/13/2022?11:00 AM ?Scheduled Provider:??Daphnie Fulton MD ?*[facility]Gastro ?[address]??[place],??[place],??[address] ?Phone:??--?Fax:??-- ?Appt. Date:??03/15/2022?2:15 PM ?Scheduled Provider:??Ailin PEÑA , Yousif Fofana ?*[facility] ?[address]??[place],??[place],??[address] ?Phone:??--?Fax:??-- ?Appt. Date:??04/24/2022?10:15 AM ?Scheduled Provider:??Clara CHAU, Sylwia Follow-Up Instructions ?? Diagnosis Hyperlipidemia, unspecified; Unspecified osteoarthritis, unspecified site; Age- related osteoporosiswithout current pathological fracture; Umbilical hernia without obstruction or gangrene; Solitary pulmonary nodule; Atherosclerotic heart disease of [place] coronary artery without angina pectoris; Body mass index [BMI] 35.0-35.9, adult; Aortic ectasia, unspecified site; Unspecified cirrhosis of liver; Malignant melanoma of skin, unspecified; Essential (primary) hypertension; Encounter for generaladult medical examination without abnormal findings Medications: Please continue your medications until treatment is completed or stopped by your provider. Discuss any questions related to medications with your provider. Medications to Continue with No Changes These medications were not printed or sent to your pharmacy Albuterol (Ventolin HFA 108 mcg/inh inhalation aerosol with adapter) 2 puff(s) Inhalation every 4 hours for 30 Days. TAKE 2 PUFFS EVERY 4 HOURS IF NEEDED FOR WHEEZING. Refills: 5. Next Dose: Amlodipine (amLODIPine 5 mg oral tablet) 1 tab(s) Oral Daily for 90 Days. Refills: 3. Next Dose: Aspirin (aspirin 81 mg oral tablet) 1 tab(s) Oral Daily. Next Dose: Atorvastatin (atorvastatin 20 mg oral tablet) TAKE 1 TABLET BY MOUTH DAILY TAKE 1 TABLET OF 20 MG WITH 1 TABLET OF 40 MG FOR TOTAL OF 60 MG DAILY. Refills: 1. Next Dose: Barium Sulfate (Readi-Cat 2 oral suspension) Oral Contrast 2 Bottles 450 ml each Dx: Hernia. Refills: 0. Next Dose: Emollients, Topical (Biafine topical emulsion) apply to affected area twice a day as needed. 1 bottle.; as needed Prurigo Nodularis. Refills: 0. Next Dose: Hydrochlorothiazide (hydrochlorothiazide 25 mg oral tablet) TAKE 1 TABLET BY MOUTH DAILY. Refills: 0. Next Dose: Lisinopril (lisinopril 20 mg oral tablet) 1 tab(s) Oral Daily. OF LISINOPRIL.. Refills: 0. Next Dose: Lisinopril (lisinopril 5 mg oral tablet) 1 tab(s) Oral Daily. Next Dose: Metoprolol (metoprolol 25 mg oral tablet, extended release) 1 tab(s) Oral Daily for 90 Days. Refills: 3. Next Dose: Multivitamin Daily. Next Dose: Multivitamin With Minerals (PreserVision AREDS 2 oral capsule) 1 capsule Oral twice a day for 90 Days. PLEASE DISPENSE IN BUBBLE/BLISTER PACK. Refills: 1. Next Dose: Pantoprazole (pantoprazole 20 mg oral delayed release tablet) TAKE 1 TABLET BY MOUTH DAILY. Refills: 0. Next Dose: Allergy Info:?? NKA Medications Given This Visit Future Orders ?Hepatic Function Panel? Order Date:02/05/22?- Complete by?02/05/22 ?Basic Metabolic Panel? Order Date:02/05/22?- Complete by?02/05/22 ?Urinalysis (Outpt)? Order Date:02/05/22?- Complete by?02/05/22 ?TSH with T4 Reflex (Adults Only)? Order Date:02/05/22?- Complete by?02/05/22 ?CBC w/ Differential? Order Date:02/05/22?- Complete by?02/05/22 ?Lipid Panel? Order Date:02/05/22?- Complete by?02/05/22 Vital Signs Height 159.0 cm Weight 90.4 kg BMI 35.76 kg/m2 Blood Pressure 111 mm Hg/71 mm Hg Temperature 98.6 DegF Pulse Rate 67 bpm Respiratory Rate 02 Sat Mode of Delivery 96 %/Room air You can now view a summary of your hospital visit from the comfort of your home through a free online portal called [employer]BE. [employer]BE is a website that allows you to securely view your medical information including discharge summary, medications and follow-up visits. ??You can alsosend a secure electronic message to your doctor???s office to request appointments, renew medications or just ask a question. You can enroll at [email or web address] or register during your next office visit. Disclaimer:?? The information provided is of a general nature and is intended to be used in conjunction with the recommendations and advice of your health care practitioner. ??Every effort has been made to ensure that the information provided is accurate and complete at the time it is provided to you however, as your needs change, or, as new ??information becomes available, different or additional instructions may be required. If you have questions, please consult with your primary care provider or pharmacist, as appropriate. ??This information is not intended to serve as substitution for assessment and evaluation by a qualified health care provider. If you do not have a primary care provider, you may find a [facility] provider by calling [facility] at [phone]. For information about the plan of care including goals and instructions for your diagnosis, please see the patient education orders section of this document. Patient Education Materials?? The content of this educational material or handout may have been modified, supplemented, or adapted from its original content and format to support your individualized medical care. Patient Care team information Care Team Personnel Name: Jarod Olmstead MD Position: [facility] Primary Care Physician Member Role: PCP Address: Address: [address] [place] [address] [address] [place] [address]- Name: Jeanne Gallagher Position: [facility] Outreach Member Role: Lifetime Consulting Physician Care Team Related Persons Name: ADEN GARCIA Name: FRANCIS GARCIA Address: [place]
--- OUTSIDE RECORDS SUMMARY | 2022-11-20 09:35 | XMS_ITS | Continuity of Care Document ---
Author Name Unknown Organization [facility] Address [address] [place] [address]- Care Team Providers Care Care Coordination Manager Name Role Phone Ishan PEÑA, [facility] Primary Care Physician Encounter [facility] Date(s): 07/12/22 - 08/11/22 [facility] [address] [place] [phone]- Allergies, Adverse Reactions, Alerts No Known Allergies Immunizations Given and Recorded Vaccine Date Status Refusal Reason influenza virus vaccine, inactivated 11/24/21 Loco rded influenza virus vaccine, inactivated 12/10/20 Loco rded [id number] bivalent booster vax 11/24/21 Recorded SARS-CoV-2 mRNA (bidhtmj-gjlz-szcwr) vax 05/26/21 Recorded tetanus/diphtheria/pertussis, acel(Tdap) 12/17/20 Recorded [...] tablet, 2 Refills, Maintenance, 08/02/22 10:40:00 EDT, [facility], 160, cm, 07/25/22 16:17:00 EDT, Height, 87.6, kg, 02/22/22 17:27:00 EST, Dry Weight Start Date: 08/02/22 Status: Ordered atorvastatin 40 mg oral tablet 1 tablet, By Mouth, Daily, R4., # 90 tablet, 2 Refills, Maintenance, 08/02/22 10:40:00 EDT, [facility], [facility], cm, 07/25/22 16:17:00 EDT, Height, 87.6, kg, 02/22/22 17:27:00 EST, Dry Weight Start Date: 08/02/22 Status: Ordered Rick topical emulsion See Instructions, Daily, # 250 mL, 0 Refills, Maintenance, 07/13/22 15:36:00 EDT, [facility] #[id number], Partial fill upon patient request if the prescription is for a schedule II opioid drug.,Daily, 160, cm, 04/30/22 13:34:00 EST, Height, 87.6... Start Date: 07/13/22 Status: Ordered Biafine topical emulsion See Instructions, PRN Prurigo Nodularis, apply to affected area twice a day as needed. 1 bottle., #1 each, 0 Refills, Maintenance, 06/06/22 12:47:00 EDT, [facility]/pharmacy #[id number], Partial fill upon patient request if the prescription is for a schedule II... Start Date: 06/06/22 Status: Ordered hydrochlorothiazide 25 mg oral tablet 1, tablet, By Mouth, Daily, R1., # 90 tablet, Refills 2, Maintenance, 08/02/22 10:40:00 EDT, Route to Pharmacy Electronically, [facility], 160, cm, 07/25/22 16:17:00 EDT, Height, 87.6, kg, 02/22/22 17:27:00 EST, Dry Weight Start Date: 08/02/22 Status: Ordered ibuprofen 600 mg oral tablet 1, tablet, By Mouth, 3 times a day, PRN, # 90 tablet, Refills 0, Tot. Refills 0, Maintenance, NEEDED FOR MODERATE PAIN, 07/13/22 15:37:00 EDT, Route to Pharmacy Electronically, [facility] #[id number], 160, cm, 04/30/22 13:34:00 EST, Height, 87... Start Date: 07/13/22 Status: Ordered metoprolol 25 mg oral tablet, extended release 25 mg, 1, tablet, By Mouth, Daily, # 90 tablet, Refills 3, Tot. Refills 3, Maintenance, 01/15/22 16:59:00 EST, Route to Pharmacy Electronically, [facility], Partial fill upon patient request if [...] 1 Refills, Maintenance, 09/18/20 20:09:00 EDT, Capsule, [facility] #[id number], PLEASE DISPENSE IN BUBBLE/BLISTER PACK, 1 capsule By Mouth 2 times a day,x9... Start Date: 09/18/20 Stop Date: 03/17/21 Status: Ordered Ventolin HFA 108 mcg/inh inhalation aerosol with adapter 2 puffs, Inhalation, Every 4 hours, PRN NEEDED FOR WHEEZING OR SHORTNESS OF BREATH/DYSPNEA, # 18Gm, 3 Refills, Maintenance, 08/02/22 10:40:00 EDT, [facility], 160, cm, 07/25/22 16:17:00 EDT, Height, [...] Team Personnel Name: Ishan PEÑA, Jarod Position: [facility] Physician - Primary Care Member Role: PCP Address: Address: [address] [place] [address]- [place] Name: Dodie GARCIA, Wen Position: [facility] RN Member Role: Primary Care Nurse Name: Jeanne Gallagher Position: [facility] Outreach Member Role: Lifetime Consulting Physician Name: Katerina Campos RN Position: [facility] RN Member Role: Primary Care Nurse Name: Bryanna Guzman RN Position: [facility] RN Member Role: Primary Care Nurse Care Team Related Persons Name: ADEN GARCIA Name: FRANCIS GARCIA Address: home
--- OUTSIDE RECORDS SUMMARY | 2022-11-20 09:35 | XMS_ITS | Continuity of Care Document ---
Author Name Unknown Organization [facility] Address [address] [place] [address]- Care Team Providers Care Dental Laboratory Worker Name Role Phone Erik PEÑA, Kirsten Jauregui Primary Care Physician Encounter [facility] Date(s): 05/04/20 - 05/11/20 [facility] [address] [place] [address]- Encounter Diagnosis COVID-19 vaccine series completed- Pfizer 03/2020(Discharge Diagnosis) - 05/04/20 Lump in neck(Discharge Diagnosis) - 05/04/20 Attending Physician: Kirsten Valencia MD Allergies, Adverse [...] 1 Refills, Maintenance, 04/20/20 16:09:00 EST, Tablet, [facility] #[id number], Partial fill upon patient request if the prescr... Start Date: 04/20/20 Status: Ordered cholecalciferol 4000 intl units oral tablet = 100 mcg, By Mouth, Daily, # 90 tablet, 1 Refills, Maintenance, 02/10/20 16:38:00 EST, [facility] #[id number], Partial fill upon patient request if the [...] 01/07/20 14:52:00 EST, Route to Pharmacy Electronically, [facility] #[id number], 165.1, cm, 12/10/19 10:57:00 EDT, Height Start Date: 01/07/20 Stop Date: 07/05/20 Status: Ordered Lipitor 40 mg oral tablet 1 tablet = 40 mg, By Mouth, Daily, Take 1 tablet of 40 mg with 1 tablet of 20 mg for total 60 mg daily, # 90 tablet, 1 Refills, Maintenance, 04/06/20 14:02:00 EST, Tablet, [facility] #[id number], 165.1, cm, 04/06/20 8:13:00 EST, Height Start Date: 04/06/20 Status: Ordered lisinopril 20 mg oral tablet 20 mg, 1, tablet, By Mouth, Daily, # 90 tablet, Refills 1, Tot. Refills 1, Maintenance, 10/29/19 14:56:00 EDT, Route to Pharmacy Electronically, [facility] #[id number], 165.1, cm, 10/28/19 9:59:00 EDT, Height Start Date: 10/29/19 Stop Date: 04/26/20 Status: Ordered metoprolol 50 mg oral tablet, extended release 50 mg, 1, tablet, By Mouth, Daily, # 90 tablet, Refills 1, Tot. Refills 1, Maintenance, 01/07/20 14:51:00 EST, Route to Pharmacy Electronically, [facility] #[id number], 165.1, cm, 12/10/19 10:57:00 EDT, Height Start [...] 1 Refills, Maintenance, 04/01/20 14:07:00 EST, Capsule, [facility] #[id number], PLEASE DISPENSE IN BUBBLE/BLISTER PACK, 1 capsule By Mouth Daily,x90 days,Instr:PLEA... Start Date: 04/01/20 Stop Date: 09/28/20 Status: Ordered Ventolin HFA 108 mcg/inh inhalation aerosol with adapter 2 puffs, Inhalation, Every 4 hours, TAKE 2 PUFFS EVERY 4 HOURS IF NEEDED FOR WHEEZING, # 1 each, 5 Refills, Maintenance, 02/16/20 10:48:00 EST, Inhaler, [facility] #[id number], Partial fill uponpatient request if the prescription [...] abuse(Confirmed) Active COVID-19 vaccine series comp leted- [employer] 03/2020(Confirmed) Active Hyperlipidemia(Confirmed) Active Hypertension(Confirmed) Active Urinary [...] Dates Health Status Cl inical Service Informant COVID-19 vaccine series completed- [employer] 03/2020 1 Discharge Diagnosis 05/04/20 Non-Specified Lump in neck Discharge Diagnosis 05/04/20 07/12/2020 10:28 DOMINIK Valencia MD, Kirsten Sebastian 03/2020 Vital Signs Most recent to oldest [Reference Range]: 1 Height 165.1 cm (05/04/20 10:09 AM) Weight 93.2 kg (05/04/20 10:09 AM) Pulse Rate [55-90 bpm] 74 bpm (05/04/20 10:09 AM) Body Mass Index [18.5-24.99] 34.19 *>HHI* (05/04/20 10:09 AM) Blood Pressure [90-138/55-84 mm Hg] 138/ 74mm Hg (05/04/20 10:09 AM) Temperature Route Oral (05/04/20 10:09 AM) Dry Weight 93.2 kg (05/04/20 10:09 AM) Weight Obtained Via Standing scale (05/04/20 10:09 AM) Social History Social History Type Response Tobacco Use: quit 1993 1-2pp d 31yrs. Sex
--- OUTSIDE RECORDS SUMMARY | 2022-11-20 09:35 | XMS_ITS | Continuity of Care Document ---
Author Name Unknown Organization [facility] Address [address] [place] [address]- Care Team Providers Care Electrical Automation Engineer Name Role Phone Erik PEÑA, Kirsten Jauregui Primary Care Physician Encounter [facility] Date(s): 05/20/21 - 06/19/21 [facility] [address] [place] [address]- Allergies, Adverse Reactions, Alerts No Known Allergies [...] 05/17/21 22:19:00 EDT, Route to Pharmacy Electronically, [facility]... Start Date: 05/17/21 Stop Date: 07/16/21 [...] MG DAILY, # 90 tablet, 0 Refills, [facility] #[id number], 158, cm, 04/03/21 15:11:00 EST, Height, 93.2, kg, 05/04/20 10:09:00 EST, Dry We... Start Date: 04/24/21 Status: Ordered atorvastatin 40 mg oral tablet See Instructions, TAKE 1 TABLET BY MOUTH DAILY TAKE 1 TABLET OF 40 MG WITH 1 TABLET OF 20 MG FOR TOTAL 60 MG DAILY, # 90 tablet, 0 Refills, [facility] #[id number], 158, cm, 01/04/21 12:51:00 EST, Height, 93.2, kg, 05/04/20 10:09:00 EST, Dry Weight Start Date: 01/25/21 Status: Ordered Biafine topical emulsion See Instructions, PRN Prurigo Nodularis, apply to affected area twice a day as needed. 1 bottle., #1 each, 0 Refills, Maintenance, 03/28/21 11:42:00 EST, [facility] #[id number], Partial fill upon patient request if the prescription is for a lam... Start Date: 03/28/21 Status: Ordered hydrochlorothiazide 25 mg oral tablet 1, tablet, By Mouth, Daily, # 90 tablet, Refills 1, Route to Pharmacy Electronically, [facility][id number], 158, cm, 11/25/20 12:59:00 EDT, Height, 93.2, kg, 05/04/20 10:09:00 EST, Dry Weight Start Date: 12/30/20 Status: Ordered lisinopril 20 mg oral tablet 20 mg, 1, tablet, By Mouth, Daily, with 5 mg to total 25 mg of lisinopril, # 90 tablet, Refills 1, Tot. Refills 1, Maintenance, 04/18/21 15:36:00 EST, Route to Pharmacy Electronically, [facility][id number], Partial fill upon patient request if... Start Date: 04/18/21 Stop Date: 10/15/21 Status: Ordered lisinopril 5 mg oral tablet 5 mg, 1, tablet, By Mouth, Daily, with 20 mg to total 25 mg daily, # 90 tablet, Refills 1, Tot. Refills 1, Maintenance, 04/18/21 15:37:00 EST, Route to Pharmacy Electronically, [facility] #[id number], Partial fill upon patient request if the pres... Start Date: 04/18/21 Stop Date: 10/15/21 Status: Ordered Metoprolol Succinate ER 50 mg oral tablet, extended release 1 tablet, By Mouth, Daily, # 90 tablet, 1 Refills, [facility] #[id number], 158, cm, 11/25/20 12:59:00 EDT, Height, 93.2, [...] 1 Refills, Maintenance, 09/18/20 20:09:00 EDT, Capsule, [facility] #[id number], PLEASE DISPENSE IN BUBBLE/BLISTER PACK, 1 capsule By Mouth 2 times a day,x9... Start Date: 09/18/20 Stop Date: 03/17/21 Status: Ordered Ventolin HFA 108 mcg/inh inhalation aerosol with adapter 2 puffs, Inhalation, Every 4 hours, TAKE 2 PUFFS EVERY 4 HOURS IF NEEDED FOR WHEEZING, # 1 each, 5 Refills, Maintenance, 02/16/20 10:48:00 EST, Inhaler, [facility] #[id number], Partial fill uponpatient request if the prescription [...] abuse(Confirmed) Active COVID-19 vaccine series comp leted- [employer] 03/2020(Confirmed) Active Hyperlipidemia(Confirmed) Active Hypertension(Confirmed) Active Urinary [...]
--- OUTSIDE RECORDS SUMMARY | 2022-11-20 09:35 | XMS_ITS | Continuity of Care Document ---
Author Name Unknown Organization [facility] Address [address] [address]- Care Team Providers Care Aerospace Control And Warning Systems Name Role Phone Erik PEÑA, Kirsten Jauregui Primary Care Physician [place] [facility] [place](s): 03/27/21 - 04/03/21 [facility] [address] [address]- Attending Physician: Rod Cardozo MD Admitting Physician: [...] MG DAILY, # 90 tablet, 0 Refills, [facility] #[id number], 158, cm, 01/04/21 12:51:00 EST, Height, 93.2, kg, 05/04/20 10:09:00 EST, Dry Weight Start Date: 01/25/21 Status: Ordered Biafine topical emulsion See Instructions, PRN Prurigo Nodularis, apply to affected area twice a day as needed. 1 bottle., #1 each, 0 Refills, Maintenance, 03/28/21 11:42:00 EST, [facility] #[id number], Partial fill upon patient request if the prescription is for a lam... Start Date: 03/28/21 Status: Ordered hydrochlorothiazide 25 mg oral tablet 1, tablet, By Mouth, Daily, # 90 tablet, Refills 1, Route to Pharmacy Electronically, [facility] #[id number], 158, cm, 11/25/20 12:59:00 EDT, Height, 93.2, kg, 05/04/20 10:09:00 EST, Dry Weight Start Date: 12/30/20 Status: Ordered lisinopril 20 mg oral tablet 1, tablet, By Mouth, Daily, # 90 tablet, Refills 1, Route to Pharmacy Electronically, [facility] #[id number], 158, cm, 08/01/20 11:06:00 EDT, Height, 93.2, kg, 05/04/20 10:09:00 EST, Dry Weight Start Date: 10/24/20 Status: Ordered Metoprolol Succinate ER 50 mg oral tablet, extended release 1 tablet, By Mouth, Daily, # 90 tablet, 1 Refills, [facility] #[id number], 158, cm, 11/25/20 12:59:00 EDT, Height, 93.2, [...] 1 Refills, Maintenance, 09/18/20 20:09:00 EDT, Capsule, [facility] #[id number], PLEASE DISPENSE IN BUBBLE/BLISTER PACK, 1 capsule By Mouth 2 times a day,x9... Start Date: 09/18/20 Stop Date: 03/17/21 Status: Ordered Ventolin HFA 108 mcg/inh inhalation aerosol with adapter 2 puffs, Inhalation, Every 4 hours, TAKE 2 PUFFS EVERY 4 HOURS IF NEEDED FOR WHEEZING, # 1 each, 5 Refills, Maintenance, 02/16/20 10:48:00 EST, Inhaler, [facility] #[id number], Partial fill uponpatient request if the prescription [...] oldest [Reference Range]: 1 Height 158 cm (03/27/21 2:17 PM) Weight 92.5 kg (03/27/21 2:17 PM) Oxygen Saturation [94-100 %] 98 % (03/27/21 2:17 PM) Pulse Rate [55-90 bpm] 63 bpm (03/27/21 2:17 PM) Body Mass Index [18.5-24.99] 37.05 *>HHI* (03/27/21 2:17 PM) Blood Pressure [90-138/55-84 mm Hg] 172/ 89mm Hg *H* (03/27/21 2:17 PM) Mode of Delivery (Oxygen) Room air (03/27/21 2:17 PM) Blood pressure sites Arm, left (03/27/21 2:17 PM) Weight Obtained Via Standing scale (03/27/21 2:17 PM) Social History Social History Type Response Tobacco Use: quit 1993 1-2pp d 31yrs. Sex
--- OUTSIDE RECORDS SUMMARY | 2022-11-20 09:36 | XMS_ITS | Continuity of Care Document ---
Author Name Unknown Organization [facility] Address [address] [place] [address]- Care Team Providers Care Maintenance Person Name Role Phone Erik PEÑA, Kirsten Jauregui Primary Care Physician Encounter [facility] [place] Date(s): 05/22/21 - 06/21/21 [facility] [address] [place] [address]- Allergies, Adverse Reactions, Alerts No Known Allergies [...] 05/17/21 22:19:00 EDT, Route to Pharmacy Electronically, [facility]... Start Date: 05/17/21 Stop Date: 07/16/21 [...] MG DAILY, # 90 tablet, 0 Refills, [facility] #[id number], 158, cm, 04/03/21 15:11:00 EST, Height, 93.2, kg, 05/04/20 10:09:00 EST, Dry We... Start Date: 04/24/21 Status: Ordered atorvastatin 40 mg oral tablet See Instructions, TAKE 1 TABLET BY MOUTH DAILY TAKE 1 TABLET OF 40 MG WITH 1 TABLET OF 20 MG FOR TOTAL 60 MG DAILY, # 90 tablet, 0 Refills, [facility] #[id number], 158, cm, 01/04/21 12:51:00 EST, Height, 93.2, kg, 05/04/20 10:09:00 EST, Dry Weight Start Date: 01/25/21 Status: Ordered Biafine topical emulsion See Instructions, PRN Prurigo Nodularis, apply to affected area twice a day as needed. 1 bottle., #1 each, 0 Refills, Maintenance, 03/28/21 11:42:00 EST, [facility] #[id number], Partial fill upon patient request if the prescription is for a lam... Start Date: 03/28/21 Status: Ordered hydrochlorothiazide 25 mg oral tablet 1, tablet, By Mouth, Daily, # 90 tablet, Refills 1, Route to Pharmacy Electronically, [facility] #[id number], 158, cm, 11/25/20 12:59:00 EDT, Height, 93.2, kg, 05/04/20 10:09:00 EST, Dry Weight Start Date: 12/30/20 Status: Ordered lisinopril 20 mg oral tablet 20 mg, 1, tablet, By Mouth, Daily, with 5 mg to total 25 mg of lisinopril, # 90 tablet, Refills 1, Tot. Refills 1, Maintenance, 04/18/21 15:36:00 EST, Route to Pharmacy Electronically, [facility] #[id number], Partial fill upon patient request if... Start Date: 04/18/21 Stop Date: 10/15/21 Status: Ordered lisinopril 5 mg oral tablet 5 mg, 1, tablet, By Mouth, Daily, with 20 mg to total 25 mg daily, # 90 tablet, Refills 1, Tot. Refills 1, Maintenance, 04/18/21 15:37:00 EST, Route to Pharmacy Electronically, [facility] #[id number], Partial fill upon patient request if the pres... Start Date: 04/18/21 Stop Date: 10/15/21 Status: Ordered Metoprolol Succinate ER 50 mg oral tablet, extended release 1 tablet, By Mouth, Daily, # 90 tablet, 1 Refills, [facility] #[id number], 158, cm, 11/25/20 12:59:00 EDT, Height, 93.2, [...] 1 Refills, Maintenance, 09/18/20 20:09:00 EDT, Capsule, [facility] #[id number], PLEASE DISPENSE IN BUBBLE/BLISTER PACK, 1 capsule By Mouth 2 times a day,x9... Start Date: 09/18/20 Stop Date: 03/17/21 Status: Ordered Ventolin HFA 108 mcg/inh inhalation aerosol with adapter 2 puffs, Inhalation, Every 4 hours, TAKE 2 PUFFS EVERY 4 HOURS IF NEEDED FOR WHEEZING, # 1 each, 5 Refills, Maintenance, 02/16/20 10:48:00 EST, Inhaler, [facility] #[id number], Partial fill uponpatient request if the prescription [...] abuse(Confirmed) Active COVID-19 vaccine series comp leted- [facility] 03/2020(Confirmed) Active Hyperlipidemia(Confirmed) Active Hypertension(Confirmed) Active Urinary [...]
--- OUTSIDE RECORDS SUMMARY | 2022-11-20 09:36 | XMS_ITS | Continuity of Care Document ---
Author Name Unknown Organization [facility] Address [address] [place] [address], [address] [place] [address]- Care Team Providers Care Stone Banker Name Role Phone Ishan PEÑA, [facility] Primary Care Physician [facility]counter [facility] Date(s): 12/26/21 - 01/25/22 [facility] [address] [place] [address], [address] [place] [address]- Allergies, Adverse Reactions, Alerts No Known Allergies Immunizations Given and Recorded Vaccine Date Status Refusal Reason SARS-CoV-2 mRNA ([id number]) vax 05/26/21 Recorded tetanus/diphtheria/pertussis, acel(Tdap) 12/17/20 Recorded [...] (Td) 01/19/08 Recorded Hepatitis A Adult Vaccine 2/10/08 Recorded Not Given Vaccine Date Status Refusal Reason influenza virus vaccine, inactivated 1 04/28/16 No t Given Patient Refuses 1Result Comment: Patient has received flu vax this season Medications amLODIPine 5 mg oral tablet 5 mg, 1, tablet, By Mouth, Daily, # 90 tablet, Refills 3, Tot. Refills 3, Maintenance, 01/15/22 16:59:00 EST, Route to Pharmacy Electronically, [facility], Partial fill upon patient request if the [...] MG DAILY, # 90 tablet, 1 Refills, [facility] #[id number], 159, cm, 07/26/21 11:39:00 EDT, Height, 93.2, kg, 05/04/20 10:09:00 EST, Dry We... 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 1 bottle., #1 each, 0 Refills, Maintenance, 03/28/21 11:42:00 EST, [facility] #[id number], Partial fill upon patient request if the prescription is for a lam... Start Date: 03/28/21 Status: Ordered hydrochlorothiazide 25 mg oral tablet See Instructions, TAKE 1 TABLET BY MOUTH DAILY, # 90 tablet, Refills 0, Instructions Replace Required Details, Route to Pharmacy Electronically, [facility] #[id number], 159, cm, 07/26/21 11:39:00 EDT, Height, 93.2, kg, 05/04/20 10:09:00 EST, Dry... Start Date: 10/02/21 Status: Ordered lisinopril 20 mg oral tablet 1, tablet, By Mouth, Daily, OF LISINOPRIL., # 90 tablet, Refills 0, Route to Pharmacy Electronically, [facility] #[id number], 159, cm, 07/26/21 11:39:00 EDT, Height, 93.2, [...] 01/15/22 16:59:00 EST, Route to Pharmacy Electronically, [facility], Partial fill upon patient request if [...] 1 Refills, Maintenance, 09/18/20 20:09:00 EDT, Capsule, [facility] #[id number], PLEASE DISPENSE IN BUBBLE/BLISTER PACK, 1 capsule [...] 5 Refills, Maintenance, 02/16/20 10:48:00 EST, Inhaler, [facility] #[id number], Partial fill uponpatient request if the prescription [...] abuse Confirmed Active COVID-19 vaccine series completed- [facility] 03/2020 Confirmed Active Hyperlipidemia Confirmed Active Hypertension [...] Team Personnel Name: Jarod Olmstead MD Position: [facility] Primary Care Physician Member Role: PCP Address: Address: [address] [place] [address] [address] [place] [address]- Name: Jeanne Gallagher Position: [facility] Outreach Member Role: Lifetime Consulting Physician Care Team Related Persons Name: ADEN GARCIA Name: FRANCIS GARCIA Address: home
--- OUTSIDE RECORDS SUMMARY | 2022-11-20 09:36 | XMS_ITS | Continuity of Care Document ---
Author Name Unknown Organization [facility] Address [address] [place] [address]- Care Team Providers Care Car Installations Supervisor Name Role Phone Ishan PEÑA, [facility] Primary Care Physician Encounter [facility] Date(s): 07/13/22 - 08/12/22 [facility] [address] [place] [address]- Allergies, Adverse Reactions, Alerts No Known Allergies Immunizations Given and Recorded Vaccine Date Status Refusal Reason influenza virus vaccine, inactivated 11/24/21 [facility] influenza virus vaccine, inactivated 12/10/20 [facility] [id number] bivalent booster vax 11/24/21 Recorded SARS-CoV-2 mRNA ([id number]) vax 05/26/21 Recorded tetanus/diphtheria/pertussis, acel(Tdap) 12/17/20 Recorded [...] tablet, 2 Refills, Maintenance, 08/02/22 10:40:00 EDT, [facility], 160, cm, 07/25/22 16:17:00 EDT, Height, 87.6, kg, 02/22/22 17:27:00 EST, Dry Weight Start Date: 08/02/22 Status: Ordered atorvastatin 40 mg oral tablet 1 tablet, By Mouth, Daily, R4., # 90 tablet, 2 Refills, Maintenance, 08/02/22 10:40:00 EDT, [facility], [facility], cm, 07/25/22 16:17:00 EDT, Height, 87.6, kg, 02/22/22 17:27:00 EST, Dry Weight Start Date: 08/02/22 Status: Ordered Rick topical emulsion See Instructions, Daily, # 250 mL, 0 Refills, Maintenance, 07/13/22 15:36:00 EDT, [email or web address] #[id number], Partial fill upon patient request if the prescription is for a schedule II opioid drug.,Daily, 160, cm, 04/30/22 13:34:00 EST, Height, 87.6... Start Date: 07/13/22 Status: Ordered Biafine topical emulsion See Instructions, PRN Prurigo Nodularis, apply to affected area twice a day as needed. 1 bottle., #1 each, 0 Refills, Maintenance, 06/06/22 12:47:00 EDT, [facility] #[id number], Partial fill upon patient request if the prescription is for a schedule II... Start Date: 06/06/22 Status: Ordered hydrochlorothiazide 25 mg oral tablet 1, tablet, By Mouth, Daily, R1., # 90 tablet, Refills 2, Maintenance, 08/02/22 10:40:00 EDT, Route to Pharmacy Electronically, [facility], 160, cm, 07/25/22 16:17:00 EDT, Height, 87.6, kg, 02/22/22 17:27:00 EST, Dry Weight Start Date: 08/02/22 Status: Ordered ibuprofen 600 mg oral tablet 1, tablet, By Mouth, 3 times a day, PRN, # 90 tablet, Refills 0, Tot. Refills 0, Maintenance, NEEDED FOR MODERATE PAIN, 07/13/22 15:37:00 EDT, Route to Pharmacy Electronically, [facility] #[id number], 160, cm, 04/30/22 13:34:00 EST, Height, 87... Start Date: 07/13/22 Status: Ordered metoprolol 25 mg oral tablet, extended release 25 mg, 1, tablet, By Mouth, Daily, # 90 tablet, Refills 3, Tot. Refills 3, Maintenance, 01/15/22 16:59:00 EST, Route to Pharmacy Electronically, [facility], Partial fill upon patient request if [...] 1 Refills, Maintenance, 09/18/20 20:09:00 EDT, Capsule, [facility] #[id number], PLEASE DISPENSE IN BUBBLE/BLISTER PACK, 1 capsule By Mouth 2 times a day,x9... Start Date: 09/18/20 Stop Date: 03/17/21 Status: Ordered Ventolin HFA 108 mcg/inh inhalation aerosol with adapter 2 puffs, Inhalation, Every 4 hours, PRN NEEDED FOR WHEEZING OR SHORTNESS OF BREATH/DYSPNEA, # 18Gm, 3 Refills, Maintenance, 08/02/22 10:40:00 EDT, [facility], 160, cm, 07/25/22 16:17:00 EDT, Height, [...] Team Personnel Name: Ishan PEÑA, Jarod Position: [facility] Physician - Primary Care Member Role: PCP Address: Address: [address] [place] [address]- [place] Name: Dodie GARCIA, Wen Position: [facility] RN Member Role: Primary Care Nurse Name: Jeanne Gallagher Position: [facility] Outreach Member Role: Lifetime Consulting Physician Name: Katerina Campos RN Position: [facility] RN Member Role: Primary Care Nurse Name: Bryanna Guzman RN Position: [facility] RN Member Role: Primary Care Nurse Care Team Related Persons Name: ADEN GARCIA Name: FRANCIS GARCIA Address: home"
--- OUTSIDE RECORDS SUMMARY | 2022-11-20 09:36 | XMS_ITS | Continuity of Care Document ---
Author Name Unknown Organization [facility] Address [address] [place] [address]- Care Team Providers Care Printer Technician Name Role Phone Erik PEÑA, Kirsten Jauregui Primary Care Physician ( [phone] [place] [facility] [place] 04/23/20 [facility] [address] [place] [address]- Allergies, Adverse Reactions, Alerts Substance Reaction Severity [...] 1 Refills, Maintenance, 04/20/20 16:09:00 EST, Tablet, [facility] #[id number], Partial fill upon patient request if the prescr... Start Date: 04/20/20 Status: Ordered cholecalciferol 4000 intl units oral tablet = 100 mcg, By Mouth, Daily, # 90 tablet, 1 Refills, Maintenance, 02/10/20 16:38:00 EST, [facility] #[id number], Partial fill upon patient request if the [...] 01/07/20 14:52:00 EST, Route to Pharmacy Electronically, [facility] #[id number], 165.1, cm, 12/10/19 10:57:00 EDT, Height Start Date: 01/07/20 Stop Date: 07/05/20 Status: Ordered Lipitor 40 mg oral tablet 1 tablet = 40 mg, By Mouth, Daily, Take 1 tablet of 40 mg with 1 tablet of 20 mg for total 60 mg daily, # 90 tablet, 1 Refills, Maintenance, 04/06/20 14:02:00 EST, Tablet, [facility] #[id number], 165.1, cm, 04/06/20 8:13:00 EST, Height Start Date: 04/06/20 Status: Ordered lisinopril 20 mg oral tablet 20 mg, 1, tablet, By Mouth, Daily, # 90 tablet, Refills 1, Tot. Refills 1, Maintenance, 10/29/19 14:56:00 EDT, Route to Pharmacy Electronically, [facility] #[id number], 165.1, cm, 10/28/19 9:59:00 EDT, Height Start Date: 10/29/19 Stop Date: 04/26/20 Status: Ordered metoprolol 50 mg oral tablet, extended release 50 mg, 1, tablet, By Mouth, Daily, # 90 tablet, Refills 1, Tot. Refills 1, Maintenance, 01/07/20 14:51:00 EST, Route to Pharmacy Electronically, [facility] #[id number], 165.1, cm, 12/10/19 10:57:00 EDT, Height Start [...] 1 Refills, Maintenance, 04/01/20 14:07:00 EST, Capsule, [facility] #[id number], PLEASE DISPENSE IN BUBBLE/BLISTER PACK, 1 capsule By Mouth Daily,x90 days,Instr:PLEA... Start Date: 04/01/20 Stop Date: 09/28/20 Status: Ordered Ventolin HFA 108 mcg/inh inhalation aerosol with adapter 2 puffs, Inhalation, Every 4 hours, TAKE 2 PUFFS EVERY 4 HOURS IF NEEDED FOR WHEEZING, # 1 each, 5 Refills, Maintenance, 02/16/20 10:48:00 EST, Inhaler, [facility] #[id number], Partial fill uponpatient request if the prescription [...]
--- OUTSIDE RECORDS SUMMARY | 2022-11-20 09:36 | XMS_ITS | Continuity of Care Document ---
Author Name Unknown Organization [facility] Address [address] [address]- Care Team Providers Care Development Coach Name Role Phone Erik PEÑA, Kirsten Jauregui Primary Care Physician [facility] Date(s): 07/05/20 - 08/04/20 [facility] [address] [address]- [place] Allergies, Adverse Reactions, Alerts Substance Reaction [...] 1 Refills, Maintenance, 07/22/20 14:03:00 EDT, Tablet, [facility] #[id number], Partial fill upon patient request if the prescr... Start Date: 07/22/20 Status: Ordered cholecalciferol 4000 intl units oral tablet = 100 mcg, By Mouth, Daily, # 90 tablet, 1 Refills, Maintenance, 02/10/20 16:38:00 EST, [facility] #[id number], Partial fill upon patient request if the [...] 07/09/20 14:57:00 EDT, Route to Pharmacy Electronically, [facility] #[id number], 165.1, cm, 07/06/20 11:29:00 EDT, Height, 93.2, kg, 05/04/20 10:09:00 Dr... DOMINIK Start Date: 07/09/20 Stop Date: 01/05/21 Status: Ordered Lipitor 40 mg oral tablet 1 tablet = 40 mg, By Mouth, Daily, Take 1 tablet of 40 mg with 1 tablet of 20 mg for total 60 mg daily, # 90 tablet, 1 Refills, Maintenance, 07/22/20 14:03:00 EDT, Tablet, [facility] #[id number], 158, cm, 07/22/20 13:04:00 EDT, Height, 93.2, kg,... Start Date: 07/22/20 Stop Date: 01/18/21 Status: Ordered lisinopril 20 mg oral tablet 20 mg, 1, tablet, By Mouth, Daily, # 90 tablet, Refills 1, Tot. Refills 1, Maintenance, 10/29/19 14:56:00 EDT, Route to Pharmacy Electronically, [facility] #[id number], 165.1, cm, 10/28/19 9:59:00 EDT, Height Start [...] 07/09/20 14:57:00 EDT, Route to Pharmacy Electronically, [facility] #[id number], 165.1, cm, 07/06/20 11:29:00 EDT, Height, 93.2, [...] 1 Refills, Maintenance, 04/01/20 14:07:00 EST, Capsule, [facility] #[id number], PLEASE DISPENSE IN BUBBLE/BLISTER PACK, 1 capsule By Mouth Daily,x90 days,Instr:PLECooper... Start Date: 04/01/20 Stop Date: 09/28/20 Status: Ordered Ventolin HFA 108 mcg/inh inhalation aerosol with adapter 2 puffs, Inhalation, Every 4 hours, TAKE 2 PUFFS EVERY 4 HOURS IF NEEDED FOR WHEEZING, # 1 each, 5 Refills, Maintenance, 02/16/20 10:48:00 EST, Inhaler, [facility] #[id number], Partial fill uponpatient request if the prescription [...] abuse(Confirmed) Active COVID-19 vaccine series comp leted- [facility] 03/2020(Confirmed) Active Hyperlipidemia(Confirmed) Active Hypertension(Confirmed) Active Urinary [...]
--- OUTSIDE RECORDS SUMMARY | 2022-11-20 09:36 | XMS_ITS | Continuity of Care Document ---
Author Name Unknown Organization [facility] Address [address] [place] [address], [address] [place] [address]- Care Team Providers Care Aircraft Refueler Name Role Phone Ishan PEÑA, [facility] Primary Care Physician [facility] Date[facility]s): 12/26/21 - 01/25/22 [facility] [address] [place] [address], [address] [place] [address]- Allergies, Adverse Reactions, Alerts No Known Allergies Immunizations Given and Recorded Vaccine Date Status Refusal Reason SARS-CoV-2 mRNA ([id number]-[id number]-[id number]) vax 05/26/21 Recorded tetanus/diphtheria/pertussis, acel(Tdap) 12/17/20 Recorded [...] 01/15/22 16:59:00 EST, Route to Pharmacy Electronically, [facility] [place] [place], Partial fill upon patient request if the [...] MG DAILY, # 90 tablet, 1 Refills, [facility] #[id number], 159, cm, 07/26/21 11:39:00 EDT, Height, 93.2, kg, 05/04/20 10:09:00 EST, Dry We... 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 1 bottle., #1 each, 0 Refills, Maintenance, 03/28/21 11:42:00 EST, [facility] #[id number], Partial fill upon patient request if the prescription is for a lam... Start Date: 03/28/21 Status: Ordered hydrochlorothiazide 25 mg oral tablet See Instructions, TAKE 1 TABLET BY MOUTH DAILY, # 90 tablet, Refills 0, Instructions Replace Required Details, Route to Pharmacy Electronically, [facility] #[id number], 159, cm, 07/26/21 11:39:00 EDT, Height, 93.2, kg, 05/04/20 10:09:00 EST, Dry... Start Date: 10/02/21 Status: Ordered lisinopril 20 mg oral tablet 1, tablet, By Mouth, Daily, OF LISINOPRIL., # 90 tablet, Refills 0, Route to Pharmacy Electronically, [facility] #[id number], 159, cm, 07/26/21 11:39:00 EDT, Height, 93.2, [...] 01/15/22 16:59:00 EST, Route to Pharmacy Electronically, [facility], Partial fill upon patient request if [...] 1 Refills, Maintenance, 09/18/20 20:09:00 EDT, Capsule, [facility] #[id number], PLEASE DISPENSE IN BUBBLE/BLISTER PACK, 1 capsule [...] 5 Refills, Maintenance, 02/16/20 10:48:00 EST, Inhaler, [facility] #[id number], Partial fill uponpatient request if the prescription [...] abuse Confirmed Active COVID-19 vaccine series completed- [facility] 03/2020 Confirmed Active Hyperlipidemia Confirmed Active [...] team information Care Team Personnel Name: Jarod Olsmtead MD Position: [facility] Primary Care Physician Member Role: PCP Address: Address: [address] [place] [address] [address] [place] [address]- Name: Jeanne Gallagher Position: [facility] Outreach Member Role: Lifetime Consulting Physician Care Team Related Persons Name: ADEN GARCIA Name: FRANCIS GARCIA Address: home
--- OUTSIDE RECORDS SUMMARY | 2022-11-20 09:36 | XMS_ITS | Continuity of Care Document ---
Author Name Unknown Organization [facility] Address [address] [place] [address], [address] [place] [address]- Care Team Providers Care Biometrician Name Role Phone Ishan PEÑA, [facility] Primary Care Physician Encounter [facility] Date(s): 12/21/21 - 01/20/22 [facility] [address] [place] [address], [address] [place], [place] [address] Allergies, Adverse Reactions, Alerts No Known Allergies Immunizations Given and Recorded Vaccine Date Status Refusal Reason SARS-CoV-2 mRNA (qludfsl-[id number]-yggta) vax 05/26/21 Recorded tetanus/diphtheria/pertussis, acel(Tdap) 12/17/20 Recorded [...] 01/15/22 16:59:00 EST, Route to Pharmacy Electronically, [facility], Partial fill upon patient request if the [...] MG DAILY, # 90 tablet, 1 Refills, [facility] #[id number], 159, cm, 07/26/21 11:39:00 EDT, Height, 93.2, kg, 05/04/20 10:09:00 EST, Dry We... 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 1 bottle., #1 each, 0 Refills, Maintenance, 03/28/21 11:42:00 EST, [facility] #[id number], Partial fill upon patient request if the prescription is for a lam... Start Date: 03/28/21 Status: Ordered hydrochlorothiazide 25 mg oral tablet See Instructions, TAKE 1 TABLET BY MOUTH DAILY, # 90 tablet, Refills 0, Instructions Replace Required Details, Route to Pharmacy Electronically, [facility] #[id number], 159, cm, 07/26/21 11:39:00 EDT, Height, 93.2, kg, 05/04/20 10:09:00 EST, Dry... Start Date: 10/02/21 Status: Ordered lisinopril 20 mg oral tablet 1, tablet, By Mouth, Daily, OF LISINOPRIL., # 90 tablet, Refills 0, Route to Pharmacy Electronically, [facility] #[id number], 159, cm, 07/26/21 11:39:00 EDT, Height, 93.2, [...] 01/15/22 16:59:00 EST, Route to Pharmacy Electronically, [facility], Partial fill upon patient request if [...] 1 Refills, Maintenance, 09/18/20 20:09:00 EDT, Capsule, [facility] #[id number], PLEASE DISPENSE IN BUBBLE/BLISTER PACK, 1 capsule [...] 5 Refills, Maintenance, 02/16/20 10:48:00 EST, Inhaler, [facility] #[id number], Partial fill uponpatient request if the prescription [...] abuse Confirmed Active COVID-19 vaccine series completed- [facility] 03/2020 Confirmed Active Hyperlipidemia Confirmed Active [...] Team Personnel Name: Jarod Olmstead MD Position: [facility] Primary Care Physician Member Role: PCP Address: Address: [address] [place] [address]- Name: Jeanne Gallagher Position: [facility] Outreach Member Role: Lifetime Consulting Physician Care Team Related Persons Name: ADEN GARCIA Name: FRANCIS GARCIA Address: home
--- OUTSIDE RECORDS SUMMARY | 2022-11-20 09:36 | XMS_ITS | Continuity of Care Document ---
Author Name Unknown Organization [facility] Address [address] [place] [address]- Care Team Providers Care Senior J2Ee Developer Name Role Phone Erik PEÑA, Kirsten Jauregui Primary Care Physician Encounter [facility] Date(s): 07/15/20 - 07/22/20 [facility] [address] [place] [address]- Encounter Diagnosis Distal radial fracture(Discharge Diagnosis) - 07/15/20 Attending Physician: Deana Hernandez MD Allergies, Adverse Reactions, Alerts Substance Reaction [...] 1 Refills, Maintenance, 07/22/20 14:03:00 EDT, Tablet, [facility] #[id number], Partial fill upon patient request if the prescr... Start Date: 07/22/20 Status: Ordered cholecalciferol 4000 intl units oral tablet = 100 mcg, By Mouth, Daily, # 90 tablet, 1 Refills, Maintenance, 02/10/20 16:38:00 EST, [facility] #[id number], Partial fill upon patient request if the [...] 07/09/20 14:57:00 EDT, Route to Pharmacy Electronically, [facility] #[id number], 165.1, cm, 07/06/20 11:29:00 EDT, Height, 93.2, kg, 05/04/20 10:09:00 ESTDr... Start Date: 07/09/20 Stop Date: 01/05/21 Status: Ordered Lipitor 40 mg oral tablet 1 tablet = 40 mg, By Mouth, Daily, Take 1 tablet of 40 mg with 1 tablet of 20 mg for total 60 mg daily, # 90 tablet, 1 Refills, Maintenance, 07/22/20 14:03:00 EDT, Tablet, [facility] #[id number], 158, cm, 07/22/20 13:04:00 EDT, Height, 93.2, kg,... Start Date: 07/22/20 Stop Date: 01/18/21 Status: Ordered lisinopril 20 mg oral tablet 20 mg, 1, tablet, By Mouth, Daily, # 90 tablet, Refills 1, Tot. Refills 1, Maintenance, 10/29/19 14:56:00 EDT, Route to Pharmacy Electronically, [facility] #[id number], 165.1, cm, 10/28/19 9:59:00 EDT, Height Start [...] 07/09/20 14:57:00 EDT, Route to Pharmacy Electronically, [facility] #[id number], 165.1, cm, 07/06/20 11:29:00 EDT, Height, 93.2, [...] 1 Refills, Maintenance, 04/01/20 14:07:00 EST, Capsule, [facility] #[id number], PLEASE DISPENSE IN BUBBLE/BLISTER PACK, 1 capsule By Mouth Daily,x90 days,Instr:PLEA... Start Date: 04/01/20 Stop Date: 09/28/20 Status: Ordered Ventolin HFA 108 mcg/inh inhalation aerosol with adapter 2 puffs, Inhalation, Every 4 hours, TAKE 2 PUFFS EVERY 4 HOURS IF NEEDED FOR WHEEZING, # 1 each, 5 Refills, Maintenance, 02/16/20 10:48:00 EST, Inhaler, [facility] #[id number], Partial fill uponpatient request if the prescription [...] Dates Health Status Cl inical Service Informant Distal radial fracture Discharge Diagnosis 07/15/20 Vital Signs Most recent to oldest [Reference Range]: 1 Height 165.1 cm (07/15/20 3:47 PM) Oxygen Saturation [94-100 %] 97 % (07/15/20 3:47 PM) Pulse Rate [55-90 bpm] 64 bpm (07/15/20 3:47 PM) Blood Pressure [90-138/55-84 mm Hg] 127/ 68mm Hg (07/15/20 3:47 PM) Respiratory Rate [16-30 br/min] 24 br/mi n (07/15/20 3:47 PM) Blood pressure sites Arm, right (07/15/20 3:47 PM) Social History Social History Type Response Tobacco Use: quit 1993 1-2pp d 31yrs. Sex
--- OUTSIDE RECORDS SUMMARY | 2022-11-20 09:36 | XMS_ITS | Continuity of Care Document ---
Author Name Unknown Organization [facility] Address [address] [place] [address]- Care Team Providers Care Jewel Diameter Gauger Name Role Phone Ishan PEÑA, [facility] Primary Care Physician Encounter [facility] Date(s): 10/12/22 - 11/11/22 [facility] [address] [place] [address]- Allergies, Adverse Reactions, Alerts No Known Allergies Immunizations Given and Recorded Vaccine Date Status Refusal Reason influenza virus vaccine, inactivated 11/24/21 Loco rded influenza virus vaccine, inactivated 12/10/20 Looc rded [id number] bivalent booster vax 11/24/21 Recorded SARS-CoV-2 mRNA (fmbwdwe-xixc-vxuct) vax 05/26/21 Recorded tetanus/diphtheria/pertussis, acel(Tdap) 12/17/20 Recorded [...] tablet, 2 Refills, Maintenance, 08/02/22 10:40:00 EDT, [facility], 160, cm, 07/25/22 16:17:00 EDT, [...] tablet, 2 Refills, Maintenance, 08/02/22 10:40:00 EDT, [facility], 160, cm, 07/25/22 16:17:00 EDT, Height, 87.6, kg, 02/22/22 17:27:00 EST, Dry Weight Start Date: 08/02/22 Status: Ordered Rick topical emulsion See Instructions, Daily, # 250 mL, 0 Refills, Maintenance, 07/13/22 15:36:00 EDT, [facility] #[id number], Partial fill upon patient request if the prescription is for a schedule II opioid drug.,Daily, 160, cm, 04/30/22 13:34:00 EST, Height, 87.6... Start Date: 07/13/22 Status: Ordered barium sulfate 2% oral suspension See Instructions, Please dispense 2 450 mls bottles to equal 900 mls. Please follow the intructionsprovided, # 2 each, 0 Refills, Maintenance, 11/06/22 13:38:00 EDT, [facility]/pharmacy #[id number], Partial fillupon patient request if the prescription is for a s... Start Date: 11/06/22 Status: Ordered Biafine topical emulsion See Instructions, PRN Prurigo Nodularis, apply to affected area twice a day as needed. 1 bottle., #1 each, 0 Refills, Maintenance, 06/06/22 12:47:00 EDT, [facility]/pharmacy #[id number], Partial fill upon patient request if the prescription is for a schedule II... Start Date: 06/06/22 Status: Ordered hydrochlorothiazide 25 mg oral tablet 1, tablet, By Mouth, Daily, R1., # 90 tablet, Refills 2, Maintenance, 08/02/22 10:40:00 EDT, [facility], 160, cm, 07/25/22 16:17:00 EDT, Height, 87.6, kg, 02/22/22 17:27:00 EST, Dry Weight Start Date: 08/02/22 Status: Ordered ibuprofen 600 mg oral tablet 1, tablet, By Mouth, 3 times a day, PRN, # 90 tablet, Refills 0, Tot. Refills 0, Maintenance, NEEDED FOR MODERATE PAIN, 07/13/22 15:37:00 EDT, Route to Pharmacy Electronically, [facility] #[id number], 160, cm, 04/30/22 13:34:00 EST, Height, 87... Start Date: 07/13/22 Status: Ordered metoprolol 25 mg oral tablet, extended release 25 mg, 1, tablet, By Mouth, Daily, # 90 tablet, Refills 3, Tot. Refills 3, Maintenance, 01/15/22 16:59:00 EST, Route to Pharmacy Electronically, [facility], Partial fill upon patient request [...] capsule, 3 Refills, Maintenance, 10/15/22 15:19:00 EDT, [facility], 90, TAKE 1 CAPSULE BY MOUTH TWICE A DAY WITH MEALS^1R1,1R4,160, cm, 08/27/22 12:06:00 EDT, Height, 88.3, kg, 0... Start Date: 10/15/22 Status: Ordered Stiolto Respimat 60 ACT 2.5 mcg-2.5 mcg/inh inhalation aerosol 2 puffs, Inhalation, Every 24 hours, # 1 each, 6 Refills, Maintenance, 08/13/22 14:22:00 EDT, Aerosol, [facility] #[id number], Partial fill upon patient request if the prescription is for a schedule II opioid drug., 160, cm, 08/13/22 14:12:00 EDT... Start Date: 08/13/22 Stop Date: 03/11/23 Status: Ordered Ventolin HFA 108 mcg/inh inhalation aerosol with adapter 2 puffs, Inhalation, Every 4 hours, PRN NEEDED FOR WHEEZING OR SHORTNESS OF BREATH/DYSPNEA, # 18Gm, 3 Refills, Maintenance, 08/02/22 10:40:00 EDT, [facility], 160, cm, 07/25/22 16:17:00 EDT, Height, [...] Team Personnel Name: Jarod Olmstead MD Position: [facility] Physician - Primary Care Member Role: PCP Address: Address: [address] [place] [address] [address] [place] [address]- Name: Wen Stoll RN Position: S RN Member Role: Primary Care Nurse Name: Jeanne Gallagher [place] Position: [facility] [place] Member Role: Lifetime Consulting Physician Name: Katerina Campos RN Position: S RN Member Role: Primary Care Nurse Name: Bryanna Guzman RN Position: S RN Member Role: Primary Care Nurse Care Team Related Persons Name: ADEN GARCIA Name: FRANCIS GARCIA Address: [place]
--- OUTSIDE RECORDS SUMMARY | 2022-11-20 09:36 | XMS_ITS | Continuity of Care Document ---
Author Name Unknown Organization [facility] Address [address] [place] [address] ve [address] [place] [address]- Care Team Providers Care Apprentice Stylist Name Role Phone Ishan PEÑA, Jarod Primary Care Physician En[place] [facility] Date(s): 08/27/22 - 09/26/22 [facility] [address] [place] [address]- Attending Physician: Lucy Montaño Admitting Physician: Lucy Montaño Referring Physician: AdmtrLucy Allergies, Adverse Reactions, Alerts No Known Allergies Immunizations Given and Recorded Vaccine Date Status Refusal Reason influenza virus vaccine, inactivated 11/24/21 Loco rded influenza virus vaccine, inactivated 12/10/20 Loco rded [id number] bivalent booster vax 11/24/21 Recorded SARS-CoV-2 mRNA ([id number]-zpqz-vfbhf) vax 05/26/21 Recorded tetanus/diphtheria/pertussis, acel(Tdap) 12/17/20 Recorded [...] tablet, 2 Refills, Maintenance, 08/02/22 10:40:00 EDT, [facility], 160, cm, 07/25/22 16:17:00 EDT, Height, [...] tablet, 2 Refills, Maintenance, 08/02/22 10:40:00 EDT, [facility], 160, cm, 07/25/22 16:17:00 EDT, Height, 87.6, kg, 02/22/22 17:27:00 EST, Dry Weight Start Date: 08/02/22 Status: Ordered Rick topical emulsion See Instructions, Daily, # 250 mL, 0 Refills, Maintenance, 07/13/22 15:36:00 EDT, [facility] #[id number], Partial fill upon patient request if the prescription is for a schedule II opioid drug.,Daily, 160, cm, 04/30/22 13:34:00 EST, Height, 87.6... Start Date: 07/13/22 Status: Ordered Biafine topical emulsion See Instructions, PRN Prurigo Nodularis, apply to affected area twice a day as needed. 1 bottle., #1 each, 0 Refills, Maintenance, 06/06/22 12:47:00 EDT, [facility]/pharmacy #[id number], Partial fill upon patient request if the prescription is for a schedule II... Start Date: 06/06/22 Status: Ordered hydrochlorothiazide 25 mg oral tablet 1, tablet, By Mouth, Daily, R1., # 90 tablet, Refills 2, Maintenance, 08/02/22 10:40:00 EDT, Route to Pharmacy Electronically, [facility], 160, cm, 07/25/22 16:17:00 EDT, Height, 87.6, kg, 02/22/22 17:27:00 EST, Dry Weight Start Date: 08/02/22 Status: Ordered ibuprofen 600 mg oral tablet 1, tablet, By Mouth, 3 times a day, PRN, # 90 tablet, Refills 0, Tot. Refills 0, Maintenance, NEEDED FOR MODERATE PAIN, 07/13/22 15:37:00 EDT, Route to Pharmacy Electronically, [facility] #[id number], 160, cm, 04/30/22 13:34:00 EST, Height, 87... Start Date: 07/13/22 Status: Ordered metoprolol 25 mg oral tablet, extended release 25 mg, 1, tablet, By Mouth, Daily, # 90 tablet, Refills 3, Tot. Refills 3, Maintenance, 01/15/22 16:59:00 EST, Route to Pharmacy Electronically, [facility], Partial fill upon patient request if the [...] 1 Refills, Maintenance, 09/18/20 20:09:00 EDT, Capsule, [facility] #[id number], PLEASE DISPENSE IN BUBBLE/BLISTER PACK, 1 capsule By Mouth 2 times a day,x9... Start Date: 09/18/20 Stop Date: 03/17/21 Status: Ordered Stiolto Respimat 60 ACT 2.5 mcg-2.5 mcg/inh inhalation aerosol 2 puffs, Inhalation, Every 24 hours, # 1 each, 6 Refills, Maintenance, 08/13/22 14:22:00 EDT, Aerosol, [facility] #[id number], Partial fill upon patient request if the prescription is for a schedule II opioid drug., 160, cm, 08/13/22 14:12:00 EDT... Start Date: 08/13/22 Stop Date: 03/11/23 Status: Ordered Ventolin HFA 108 mcg/inh inhalation aerosol with adapter 2 puffs, Inhalation, Every 4 hours, PRN NEEDED FOR WHEEZING OR SHORTNESS OF BREATH/DYSPNEA, # 18Gm, 3 Refills, Maintenance, 08/02/22 10:40:00 EDT, [facility], 160, cm, 07/25/22 16:17:00 EDT, Height, [...] Team Personnel Name: Jarod Olmstead MD Position: [facility] Physician - Primary Care Member Role: PCP Address: Address: [address] [place] [address]- Name: Wen Stoll RN Position: S RN Member Role: Primary Care Nurse Name: Jeanne Gallagher [place] Position: [facility] [place] Member Role: Lifetime Consulting Physician Name: Katerina Campos RN Position: S RN Member Role: Primary Care Nurse Name: Bryanna Guzman RN Position: S RN Member Role: Primary Care Nurse Care Team Related Persons Name: ADEN GARCIA Name: FRANCIS GARCIA Address: [place]
--- OUTSIDE RECORDS SUMMARY | 2022-11-20 09:36 | XMS_ITS | Continuity of Care Document ---
Author Name Unknown Organization [facility] Address [address] [place] [address]- Care Team Providers Care Felt Hooker Name Role Phone Ishan PEÑA, [facility] Primary Care Physician Encounter [facility] Date(s): 07/24/22 - 08/23/22 [facility] [address] [place] [address]- Allergies, Adverse Reactions, Alerts No Known Allergies Immunizations Given and Recorded Vaccine Date Status Refusal Reason influenza virus vaccine, inactivated 11/24/21 Loco rded influenza virus vaccine, inactivated 12/10/20 Loco rded [id number] bivalent booster vax 11/24/21 Recorded SARS-CoV-2 mRNA ([id number]-[id number]-[id number]) vax 05/26/21 Recorded tetanus/diphtheria/pertussis, acel(Tdap) 12/17/20 Recorded [...] tablet, 2 Refills, Maintenance, 08/02/22 10:40:00 ED[facility], 160, cm, 07/25/22 16:17:00 EDT, [...] tablet, 2 Refills, Maintenance, 08/02/22 10:40:00 EDT, [facility], [facility], cm, 07/25/22 16:17:00 EDT, Height, 87.6, kg, 02/22/22 17:27:00 EST, Dry Weight Start Date: 08/02/22 Status: Ordered Rick topical emulsion See Instructions, Daily, # 250 mL, 0 Refills, Maintenance, 07/13/22 15:36:00 EDT, [facility] #[id number], Partial fill upon patient request if the prescription is for a schedule II opioid drug.,Daily, 160, cm, 04/30/22 13:34:00 EST, Height, 87.6... Start Date: 07/13/22 Status: Ordered Biafine topical emulsion See Instructions, PRN Prurigo Nodularis, apply to affected area twice a day as needed. 1 bottle., #1 each, 0 Refills, Maintenance, 06/06/22 12:47:00 EDT, [facility]/pharmacy #[id number], Partial fill upon patient request if the prescription is for a schedule II... Start Date: 06/06/22 Status: Ordered hydrochlorothiazide 25 mg oral tablet 1, tablet, By Mouth, Daily, R1., # 90 tablet, Refills 2, Maintenance, 08/02/22 10:40:00 EDT, Route to Pharmacy Electronically, [facility], 160, cm, 07/25/22 16:17:00 EDT, Height, 87.6, kg, 02/22/22 17:27:00 EST, Dry Weight Start Date: 08/02/22 Status: Ordered ibuprofen 600 mg oral tablet 1, tablet, By Mouth, 3 times a day, PRN, # 90 tablet, Refills 0, Tot. Refills 0, Maintenance, NEEDED FOR MODERATE PAIN, 07/13/22 15:37:00 EDT, Route to Pharmacy Electronically, [facility] #[id number], 160, cm, 04/30/22 13:34:00 EST, Height, 87... Start Date: 07/13/22 Status: Ordered metoprolol 25 mg oral tablet, extended release 25 mg, 1, tablet, By Mouth, Daily, # 90 tablet, Refills 3, Tot. Refills 3, Maintenance, 01/15/22 16:59:00 EST, Route to Pharmacy Electronically, [facility], Partial fill upon patient request if [...] 1 Refills, Maintenance, 09/18/20 20:09:00 EDT, Capsule, [facility] #[id number], PLEASE DISPENSE IN BUBBLE/BLISTER PACK, 1 capsule By Mouth 2 times a day,x9... Start Date: 09/18/20 Stop Date: 03/17/21 Status: Ordered Stiolto Respimat 60 ACT 2.5 mcg-2.5 mcg/inh inhalation aerosol 2 puffs, Inhalation, Every 24 hours, # 1 each, 6 Refills, Maintenance, 08/13/22 14:22:00 EDT, Aerosol, [facility] #[id number], Partial fill upon patient request if the prescription is for a schedule II opioid drug., 160, cm, 08/13/22 14:12:00 EDT... Start Date: 08/13/22 Stop Date: 03/11/23 Status: Ordered Ventolin HFA 108 mcg/inh inhalation aerosol with adapter 2 puffs, Inhalation, Every 4 hours, PRN NEEDED FOR WHEEZING OR SHORTNESS OF BREATH/DYSPNEA, # 18Gm, 3 Refills, Maintenance, 08/02/22 10:40:00 EDT, [facility], 160, cm, 07/25/22 16:17:00 EDT, Height, [...] Olmstead MD Position: [facility] Physician - Primary Care Member Role: PCP Address: Address: [address] [place] [address] [address] [place] [address]- Name: Wen Stoll RN Position: S RN Member Role: Primary Care Nurse Name: Jeanne Gallagher Position: S Outreach Member Role: Lifetime Consulting Physician Name: Katerina Campos RN Position: S RN Member Role: Primary Care Nurse Name: Bryanna Guzman RN Position: S RN Member Role: Primary Care Nurse Care Team Related Persons Name: ADEN GARCIA Name: FRANCIS GARCIA Address: [place]
--- OUTSIDE RECORDS SUMMARY | 2022-11-20 09:36 | XMS_ITS | Continuity of Care Document ---
Author Name Unknown Organization [facility] Address Unknown Care Team Providers Care Decorative Cutting Machine Tender Name Role Phone Erik PEÑA, Kirsten Jauregui Primary Care Physician Encounter [facility] Date(s): 11/07/20 - 11/14/20 [facility] Attending Physician: Shaan Smith MD Allergies, Adverse Reactions, Alerts Substance Reaction [...] 1 Refills, Maintenance, 07/22/20 14:03:00 EDT, Tablet, [facility] #[id number], Partial fill upon patient request if the prescr... Start Date: 07/22/20 Status: Ordered cholecalciferol 4000 intl units oral tablet = 100 mcg, By Mouth, Daily, # 90 tablet, 1 Refills, Maintenance, 02/10/20 16:38:00 EST, [facility] #[id number], Partial fill upon patient request if the [...] 07/09/20 14:57:00 EDT, Route to Pharmacy Electronically, [facility] #[id number], 165.1, cm, 07/06/20 11:29:00 EDT, Height, 93.2, kg, 05/04/20 10:09:00 ESTDr... Start Date: 07/09/20 Stop Date: 01/05/21 Status: Ordered Lipitor 40 mg oral tablet 1 tablet = 40 mg, By Mouth, Daily, Take 1 tablet of 40 mg with 1 tablet of 20 mg for total 60 mg daily, # 90 tablet, 1 Refills, Maintenance, 07/22/20 14:03:00 EDT, Tablet, [facility] #[id number], 158, cm, 07/22/20 13:04:00 EDT, Height, 93.2, kg,... Start Date: 07/22/20 Stop Date: 01/18/21 Status: Ordered lisinopril 20 mg oral tablet 1, tablet, By Mouth, Daily, # 90 tablet, Refills 1, Route to Pharmacy Electronically, [facility] #[id number], 158, cm, 08/01/20 11:06:00 EDT, Height, 93.2, kg, 05/04/20 10:09:00 EST, Dry Weight Start Date: 10/24/20 Status: Ordered metoprolol 50 mg oral tablet, extended release 50 mg, 1, tablet, By Mouth, Daily, # 90 tablet, Refills 1, Tot. Refills 1, Maintenance, 07/09/20 14:57:00 EDT, Route to Pharmacy Electronically, [facility] #[id number], 165.1, cm, 07/06/20 11:29:00 EDT, Height, 93.2, kg, 05/04/20 10:09:00 EST, [facility] Start Date: 07/09/20 Stop Date: 01/05/21 Status: [...] 1 Refills, Maintenance, 09/18/20 20:09:00 EDT, Capsule, [facility] #[id number], PLEASE DISPENSE IN BUBBLE/BLISTER PACK, 1 capsule By Mouth 2 times a day,x9... Start Date: 09/18/20 Stop Date: 03/17/21 Status: Ordered Ventolin HFA 108 mcg/inh inhalation aerosol with adapter 2 puffs, Inhalation, Every 4 hours, TAKE 2 PUFFS EVERY 4 HOURS IF NEEDED FOR WHEEZING, # 1 each, 5 Refills, Maintenance, 02/16/20 10:48:00 EST, Inhaler, [facility] #[id number], Partial fill uponpatient request if the prescription [...] abuse(Confirmed) Active COVID-19 vaccine series comp leted- [facility] 03/2020(Confirmed) Active Hyperlipidemia(Confirmed) Active Hypertension(Confirmed) Active Urinary [...] oldest [Reference Range]: 1 Height 158 cm (11/07/20 10:02 AM) Weight 91.1 kg (11/07/20 10:02 AM) Pulse Rate [55-90 bpm] 58 bpm (11/07/20 10:02 AM) Body Mass Index [18.5-24.99] 36.49 *>HHI* (11/07/20 10:02 AM) Blood Pressure [90-138/55-84 mm Hg] 131/ 79mm Hg (11/07/20 10:02 AM) Respiratory Rate [16-30 br/min] 14 br/mi n *L* (11/07/20 10:02 AM) Blood pressure sites Arm, right (11/07/20 10:02 AM) Weight Obtained Via Pediatric scale (11/07/20 10:02 AM) Social History Social History Type Response Tobacco Use: quit 1993 1-2pp d 31yrs. Sex
--- OUTSIDE RECORDS SUMMARY | 2022-11-20 09:36 | XMS_ITS | Continuity of Care Document ---
Author Name Unknown Organization [facility] Address [address] [place] [address]- Care Team Providers Care Exterior Work Helper Name Role Phone Erik PEÑA, Kirsten Jauregui Primary Care Physician [facility] Date[facility] 09[facility] - 10/16/20 [facility] [address] [place] [address]- Allergies, Adverse Reactions, Alerts Substance Reaction Severity [...] 1 Refills, Maintenance, 07/22/20 14:03:00 EDT, Tablet, [facility] #[id number], Partial fill upon patient request if the prescr... Start Date: 07/22/20 Status: Ordered cholecalciferol 4000 intl units oral tablet = 100 mcg, By Mouth, Daily, # 90 tablet, 1 Refills, Maintenance, 02/10/20 16:38:00 EST, [facility] #[id number], Partial fill upon patient request if the [...] 07/09/20 14:57:00 EDT, Route to Pharmacy Electronically, [facility] #[id number], 165.1, cm, 07/06/20 11:29:00 EDT, Height, 93.2, kg, 05/04/20 10:09:00 ESTDr... Start Date: 07/09/20 Stop Date: 01/05/21 Status: Ordered Lipitor 40 mg oral tablet 1 tablet = 40 mg, By Mouth, Daily, Take 1 tablet of 40 mg with 1 tablet of 20 mg for total 60 mg daily, # 90 tablet, 1 Refills, Maintenance, 07/22/20 14:03:00 EDT, Tablet, [facility] #[id number], 158, cm, 07/22/20 13:04:00 EDT, Height, 93.2, kg,... Start Date: 07/22/20 Stop Date: 01/18/21 Status: Ordered lisinopril 20 mg oral tablet 20 mg, 1, tablet, By Mouth, Daily, # 90 tablet, Refills 1, Tot. Refills 1, Maintenance, 10/29/19 14:56:00 EDT, Route to Pharmacy Electronically, [facility] #[id number], 165.1, cm, 10/28/19 9:59:00 EDT, Height Start [...] 07/09/20 14:57:00 EDT, Route to Pharmacy Electronically, [facility] #[id number], 165.1, cm, 07/06/20 11:29:00 EDT, Height, 93.2, [...] 1 Refills, Maintenance, 09/18/20 20:09:00 EDT, Capsule, [facility] #[id number], PLEASE DISPENSE IN BUBBLE/BLISTER PACK, 1 capsule By Mouth 2 times a day,x9... Start Date: 09/18/20 Stop Date: 03/17/21 Status: Ordered Ventolin HFA 108 mcg/inh inhalation aerosol with adapter 2 puffs, Inhalation, Every 4 hours, TAKE 2 PUFFS EVERY 4 HOURS IF NEEDED FOR WHEEZING, # 1 each, 5 Refills, Maintenance, 02/16/20 10:48:00 EST, Inhaler, [facility] #[id number], Partial fill uponpatient request if the prescription [...] abuse(Confirmed) Active COVID-19 vaccine series comp leted- Robodrom 03/2020(Confirmed) Active Hyperlipidemia(Confirmed) Active Hypertension(Confirmed) Active Urinary [...]
--- OUTSIDE RECORDS SUMMARY | 2022-11-20 09:37 | XMS_ITS | Continuity of Care Document ---
Author Name Unknown Organization [facility] Address [address] [place] [id number]- Care Team Providers Care Mortgage Closer Name Role Phone Ishan PEÑA, [facility] Primary Care Physician [facility] Date[facility]s): 03/02/22 - 04/01/22 [facility] [address] [place] [id number] Allergies, Adverse Reactions, Alerts No Known Allergies Immunizations Given and Recorded Vaccine Date Status Refusal Reason influenza virus vaccine, inactivated 11/24/21 Loco rded influenza virus vaccine, inactivated 12/10/20 Loco rded [id number] bivalent booster vax 11/24/21 Recorded SARS-CoV-2 mRNA ([id number]-[id number]-nhiet) vax 05/26/21 Recorded tetanus/diphtheria/pertussis, acel(Tdap) 12/17/20 Recorded [...] 01/15/22 16:59:00 EST, Route to Pharmacy Electronically, [facility], Partial fill upon patient request if [...] MG DAILY, # 90 tablet, 1 Refills, [facility] #[id number], 159, cm, 07/26/21 11:39:00 EDT, Height, 93.2, kg, 05/04/20 10:09:00 EST, Dry We... 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 1 bottle., #1 each, 0 Refills, Maintenance, 03/28/21 11:42:00 EST, [facility] #[id number], Partial fill upon patient request if the prescription is for a lam... Start Date: 03/28/21 Status: Ordered Colace sodium 100 mg oral capsule 100 mg, 1, capsule, By Mouth, 2 times a day, PRN, # 20 capsule, Refills 0, Tot. Refills 0, Maintenance, for constipation, 02/24/22 11:17:00 EST, Route to Pharmacy Electronically, [facility], Partial fill upon patient request if the presc... Start Date: 02/24/22 Status: Ordered gabapentin 300 mg oral capsule 300 mg, By Mouth, 3 times a day, # 63 tablet, Refills 0, Tot. Refills 0, Maintenance, 02/24/22 11:16:00 EST, Route to Pharmacy Electronically, [facility], Partial fill upon patient request if the prescription is for a schedule II opioid... Start Date: 02/24/22 Stop Date: 03/17/22 Status: Ordered hydrochlorothiazide 25 mg oral tablet See Instructions, TAKE 1 TABLET BY MOUTH DAILY, # 90 tablet, Refills 0, Instructions Replace Required Details, Route to Pharmacy Electronically, [facility] #[id number], 159, cm, 07/26/21 11:39:00 EDT, Height, 93.2, kg, 05/04/20 10:09:00 EST, Dry... Start Date: 10/02/21 Status: Ordered ibuprofen 600 mg oral tablet 600 mg, 1, tablet, By Mouth, 3 times a day, PRN, for 30 days, # 90 tablet, Refills 0, Tot. Refills 0, Acute 04/19/22 11:51:00 EST, Pain , Moderate, 03/20/22 11:51:00 EST, [id number] fill upon patient... Start Date: 03/20/22 Stop Date: 04/19/22 Status: Ordered metoprolol 25 mg oral tablet, extended release 25 mg, 1, tablet, By Mouth, Daily, # 90 tablet, Refills 3, Tot. Refills 3, Maintenance, 01/15/22 16:59:00 EST, Route to Pharmacy Electronically, [facility], Partial fill upon patient request if the [...] 1 Refills, Maintenance, 09/18/20 20:09:00 EDT, Capsule, [facility] #[id number], PLEASE DISPENSE IN BUBBLE/BLISTER PACK, 1 capsule By Mouth 2 times a day,x9... Start Date: 09/18/20 Stop Date: 03/17/21 Status: Ordered Readi-Cat 2 oral suspension See Instructions, Oral Contrast 2 Bottles 450 ml each Dx: Hernia, # 900 mL, 0 Refills, Maintenance,11/01/21 15:08:00 EDT, [id number], Partial fill upon patient request if the prescription isfor a schedule II opioid drug., Oral Contrast; 2... Start Date: 11/01/21 Status: Ordered Ventolin HFA 108 mcg/inh inhalation aerosol with adapter 2 puffs, Inhalation, Every 4 hours, TAKE 2 PUFFS EVERY 4 HOURS IF NEEDED FOR WHEEZING, # 1 each, 5 Refills, Maintenance, 02/16/20 10:48:00 EST, Inhaler, [facility] #[id number], Partial fill uponpatient request if the prescription [...] Team Personnel Name: Ishan PEÑA, Jarod Position: [facility] Primary Care Physician Member Role: PCP Address: Address: [address] [place] [address] [address] [place] [address]- Name: Wen Stoll RN Position: S RN [...]
--- OUTSIDE RECORDS SUMMARY | 2022-11-20 09:37 | XMS_ITS | Continuity of Care Document ---
Author Name Unknown Organization [facility] Address [address] [place] [address]- Care Team Providers Care In Class Special Education Teacher Name Role Phone Erik PEÑA, Kirsten Jauregui Primary Care Physician Encounter [facility] Date(s): 04/21/20 - 05/21/20 [facility] [address] [place] [address]- Allergies, Adverse Reactions, Alerts Substance Reaction Severity [...] 1 Refills, Maintenance, 04/20/20 16:09:00 EST, Tablet, [facility] #[id number], Partial fill upon patient request if the prescr... Start Date: 04/20/20 Status: Ordered cholecalciferol 4000 intl units oral tablet = 100 mcg, By Mouth, Daily, # 90 tablet, 1 Refills, Maintenance, 02/10/20 16:38:00 EST, [facility] #[id number], Partial fill upon patient request if the [...] 01/07/20 14:52:00 EST, Route to Pharmacy Electronically, [facility] #[id number], 165.1, cm, 12/10/19 10:57:00 EDT, Height Start Date: 01/07/20 Stop Date: 07/05/20 Status: Ordered Lipitor 40 mg oral tablet 1 tablet = 40 mg, By Mouth, Daily, Take 1 tablet of 40 mg with 1 tablet of 20 mg for total 60 mg daily, # 90 tablet, 1 Refills, Maintenance, 04/06/20 14:02:00 EST, Tablet, [facility] #[id number], 165.1, cm, 04/06/20 8:13:00 EST, Height Start Date: 04/06/20 Status: Ordered lisinopril 20 mg oral tablet 20 mg, 1, tablet, By Mouth, Daily, # 90 tablet, Refills 1, Tot. Refills 1, Maintenance, 10/29/19 14:56:00 EDT, Route to Pharmacy Electronically, [facility] #[id number], 165.1, cm, 10/28/19 9:59:00 EDT, Height Start Date: 10/29/19 Stop Date: 04/26/20 Status: Ordered metoprolol 50 mg oral tablet, extended release 50 mg, 1, tablet, By Mouth, Daily, # 90 tablet, Refills 1, Tot. Refills 1, Maintenance, 01/07/20 14:51:00 EST, Route to Pharmacy Electronically, [facility] #[id number], 165.1, cm, 12/10/19 10:57:00 EDT, Height Start [...] 1 Refills, Maintenance, 04/01/20 14:07:00 EST, Capsule, [facility] #[id number], PLEASE DISPENSE IN BUBBLE/BLISTER PACK, 1 capsule By Mouth Daily,x90 days,Instr:PLEA... Start Date: 04/01/20 Stop Date: 09/28/20 Status: Ordered Ventolin HFA 108 mcg/inh inhalation aerosol with adapter 2 puffs, Inhalation, Every 4 hours, TAKE 2 PUFFS EVERY 4 HOURS IF NEEDED FOR WHEEZING, # 1 each, 5 Refills, Maintenance, 02/16/20 10:48:00 EST, Inhaler, [facility] #[id number], Partial fill uponpatient request if the prescription [...]
--- OUTSIDE RECORDS SUMMARY | 2022-11-20 09:37 | XMS_ITS | Continuity of Care Document ---
Author Name Unknown Organization [facility] Address [address] [place] [address], [address] [place] [address]- Care Team Providers Care Automation Consultant Name Role Phone Ishan PEÑA, [facility] Primary Care Physician [facility]counter [facility] Date(s): 02/14/22 - 03/16/22 [facility] [address] [place] [address], [address] [place], [place] [address] Allergies, Adverse Reactions, Alerts No Known Allergies Immunizations Given and Recorded Vaccine Date Status Refusal Reason influenza virus vaccine, inactivated 11/24/21 Loco rded influenza virus vaccine, inactivated 12/10/20 Loco rded [id number] bivalent booster vax 11/24/21 Recorded SARS-CoV-2 mRNA ([id number]-[id number]-[id number]) vax 05/26/21 Recorded tetanus/diphtheria/pertussis, acel(Tdap) 12/17/20 Recorded [...] 01/15/22 16:59:00 EST, Route to Pharmacy Electronically, [facility], Partial fill upon patient request [...] MG DAILY, # 90 tablet, 1 Refills, [facility] #[id number], 159, cm, 07/26/21 11:39:00 EDT, Height, 93.2, kg, 05/04/20 10:09:00 EST, Dry We... 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 1 bottle., #1 each, 0 Refills, Maintenance, 03/28/21 11:42:00 EST, [facility] #[id number], Partial fill upon patient request if the prescription is for a lam... Start Date: 03/28/21 Status: Ordered Colace sodium 100 mg oral capsule 100 mg, 1, capsule, By Mouth, 2 times a day, PRN, # 20 capsule, Refills 0, Tot. Refills 0, Maintenance, for constipation, 02/24/22 11:17:00 EST, Route to Pharmacy Electronically, [facility], Partial fill upon patient request if the presc... Start Date: 02/24/22 Status: Ordered gabapentin 300 mg oral capsule 300 mg, By Mouth, 3 times a day, # 63 tablet, Refills 0, Tot. Refills 0, Maintenance, 02/24/22 11:16:00 EST, Route to Pharmacy Electronically, [facility], Partial fill upon patient request if the prescription is for a schedule II opioid... Start Date: 02/24/22 Stop Date: 03/17/22 Status: Ordered hydrochlorothiazide 25 mg oral tablet See Instructions, TAKE 1 TABLET BY MOUTH DAILY, # 90 tablet, Refills 0, Instructions Replace Required Details, Route to Pharmacy Electronically, [facility] #[id number], 159, cm, 07/26/21 11:39:00 EDT, Height, 93.2, kg, 05/04/20 10:09:00 EST, Dry... Start Date: 10/02/21 Status: Ordered metoprolol 25 mg oral tablet, extended release 25 mg, 1, tablet, By Mouth, Daily, # 90 tablet, Refills 3, Tot. Refills 3, Maintenance, 01/15/22 16:59:00 EST, Route to Pharmacy Electronically, [facility], Partial fill upon patient request [...] 1 Refills, Maintenance, 09/18/20 20:09:00 EDT, Capsule, [facility] #[id number], PLEASE DISPENSE IN BUBBLE/BLISTER PACK, 1 capsule By Mouth 2 times a day,x9... Start Date: 09/18/20 Stop Date: 03/17/21 Status: Ordered Readi-Cat 2 oral suspension See Instructions, Oral Contrast 2 Bottles 450 ml each Dx: Hernia, # 900 mL, 0 Refills, Maintenance,11/01/21 15:08:00 EDT, [id number], Partial fill upon patient request if the prescription isfor a schedule II opioid drug., Oral Contrast; 2... Start Date: 11/01/21 Status: Ordered Ventolin HFA 108 mcg/inh inhalation aerosol with adapter 2 puffs, Inhalation, Every 4 hours, TAKE 2 PUFFS EVERY 4 HOURS IF NEEDED FOR WHEEZING, # 1 each, 5 Refills, Maintenance, 02/16/20 10:48:00 EST, Inhaler, [facility] #[id number], Partial fill uponpatient request if the prescription [...] Team Personnel Name: Jarod Olmstead MD Position: [facility] Primary Care Physician Member Role: PCP Address: Address: [address] [place] [id number] Name: Wen Stoll RN Position: [facility] RN Member Role: Primary Care Nurse Name: Jeanne Gallagher Position: [facility] Outreach Member Role: Lifetime Consulting Physician Name: Katerina Campos RN Position: [facility] RN Member Role: Primary Care Nurse Name: Bryanna Guzman RN Position: [facility] RN Member Role: Primary Care Nurse Care Team Related Persons Name: ADEN GARCIA Name: FRANCIS GARCIA Address: home
--- OUTSIDE RECORDS SUMMARY | 2022-11-20 09:37 | XMS_ITS | Continuity of Care Document ---
Author Name Unknown Organization [facility] Address [address] [place] [address] [address] [place] [address]- Care Team Providers Care Computer Operations Supervisor Name Role Phone Erik PEÑA, Kirsten Jauregui Primary Care Physician Encounter [facility] Date(s): 02/01/20 - 03/02/[address] [place], [place] [address] Attending Physician: Lucy Montaño Admitting Physician: AdmLucy [...] 90 tablet, 1 Refills, Maintenance, 02/10/20 16:38:00 [id number], Partial fill upon patient request if the prescription is for a schedule II opioid drug., 165.1, cm, 02/10/20 15:04:00 EST, Height Start Date: 02/10/20 Stop Date: 08/08/20 Status: Ordered clotrimazole 1% topical cream 1 application, Topically, 2 times a day, PRN rash, for 30 days, # 60 Gm, 1 Refills, Acute 04/10/20 16:32:00 EST, 02/10/20 16:32:00 EST, Cream, [facility] #[id number], Partial fill upon patient request if the prescription is for a schedule II opio... Start Date: 02/10/20 Stop Date: 04/10/20 Status: Ordered Diflucan 150 mg oral tablet 1 tablet = 150 mg, By Mouth, Once, # 1 tablet, 0 Refills, Soft Stop, 01/13/20 13:25:00 EST, [facility] #[id number], Partial fill upon patient request, 165.1, cm, [...] 01/07/20 14:52:00 EST, Route to Pharmacy Electronically, [facility] #[id number], 165.1, cm, 12/10/19 10:57:00 EDT, Height Start [...] 02/10/20 15:09:00 EST, Route to Pharmacy Electronically, [facility]... Start Date: 02/10/20 Stop Date: 03/11/20 Status: Ordered ibuprofen 600 mg oral tablet 600 mg, 1, tablet, By Mouth, Every 6 hours, PRN, for 30 days, with food or milk, # 90 tablet, Refills 0, Tot. Refills 0, Acute 04/10/20 15:09:00 EST, Pain , Mild, 03/11/20 15:09:00 EST, Route to Pharmacy Electronically, [facility] #[id number], Pa... Start Date: 03/11/20 Stop Date: 04/10/20 Status: Ordered Lipitor 40 mg oral tablet 1 tablet = 40 mg, By Mouth, Daily, # 90 tablet, 1 Refills, Maintenance, 01/07/20 14:52:00 EST, Tablet, [facility] #[id number], 165.1, cm, 12/10/19 10:57:00 EDT, Height Start Date: 01/07/20 Stop Date: 07/05/20 Status: Ordered lisinopril 20 mg oral tablet 20 mg, 1, tablet, By Mouth, Daily, # 90 tablet, Refills 1, Tot. Refills 1, Maintenance, 10/29/19 14:56:00 EDT, Route to Pharmacy Electronically, [facility] #[id number], 165.1, cm, 10/28/19 9:59:00 EDT, Height Start Date: 10/29/19 Stop Date: 04/26/20 Status: Ordered metoprolol 50 mg oral tablet, extended release 50 mg, 1, tablet, By Mouth, Daily, # 90 tablet, Refills 1, Tot. Refills 1, Maintenance, 01/07/20 14:51:00 EST, Route to Pharmacy Electronically, [facility] #[id number], 165.1, cm, 12/10/19 10:57:00 EDT, Height Start Date: 01/07/20 Stop Date: 07/05/20 Status: Ordered pantoprazole 20 mg oral delayed release tablet = 20 mg, By Mouth, Daily, # 90 each, 0 Refills, Maintenance, 01/06/20 15:27:00 EST, [facility], 165.1, cm, 12/10/19 10:57:00 EDT, Height Start Date: 01/06/20 Stop Date: 2/9/21 Status: Ordered PreserVision AREDS 2 oral capsule 1 capsule, By Mouth, Daily, 0 Refills, Maintenance, 03/01/16 13:51:26 Start Date: 03/01/16 Status: Ordered Ventolin HFA 108 mcg/inh inhalation aerosol with adapter 2 puffs, Inhalation, Every 4 hours, TAKE 2 PUFFS EVERY 4 HOURS IF NEEDED FOR WHEEZING, # 1 each, 5 Refills, Maintenance, 02/16/20 10:48:00 EST, Inhaler, [facility] #[id number], Partial fill uponpatient request if the prescription [...]
--- OUTSIDE RECORDS SUMMARY | 2022-11-20 09:37 | XMS_ITS | Continuity of Care Document ---
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[facility], 2013, rx Biafine topicalemulsion bid(Discharge Diagnosis) - 06/06/22 Allergies, Adverse Reactions, Alerts No Known Allergies Immunizations Given and Recorded Vaccine Date Status Refusal Reason influenza virus vaccine, inactivated 11/24/21 Loco rded influenza virus vaccine, inactivated 12/10/20 Loco rded [id number] bivalent booster vax 11/24/21 Recorded SARS-CoV-2 mRNA ([id number]-[id number]-[id number]) vax 05/26/21 Recorded tetanus/diphtheria/pertussis, acel(Tdap) 12/17/20 Recorded [...] 01/15/22 16:59:00 EST, Route to Pharmacy Electronically, [facility], Partial fill upon patient request if [...] MG DAILY, # 90 tablet, 1 Refills, [facility][id number], 159, cm, 07/26/21 11:39:00 EDT, Height, 93.2, kg, 05/04/20 10:09:00 EST, Dry We... 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 1 bottle., #1 each, 0 Refills, Maintenance, 06/06/22 12:47:00 EDT, [facility], Partial fill upon patient request if the prescription is for a schedule II... Start Date: 06/06/22 Status: Ordered ibuprofen 600 mg oral tablet 1, tablet, By Mouth, 3 times a day, PRN, # 90 tablet, Refills 0, Maintenance, NEEDED FOR MODERATE PAIN, 04/18/22 9:29:00 EST, Route to Pharmacy Electronically, [id number], 160, cm, 03/15/22 14:35:00 EST, Height, 87.6, kg, 02/22/22 17:27:00 EST... Start Date: 04/18/22 Status: Ordered metoprolol 25 mg oral tablet, extended release 25 mg, 1, tablet, By Mouth, Daily, # 90 tablet, Refills 3, Tot. Refills 3, Maintenance, 01/15/22 16:59:00 EST, Route to Pharmacy Electronically, [facility], Partial fill upon patient request if [...] 1 Refills, Maintenance, 09/18/20 20:09:00 EDT, Capsule, [facility] #[id number], PLEASE DISPENSE IN BUBBLE/BLISTER PACK, 1 capsule [...] Navas, 2012, rx Biafine topical emulsion bid Confirmed [...] Navas, 2012, rx Biafine topical emulsion bid Discharge Diagnosis 06/06/22 Non-Specified Social History Social History Type Response Tobacco Use: quit 1993 1-2pp d 31yrs. Sex Patient Care team information Care Team Personnel Name: Jarod Olmstead MD Position: [facility] Primary Care Physician Member Role: PCP Address: Address: [address] [place] [phone]- Name: Wen Stoll RN Position: S RN Member Role: Primary Care Nurse Name: Jeanne Gallagher Position: S Outreach Member Role: Lifetime Consulting Physician Name: Katerina Campos RN Position: S RN Member Role: Primary Care Nurse Name: Bryanna Guzman RN Position: S RN Member Role: Primary Care Nurse Care Team Related Persons Name: ADEN GARCIA Name: FRANCIS GARCIA Address: [place]
--- OUTSIDE RECORDS SUMMARY | 2022-11-20 09:37 | XMS_ITS | Continuity of Care Document ---
Author Name Unknown Organization [facility] Address [address] [place] [address]- Care Team Providers Care Underground Foreman Name Role Phone Ishan PEÑA, [facility] Primary Care Physician Encounter [facility] Date(s): 07/25/22 - 08/24/[address] [facility] Adult [address] [place] [address]- Allergies, Adverse Reactions, Alerts No Known Allergies Immunizations Given and Recorded Vaccine Date Status Refusal Reason influenza virus vaccine, inactivated 11/24/21 Loco rded influenza virus vaccine, inactivated 12/10/20 Loco rded [id number] bivalent booster vax 11/24/21 Recorded SARS-CoV-2 mRNA ([id number]) vax 05/26/21 Recorded tetanus/diphtheria/pertussis, acel(Tdap) 12/17/20 Recorded [...] tablet, 2 Refills, Maintenance, 08/02/22 10:40:00 [facility], cm, 07/25/22 16:17:00 EDT, [...] Refills, Maintenance, 08/02/22 10:40:00 EDT, [facility], 160, cm, 07/25/22 16:17:00 EDT, Height, 87.6, kg, 02/22/22 17:27:00 EST, Dry Weight Start Date: 08/02/22 Status: Ordered Rick topical emulsion See Instructions, Daily, # 250 mL, 0 Refills, Maintenance, 07/13/22 15:36:00 EDT, [facility] #[id number], Partial fill upon patient request if the prescription is for a schedule II opioid drug.,Daily, 160, cm, 04/30/22 13:34:00 EST, Height, 87.6... Start Date: 07/13/22 Status: Ordered Biafine topical emulsion See Instructions, PRN Prurigo Nodularis, apply to affected area twice a day as needed. 1 bottle., #1 each, 0 Refills, Maintenance, 06/06/22 12:47:00 EDT, [facility]/pharmacy #[id number], Partial fill upon patient request if the prescription is for a schedule II... Start Date: 06/06/22 Status: Ordered hydrochlorothiazide 25 mg oral tablet 1, tablet, By Mouth, Daily, R1., # 90 tablet, Refills 2, Maintenance, 08/02/22 10:40:00 EDT, Route to Pharmacy Electronically, [facility], 160, cm, 07/25/22 16:17:00 EDT, Height, 87.6, kg, 02/22/22 17:27:00 EST, Dry Weight Start Date: 08/02/22 Status: Ordered ibuprofen 600 mg oral tablet 1, tablet, By Mouth, 3 times a day, PRN, # 90 tablet, Refills 0, Tot. Refills 0, Maintenance, NEEDED FOR MODERATE PAIN, 07/13/22 15:37:00 EDT, Route to Pharmacy Electronically, [facility] #[id number], 160, cm, 04/30/22 13:34:00 EST, Height, 87... Start Date: 07/13/22 Status: Ordered metoprolol 25 mg oral tablet, extended release 25 mg, 1, tablet, By Mouth, Daily, # 90 tablet, Refills 3, Tot. Refills 3, Maintenance, 01/15/22 16:59:00 EST, Route to Pharmacy Electronically, [facility], Partial fill upon patient request if [...] 1 Refills, Maintenance, 09/18/20 20:09:00 EDT, Capsule, [facility] #[id number], PLEASE DISPENSE IN BUBBLE/BLISTER PACK, 1 capsule By Mouth 2 times a day,x9... Start Date: 09/18/20 Stop Date: 03/17/21 Status: Ordered Stiolto Respimat 60 ACT 2.5 mcg-2.5 mcg/inh inhalation aerosol 2 puffs, Inhalation, Every 24 hours, # 1 each, 6 Refills, Maintenance, 08/13/22 14:22:00 EDT, Aerosol, [facility] #[id number], Partial fill upon patient request if the prescription is for a schedule II opioid drug., 160, cm, 08/13/22 14:12:00 EDT... Start Date: 08/13/22 Stop Date: 03/11/23 Status: Ordered Ventolin HFA 108 mcg/inh inhalation aerosol with adapter 2 puffs, Inhalation, Every 4 hours, PRN NEEDED FOR WHEEZING OR SHORTNESS OF BREATH/DYSPNEA, # 18Gm, 3 Refills, Maintenance, 08/02/22 10:40:00 EDT, [facility], 160, cm, 07/25/22 16:17:00 EDT, Height, [...] team information Care Team Personnel Name: Jarod Olmstaed MD Position: [facility] Physician - Primary Care Member Role: PCP Address: Address: [address] [place] [address] [address] [place] [address]- Name: Wen Stoll RN Position: S RN Member Role: Primary Care Nurse Name: Jeanne Gallagher Position: [facility] Outreach Member Role: Lifetime Consulting Physician Name: Katerina Campos RN Position: S RN Member Role: Primary Care Nurse Name: Bryanna Guzman RN Position: S RN Member Role: Primary Care Nurse Care Team Related Persons Name: ADEN GARCIA Name: FRANCIS GARCIA Address: [place]
--- OUTSIDE RECORDS SUMMARY | 2022-11-20 09:37 | XMS_ITS | Continuity of Care Document ---
Author Name Unknown Organization [facility] Address Unknown Care Team Providers Care Ham Stripper Name Role Phone Erik PEÑA, Kirsten Jauregui Primary Care Physician ( [phone] [place] [facility] Date(s): 01/30/21 - 03/01/21 [facility] Attending Physician: Lucy Montaño Admitting Physician: Lucy [...] MG DAILY, # 90 tablet, 0 Refills, [facility] #[id number], 158, cm, 01/04/21 12:51:00 EST, Height, 93.2, kg, 05/04/20 10:09:00 EST, Dry Weight Start Date: 01/25/21 Status: Ordered calcium citrate 950 mg oral tablet 1 tablet = 950 mg, By Mouth, 2 times a day, # 180 tablet, 0 Refills, Maintenance, 01/04/21 13:18:00EST, Tablet, [facility] #[id number], Partial fill upon patient request if the prescription is for a schedule II opioid drug., 158, cm, 01/04/21 12... Start Date: 01/04/21 Status: Ordered cholecalciferol 2000 intl units oral tablet 2 tablet, By Mouth, Daily, # 180 tablet, 1 Refills, [facility] #[id number], 158, cm, 01/04/21 12:51:00 EST, Height, 93.2, [...] tablet, Refills 1, Route to Pharmacy Electronically, [facility] #[id number], 158, cm, 11/25/20 12:59:00 EDT, Height, 93.2, kg, 05/04/20 10:09:00 EST, Dry Weight Start Date: 12/30/20 Status: Ordered ibuprofen 600 mg oral tablet 1, tablet, By Mouth, Every 6 hours, PRN, for 30 days, TAKE WITH FOOD OR MILK., # 90 tablet, Refills0, Physician Stop, NEEDED FOR PAIN, Route to Pharmacy Electronically, [facility] #[id number], 158, cm, 01/04/21 12:51:00 EST, Height, 93.2, kg,... Start Date: 02/07/21 Stop Date: 03/09/21 Status: Ordered lisinopril 20 mg oral tablet 1, tablet, By Mouth, Daily, # 90 tablet, Refills 1, Route to Pharmacy Electronically, [facility] #[id number], 158, cm, 08/01/20 11:06:00 EDT, Height, 93.2, kg, 05/04/20 10:09:00 EST, Dry Weight Start Date: 10/24/20 Status: Ordered Metoprolol Succinate ER 50 mg oral tablet, extended release 1 tablet, By Mouth, Daily, # 90 tablet, 1 Refills, [facility] #[id number], 158, cm, 11/25/20 12:59:00 EDT, Height, 93.2, [...] 1 Refills, Maintenance, 09/18/20 20:09:00 EDT, Capsule, [facility] #[id number], PLEASE DISPENSE IN BUBBLE/BLISTER PACK, 1 capsule By Mouth 2 times a day,x9... Start Date: 09/18/20 Stop Date: 03/17/21 Status: Ordered Ventolin HFA 108 mcg/inh inhalation aerosol with adapter 2 puffs, Inhalation, Every 4 hours, TAKE 2 PUFFS EVERY 4 HOURS IF NEEDED FOR WHEEZING, # 1 each, 5 Refills, Maintenance, 02/16/20 10:48:00 EST, Inhaler, [facility] #[id number], Partial fill uponpatient request if the prescription is for a schedu... Start Date: 12/22/20 Stop Date: 08/14/20 Status: Ordered Problem List [...] abuse(Confirmed) Active COVID-19 vaccine series comp leted- Better[employer] 03/2020(Confirmed) Active Hyperlipidemia(Confirmed) Active Hypertension(Confirmed) Active Urinary [...]
--- OUTSIDE RECORDS SUMMARY | 2022-11-20 09:37 | XMS_ITS | Continuity of Care Document ---
Author Name Unknown Organization [facility] Address [address] [place] [id number]- Care Team Providers Care Laundry Routeman Name Role Phone Ishan PEÑA, [facility] Primary Care Physician Encounter [facility] Date(s): 12/14/21 - 01/13/22 [facility] [address] [place] [id number] Allergies, Adverse Reactions, Alerts No Known Allergies Immunizations Given and Recorded Vaccine Date Status Refusal Reason SARS-CoV-2 mRNA ([id number]) vax 05/26/21 Recorded tetanus/diphtheria/pertussis, acel(Tdap) 12/17/20 Recorded [...] MG DAILY, # 90 tablet, 1 Refills, [facility] #[id number], 159, cm, 07/26/21 11:39:00 EDT, Height, 93.2, kg, 05/04/20 10:09:00 EST, Dry We... 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 1 bottle., #1 each, 0 Refills, Maintenance, 03/28/21 11:42:00 EST, [facility] #[id number], Partial fill upon patient request if the prescription is for a lam... Start Date: 03/28/21 Status: Ordered hydrochlorothiazide 25 mg oral tablet See Instructions, TAKE 1 TABLET BY MOUTH DAILY, # 90 tablet, Refills 0, Instructions Replace Required Details, Route to Pharmacy Electronically, [facility] #[id number], 159, cm, 07/26/21 11:39:00 EDT, Height, 93.2, kg, 05/04/20 10:09:00 EST, Dry... Start Date: 10/02/21 Status: Ordered lisinopril 20 mg oral tablet 1, tablet, By Mouth, Daily, OF LISINOPRIL., # 90 tablet, Refills 0, Route to Pharmacy Electronically, [facility] #[id number], 159, cm, 07/26/21 11:39:00 EDT, Height, 93.2, [...] Mouth, Daily, # 90 tablet, 0 Refills, [facility] #[id number], 159, cm, 04/26/21 9:27:00 EST, Height, 93.2, [...] 1 Refills, Maintenance, 09/18/20 20:09:00 EDT, Capsule, [facility] #[id number], PLEASE DISPENSE IN BUBBLE/BLISTER PACK, 1 capsule [...] 5 Refills, Maintenance, 02/16/20 10:48:00 EST, Inhaler, [facility] #[id number], Partial fill uponpatient request if the prescription [...] Team Personnel Name: Ishan PEÑA, Jarod Position: [facility] Primary Care Physician Member Role: PCP Address: Address: [address] [place] [address]- [place] Name: Jeanne Gallagher Position: [facility] Outreach Member Role: Lifetime Consulting Physician Care Team Related Persons Name: FRANCISCO JOlvinADEN Name: FRANCIS GARCIA Address: home
--- OUTSIDE RECORDS SUMMARY | 2022-11-20 09:37 | XMS_ITS | Continuity of Care Document ---
Author Name Unknown Organization [facility] Address [address] [place] [address]- Care Team Providers Care Bullet Slugs Inspector Name Role Phone Erik PEÑA, Kirsten Jauregui Primary Care Physician ( [phone] Encounter [facility] Date(s): 02/09/20 - 02/16/20 [facility] [address] [place] [address]- Encounter Diagnosis Tinea(Discharge Diagnosis) - 02/09/20 Wrist pain, left(Discharge Diagnosis) - 02/09/20 Rash(Discharge Diagnosis) - 02/12/20 Hypertension(Discharge Diagnosis) - 02/12/20 Attending Physician: Erik PEÑA, Kirsten Jauregui Allergies, [...] tablet, 1 Refills, Maintenance, 02/10/20 16:38:00 EST, [facility] #[id number], Partial fill upon patient request if the prescription is for a schedule II opioid drug., 165.1, cm, 02/10/20 15:04:00 EST, Height Start Date: 02/10/20 Stop Date: 08/08/20 Status: Ordered clotrimazole 1% topical cream 1 application, Topically, 2 times a day, PRN rash, for 30 days, # 60 Gm, 1 Refills, Acute 04/10/20 16:32:00 EST, 02/10/20 16:32:00 EST, Cream, [facility] #[id number], Partial fill upon patient request if the prescription is for a schedule II opio... Start Date: 02/10/20 Stop Date: 04/10/20 Status: Ordered Diflucan 150 mg oral tablet 1 tablet = 150 mg, By Mouth, Once, # 1 tablet, 0 Refills, Soft Stop, 01/13/20 13:25:00 EST, [facility] #[id number], Partial fill upon patient request, 165.1, cm, [...] 01/07/20 14:52:00 EST, Route to Pharmacy Electronically, [facility] #[id number], 165.1, cm, 12/10/19 10:57:00 EDT, Height Start [...] 02/10/20 15:09:00 EST, Route to Pharmacy Electronically, [facility]... Start Date: 02/10/20 Stop Date: 03/11/20 Status: Ordered ibuprofen 600 mg oral tablet 600 mg, 1, tablet, By Mouth, Every 6 hours, PRN, for 30 days, with food or milk, # 90 tablet, Refills 0, Tot. Refills 0, Acute 04/10/20 15:09:00 EST, Pain , Mild, 03/11/20 15:09:00 EST, Route to Pharmacy Electronically, [facility] #[id number], Pa... Start Date: 03/11/20 Stop Date: 04/10/20 Status: Ordered Lipitor 40 mg oral tablet 1 tablet = 40 mg, By Mouth, Daily, # 90 tablet, 1 Refills, Maintenance, 01/07/20 14:52:00 EST, Tablet, [facility] #[id number], 165.1, cm, 12/10/19 10:57:00 EDT, Height Start Date: 01/07/20 Stop Date: 07/05/20 Status: Ordered lisinopril 20 mg oral tablet 20 mg, 1, tablet, By Mouth, Daily, # 90 tablet, Refills 1, Tot. Refills 1, Maintenance, 10/29/19 14:56:00 EDT, Route to Pharmacy Electronically, [facility] #[id number], 165.1, cm, 10/28/19 9:59:00 EDT, Height Start Date: 10/29/19 Stop Date: 04/26/20 Status: Ordered metoprolol 50 mg oral tablet, extended release 50 mg, 1, tablet, By Mouth, Daily, # 90 tablet, Refills 1, Tot. Refills 1, Maintenance, 01/07/20 14:51:00 EST, Route to Pharmacy Electronically, [facility] #[id number], 165.1, cm, 12/10/19 10:57:00 EDT, Height Start [...] 02/17/20 16:33:00 EST, 02/10/20 16:33:00 EST, Cream, [facility] #[id number], Partial fill upo... Start Date: 02/10/20 Stop Date: 02/17/20 Status: Ordered Ventolin HFA 108 mcg/inh inhalation aerosol with adapter 2 puffs, Inhalation, Every 4 hours, TAKE 2 PUFFS EVERY 4 HOURS IF NEEDED FOR WHEEZING, # 1 each, 5 Refills, Maintenance, 02/16/20 10:48:00 EST, Inhaler, [facility] #[id number], Partial fill uponpatient request if the prescription [...] Effective Dates Health Status Clinical Service Informant Tinea Discharge Diagnosis 02/09/20 Wrist pain, left Discharge Diagnosis 02/09/20 Rash Discharge Diagnosis 02/12/20 Hypertension Discharge Diagnosis 02/12/20 Vital Signs Most recent to oldest [Reference Range]: 1 Height 165.1 cm (02/09/20 10:48 AM) Weight 93.4 kg (02/09/20 10:48 AM) Pulse Rate [55-90 bpm] 55 bpm (02/09/20 10:48 AM) Body Mass Index [18.5-24.99] 34.27 *>HHI* (02/09/20 10:48 AM) Blood Pressure [90-138/55-84 mm Hg] 144/ 83mm Hg *H* (02/09/20 10:48 AM) Blood pressure sites Arm, right (02/09/20 10:48 AM) Weight Obtained Via Standing scale (02/09/20 10:48 AM) Social History Social History Type Response Tobacco Use: quit 1993 1-2pp d 31yrs. Sex
--- OUTSIDE RECORDS SUMMARY | 2022-11-20 09:37 | XMS_ITS | Continuity of Care Document ---
Author Name Unknown Organization [facility] Address [address] [place] [address]- Care Team Providers Care Chicken And Fish Cleaner Name Role Phone Erik PEÑA, Kirsten Jauregui Primary Care Physician Encounter [facility] Date(s): 03/05/20 - 04/27/20 [facility] [address] [place] [id number]- Attending Physician: Yousif Parisi MD Admitting Physician: Yousif Parisi MD Referring Physician: Kirsten Valencia MD Allergies, [...] 1 Refills, Maintenance, 04/20/20 16:09:00 EST, Tablet, [facility] #[id number], Partial fill upon patient request if the prescr... Start Date: 04/20/20 Status: Ordered cholecalciferol 4000 intl units oral tablet = 100 mcg, By Mouth, Daily, # 90 tablet, 1 Refills, Maintenance, 02/10/20 16:38:00 EST, [facility] #[id number], Partial fill upon patient request if the [...] 01/07/20 14:52:00 EST, Route to Pharmacy Electronically, [facility] #[id number], 165.1, cm, 12/10/19 10:57:00 EDT, Height Start Date: 01/07/20 Stop Date: 07/05/20 Status: Ordered Lipitor 40 mg oral tablet 1 tablet = 40 mg, By Mouth, Daily, Take 1 tablet of 40 mg with 1 tablet of 20 mg for total 60 mg daily, # 90 tablet, 1 Refills, Maintenance, 04/06/20 14:02:00 EST, Tablet, [facility] #[id number], 165.1, cm, 04/06/20 8:13:00 EST, Height Start Date: 04/06/20 Status: Ordered lisinopril 20 mg oral tablet 20 mg, 1, tablet, By Mouth, Daily, # 90 tablet, Refills 1, Tot. Refills 1, Maintenance, 10/29/19 14:56:00 EDT, Route to Pharmacy Electronically, [facility] #[id number], 165.1, cm, 10/28/19 9:59:00 EDT, Height Start Date: 10/29/19 Stop Date: 04/26/20 Status: Ordered metoprolol 50 mg oral tablet, extended release 50 mg, 1, tablet, By Mouth, Daily, # 90 tablet, Refills 1, Tot. Refills 1, Maintenance, 01/07/20 14:51:00 EST, Route to Pharmacy Electronically, [facility] #[id number], 165.1, cm, 12/10/19 10:57:00 EDT, Height Start [...] 1 Refills, Maintenance, 04/01/20 14:07:00 EST, Capsule, [facility] #[id number], PLEASE DISPENSE IN BUBBLE/BLISTER PACK, 1 capsule By Mouth Daily,x90 days,Instr:PLEA... Start Date: 04/01/20 Stop Date: 09/28/20 Status: Ordered Ventolin HFA 108 mcg/inh inhalation aerosol with adapter 2 puffs, Inhalation, Every 4 hours, TAKE 2 PUFFS EVERY 4 HOURS IF NEEDED FOR WHEEZING, # 1 each, 5 Refills, Maintenance, 02/16/20 10:48:00 EST, Inhaler, [facility] #[id number], Partial fill uponpatient request if the prescription [...]
--- OUTSIDE RECORDS SUMMARY | 2022-11-20 09:37 | XMS_ITS | Continuity of Care Document ---
Author Name Unknown Organization [facility] Address [address] [place] [address], [address] [place] [address]- Care Team Providers Care User Experience Manager Name Role Phone Ishan PEÑA, [facility] Primary Care Physician Encounter [facility] Date(s): 02/23/22 - 03/25/22 [facility] [address] [place] [address], [address] [place], [place] [address] Allergies, Adverse Reactions, Alerts No Known Allergies Immunizations Given and Recorded Vaccine Date Status Refusal Reason influenza virus vaccine, inactivated 11/24/21 Loco rded influenza virus vaccine, inactivated 12/10/20 Loco rded [id number] bivalent booster vax 11/24/21 Recorded SARS-CoV-2 mRNA ([id number]) vax 05/26/21 Recorded tetanus/diphtheria/pertussis, acel(Tdap) 12/17/20 Recorded [...] EST, Route to Pharmacy Electronically, [facility], Partial fill upon patient request [...] MG DAILY, # 90 tablet, 1 Refills, [facility] #[id number], 159, cm, 07/26/21 11:39:00 EDT, Height, 93.2, kg, 05/04/20 10:09:00 EST, Dry We... 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 1 bottle., #1 each, 0 Refills, Maintenance, 03/28/21 11:42:00 EST, [facility] #[id number], Partial fill upon patient request if the prescription is for a lam... Start Date: 03/28/21 Status: Ordered Colace sodium 100 mg oral capsule 100 mg, 1, capsule, By Mouth, 2 times a day, PRN, # 20 capsule, Refills 0, Tot. Refills 0, Maintenance, for constipation, 02/24/22 11:17:00 EST, Route to Pharmacy Electronically, [facility], Partial fill upon patient request if the presc... Start Date: 02/24/22 Status: Ordered gabapentin 300 mg oral capsule 300 mg, By Mouth, 3 times a day, # 63 tablet, Refills 0, Tot. Refills 0, Maintenance, 02/24/22 11:16:00 EST, Route to Pharmacy Electronically, [facility], Partial fill upon patient request if the prescription is for a schedule II opioid... Start Date: 02/24/22 Stop Date: 03/17/22 Status: Ordered hydrochlorothiazide 25 mg oral tablet See Instructions, TAKE 1 TABLET BY MOUTH DAILY, # 90 tablet, Refills 0, Instructions Replace Required Details, Route to Pharmacy Electronically, [facility] #[id number], 159, cm, 07/26/21 11:39:00 EDT, Height, 93.2, kg, 05/04/20 10:09:00 EST, Dry... Start Date: 10/02/21 Status: Ordered ibuprofen 600 mg oral tablet 600 mg, 1, tablet, By Mouth, 3 times a day, PRN, for 30 days, # 90 tablet, Refills 0, Tot. Refills 0, Acute 04/19/22 11:51:00 EST, Pain , Moderate, 03/20/22 11:51:00 EST, Route to Pharmacy Electronically, [facility] #[id number], Partial fill upon patient... Start Date: 03/20/22 Stop Date: 04/19/22 Status: Ordered metoprolol 25 mg oral tablet, extended release 25 mg, 1, tablet, By Mouth, Daily, # 90 tablet, Refills 3, Tot. Refills 3, Maintenance, 01/15/22 16:59:00 EST, Route to Pharmacy Electronically, [facility], Partial fill upon patient request if [...] 1 Refills, Maintenance, 09/18/20 20:09:00 EDT, Capsule, [facility] #[id number], PLEASE DISPENSE IN BUBBLE/BLISTER PACK, 1 capsule By Mouth 2 times a day,x9... Start Date: 09/18/20 Stop Date: 03/17/21 Status: Ordered Readi-Cat 2 oral suspension See Instructions, Oral Contrast 2 Bottles 450 ml each Dx: Hernia, # 900 mL, 0 Refills, Maintenance,11/01/21 15:08:00 EDT, [id number], Partial fill upon patient request if the prescription isfor a schedule II opioid drug., Oral Contrast; 2... Start Date: 11/01/21 Status: Ordered Ventolin HFA 108 mcg/inh inhalation aerosol with adapter 2 puffs, Inhalation, Every 4 hours, TAKE 2 PUFFS EVERY 4 HOURS IF NEEDED FOR WHEEZING, # 1 each, 5 Refills, Maintenance, 02/16/20 10:48:00 EST, Inhaler, [facility] #[id number], Partial fill uponpatient request if the prescription [...] Team Personnel Name: Ishan PEÑA, Jarod Position: [facility] Primary Care Physician Member Role: PCP Address: Address: [address] [place] [address]- Name: Wen Stoll RN Position: S RN Member Role: Primary Care Nurse Name: Jeanne Gallagher Position: S Outreach Member Role: Lifetime Consulting Physician Name: Katerina Campos RN Position: S RN Member Role: Primary Care Nurse Name: Bryanna Guzman RN Position: S RN Member Role: Primary Care Nurse Care Team Related Persons Name: ADEN GARCIA Name: FRANCIS GARCIA Address: [place]
--- OUTSIDE RECORDS SUMMARY | 2022-11-20 09:37 | XMS_ITS | Continuity of Care Document ---
Author Name Unknown Organization [facility] Address Unknown Care Team Providers Care Director Veterinary Name Role Phone Erik PEÑA, Kirsten Jauregui Primary Care Physician Encounter [facility] [place] Date(s): 04/26/21 - 05/03/21 [facility] Encounter Diagnosis Umbilical hernia(Discharge Diagnosis) - 04/26/21 Attending Physician: Luis PEÑA, Shaan Referring Physician: [...] MG DAILY, # 90 tablet, 0 Refills, [facility] #[id number], 158, cm, 04/03/21 15:11:00 EST, Height, 93.2, kg, 05/04/20 10:09:00 EST, Dry We... Start Date: 04/24/21 Status: Ordered atorvastatin 40 mg oral tablet See Instructions, TAKE 1 TABLET BY MOUTH DAILY TAKE 1 TABLET OF 40 MG WITH 1 TABLET OF 20 MG FOR TOTAL 60 MG DAILY, # 90 tablet, 0 Refills, [facility] #[id number], 158, cm, 01/04/21 12:51:00 EST, Height, 93.2, kg, 05/04/20 10:09:00 EST, Dry Weight Start Date: 01/25/21 Status: Ordered Biafine topical emulsion See Instructions, PRN Prurigo Nodularis, apply to affected area twice a day as needed. 1 bottle., #1 each, 0 Refills, Maintenance, 03/28/21 11:42:00 EST, [facility] #[id number], Partial fill upon patient request if the prescription is for a lam... Start Date: 03/28/21 Status: Ordered hydrochlorothiazide 25 mg oral tablet 1, tablet, By Mouth, Daily, # 90 tablet, Refills 1, Route to Pharmacy Electronically, [facility] #[id number], 158, cm, 11/25/20 12:59:00 EDT, Height, 93.2, kg, 05/04/20 10:09:00 EST, Dry Weight Start Date: 12/30/20 Status: Ordered lisinopril 20 mg oral tablet 20 mg, 1, tablet, By Mouth, Daily, with 5 mg to total 25 mg of lisinopril, # 90 tablet, Refills 1, Tot. Refills 1, Maintenance, 04/18/21 15:36:00 EST, Route to Pharmacy Electronically, [facility] #[id number], Partial fill upon patient request if... Start Date: 04/18/21 Stop Date: 10/15/21 Status: Ordered lisinopril 5 mg oral tablet 5 mg, 1, tablet, By Mouth, Daily, with 20 mg to total 25 mg daily, # 90 tablet, Refills 1, Tot. Refills 1, Maintenance, 04/18/21 15:37:00 EST, Route to Pharmacy Electronically, [facility] #[id number], Partial fill upon patient request if the pres... Start Date: 04/18/21 Stop Date: 10/15/21 Status: Ordered Metoprolol Succinate ER 50 mg oral tablet, extended release 1 tablet, By Mouth, Daily, # 90 tablet, 1 Refills, [facility] #[id number], 158, cm, 11/25/20 12:59:00 EDT, Height, 93.2, [...] 1 Refills, Maintenance, 09/18/20 20:09:00 EDT, Capsule, [facility] #[id number], PLEASE DISPENSE IN BUBBLE/BLISTER PACK, 1 capsule By Mouth 2 times a day,x9... Start Date: 09/18/20 Stop Date: 03/17/21 Status: Ordered Ventolin HFA 108 mcg/inh inhalation aerosol with adapter 2 puffs, Inhalation, Every 4 hours, TAKE 2 PUFFS EVERY 4 HOURS IF NEEDED FOR WHEEZING, # 1 each, 5 Refills, Maintenance, 02/16/20 10:48:00 EST, Inhaler, [facility] #[id number], Partial fill uponpatient request if the prescription [...] Dates Health Status Cl inical Service Informant Umbilical hernia Discharge Diagnosis 04/26/21 Vital Signs Most recent to oldest [Reference Range]: 1 Height 159 cm (04/26/21 9:27 AM) Weight 91.1 kg (04/26/21 9:27 AM) Pulse Rate [55-90 bpm] 51 bpm *L* (04/26/21 9:27 AM) Body Mass Index [18.5-24.99] 36.03 *>HHI* (04/26/21 9:27 AM) Blood Pressure [90-138/55-84 mm Hg] 155/ 72mm Hg *H* (04/26/21 9:27 AM) Respiratory Rate [16-30 br/min] 16 br/mi n (04/26/21 9:27 AM) Temperature [96.8-100.4 DegF] 98.8 DegF (04/26/21 9:27 AM) Blood pressure sites Arm, right (04/26/21 9:27 AM) Temperature Route Temporal (04/26/21 9:27 AM) Weight Obtained Via Standing scale (04/26/21 9:27 AM) Social History Social History Type Response Tobacco Use: quit 1993 1-2pp d 31yrs. Sex
--- OUTSIDE RECORDS SUMMARY | 2022-11-20 09:38 | XMS_ITS | Continuity of Care Document ---
Author Name Unknown Organization [facility] Address [address] [address]- Care Team Providers Care Mid Level Java Developer Name Role Phone Erik PEÑA, Kirsten Jauregui Primary Care Physician [place] [facility] [place](s): 06/16/19 - 06/23/19 [facility] [address] [address] Attending Physician: Rod Cardozo MD Admitting [...] 05/25/19 13:20:00 EDT, Route to Pharmacy Electronically, [facility] #[id number],... Start Date: 05/25/19 Stop Date: 07/24/19 Status: [...] Refills, Maintenance, 04/24/19 9:40:00 EST, ER Capsule, [facility] #[id number], 165.1, cm, 04/24/19 8:48:00 EST, Height Start [...]
--- OUTSIDE RECORDS SUMMARY | 2022-11-20 09:38 | XMS_ITS | Continuity of Care Document ---
Author Name Unknown Organization [facility] Address Unknown Care Team Providers Care Director Of Speech Pathology Name Role Phone Erik PEÑA, Kirsten Jauregui Primary Care Physician [place] [facility] [place] 07/26/21 - 08/02/21 [facility] Encounter Diagnosis Umbilical hernia(Discharge Diagnosis) - 07/26/21 Attending Physician: Shaan Smith MD Referring Physician: Kirsten Valencia MD Allergies, Adverse Reactions, Alerts No Known Allergies Immunizations Given and Recorded Vaccine Date Status Refusal Reason SARS-CoV-2 mRNA ([id number]) vax 05/26/21 Recorded tetanus/diphtheria/pertussis, acel(Tdap) 12/17/20 Recorded [...] MG DAILY, # 90 tablet, 1 Refills, [facility] #[id number], 159, cm, 07/26/21 11:39:00 EDT, Height, 93.2, kg, 05/04/20 10:09:00 EST, Dry We... 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 1 bottle., #1 each, 0 Refills, Maintenance, 03/28/21 11:42:00 EST, [facility] #[id number], Partial fill upon patient request if the prescription is for a lam... Start Date: 03/28/21 Status: Ordered hydrochlorothiazide 25 mg oral tablet 1, tablet, By Mouth, Daily, # 90 tablet, Refills 0, Route to Pharmacy Electronically, [facility] #[id number], 159, cm, 04/26/21 9:27:00 EST, Height, 93.2, kg, 05/04/20 10:09:00 EST, Dry Weight Start Date: 06/25/21 Status: Ordered lisinopril 20 mg oral tablet 20 mg, 1, tablet, By Mouth, Daily, with 5 mg to total 25 mg of lisinopril, # 90 tablet, Refills 1, Tot. Refills 1, Maintenance, 04/18/21 15:36:00 EST, Route to Pharmacy Electronically, [facility] #[id number], Partial fill upon patient request if... Start Date: 04/18/21 Stop Date: 10/15/21 Status: Ordered lisinopril 5 mg oral tablet 5 mg, 1, tablet, By Mouth, Daily, with 20 mg to total 25 mg daily, # 90 tablet, Refills 1, Tot. Refills 1, Maintenance, 04/18/21 15:37:00 EST, Route to Pharmacy Electronically, [facility] #[id number], Partial fill upon patient request if the pres... Start Date: 04/18/21 Stop Date: 10/15/21 Status: Ordered Metoprolol Succinate ER 50 mg oral tablet, extended release 1 tablet, By Mouth, Daily, # 90 tablet, 0 Refills, [facility] #[id number], 159, cm, 04/26/21 9:27:00 EST, Height, 93.2, [...] 1 Refills, Maintenance, 09/18/20 20:09:00 EDT, Capsule, [facility] #[id number], PLEASE DISPENSE IN BUBBLE/BLISTER PACK, 1 capsule By Mouth 2 times a day,x9... Start Date: 09/18/20 Stop Date: 03/17/21 Status: Ordered Ventolin HFA 108 mcg/inh inhalation aerosol with adapter 2 puffs, Inhalation, Every 4 hours, TAKE 2 PUFFS EVERY 4 HOURS IF NEEDED FOR WHEEZING, # 1 each, 5 Refills, Maintenance, 02/16/20 10:48:00 EST, Inhaler, [facility] #[id number], Partial fill uponpatient request if the prescription [...] inical Service Informant Umbilical hernia Discharge Diagnosis 07/26/21 Vital Signs Most recent to oldest [Reference Range]: 1 Height 159 cm (07/26/21 11:39 AM) Weight 86.8 kg (07/26/21 11:39 AM) Pulse Rate [55-90 bpm] 53 bpm *L* (07/26/21 11:39 AM) Body Mass Index [18.5-24.99] 34.33 *>HHI* (07/26/21 11:39 AM) Blood Pressure [90-138/55-84 mm Hg] 139/ 73mm Hg *H* (07/26/21 11:39 AM) Respiratory Rate [16-30 br/min] 18 br/mi n (07/26/21 11:39 AM) Temperature [96.8-100.4 DegF] 97.8 DegF (07/26/21 11:39 AM) Blood pressure sites Arm, right (07/26/21 11:39 AM) Temperature Route Temporal (07/26/21 11:39 AM) Weight Obtained Via Standing scale (07/26/21 11:39 AM) Social History Social History Type Response Tobacco Use: quit 1993 1-2pp d 31yrs. Sex
--- OUTSIDE RECORDS SUMMARY | 2022-11-20 09:38 | XMS_ITS | Continuity of Care Document ---
Author Name Unknown Organization [facility] Address [address] [place] [address]- Care Team Providers Care Tire Center Manager Name Role Phone Erik PEÑA, Kirsten Jauregui Primary Care Physician Encounter [facility] [place] Date(s): 10/09/19 - 11/08/19 [facility] [address] [place] [address]- [facility] Allergies, Adverse Reactions, Alerts Substance Reaction [...] 10/08/19 20:16:00 EDT, Route to Pharmacy Electronically, [facility] #[id number],... Start Date: 10/08/19 Stop Date: 12/07/19 Status: [...] 07/03/19 10:38:00 EDT, Route to Pharmacy Electronically, [facility] #[id number], 165.1, cm, 04/24/19 8:48:00 EST, Height Start Date: 07/03/19 Stop Date: 12/30/19 Status: Ordered Lipitor 40 mg oral tablet 1 tablet = 40 mg, By Mouth, Daily, # 90 tablet, 1 Refills, Maintenance, 07/03/19 10:23:00 EDT, Tablet, [facility] #[id number], 165.1, cm, 04/24/19 8:48:00 EST, Height Start Date: 07/03/19 Stop Date: 12/30/19 Status: Ordered lisinopril 20 mg oral tablet 20 mg, 1, tablet, By Mouth, Daily, # 90 tablet, Refills 1, Tot. Refills 1, Maintenance, 10/29/19 14:56:00 EDT, Route to Pharmacy Electronically, [facility] #[id number], 165.1, cm, 10/28/19 9:59:00 EDT, Height Start Date: 10/29/19 Stop Date: 04/26/20 Status: Ordered metoprolol 50 mg oral tablet, extended release 50 mg, 1, tablet, By Mouth, Daily, # 90 tablet, Refills 0, Tot. Refills 0, Maintenance, 10/08/19 20:19:00 EDT, Route to Pharmacy Electronically, [facility] #[id number], 165.1, cm, 04/24/19 8:48:00 EST, Height Start [...]
--- OUTSIDE RECORDS SUMMARY | 2022-11-20 09:38 | XMS_ITS | Continuity of Care Document ---
Author Name Unknown Organization [facility] Address [address] [place] [address]- Care Team Providers Care Seed Laboratory Technician Name Role Phone Erik PEÑA, Kirsten Jauregui Primary Care Physician [place] [facility] [place] 06/10/19 - 06/17/19 [facility] [address] [place] [address]- [facility] Attending Physician: Yousif Parisi MD Referring Physician: Kirsten [...] 05/25/19 13:20:00 EDT, Route to Pharmacy Electronically, [facility] #[id number],... Start Date: 05/25/19 Stop Date: 07/24/19 Status: [...] Refills, Maintenance, 04/24/19 9:40:00 EST, ER Capsule, [facility] #[id number], 165.1, cm, 04/24/19 8:48:00 EST, Height Start [...]
--- OUTSIDE RECORDS SUMMARY | 2022-11-20 09:38 | XMS_ITS | Continuity of Care Document ---
Author Name Unknown Organization [facility] Address [address] [place] [address]- Care Team Providers Care Nursing Resident Name Role Phone Erik PEÑA, Kirsten Jauregui Primary Care Physician Encounter [facility] Date(s): 09/10/19 - 10/10/19 [facility] [address] [place] [address]- [facility] Allergies, Adverse Reactions, Alerts Substance Reaction [...] 10/08/19 20:16:00 EDT, Route to Pharmacy Electronically, [facility] #[id number],... Start Date: 10/08/19 Stop Date: 12/07/19 Status: [...] 07/03/19 10:38:00 EDT, Route to Pharmacy Electronically, [facility] #[id number], 165.1, cm, 04/24/19 8:48:00 EST, Height Start Date: 07/03/19 Stop Date: 12/30/19 Status: Ordered Lipitor 40 mg oral tablet 1 tablet = 40 mg, By Mouth, Daily, # 90 tablet, 1 Refills, Maintenance, 07/03/19 10:23:00 EDT, Tablet, [facility] #[id number], 165.1, cm, 04/24/19 8:48:00 EST, Height Start Date: 07/03/19 Stop Date: 12/30/19 Status: Ordered lisinopril 20 mg oral tablet 20 mg, 1, tablet, By Mouth, Daily, # 90 tablet, Refills 1, Tot. Refills 1, Maintenance, 07/03/19 10:39:00 EDT, Route to Pharmacy Electronically, [facility] #[id number], 165.1, cm, 04/24/19 8:48:00 EST, Height Start Date: 07/03/19 Stop Date: 12/30/19 Status: Ordered metoprolol 50 mg oral tablet, extended release 50 mg, 1, tablet, By Mouth, Daily, # 90 tablet, Refills 0, Tot. Refills 0, Maintenance, 10/08/19 20:19:00 EDT, Route to Pharmacy Electronically, [facility] #[id number], 165.1, cm, 04/24/19 8:48:00 EST, Height Start [...]
--- OUTSIDE RECORDS SUMMARY | 2022-11-20 09:38 | XMS_ITS | Continuity of Care Document ---
Author Name Unknown Organization [facility] Address [address] [place] [address]- Care Team Providers Care Technical Asst Name Role Phone Not on Staff, PCP Primary Care Physician Unavail able Encounter [facility] Date(s): 07/28/21 - 08/27/21 [facility] [address] [place] [address]- Allergies, Adverse Reactions, Alerts No Known Allergies Immunizations Given and Recorded Vaccine Date Status Refusal Reason SARS-CoV-2 mRNA (rlaomww-qslv-qhsro) vax 05/26/21 Recorded tetanus/diphtheria/pertussis, acel(Tdap) 12/17/20 Recorded [...] MG DAILY, # 90 tablet, 1 Refills, [facility] #[id number], 159, cm, 07/26/21 11:39:00 EDT, Height, 93.2, kg, 05/04/20 10:09:00 EST, Dry We... 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 1 bottle., #1 each, 0 Refills, Maintenance, 03/28/21 11:42:00 EST, [facility] #[id number], Partial fill upon patient request if the prescription is for a lam... Start Date: 03/28/21 Status: Ordered hydrochlorothiazide 25 mg oral tablet 1, tablet, By Mouth, Daily, # 90 tablet, Refills 0, Route to Pharmacy Electronically, [facility] #[id number], 159, cm, 04/26/21 9:27:00 EST, Height, 93.2, kg, 05/04/20 10:09:00 EST, Dry Weight Start Date: 06/25/21 Status: Ordered lisinopril 20 mg oral tablet 20 mg, 1, tablet, By Mouth, Daily, with 5 mg to total 25 mg of lisinopril, # 90 tablet, Refills 1, Tot. Refills 1, Maintenance, 04/18/21 15:36:00 EST, Route to Pharmacy Electronically, [facility] #[id number], Partial fill upon patient request if... Start Date: 04/18/21 Stop Date: 10/15/21 Status: Ordered lisinopril 5 mg oral tablet 5 mg, 1, tablet, By Mouth, Daily, with 20 mg to total 25 mg daily, # 90 tablet, Refills 1, Tot. Refills 1, Maintenance, 04/18/21 15:37:00 EST, Route to Pharmacy Electronically, [facility] #[id number], Partial fill upon patient request if the pres... Start Date: 04/18/21 Stop Date: 10/15/21 Status: Ordered Metoprolol Succinate ER 50 mg oral tablet, extended release 1 tablet, By Mouth, Daily, # 90 tablet, 0 Refills, [facility] #[id number], 159, cm, 04/26/21 9:27:00 EST, Height, 93.2, [...] Maintenance, 09/18/20 20:09:00 EDT, Capsule, [facility] #[id number], PLEASE DISPENSE IN BUBBLE/BLISTER PACK, 1 capsule By Mouth 2 times a day,x9... Start Date: 09/18/20 Stop Date: 03/17/21 Status: Ordered Ventolin HFA 108 mcg/inh inhalation aerosol with adapter 2 puffs, Inhalation, Every 4 hours, TAKE 2 PUFFS EVERY 4 HOURS IF NEEDED FOR WHEEZING, # 1 each, 5 Refills, Maintenance, 02/16/20 10:48:00 EST, Inhaler, [facility] #[id number], Partial fill uponpatient request if the prescription [...]
--- OUTSIDE RECORDS SUMMARY | 2022-11-20 09:38 | XMS_ITS | Continuity of Care Document ---
Author Name Unknown Organization [facility] Address [address] [place] [address]- Care Team Providers Care Traffic Maintenance Supervisor Name Role Phone Not on Staff, PCP Primary Care Physician Unavail able Encounter [facility] Date(s): 08/03/21 - 09/02/21 [facility] [address] [place] [address]- Allergies, Adverse Reactions, Alerts No Known Allergies Immunizations Given and Recorded Vaccine Date Status Refusal Reason SARS-CoV-2 mRNA ([id number]-[id number]-smnyb) vax 05/26/21 Recorded tetanus/diphtheria/pertussis, acel(Tdap) 12/17/20 Recorded [...] MG DAILY, # 90 tablet, 1 Refills, [facility] #[id number], 159, cm, 07/26/21 11:39:00 EDT, Height, 93.2, kg, 05/04/20 10:09:00 EST, Dry We... 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 1 bottle., #1 each, 0 Refills, Maintenance, 03/28/21 11:42:00 EST, [facility] #[id number], Partial fill upon patient request if the prescription is for a lam... Start Date: 03/28/21 Status: Ordered hydrochlorothiazide 25 mg oral tablet 1, tablet, By Mouth, Daily, # 90 tablet, Refills 0, Route to Pharmacy Electronically, [facility] #[id number], 159, cm, 04/26/21 9:27:00 EST, Height, 93.2, kg, 05/04/20 10:09:00 EST, Dry Weight Start Date: 06/25/21 Status: Ordered lisinopril 20 mg oral tablet 20 mg, 1, tablet, By Mouth, Daily, with 5 mg to total 25 mg of lisinopril, # 90 tablet, Refills 1, Tot. Refills 1, Maintenance, 04/18/21 15:36:00 EST, Route to Pharmacy Electronically, [facility] #[id number], Partial fill upon patient request if... Start Date: 04/18/21 Stop Date: 10/15/21 Status: Ordered lisinopril 5 mg oral tablet 5 mg, 1, tablet, By Mouth, Daily, with 20 mg to total 25 mg daily, # 90 tablet, Refills 1, Tot. Refills 1, Maintenance, 04/18/21 15:37:00 EST, Route to Pharmacy Electronically, [facility] #[id number], Partial fill upon patient request if the pres... Start Date: 04/18/21 Stop Date: 10/15/21 Status: Ordered Metoprolol Succinate ER 50 mg oral tablet, extended release 1 tablet, By Mouth, Daily, # 90 tablet, 0 Refills, [facility] #[id number], 159, cm, 04/26/21 9:27:00 EST, Height, 93.2, [...] 1 Refills, Maintenance, 09/18/20 20:09:00 EDT, Capsule, [facility] #[id number], PLEASE DISPENSE IN BUBBLE/BLISTER PACK, 1 capsule By Mouth 2 times a day,x9... Start Date: 09/18/20 Stop Date: 03/17/21 Status: Ordered Ventolin HFA 108 mcg/inh inhalation aerosol with adapter 2 puffs, Inhalation, Every 4 hours, TAKE 2 PUFFS EVERY 4 HOURS IF NEEDED FOR WHEEZING, # 1 each, 5 Refills, Maintenance, 02/16/20 10:48:00 EST, Inhaler, [facility] #[id number], Partial fill uponpatient request if the prescription [...]
--- OUTSIDE RECORDS SUMMARY | 2022-11-20 09:38 | XMS_ITS | Continuity of Care Document ---
Author Name Unknown Organization [facility] Address [address] [place] [address]- Care Team Providers Care Paralegal Specialist Name Role Phone Erik PEÑA, Kirsten Jauregui Primary Care Physician Encounter [facility] Date(s): 10/08/19 - 11/07/[address] [address]- [facility] Allergies, Adverse Reactions, Alerts Substance Reaction Severity [...] 10/08/19 20:16:00 EDT, Route to Pharmacy Electronically, [facility] #[id number],... Start Date: 10/08/19 Stop Date: 12/07/19 Status: Ordered aspirin 81 mg oral tablet 1 tablet = 81 mg, By Mouth, Daily, 0 Refills, Maintenance, 03/01/16 13:51:57 Start Date: 1/5/17 Status: Ordered female umbilical hernia belt female [...] 07/03/19 10:38:00 EDT, Route to Pharmacy Electronically, [facility] #[id number], 165.1, cm, 04/24/19 8:48:00 EST, Height Start Date: 07/03/19 Stop Date: 12/30/19 Status: Ordered Lipitor 40 mg oral tablet 1 tablet = 40 mg, By Mouth, Daily, # 90 tablet, 1 Refills, Maintenance, 07/03/19 10:23:00 EDT, Tablet, [facility] #[id number], 165.1, cm, 04/24/19 8:48:00 EST, Height Start Date: 07/03/19 Stop Date: 12/30/19 Status: Ordered lisinopril 20 mg oral tablet 20 mg, 1, tablet, By Mouth, Daily, # 90 tablet, Refills 1, Tot. Refills 1, Maintenance, 10/29/19 14:56:00 EDT, Route to Pharmacy Electronically, [facility] #[id number], 165.1, cm, 10/28/19 9:59:00 EDT, Height Start Date: 10/29/19 Stop Date: 04/26/20 Status: Ordered metoprolol 50 mg oral tablet, extended release 50 mg, 1, tablet, By Mouth, Daily, # 90 tablet, Refills 0, Tot. Refills 0, Maintenance, 10/08/19 20:19:00 EDT, Route to Pharmacy Electronically, [facility] #[id number], 165.1, cm, 04/24/19 8:48:00 EST, Height Start [...]
--- OUTSIDE RECORDS SUMMARY | 2022-11-20 09:38 | XMS_ITS | Continuity of Care Document ---
Author Name Unknown Organization [facility] Address [address] [place] [address]- Care Team Providers Care Application Analyst Name Role Phone Erik PEÑA, Kirsten Jauregui Primary Care Physician Encounter [facility] Date(s): 02/16/20 - 03/17/20 [facility] [address] [place], [place] [address] Allergies, Adverse Reactions, Alerts Substance [...] tablet, 1 Refills, Maintenance, 02/10/20 16:38:00 EST, [facility] #[id number], Partial fill upon patient request if the prescription is for a schedule II opioid drug., 165.1, cm, 02/10/20 15:04:00 EST, Height Start Date: 02/10/20 Stop Date: 08/08/20 Status: Ordered clotrimazole 1% topical cream 1 application, Topically, 2 times a day, PRN rash, for 30 days, # 60 Gm, 1 Refills, Acute 04/10/20 16:32:00 EST, 02/10/20 16:32:00 EST, Cream, [facility] #[id number], Partial fill upon patient request if the [...] 01/07/20 14:52:00 EST, Route to Pharmacy Electronically, [facility] #[id number], 165.1, cm, 12/10/19 10:57:00 EDT, Height Start Date: 01/07/20 Stop Date: 07/05/20 Status: Ordered ibuprofen 600 mg oral tablet 600 mg, 1, tablet, By Mouth, Every 6 hours, PRN, for 30 days, with food or milk, # 90 tablet, Refills 0, Tot. Refills 0, Acute 04/10/20 15:09:00 EST, Pain , Mild, 03/11/20 15:09:00 EST, Route to Pharmacy Electronically, [facility] #[id number], Pa... Start Date: 03/11/20 Stop Date: 04/10/20 Status: Ordered Lipitor 40 mg oral tablet 1 tablet = 40 mg, By Mouth, Daily, # 90 tablet, 1 Refills, Maintenance, 01/07/20 14:52:00 EST, Tablet, [facility] #[id number], 165.1, cm, 12/10/19 10:57:00 EDT, Height Start Date: 01/07/20 Stop Date: 07/05/20 Status: Ordered lisinopril 20 mg oral tablet 20 mg, 1, tablet, By Mouth, Daily, # 90 tablet, Refills 1, Tot. Refills 1, Maintenance, 10/29/19 14:56:00 EDT, Route to Pharmacy Electronically, [facility] #[id number], 165.1, cm, 10/28/19 9:59:00 EDT, Height Start Date: 10/29/19 Stop Date: 04/26/20 Status: Ordered metoprolol 50 mg oral tablet, extended release 50 mg, 1, tablet, By Mouth, Daily, # 90 tablet, Refills 1, Tot. Refills 1, Maintenance, 01/07/20 14:51:00 EST, Route to Pharmacy Electronically, [facility] #[id number], 165.1, cm, 12/10/19 10:57:00 EDT, Height Start [...] 5 Refills, Maintenance, 02/16/20 10:48:00 EST, Inhaler, [facility] #[id number], Partial fill uponpatient request if the prescription [...]
--- OUTSIDE RECORDS SUMMARY | 2022-11-20 09:38 | XMS_ITS | Continuity of Care Document ---
Author Name Unknown Organization [facility] Address [address] [place] [address] [address] [place] [address]- Care Team Providers Care Aquatic Instructor Name Role Phone Erik PEÑA, Kirsten Jauregui Primary Care Physician Encounter [facility] Date(s): 02/01/20 - 02/08/[address] [place] [address]- Attending Physician: Shaan Smith MD Allergies, Adverse [...] 0 Refills, Soft Stop, 01/13/20 13:25:00 EST, [facility] #[id number], Partial fill upon patient request, 165.1, cm, [...] 01/07/20 14:52:00 EST, Route to Pharmacy Electronically, [facility] #[id number], 165.1, cm, 12/10/19 10:57:00 EDT, Height Start Date: 01/07/20 Stop Date: 07/05/20 Status: Ordered Lipitor 40 mg oral tablet 1 tablet = 40 mg, By Mouth, Daily, # 90 tablet, 1 Refills, Maintenance, 01/07/20 14:52:00 EST, Tablet, [facility] #[id number], 165.1, cm, 12/10/19 10:57:00 EDT, Height Start Date: 01/07/20 Stop Date: 07/05/20 Status: Ordered lisinopril 20 mg oral tablet 20 mg, 1, tablet, By Mouth, Daily, # 90 tablet, Refills 1, Tot. Refills 1, Maintenance, 10/29/19 14:56:00 EDT, Route to Pharmacy Electronically, [facility] #[id number], 165.1, cm, 10/28/19 9:59:00 EDT, Height Start Date: 10/29/19 Stop Date: 04/26/20 Status: Ordered metoprolol 50 mg oral tablet, extended release 50 mg, 1, tablet, By Mouth, Daily, # 90 tablet, Refills 1, Tot. Refills 1, Maintenance, 01/07/20 14:51:00 EST, Route to Pharmacy Electronically, [facility] #[id number], 165.1, cm, 12/10/19 10:57:00 EDT, Height Start [...] Active Vitamin D deficiency(Confirmed) Active 1EGD 11/2019 Vital Signs Most recent to oldest [Reference Range]: 1 Height 165.1 cm (02/01/20 10:51 AM) Weight 94.5 kg (02/01/20 10:51 AM) Oxygen Saturation [94-100 %] 97 % (02/01/20 10:51 AM) Pulse Rate [55-90 bpm] 80 bpm (02/01/20 10:51 AM) Body Mass Index [18.5-24.99] 34.67 *>HHI* (02/01/20 10:51 AM) Blood Pressure [90-138/55-84 mm Hg] 145/ 75mm Hg *H* (02/01/20 10:51 AM) Respiratory Rate [16-30 br/min] 14 br/mi n *L* (02/01/20 10:51 AM) Blood pressure sites Arm, right (02/01/20 10:51 AM) Weight Obtained Via Standing scale (02/01/20 10:51 AM) Social History Social History Type Response Tobacco Use: quit 1993 1-2pp d 31yrs. Sex
--- OUTSIDE RECORDS SUMMARY | 2022-11-20 09:38 | XMS_ITS | Continuity of Care Document ---
Author Name Unknown Organization [facility] Address [address] [place] [address]- Care Team Providers Care Cartographic Designer Name Role Phone Ishan PEÑA, [facility] Primary Care Physician Encounter [facility] Date(s): 10/15/22 - 11/14/22 [facility] [address] [place] [address]- Allergies, Adverse Reactions, Alerts No Known Allergies Immunizations Given and Recorded Vaccine Date Status Refusal Reason influenza virus vaccine, inactivated 11/24/21 Loco rded influenza virus vaccine, inactivated 12/10/20 Loco rded [id number] bivalent booster vax 11/24/21 Recorded SARS-CoV-2 mRNA ([id number]) vax 05/26/21 Recorded tetanus/diphtheria/pertussis, acel(Tdap) 12/17/20 Recorded [...] tablet, 2 Refills, Maintenance, 08/02/22 10:40:00 EDT, [facility], 160, cm, 07/25/22 16:17:00 EDT, Height, [...] tablet, 2 Refills, Maintenance, 08/02/22 10:40:00 EDT, [facility], 160, cm, 07/25/22 16:17:00 EDT, Height, 87.6, kg, 02/22/22 17:27:00 EST, Dry Weight Start Date: 08/02/22 Status: Ordered Rick topical emulsion See Instructions, Daily, # 250 mL, 0 Refills, Maintenance, 07/13/22 15:36:00 EDT, [facility] #[id number], Partial fill upon patient request if the prescription is for a schedule II opioid drug.,Daily, 160, cm, 04/30/22 13:34:00 EST, Height, 87.6... Start Date: 07/13/22 Status: Ordered barium sulfate 2% oral suspension See Instructions, Please dispense 2 450 mls bottles to equal 900 mls. Please follow the intructionsprovided, # 2 each, 0 Refills, Maintenance, 11/06/22 13:38:00 EDT, [facility]/pharmacy #[id number], Partial fillupon patient request if the prescription is for a s... Start Date: 11/06/22 Status: Ordered Biafine topical emulsion See Instructions, PRN Prurigo Nodularis, apply to affected area twice a day as needed. 1 bottle., #1 each, 0 Refills, Maintenance, 06/06/22 12:47:00 EDT, [facility]/pharmacy #[id number], Partial fill upon patient request if the prescription is for a schedule II... Start Date: 06/06/22 Status: Ordered hydrochlorothiazide 25 mg oral tablet 1, tablet, By Mouth, Daily, R1., # 90 tablet, Refills 2, Maintenance, 08/02/22 10:40:00 EDT, Route to Pharmacy Electronically, [facility], 160, cm, 07/25/22 16:17:00 EDT, Height, 87.6, kg, 02/22/22 17:27:00 EST, Dry Weight Start Date: 08/02/22 Status: Ordered ibuprofen 600 mg oral tablet 1, tablet, By Mouth, 3 times a day, PRN, # 90 tablet, Refills 0, Tot. Refills 0, Maintenance, NEEDED FOR MODERATE PAIN, 07/13/22 15:37:00 EDT, Route to Pharmacy Electronically, [facility] #[id number], 160, cm, 04/30/22 13:34:00 EST, Height, 87... Start Date: 07/13/22 Status: Ordered metoprolol 25 mg oral tablet, extended release 25 mg, 1, tablet, By Mouth, Daily, # 90 tablet, Refills 3, Tot. Refills 3, Maintenance, 01/15/22 16:59:00 EST, Route to Pharmacy Electronically, [facility], Partial fill upon patient [...] capsule, 3 Refills, Maintenance, 10/15/22 15:19:00 EDT, [facility], 90, TAKE 1 CAPSULE BY MOUTH TWICE A DAY WITH MEALS^1R1,1R4,160, cm, 08/27/22 12:06:00 EDT, Height, 88.3, kg, 0... Start Date: 10/15/22 Status: Ordered Stiolto Respimat 60 ACT 2.5 mcg-2.5 mcg/inh inhalation aerosol 2 puffs, Inhalation, Every 24 hours, # 1 each, 6 Refills, Maintenance, 08/13/22 14:22:00 EDT, Aerosol, [facility] #[id number], Partial fill upon patient request if the prescription is for a schedule II opioid drug., 160, cm, 08/13/22 14:12:00 EDT... Start Date: 08/13/22 Stop Date: 03/11/23 Status: Ordered Ventolin HFA 108 mcg/inh inhalation aerosol with adapter 2 puffs, Inhalation, Every 4 hours, PRN NEEDED FOR WHEEZING OR SHORTNESS OF BREATH/DYSPNEA, # 18Gm, 3 Refills, Maintenance, 08/02/22 10:40:00 EDT, [facility], 160, cm, 07/25/22 16:17:00 EDT, Height, [...] Jarod Olmstead MD Position: [facility] Physician - Primary Care Member Role: PCP Address: Address: [address] [place] [address]- Name: Wen Stoll RN Position: S RN Member Role: Primary Care Nurse Name: Jeanne Gallagher MA Position: [facility] [place] Member Role: Lifetime Consulting Physician Name: Katerina Campos RN Position: S RN Member Role: Primary Care Nurse Name: Bryanna Guzman RN Position: S RN Member Role: Primary Care Nurse Care Team Related Persons Name: ADEN GARCIA Name: FRANCIS GARCIA Address: [place]
--- OUTSIDE RECORDS SUMMARY | 2022-11-20 09:38 | XMS_ITS | Continuity of Care Document ---
Author Name Unknown Organization [facility] Address [address] [place] [address]- Care Team Providers Care Flower Grader Name Role Phone Erik PEÑA, Kirsten Jauregui Primary Care Physician ( [phone] Encounter [facility] Date(s): 03/23/21 - 04/22/21 [facility] [address] [place] [address]- Attending Physician: Lucy Montaño Admitting Physician: Admtr, ArLarry Referring Physician: Admtr, Ar8 Allergies, Adverse Reactions, [...] MG DAILY, # 90 tablet, 0 Refills, [facility] #[id number], 158, cm, 01/04/21 12:51:00 EST, Height, 93.2, kg, 05/04/20 10:09:00 EST, Dry Weight Start Date: 01/25/21 Status: Ordered Biafine topical emulsion See Instructions, PRN Prurigo Nodularis, apply to affected area twice a day as needed. 1 bottle., #1 each, 0 Refills, Maintenance, 03/28/21 11:42:00 EST, [facility] #[id number], Partial fill upon patient request if the prescription is for a lam... Start Date: 03/28/21 Status: Ordered hydrochlorothiazide 25 mg oral tablet 1, tablet, By Mouth, Daily, # 90 tablet, Refills 1, Route to Pharmacy Electronically, [facility] #[id number], 158, cm, 11/25/20 12:59:00 EDT, Height, 93.2, kg, 05/04/20 10:09:00 EST, Dry Weight Start Date: 12/30/20 Status: Ordered lisinopril 20 mg oral tablet 20 mg, 1, tablet, By Mouth, Daily, with 5 mg to total 25 mg of lisinopril, # 90 tablet, Refills 1, Tot. Refills 1, Maintenance, 04/18/21 15:36:00 EST, Route to Pharmacy Electronically, [facility] #[id number], Partial fill upon patient request if... Start Date: 04/18/21 Stop Date: 10/15/21 Status: Ordered lisinopril 5 mg oral tablet 5 mg, 1, tablet, By Mouth, Daily, with 20 mg to total 25 mg daily, # 90 tablet, Refills 1, Tot. Refills 1, Maintenance, 04/18/21 15:37:00 EST, Route to Pharmacy Electronically, [facility] #[id number], Partial fill upon patient request if the pres... Start Date: 04/18/21 Stop Date: 10/15/21 Status: Ordered Metoprolol Succinate ER 50 mg oral tablet, extended release 1 tablet, By Mouth, Daily, # 90 tablet, 1 Refills, [facility] #[id number], 158, cm, 11/25/20 12:59:00 EDT, Height, 93.2, [...] 1 Refills, Maintenance, 09/18/20 20:09:00 EDT, Capsule, [facility] #[id number], PLEASE DISPENSE IN BUBBLE/BLISTER PACK, 1 capsule By Mouth 2 times a day,x9... Start Date: 09/18/20 Stop Date: 03/17/21 Status: Ordered Ventolin HFA 108 mcg/inh inhalation aerosol with adapter 2 puffs, Inhalation, Every 4 hours, TAKE 2 PUFFS EVERY 4 HOURS IF NEEDED FOR WHEEZING, # 1 each, 5 Refills, Maintenance, 02/16/20 10:48:00 EST, Inhaler, [facility] #[id number], Partial fill uponpatient request if the prescription [...]
--- OUTSIDE RECORDS SUMMARY | 2022-11-20 09:38 | XMS_ITS | Continuity of Care Document ---
Author Name Unknown Organization [facility] Address [address] [place] [address]- Care Team Providers Care Surgery Specialist Name Role Phone Erik PEÑA, Kirsten Jauregui Primary Care Physician Encounter [facility] Date(s): 04/06/20 - 04/13/20 [facility] [address] [place] [address]- Encounter Diagnosis COVID-19 vaccine series started- 03/31 #1 Pfizer(Discharge Diagnosis) - 04/06/20 H/O Malignant melanoma - 2000(Discharge Diagnosis) - 04/06/20 History of coronary artery bypass graft x 4 04/2016(Discharge Diagnosis) - 04/06/20 Hyperlipidemia(Discharge Diagnosis) - 04/06/20 GERD (gastroesophageal reflux disease)(Discharge Diagnosis) - 04/06/20 Abnormal renal finding- ABD US incidental mild renal cortical thinning, normal renal function - 02/2020(Discharge Diagnosis) - 04/06/20 Cirrhosis- followed by GI(Discharge Diagnosis) - 04/06/20 Lump in neck(Discharge Diagnosis) - 04/06/20 Aortic dilatation- abd US 02/2020 normal caliber(Discharge Diagnosis) - 04/06/20 Carotid artery stenosis- doppler 02/2020= less than 50% bilat(Discharge Diagnosis) - 04/06/20 Attending Physician: Erik PEÑA, Kirsten Jauregui Allergies, [...] tablet, 1 Refills, Maintenance, 02/10/20 16:38:00 EST, [facility] #[id number], Partial fill upon patient request if the [...] 01/07/20 14:52:00 EST, Route to Pharmacy Electronically, [facility] #[id number], 165.1, cm, 12/10/19 10:57:00 EDT, Height Start Date: 01/07/20 Stop Date: 07/05/20 Status: Ordered Lipitor 40 mg oral tablet See Instructions, 1.5 tablets By Mouth for total dosage of 60 mg daily. Increased on 04/06/2020, # 90 tablet, 1 Refills, Maintenance, 04/06/20 14:02:00 EST, Tablet, [facility] #[id number], 165.1, cm, 04/06/20 8:13:00 EST, Height Start Date: 04/06/20 Status: Ordered lisinopril 20 mg oral tablet 20 mg, 1, tablet, By Mouth, Daily, # 90 tablet, Refills 1, Tot. Refills 1, Maintenance, 10/29/19 14:56:00 EDT, Route to Pharmacy Electronically, [facility] #[id number], 165.1, cm, 10/28/19 9:59:00 EDT, Height Start Date: 10/29/19 Stop Date: 04/26/20 Status: Ordered metoprolol 50 mg oral tablet, extended release 50 mg, 1, tablet, By Mouth, Daily, # 90 tablet, Refills 1, Tot. Refills 1, Maintenance, 01/07/20 14:51:00 EST, Route to Pharmacy Electronically, [facility] #[id number], 165.1, cm, 12/10/19 10:57:00 EDT, Height Start [...] 1 Refills, Maintenance, 04/01/20 14:07:00 EST, Capsule, [facility] #[id number], PLEASE DISPENSE IN BUBBLE/BLISTER PACK, 1 capsule By Mouth Daily,x90 days,Instr:PLEA... Start Date: 04/01/20 Stop Date: 09/28/20 Status: Ordered Ventolin HFA 108 mcg/inh inhalation aerosol with adapter 2 puffs, Inhalation, Every 4 hours, TAKE 2 PUFFS EVERY 4 HOURS IF NEEDED FOR WHEEZING, # 1 each, 5 Refills, Maintenance, 02/16/20 10:48:00 EST, Inhaler, [facility] #[id number], Partial fill uponpatient request if the prescription [...] Effective Dates Health Status Clinical Service Informant COVID-19 vaccine series started- 03/31 #1 Pfizer 1 Discharge Diagnosis 04/06/20 Non-Specified H/O Malignant melanoma - 2000 Discharge Diagnosis 04/06/20 Cirrhosis- followed by GI 2 Discharge Diagnosis 04/06/20 Non-Specified History of coronary artery bypass graft x 4 04/2016 Discharge Diagnosis 04/06/20 Hyperlipidemia Discharge Diagnosis 04/06/20 GERD (gastroesophageal reflux disease) Discharge Diagnosis 04/06/20 Abnormal renal finding- ABD US incidental mild renal cortical thinning, normal renal function - 02/2020 3 Discharge Diagnosis 04/06/20 Non-Specified Lump in neck Discharge Diagnosis 04/06/20 Aortic dilatation- abd US 02/2020 normal caliber Discharge Diagnosis 04/06/20 Carotid artery stenosis- doppler 02/2020= less than 50% bilat Discharge Diagnosis 04/06/20 02/03/2021 8:52 DOMINIK Valencia MD, Kirsten Jauregui 03/31 #1 Pfizer 16/12/2020 9:17 Kirsten Mendez MD followed by GI 9:17 DOMINIK Valencia MD, Kirsten Jauregui mild renal cortical thinning, normal renal function - 02/2020 Vital Signs Most recent to oldest [Reference Range]: 1 Height 165.1 cm (04/06/20 8:13 AM) Social History Social History Type Response Tobacco Use: quit 1993 1-2pp d 31yrs. Sex
--- OUTSIDE RECORDS SUMMARY | 2022-11-20 09:38 | XMS_ITS | Continuity of Care Document ---
Author Name Unknown Organization [facility] Address [address] [place] [address]- Care Team Providers Care Jack Tamp Operator Name Role Phone Ishan PEÑA, [facility] Primary Care Physician [facility] Date(s): 03/20/22 - 04/19/22 [facility] [address] [place] [address]- Allergies, Adverse Reactions, Alerts No Known Allergies Immunizations Given and Recorded Vaccine Date Status Refusal Reason influenza virus vaccine, inactivated 11/24/21 Loco rded influenza virus vaccine, inactivated 12/10/20 Loco rded [id number] bivalent booster vax 11/24/21 Recorded SARS-CoV-2 mRNA ([id number]) vax 05/26/21 Recorded tetanus/diphtheria/pertussis, acel(Tdap) 12/17/20 Recorded [...] 16:59:00 EST, Route to Pharmacy Electronically, [facility], Partial fill upon patient [...] MG DAILY, # 90 tablet, 1 Refills, [facility] #[id number], 159, cm, 07/26/21 11:39:00 EDT, Height, 93.2, kg, 05/04/20 10:09:00 EST, Dry We... 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 1 bottle., #1 each, 0 Refills, Maintenance, 03/28/21 11:42:00 EST, [facility] #[id number], Partial fill upon patient request if the prescription is for a lam... Start Date: 03/28/21 Status: Ordered Colace sodium 100 mg oral capsule 100 mg, 1, capsule, By Mouth, 2 times a day, PRN, # 20 capsule, Refills 0, Tot. Refills 0, Maintenance, for constipation, 02/24/22 11:17:00 EST, Route to Pharmacy Electronically, [facility], Partial fill upon patient request if the presc... Start Date: 02/24/22 Status: Ordered gabapentin 300 mg oral capsule 300 mg, By Mouth, 3 times a day, # 63 tablet, Refills 0, Tot. Refills 0, Maintenance, 02/24/22 11:16:00 EST, Route to Pharmacy Electronically, [facility], Partial fill upon patient request if the prescription is for a schedule II opioid... Start Date: 02/24/22 Stop Date: 03/17/22 Status: Ordered hydrochlorothiazide 25 mg oral tablet See Instructions, TAKE 1 TABLET BY MOUTH DAILY, # 90 tablet, Refills 0, Instructions Replace Required Details, Route to Pharmacy Electronically, [facility] #[id number], 159, cm, 07/26/21 11:39:00 EDT, Height, 93.2, kg, 05/04/20 10:09:00 EST, Dry... Start Date: 10/02/21 Status: Ordered ibuprofen 600 mg oral tablet 1, tablet, By Mouth, 3 times a day, PRN, # 90 tablet, Refills 0, Maintenance, NEEDED FOR MODERATE PAIN, 04/18/22 9:29:00 EST, Route to Pharmacy Electronically, [id number], 160, cm, 03/15/22 14:35:00 EST, Height, 87.6, kg, 02/22/22 17:27:00 EST... Start Date: 04/18/22 Status: Ordered metoprolol 25 mg oral tablet, extended release 25 mg, 1, tablet, By Mouth, Daily, # 90 tablet, Refills 3, Tot. Refills 3, Maintenance, 01/15/22 16:59:00 EST, Route to Pharmacy Electronically, [facility], Partial fill upon patient [...] 1 Refills, Maintenance, 09/18/20 20:09:00 EDT, Capsule, [facility] #[id number], PLEASE DISPENSE IN BUBBLE/BLISTER PACK, 1 capsule By Mouth 2 times a day,x9... Start Date: 09/18/20 Stop Date: 03/17/21 Status: Ordered Readi-Cat 2 oral suspension See Instructions, Oral Contrast 2 Bottles 450 ml each Dx: Hernia, # 900 mL, 0 Refills, Maintenance,11/01/21 15:08:00 EDT, [id number], Partial fill upon patient request if the prescription isfor a schedule II opioid drug., Oral Contrast; 2... Start Date: 11/01/21 Status: Ordered Ventolin HFA 108 mcg/inh inhalation aerosol with adapter 2 puffs, Inhalation, Every 4 hours, TAKE 2 PUFFS EVERY 4 HOURS IF NEEDED FOR WHEEZING, # 1 each, 5 Refills, Maintenance, 02/16/20 10:48:00 EST, Inhaler, [facility] #[id number], Partial fill uponpatient request if the prescription [...] Team Personnel Name: Jarod Olmstead MD Position: [facility] Primary Care Physician Member Role: PCP Address: Address: [address] [place] [address] [address] [place] [address]- Name: Wen Stoll RN Position: S RN Member Role: Primary Care Nurse Name: Jeanne Gallagher Position: [facility] Outreach Member Role: Lifetime Consulting Physician Name: Katerina Campos RN Position: S RN Member Role: Primary Care Nurse Name: Bryanna Guzman RN Position: S RN Member Role: Primary Care Nurse Care Team Related Persons Name: ADEN GARCIA Name: FRANCIS GARCIA Address: [place]
--- OUTSIDE RECORDS SUMMARY | 2022-11-20 09:39 | XMS_ITS | Continuity of Care Document ---
Author Name Unknown Organization [facility] Address [address] [place] [address]- Care Team Providers Care Poker Manager Name Role Phone Erik PEÑA, Kirsten Jauregui Primary Care Physician ( [phone] [facility]counter [facility] Date[facility]s): 09/08/19 - 10/08/19 [facility] [address] [place] [address]- [facility] Allergies, Adverse Reactions, Alerts Substance Reaction Severity [...] 10/08/19 20:16:00 EDT, Route to Pharmacy Electronically, [facility] #[id number],... Start Date: 10/08/19 Stop Date: 12/07/19 Status: [...] 07/03/19 10:38:00 EDT, Route to Pharmacy Electronically, [facility] #[id number], 165.1, cm, 04/24/19 8:48:00 EST, Height Start Date: 07/03/19 Stop Date: 12/30/19 Status: Ordered Lipitor 40 mg oral tablet 1 tablet = 40 mg, By Mouth, Daily, # 90 tablet, 1 Refills, Maintenance, 07/03/19 10:23:00 EDT, Tablet, [facility] #[id number], 165.1, cm, 04/24/19 8:48:00 EST, Height Start Date: 07/03/19 Stop Date: 12/30/19 Status: Ordered lisinopril 20 mg oral tablet 20 mg, 1, tablet, By Mouth, Daily, # 90 tablet, Refills 1, Tot. Refills 1, Maintenance, 07/03/19 10:39:00 EDT, Route to Pharmacy Electronically, [facility] #[id number], 165.1, cm, 04/24/19 8:48:00 EST, Height Start Date: 07/03/19 Stop Date: 12/30/19 Status: Ordered metoprolol 50 mg oral tablet, extended release 50 mg, 1, tablet, By Mouth, Daily, # 90 tablet, Refills 0, Tot. Refills 0, Maintenance, 10/08/19 20:19:00 EDT, Route to Pharmacy Electronically, [facility] #[id number], 165.1, cm, 04/24/19 8:48:00 EST, Height Start [...]
--- OUTSIDE RECORDS SUMMARY | 2022-11-20 09:39 | XMS_ITS | Continuity of Care Document ---
Author Name Unknown Organization [facility] Address [address] [place] [address] [address] [place] [address]- Care Team Providers Care Mitigation Supervisor Name Role Phone Erik PEÑA, Kirsten Jauregui Primary Care Physician ( [phone] [facility] Date(s): 06/17/19 - 07/17/[address] [place] [address]- [facility] Attending Physician: Javier Montaño8 Admitting Physician: AdmLucy quiros Referring Physician: AdmtrLucy [...] 05/25/19 13:20:00 EDT, Route to Pharmacy Electronically, [facility] #[id number],... Start Date: 05/25/19 Stop Date: 07/24/19 Status: Ordered aspirin 81 mg oral tablet 1 tablet = 81 mg, By Mouth, Daily, 0 Refills, Maintenance, 03/01/16 13:51:57 Start Date: 03/01/16 Status: Ordered hydrochlorothiazide 25 mg oral tablet 25 mg, 1, tablet, By Mouth, Daily, # 90 tablet, Refills 1, Tot. Refills 1, Maintenance, 07/03/19 10:38:00 EDT, Route to Pharmacy Electronically, [facility] #[id number], 165.1, cm, 04/24/19 8:48:00 EST, Height Start Date: 07/03/19 Stop Date: 12/30/19 Status: Ordered Lipitor 40 mg oral tablet 1 tablet = 40 mg, By Mouth, Daily, # 90 tablet, 1 Refills, Maintenance, 07/03/19 10:23:00 EDT, Tablet, [facility] #[id number], 165.1, cm, 04/24/19 8:48:00 EST, Height Start Date: 07/03/19 Stop Date: 12/30/19 Status: Ordered lisinopril 20 mg oral tablet 20 mg, 1, tablet, By Mouth, Daily, # 90 tablet, Refills 1, Tot. Refills 1, Maintenance, 07/03/19 10:39:00 EDT, Route to Pharmacy Electronically, [facility] #[id number], 165.1, cm, 04/24/19 8:48:00 EST, Height Start Date: 07/03/19 Stop Date: 12/30/19 Status: Ordered metoprolol 50 mg oral tablet, extended release 50 mg, 1, tablet, By Mouth, Daily, # 90 tablet, Refills 0, Tot. Refills 0, Maintenance, 07/08/19 12:14:00 EDT, Route to Pharmacy Electronically, [facility] #[id number], 165.1, cm, 04/24/19 8:48:00 EST, Height Start [...]
--- OUTSIDE RECORDS SUMMARY | 2022-11-20 09:39 | XMS_ITS | Continuity of Care Document ---
Author Name Unknown Organization [facility] Address [address] [place] [address]- Care Team Providers Care Frame Repairer Name Role Phone Erik PEÑA, Kirsten Jauregui Primary Care Physician Encounter [facility] Date(s): 04/24/19 - 05/01/19 [facility] [address] [place] [address]- [facility] Encounter Diagnosis Depression with anxiety(Discharge Diagnosis) - 04/24/19 Attending Physician: Erik PEÑA, Kirsten Jauregui Allergies, [...] Refills, Maintenance, 04/24/19 9:40:00 EST, ER Capsule, [facility] #[id number], 165.1, cm, 04/24/19 8:48:00 EST, Height Start [...] contraction)(Confirmed) Active History of Hepatitis C(Confirmed) Active Diagnosis Diagnosis Type Effective Dates Health Status Clinical Service Informant Depression with anxiety Discharge Diagnosis 04/24/19 Procedures Procedure Date Related Diagnosis Body Site Status CABG x 4 - Coronary artery b ypass grafts x 4 05/01/16 Completed Vital Signs Most recent to oldest [Reference Range]: 1 Height 165.1 cm (04/24/19 8:48 AM) Weight 86.6 kg (04/24/19 8:48 AM) Oxygen Saturation [94-100 %] 97 % (04/24/19 8:48 AM) Pulse Rate [55-90 bpm] 63 bpm (04/24/19 8:48 AM) Body Mass Index [18.5-24.99] 31.77 *>HHI* (04/24/19 8:48 AM) Blood Pressure [90-138/55-84 mm Hg] 128/ 70mm Hg (04/24/19 8:48 AM) Respiratory Rate [16-30 br/min] 12 br/mi n *L* (04/24/19 8:48 AM) Blood pressure sites Arm, left (04/24/19 8:48 AM) Social History Social History Type Response Tobacco Use: quit 1993 1-2pp d 31yrs. Sex
--- OUTSIDE RECORDS SUMMARY | 2022-11-20 09:39 | XMS_ITS | Continuity of Care Document ---
Author Name Unknown Organization [facility] Address [address] [place] [address]- Care Team Providers Care Extern Name Role Phone Erik PEÑA, Kirsten Jauregui Primary Care Physician En[place] [facility] [place] [facility] [place](s[place] 03/09/20 - 03/16/20 [facility] [address] [place] [address]- Encounter Diagnosis Cirrhosis(Discharge Diagnosis) - 03/09/20 Renal cyst(Discharge Diagnosis) - 03/09/20 Aortic dilatation(Discharge Diagnosis) - 03/09/20 Carotid artery stenosis(Discharge Diagnosis) - 03/09/20 Lump in neck(Discharge Diagnosis) - 03/09/20 Attending Physician: Kirsten Valencia MD Allergies, Adverse [...] tablet, 1 Refills, Maintenance, 02/10/20 16:38:00 EST, [facility] #[id number], Partial fill upon patient request if the prescription is for a schedule II opioid drug., 165.1, cm, 02/10/20 15:04:00 EST, Height Start Date: 02/10/20 Stop Date: 08/08/20 Status: Ordered clotrimazole 1% topical cream 1 application, Topically, 2 times a day, PRN rash, for 30 days, # 60 Gm, 1 Refills, Acute 04/10/20 16:32:00 EST, 02/10/20 16:32:00 EST, Cream, [facility] #[id number], Partial fill upon patient request if the [...] 01/07/20 14:52:00 EST, Route to Pharmacy Electronically, [facility] #[id number], 165.1, cm, 12/10/19 10:57:00 EDT, Height Start Date: 01/07/20 Stop Date: 07/05/20 Status: Ordered ibuprofen 600 mg oral tablet 600 mg, 1, tablet, By Mouth, Every 6 hours, PRN, for 30 days, with food or milk, # 90 tablet, Refills 0, Tot. Refills 0, Acute 04/10/20 15:09:00 EST, Pain , Mild, 03/11/20 15:09:00 EST, Route to Pharmacy Electronically, [facility] #[id number], [place]... Start Date: 03/11/20 Stop Date: 04/10/20 Status: Ordered Lipitor 40 mg oral tablet 1 tablet = 40 mg, By Mouth, Daily, # 90 tablet, 1 Refills, Maintenance, 01/07/20 14:52:00 EST, Tablet, [facility] #[id number], 165.1, cm, 12/10/19 10:57:00 EDT, Height Start Date: 01/07/20 Stop Date: 07/05/20 Status: Ordered lisinopril 20 mg oral tablet 20 mg, 1, tablet, By Mouth, Daily, # 90 tablet, Refills 1, Tot. Refills 1, Maintenance, 10/29/19 14:56:00 EDT, Route to Pharmacy Electronically, [facility] #[id number], 165.1, cm, 10/28/19 9:59:00 EDT, Height Start Date: 10/29/19 Stop Date: 04/26/20 Status: Ordered metoprolol 50 mg oral tablet, extended release 50 mg, 1, tablet, By Mouth, Daily, # 90 tablet, Refills 1, Tot. Refills 1, Maintenance, 01/07/20 14:51:00 EST, Route to Pharmacy Electronically, [facility] #[id number], 165.1, cm, 12/10/19 10:57:00 EDT, Height Start [...] 5 Refills, Maintenance, 02/16/20 10:48:00 EST, Inhaler, [facility] #[id number], Partial fill uponpatient request if the prescription [...] Effective Dates Health Status Clinical Service Informant Cirrhosis Discharge Diagnosis 03/09/20 Renal cyst Discharge Diagnosis 03/09/20 Aortic dilatation Discharge Diagnosis 03/09/20 Carotid artery stenosis Discharge Diagnosis 03/09/20 Lump in neck Discharge Diagnosis 03/09/20 Vital Signs Most recent to oldest [Reference Range]: 1 Height 165.1 cm (03/09/20 8:11 AM) Social History Social History Type Response Tobacco Use: quit 1993 1-2pp d 31yrs. Sex
--- OUTSIDE RECORDS SUMMARY | 2022-11-20 09:39 | XMS_ITS | Continuity of Care Document ---
Author Name Unknown Organization [facility] Address [address] [address]- Care Team Providers Care Aba Tutor Name Role Phone Erik PEÑA, Kirsten Jauregui Primary Care Physician Encounter [facility] [place] Date(s): 06/16/19 - 07/16/19 [facility] [address] [address]- [place] Attending Physician: Lucy Montaño Admitting Physician: Lucy [...] 05/25/19 13:20:00 EDT, Route to Pharmacy Electronically, [facility] #[id number],... Start Date: 05/25/19 Stop Date: 07/24/19 Status: Ordered aspirin 81 mg oral tablet 1 tablet = 81 mg, By Mouth, Daily, 0 Refills, Maintenance, 03/01/16 13:51:57 Start Date: 03/01/16 Status: Ordered hydrochlorothiazide 25 mg oral tablet 25 mg, 1, tablet, By Mouth, Daily, # 90 tablet, Refills 1, Tot. Refills 1, Maintenance, 07/03/19 10:38:00 EDT, Route to Pharmacy Electronically, [email or web address] #[id number], 165.1, cm, 04/24/19 8:48:00 EST, Height Start Date: 07/03/19 Stop Date: 12/30/19 Status: Ordered Lipitor 40 mg oral tablet 1 tablet = 40 mg, By Mouth, Daily, # 90 tablet, 1 Refills, Maintenance, 07/03/19 10:23:00 EDT, Tablet, [email or web address] #[id number], 165.1, cm, 04/24/19 8:48:00 EST, Height Start Date: 07/03/19 Stop Date: 12/30/19 Status: Ordered lisinopril 20 mg oral tablet 20 mg, 1, tablet, By Mouth, Daily, # 90 tablet, Refills 1, Tot. Refills 1, Maintenance, 07/03/19 10:39:00 EDT, Route to Pharmacy Electronically, [email or web address] #[id number], 165.1, cm, 04/24/19 8:48:00 EST, Height Start Date: 07/03/19 Stop Date: 12/30/19 Status: Ordered metoprolol 50 mg oral tablet, extended release 50 mg, 1, tablet, By Mouth, Daily, # 90 tablet, Refills 0, Tot. Refills 0, Maintenance, 07/08/19 12:14:00 EDT, Route to Pharmacy Electronically, [email or web address] #[id number], 165.1, cm, 04/24/19 8:48:00 EST, Height Start [...]
--- OUTSIDE RECORDS SUMMARY | 2022-11-20 09:39 | XMS_ITS | Continuity of Care Document ---
Author Name Unknown Organization [facility] Address [address] [place] [address] [address] [place] [address]- Care Team Providers Care Manager Chemical Name Role Phone Erik PEÑA, Kirsten Jauregui Primary Care Physician ( [phone] [place] [facility] [place] 10/28/19 - 11/04/19 [facility] [address] [place] [address]- [facility] Attending Physician: Luis PEÑA, Shaan Referring Physician: [...] 10/08/19 20:16:00 EDT, Route to Pharmacy Electronically, [facility] #[id number],... Start Date: 10/08/19 Stop Date: 12/07/19 Status: [...] 07/03/19 10:38:00 EDT, Route to Pharmacy Electronically, [facility] #[id number], 165.1, cm, 04/24/19 8:48:00 EST, Height Start Date: 07/03/19 Stop Date: 12/30/19 Status: Ordered Lipitor 40 mg oral tablet 1 tablet = 40 mg, By Mouth, Daily, # 90 tablet, 1 Refills, Maintenance, 07/03/19 10:23:00 EDT, Tablet, [facility] #[id number], 165.1, cm, 04/24/19 8:48:00 EST, Height Start Date: 07/03/19 Stop Date: 12/30/19 Status: Ordered lisinopril 20 mg oral tablet 20 mg, 1, tablet, By Mouth, Daily, # 90 tablet, Refills 1, Tot. Refills 1, Maintenance, 10/29/19 14:56:00 EDT, Route to Pharmacy Electronically, [facility] #[id number], 165.1, cm, 10/28/19 9:59:00 EDT, Height Start Date: 10/29/19 Stop Date: 04/26/20 Status: Ordered metoprolol 50 mg oral tablet, extended release 50 mg, 1, tablet, By Mouth, Daily, # 90 tablet, Refills 0, Tot. Refills 0, Maintenance, 10/08/19 20:19:00 EDT, Route to Pharmacy Electronically, [facility] #[id number], 165.1, cm, 04/24/19 8:48:00 EST, Height Start [...] oldest [Reference Range]: 1 Height 165.1 cm (10/28/19 9:59 AM) Weight 94.3 kg (10/28/19 9:59 AM) Body Mass Index [18.5-24.99] 34.6 *>HHI* (10/28/19 9:59 AM) Blood Pressure [90-138/55-84 mm Hg] 142/ 74mm Hg *H* (10/28/19 9:59 AM) Respiratory Rate [16-30 br/min] 16 br/mi n (10/28/19 9:59 AM) Temperature [96.8-100.4 DegF] 99.1 DegF (10/28/19 9:59 AM) Blood pressure sites Arm, left (10/28/19 9:59 AM) Temperature Route Temporal (10/28/19 9:59 AM) Weight Obtained Via Standing scale (10/28/19 9:59 AM) Social History Social History Type Response Tobacco Use: quit 1993 1-2pp d 31yrs. Sex
--- OUTSIDE RECORDS SUMMARY | 2022-11-20 09:39 | XMS_ITS | Continuity of Care Document ---
Author Name Unknown Organization [facility] Address [address] [place] [address]- Care Team Providers Care Seamless Tube Drawer Name Role Phone Ishan PEÑA, [facility] Primary Care Physician [place] [facility] [place] 07/13/22 - 08/12/22 [facility] [address] [place] [address]- Allergies, Adverse Reactions, Alerts No Known Allergies Immunizations Given and Recorded Vaccine Date Status Refusal Reason influenza virus vaccine, inactivated 11/24/21 Loco rded influenza virus vaccine, inactivated 12/10/20 Loco rded [id number] bivalent booster vax 11/24/21 Recorded SARS-CoV-2 mRNA ([id number]) vax 05/26/21 Recorded tetanus/diphtheria/pertussis, acel(Tdap) 12/17/20 Recorded [...] tablet, 2 Refills, Maintenance, 08/02/22 10:40:00 EDT, [facility], 160, cm, 07/25/22 16:17:00 EDT, Height, 87.6, kg, 02/22/22 17:27:00 EST, Dry Weight Start Date: 08/02/22 Status: Ordered atorvastatin 40 mg oral tablet 1 tablet, By Mouth, Daily, R4., # 90 tablet, 2 Refills, Maintenance, 08/02/22 10:40:00 EDT, [facility], 160, cm, 07/25/22 16:17:00 EDT, Height, 87.6, kg, 02/22/22 17:27:00 EST, Dry Weight Start Date: 08/02/22 Status: Ordered Rick topical emulsion See Instructions, Daily, # 250 mL, 0 Refills, Maintenance, 07/13/22 15:36:00 EDT, [facility] #[id number], Partial fill upon patient request if the prescription is for a schedule II opioid drug.,Daily, 160, cm, 04/30/22 13:34:00 EST, Height, 87.6... Start Date: 07/13/22 Status: Ordered Biafine topical emulsion See Instructions, PRN Prurigo Nodularis, apply to affected area twice a day as needed. 1 bottle., #1 each, 0 Refills, Maintenance, 06/06/22 12:47:00 EDT, [facility]/pharmacy #[id number], Partial fill upon patient request if the prescription is for a schedule II... Start Date: 06/06/22 Status: Ordered hydrochlorothiazide 25 mg oral tablet 1, tablet, By Mouth, Daily, R1., # 90 tablet, Refills 2, Maintenance, 08/02/22 10:40:00 EDT, Route to Pharmacy Electronically, [facility], 160, cm, 07/25/22 16:17:00 EDT, Height, 87.6, kg, 02/22/22 17:27:00 EST, Dry Weight Start Date: 08/02/22 Status: Ordered ibuprofen 600 mg oral tablet 1, tablet, By Mouth, 3 times a day, PRN, # 90 tablet, Refills 0, Tot. Refills 0, Maintenance, NEEDED FOR MODERATE PAIN, 07/13/22 15:37:00 EDT, Route to Pharmacy Electronically, [facility] #[id number], 160, cm, 04/30/22 13:34:00 EST, Height, 87... Start Date: 07/13/22 Status: Ordered metoprolol 25 mg oral tablet, extended release 25 mg, 1, tablet, By Mouth, Daily, # 90 tablet, Refills 3, Tot. Refills 3, Maintenance, 01/15/22 16:59:00 EST, Route to Pharmacy Electronically, [facility], Partial fill upon patient request if [...] 1 Refills, Maintenance, 09/18/20 20:09:00 EDT, Capsule, [facility] #[id number], PLEASE DISPENSE IN BUBBLE/BLISTER PACK, 1 capsule By Mouth 2 times a day,x9... Start Date: 09/18/20 Stop Date: 03/17/21 Status: Ordered Ventolin HFA 108 mcg/inh inhalation aerosol with adapter 2 puffs, Inhalation, Every 4 hours, PRN NEEDED FOR WHEEZING OR SHORTNESS OF BREATH/DYSPNEA, # 18Gm, 3 Refills, Maintenance, 08/02/22 10:40:00 EDT, [facility], 160, cm, 07/25/22 16:17:00 EDT, Height, [...] Team Personnel Name: Ishan PEÑA, Jarod Position: [facility] Physician - Primary Care Member Role: PCP Address: Address: [address] [place] [address]- [place] Name: Dodie GARCIA, Wen Position: [facility] RN Member [...]
--- OUTSIDE RECORDS SUMMARY | 2022-11-20 09:39 | XMS_ITS | Continuity of Care Document ---
Author Name Unknown Organization [facility] Address [address] [place] [address], [address] [place] [address]- Care Team Providers Care Jaw Skinner Name Role Phone Ishan PEÑA, [facility] Primary Care Physician Encounter [facility] Date(s): 04/02/22 - 05/02/22 [facility] [address] [place] [address], [address] [place], [place] [address] Allergies, Adverse Reactions, Alerts No Known Allergies Immunizations Given and Recorded Vaccine Date Status Refusal Reason influenza virus vaccine, inactivated 11/24/21 Loco rded influenza virus vaccine, inactivated 12/10/20 Loco rded [id number] bivalent booster vax 11/24/21 Recorded SARS-CoV-2 mRNA ([id number]-buff-oxqch) vax 05/26/21 Recorded tetanus/diphtheria/pertussis, acel(Tdap) 12/17/20 Recorded [...] 01/15/22 16:59:00 EST, Route to Pharmacy Electronically, [facility], Partial fill upon patient request if [...] MG DAILY, # 90 tablet, 1 Refills, [facility] #[id number], 159, cm, 07/26/21 11:39:00 EDT, Height, 93.2, kg, 05/04/20 10:09:00 EST, Dry We... 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 1 bottle., #1 each, 0 Refills, Maintenance, 03/28/21 11:42:00 EST, [facility] #[id number], Partial fill upon patient request if the prescription is for a lam... Start Date: 03/28/21 Status: Ordered ibuprofen 600 mg oral tablet 1, tablet, By Mouth, 3 times a day, PRN, # 90 tablet, Refills 0, Maintenance, NEEDED FOR MODERATE PAIN, 04/18/22 9:29:00 EST, Route to Pharmacy Electronically, [id number], 160, cm, 03/15/22 14:35:00 EST, Height, 87.6, kg, 02/22/22 17:27:00 EST... Start Date: 04/18/22 Status: Ordered metoprolol 25 mg oral tablet, extended release 25 mg, 1, tablet, By Mouth, Daily, # 90 tablet, Refills 3, Tot. Refills 3, Maintenance, 01/15/22 16:59:00 EST, Route to Pharmacy Electronically, [facility], Partial fill upon patient request if [...] 1 Refills, Maintenance, 09/18/20 20:09:00 EDT, Capsule, [facility] #[id number], PLEASE DISPENSE IN BUBBLE/BLISTER PACK, 1 capsule [...] Physician Member Role: PCP Address: Address: [address] [place] [address] [address] [place] [address]- Name: Wen Stoll RN Position: [facility] RN Member Role: Primary Care Nurse Name: Jeanne Gallagher Position: [facility] Outreach Member Role: Lif[employer] Consulting Physician Name: Katerina Campos RN Position: S RN Member Role: Primary Care Nurse Name: Bryanna Guzman RN Position: [facility] RN Member Role: Primary Care Nurse Care Team Related Persons Name: ADEN GARCIA Name: FRANCIS GARCIA Address: [place]
--- OUTSIDE RECORDS SUMMARY | 2022-11-20 09:39 | XMS_ITS | Continuity of Care Document ---
Author Name Unknown Organization [facility] [place] Address [address] [place] [address]- Care Team Providers Care Room Attendant Name Role Phone Erik PEÑA, Kirsten Jauregui Primary Care Physician Encounter 02/16/20 - 02/23/20 [facility] [address], [address] [place] [address]- Attending Physician: Erik PEÑA, Kirsten Jauregui Admitting Physician: Kirsten Valencia MD Referring Physician: Erik PEÑA, Kirsten Jauregui [...] 90 tablet, 1 Refills, Maintenance, 02/10/20 16:38:00 [id number], Partial fill upon patient request if the prescription is for a schedule II opioid drug., 165.1, cm, 02/10/20 15:04:00 EST, Height Start Date: 02/10/20 Stop Date: 08/08/20 Status: Ordered clotrimazole 1% topical cream 1 application, Topically, 2 times a day, PRN rash, for 30 days, # 60 Gm, 1 Refills, Acute 04/10/20 16:32:00 EST, 02/10/20 16:32:00 EST, Cream, [facility] #[id number], Partial fill upon patient request if the prescription is for a schedule II opio... Start Date: 02/10/20 Stop Date: 04/10/20 Status: Ordered Diflucan 150 mg oral tablet 1 tablet = 150 mg, By Mouth, Once, # 1 tablet, 0 Refills, Soft Stop, 01/13/20 13:25:00 EST, [facility] #[id number], Partial fill upon patient request, 165.1, cm, [...] 01/07/20 14:52:00 EST, Route to Pharmacy Electronically, [facility] #[id number], 165.1, cm, 12/10/19 10:57:00 EDT, Height Start [...] 02/10/20 15:09:00 EST, Route to Pharmacy Electronically, [facility]... Start Date: 02/10/20 Stop Date: 03/11/20 Status: Ordered ibuprofen 600 mg oral tablet 600 mg, 1, tablet, By Mouth, Every 6 hours, PRN, for 30 days, with food or milk, # 90 tablet, Refills 0, Tot. Refills 0, Acute 04/10/20 15:09:00 EST, Pain , Mild, 03/11/20 15:09:00 EST, Route to Pharmacy Electronically, [facility] #[id number], Pa... Start Date: 03/11/20 Stop Date: 04/10/20 Status: Ordered Lipitor 40 mg oral tablet 1 tablet = 40 mg, By Mouth, Daily, # 90 tablet, 1 Refills, Maintenance, 01/07/20 14:52:00 EST, Tablet, [facility] #[id number], 165.1, cm, 12/10/19 10:57:00 EDT, Height Start Date: 01/07/20 Stop Date: 07/05/20 Status: Ordered lisinopril 20 mg oral tablet 20 mg, 1, tablet, By Mouth, Daily, # 90 tablet, Refills 1, Tot. Refills 1, Maintenance, 10/29/19 14:56:00 EDT, Route to Pharmacy Electronically, [facility] #[id number], 165.1, cm, 10/28/19 9:59:00 EDT, Height Start Date: 10/29/19 Stop Date: 04/26/20 Status: Ordered metoprolol 50 mg oral tablet, extended release 50 mg, 1, tablet, By Mouth, Daily, # 90 tablet, Refills 1, Tot. Refills 1, Maintenance, 01/07/20 14:51:00 EST, Route to Pharmacy Electronically, [facility] #[id number], 165.1, cm, 12/10/19 10:57:00 EDT, Height Start [...] 5 Refills, Maintenance, 02/16/20 10:48:00 EST, Inhaler, [facility] #[id number], Partial fill uponpatient request if the prescription [...]
--- OUTSIDE RECORDS SUMMARY | 2022-11-20 09:39 | XMS_ITS | Continuity of Care Document ---
Author Name Unknown Organization [facility] Address Unknown Care Team Providers Care Principal Technologist Name Role Phone Not on Staff, PCP Primary Care Physician Unavail able Encounter [facility] Date(s): 07/27/21 - 08/26/21 [facility] Allergies, Adverse Reactions, Alerts No Known Allergies Immunizations Given and Recorded Vaccine Date Status Refusal Reason SARS-CoV-2 mRNA ([id number]-eiis-fpcft) vax 05/26/21 Recorded tetanus/diphtheria/pertussis, acel(Tdap) 12/17/20 Recorded [...] MG DAILY, # 90 tablet, 1 Refills, [facility] #[id number], 159, cm, 07/26/21 11:39:00 EDT, Height, 93.2, kg, 05/04/20 10:09:00 EST, Dry We... 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 1 bottle., #1 each, 0 Refills, Maintenance, 03/28/21 11:42:00 EST, [facility] #[id number], Partial fill upon patient request if the prescription is for a lam... Start Date: 03/28/21 Status: Ordered hydrochlorothiazide 25 mg oral tablet 1, tablet, By Mouth, Daily, # 90 tablet, Refills 0, Route to Pharmacy Electronically, [facility] #[id number], 159, cm, 04/26/21 9:27:00 EST, Height, 93.2, kg, 05/04/20 10:09:00 EST, Dry Weight Start Date: 06/25/21 Status: Ordered lisinopril 20 mg oral tablet 20 mg, 1, tablet, By Mouth, Daily, with 5 mg to total 25 mg of lisinopril, # 90 tablet, Refills 1, Tot. Refills 1, Maintenance, 04/18/21 15:36:00 EST, Route to Pharmacy Electronically, [facility] #[id number], Partial fill upon patient request if... Start Date: 04/18/21 Stop Date: 10/15/21 Status: Ordered lisinopril 5 mg oral tablet 5 mg, 1, tablet, By Mouth, Daily, with 20 mg to total 25 mg daily, # 90 tablet, Refills 1, Tot. Refills 1, Maintenance, 04/18/21 15:37:00 EST, Route to Pharmacy Electronically, [facility] #[id number], Partial fill upon patient request if the pres... Start Date: 04/18/21 Stop Date: 10/15/21 Status: Ordered Metoprolol Succinate ER 50 mg oral tablet, extended release 1 tablet, By Mouth, Daily, # 90 tablet, 0 Refills, [facility] #[id number], 159, cm, 04/26/21 9:27:00 EST, Height, 93.2, [...] 1 Refills, Maintenance, 09/18/20 20:09:00 EDT, Capsule, [facility] #[id number], PLEASE DISPENSE IN BUBBLE/BLISTER PACK, 1 capsule By Mouth 2 times a day,x9... Start Date: 09/18/20 Stop Date: 03/17/21 Status: Ordered Ventolin HFA 108 mcg/inh inhalation aerosol with adapter 2 puffs, Inhalation, Every 4 hours, TAKE 2 PUFFS EVERY 4 HOURS IF NEEDED FOR WHEEZING, # 1 each, 5 Refills, Maintenance, 02/16/20 10:48:00 EST, Inhaler, [facility] #[id number], Partial fill uponpatient request if the prescription [...]
--- OUTSIDE RECORDS SUMMARY | 2022-11-20 09:40 | XMS_ITS | Continuity of Care Document ---
Author Name Unknown Organization [facility] Address [address] [place] [address]- Care Team Providers Care Theology Professor Name Role Phone Erik PEÑA, Kirsten Jauregui Primary Care Physician Encounter [facility] [place] Date(s): 06/03/20 - 07/03/20 [facility] [address] [place] [address]- Attending Physician: Admishaan, Lucy Admitting Physician: Admtr, Lucy Referring Physician: Admtr, [...] 1 Refills, Maintenance, 04/20/20 16:09:00 EST, Tablet, [facility] #[id number], Partial fill upon patient request if the prescr... Start Date: 04/20/20 Status: Ordered cholecalciferol 4000 intl units oral tablet = 100 mcg, By Mouth, Daily, # 90 tablet, 1 Refills, Maintenance, 02/10/20 16:38:00 EST, [facility] #[id number], Partial fill upon patient request if the [...] 01/07/20 14:52:00 EST, Route to Pharmacy Electronically, [facility] #[id number], 165.1, cm, 12/10/19 10:57:00 EDT, Height Start Date: 01/07/20 Stop Date: 07/05/20 Status: Ordered Lipitor 40 mg oral tablet 1 tablet = 40 mg, By Mouth, Daily, Take 1 tablet of 40 mg with 1 tablet of 20 mg for total 60 mg daily, # 90 tablet, 1 Refills, Maintenance, 04/06/20 14:02:00 EST, Tablet, [facility] #[id number], 165.1, cm, 04/06/20 8:13:00 EST, Height Start Date: 04/06/20 Status: Ordered lisinopril 20 mg oral tablet 20 mg, 1, tablet, By Mouth, Daily, # 90 tablet, Refills 1, Tot. Refills 1, Maintenance, 10/29/19 14:56:00 EDT, Route to Pharmacy Electronically, [facility] #[id number], 165.1, cm, 10/28/19 9:59:00 EDT, Height Start Date: 10/29/19 Stop Date: 04/26/20 Status: Ordered metoprolol 50 mg oral tablet, extended release 50 mg, 1, tablet, By Mouth, Daily, # 90 tablet, Refills 1, Tot. Refills 1, Maintenance, 01/07/20 14:51:00 EST, Route to Pharmacy Electronically, [facility] #[id number], 165.1, cm, 12/10/19 10:57:00 EDT, [...] 1 Refills, Maintenance, 04/01/20 14:07:00 EST, Capsule, [facility] #[id number], PLEASE DISPENSE IN BUBBLE/BLISTER PACK, 1 capsule By Mouth Daily,x90 days,Instr:PLEA... Start Date: 04/01/20 Stop Date: 09/28/20 Status: Ordered Ventolin HFA 108 mcg/inh inhalation aerosol with adapter 2 puffs, Inhalation, Every 4 hours, TAKE 2 PUFFS EVERY 4 HOURS IF NEEDED FOR WHEEZING, # 1 each, 5 Refills, Maintenance, 02/16/20 10:48:00 EST, Inhaler, [facility] #[id number], Partial fill uponpatient request if the prescription [...]
--- OUTSIDE RECORDS SUMMARY | 2022-11-20 09:40 | XMS_ITS | Continuity of Care Document ---
Author Name Unknown Organization [facility] Address [address] [place] [address]- Care Team Providers Care Software Engineer Intern Name Role Phone Erik PEÑA, Kirsten Jauregui Primary Care Physician Encounter [facility] [place] Date(s): 04/03/21 - 05/03/21 [facility] [address] [place] [address]- Attending Physician: AdmLucy quiros Admitting Physician: AdmtrLucy [...] MG DAILY, # 90 tablet, 0 Refills, [facility] #[id number], 158, cm, 04/03/21 15:11:00 EST, Height, 93.2, kg, 05/04/20 10:09:00 EST, Dry We... 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 1 bottle., #1 each, 0 Refills, Maintenance, 03/28/21 11:42:00 EST, [facility] #[id number], Partial fill upon patient request if the prescription is for a lam... Start Date: 03/28/21 Status: Ordered hydrochlorothiazide 25 mg oral tablet 1, tablet, By Mouth, Daily, # 90 tablet, Refills 1, Route to Pharmacy Electronically, [facility] #[id number], 158, cm, 11/25/20 12:59:00 EDT, Height, 93.2, kg, 05/04/20 10:09:00 EST, Dry Weight Start Date: 12/30/20 Status: Ordered lisinopril 20 mg oral tablet 20 mg, 1, tablet, By Mouth, Daily, with 5 mg to total 25 mg of lisinopril, # 90 tablet, Refills 1, Tot. Refills 1, Maintenance, 04/18/21 15:36:00 EST, Route to Pharmacy Electronically, [facility] #[id number], Partial fill upon patient request if... Start Date: 04/18/21 Stop Date: 10/15/21 Status: Ordered lisinopril 5 mg oral tablet 5 mg, 1, tablet, By Mouth, Daily, with 20 mg to total 25 mg daily, # 90 tablet, Refills 1, Tot. Refills 1, Maintenance, 04/18/21 15:37:00 EST, Route to Pharmacy Electronically, [facility] #[id number], Partial fill upon patient request if the pres... Start Date: 04/18/21 Stop Date: 10/15/21 Status: Ordered Metoprolol Succinate ER 50 mg oral tablet, extended release 1 tablet, By Mouth, Daily, # 90 tablet, 1 Refills, [facility] #[id number], 158, cm, 11/25/20 12:59:00 EDT, Height, 93.2, [...] 1 Refills, Maintenance, 09/18/20 20:09:00 EDT, Capsule, [facility] #[id number], PLEASE DISPENSE IN BUBBLE/BLISTER PACK, 1 capsule By Mouth 2 times a day,x9... Start Date: 09/18/20 Stop Date: 03/17/21 Status: Ordered Ventolin HFA 108 mcg/inh inhalation aerosol with adapter 2 puffs, Inhalation, Every 4 hours, TAKE 2 PUFFS EVERY 4 HOURS IF NEEDED FOR WHEEZING, # 1 each, 5 Refills, Maintenance, 02/16/20 10:48:00 EST, Inhaler, [facility] #[id number], Partial fill uponpatient request if the prescription [...]
--- OUTSIDE RECORDS SUMMARY | 2022-11-20 09:40 | XMS_ITS | Continuity of Care Document ---
Author Name Unknown Organization [facility] Address [address] [place] [address]- Care Team Providers Care Tempering Kiln Tender Name Role Phone Ishan PEÑA, [facility] Primary Care Physician Encounter [facility] [place] Date(s): 12/18/21 - 01/17/22 [facility] [address] [place] [id number] Attending Physician: Admtr, [id number] Admitting Physician: Admtr, [id number] Referring Physician: Admtr, [id number] Allergies, Adverse Reactions, Alerts No Known Allergies Immunizations Given and Recorded Vaccine Date Status Refusal Reason SARS-CoV-2 mRNA (rswossu-[id number]-hkkew) vax 05/26/21 Recorded tetanus/diphtheria/pertussis, acel(Tdap) 12/17/20 Recorded [...] 01/15/22 16:59:00 EST, [facility] to Pharmacy [facility], [facility], Partial fill upon patient [...] MG DAILY, # 90 tablet, 1 Refills, [facility] #[id number], 159, cm, 07/26/21 11:39:00 EDT, Height, 93.2, kg, 05/04/20 10:09:00 EST, Dry We... 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 1 bottle., #1 each, 0 Refills, Maintenance, 03/28/21 11:42:00 EST, [facility] #[id number], Partial fill upon patient request if the prescription is for a lam... Start Date: 03/28/21 Status: Ordered hydrochlorothiazide 25 mg oral tablet See Instructions, TAKE 1 TABLET BY MOUTH DAILY, # 90 tablet, Refills 0, Instructions Replace Required Details, Route to Pharmacy Electronically, [facility] #[id number], 159, cm, 07/26/21 11:39:00 EDT, Height, 93.2, kg, 05/04/20 10:09:00 EST, Dry... Start Date: 10/02/21 Status: Ordered lisinopril 20 mg oral tablet 1, tablet, By Mouth, Daily, OF LISINOPRIL., # 90 tablet, Refills 0, Route to Pharmacy Electronically, [facility] #[id number], 159, cm, 07/26/21 11:39:00 EDT, Height, 93.2, [...] 01/15/22 16:59:00 EST, Route to Pharmacy Electronically, [facility], Partial fill upon patient request if [...] 1 Refills, Maintenance, 09/18/20 20:09:00 EDT, Capsule, [facility] #[id number], PLEASE DISPENSE IN BUBBLE/BLISTER PACK, 1 capsule [...] 5 Refills, Maintenance, 02/16/20 10:48:00 EST, Inhaler, [facility] #[id number], Partial fill uponpatient request if the prescription [...] Care Physician Member Role: PCP Address: Address: [address] [place] [address] [address] [place] [address]- Name: Jeanne Gallagher Position: [facility] Outreach Member Role: Lifetime Consulting Physician Care Team Related Persons Name: ADEN GARCIA Name: FRANCIS GARCIA Address: home
--- OUTSIDE RECORDS SUMMARY | 2022-11-20 09:40 | XMS_ITS | Continuity of Care Document ---
Author Name Unknown Organization [facility] Address [address] [place] [address]- Care Team Providers Care Diamond Driller Name Role Phone Ishan PEÑA, [facility] Primary Care Physician ( [phone] Encounter [facility] Date(s): 03/20/22 - 04/19/22 [facility] [address] [place] [address]- Allergies, Adverse Reactions, Alerts No Known Allergies Immunizations Given and Recorded Vaccine Date Status Refusal Reason influenza virus vaccine, inactivated 11/24/21 Loco rded influenza virus vaccine, inactivated 12/10/20 Loco rded [id number] bivalent booster vax 11/24/21 Recorded SARS-CoV-2 mRNA (qlxaldf-qbik-crknh) vax 05/26/21 Recorded tetanus/diphtheria/pertussis, acel(Tdap) 12/17/20 Recorded [...] 16:59:00 EST, Route to Pharmacy Electronically, [facility], Partial fill upon patient request [...] MG DAILY, # 90 tablet, 1 Refills, [facility] #[id number], 159, cm, 07/26/21 11:39:00 EDT, Height, 93.2, kg, 05/04/20 10:09:00 EST, Dry We... 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 1 bottle., #1 each, 0 Refills, Maintenance, 03/28/21 11:42:00 EST, [facility] #[id number], Partial fill upon patient request if the [...] EST, Route to Pharmacy Electronically, [facility], Partial fill upon patient request if the prescription is for a schedule II opioid... Start Date: 02/24/22 Stop Date: 03/17/22 Status: Ordered hydrochlorothiazide 25 mg oral tablet See Instructions, TAKE 1 TABLET BY MOUTH DAILY, # 90 tablet, Refills 0, Instructions Replace Required Details, Route to Pharmacy Electronically, [facility] #[id number], 159, cm, 07/26/21 11:39:00 EDT, Height, 93.2, kg, 05/04/20 10:09:00 EST, Dry... Start Date: 10/02/21 Status: Ordered ibuprofen 600 mg oral tablet 1, tablet, By Mouth, 3 times a day, PRN, # 90 tablet, Refills 0, Maintenance, NEEDED FOR MODERATE PAIN, 04/18/22 9:29:00 EST, Route to Pharmacy Electronically, [id number], 160, cm, 03/15/22 14:35:00 EST, Height, 87.6, kg, 02/22/22 17:27:00 EST... Start Date: 04/18/22 Status: Ordered metoprolol 25 mg oral tablet, extended release 25 mg, 1, tablet, By Mouth, Daily, # 90 tablet, Refills 3, Tot. Refills 3, Maintenance, 01/15/22 16:59:00 EST, Route to Pharmacy Electronically, [facility], Partial fill upon [...] 1 Refills, Maintenance, 09/18/20 20:09:00 EDT, Capsule, [facility] #[id number], PLEASE DISPENSE IN BUBBLE/BLISTER PACK, 1 capsule By Mouth 2 times a day,x9... Start Date: 09/18/20 Stop Date: 03/17/21 Status: Ordered Readi-Cat 2 oral suspension See Instructions, Oral Contrast 2 Bottles 450 ml each Dx: Hernia, # 900 mL, 0 Refills, Maintenance,11/01/21 15:08:00 EDT, [id number], Partial fill upon patient request if the prescription isfor a schedule II opioid drug., Oral Contrast; 2... Start Date: 11/01/21 Status: Ordered Ventolin HFA 108 mcg/inh inhalation aerosol with adapter 2 puffs, Inhalation, Every 4 hours, TAKE 2 PUFFS EVERY 4 HOURS IF NEEDED FOR WHEEZING, # 1 each, 5 Refills, Maintenance, 02/16/20 10:48:00 EST, Inhaler, [facility] #[id number], Partial fill uponpatient request if the prescription [...] Name: Jarod Olmstead MD Position: [facility] Primary Care Physician Member Role: PCP Address: Address: [address] [place] [address] [address] [place] [address]- Name: Wen Stoll RN Position: S RN Member Role: Primary Care Nurse Name: Jeanne Gallagher Position: [facility] Outreach Member Role: Lifetime Consulting Physician Name: Katerina Campos RN Position: S RN Member Role: Primary Care Nurse Name: Bryanna Guzman RN Position: S RN Member Role: Primary Care Nurse Care Team Related Persons Name: ADEN GARCIA Name: FRANCIS GARCIA Address: [place]
--- OUTSIDE RECORDS SUMMARY | 2022-11-20 09:40 | XMS_ITS | Continuity of Care Document ---
Author Name Unknown Organization [facility] [place] Address [address] [place] [address]- Care Team Providers Care Reel Operator Name Role Phone Erik PEÑA, Kirsten Jauregui Primary Care Physician ( [phone] Encounter 08/12/20 - 08/19/20 [facility] [address], [address] [place] [address]- Attending Physician: Erik PEÑA, Kirsten Jauregui Admitting [...] 1 Refills, Maintenance, 07/22/20 14:03:00 EDT, Tablet, [facility] #[id number], Partial fill upon patient request if the prescr... Start Date: 07/22/20 Status: Ordered cholecalciferol 4000 intl units oral tablet = 100 mcg, By Mouth, Daily, # 90 tablet, 1 Refills, Maintenance, 02/10/20 16:38:00 EST, [facility] #[id number], Partial fill upon patient request if the [...] 07/09/20 14:57:00 EDT, Route to Pharmacy Electronically, [facility] #[id number], 165.1, cm, 07/06/20 11:29:00 EDT, Height, 93.2, kg, 05/04/20 10:09:00 ESTDr... Start Date: 07/09/20 Stop Date: 01/05/21 Status: Ordered Lipitor 40 mg oral tablet 1 tablet = 40 mg, By Mouth, Daily, Take 1 tablet of 40 mg with 1 tablet of 20 mg for total 60 mg daily, # 90 tablet, 1 Refills, Maintenance, 07/22/20 14:03:00 EDT, Tablet, [facility] #[id number], 158, cm, 07/22/20 13:04:00 EDT, Height, 93.2, kg,... Start Date: 07/22/20 Stop Date: 01/18/21 Status: Ordered lisinopril 20 mg oral tablet 20 mg, 1, tablet, By Mouth, Daily, # 90 tablet, Refills 1, Tot. Refills 1, Maintenance, 10/29/19 14:56:00 EDT, Route to Pharmacy Electronically, [facility] #[id number], 165.1, cm, 10/28/19 9:59:00 EDT, Height Start [...] 07/09/20 14:57:00 EDT, Route to Pharmacy Electronically, [facility] #[id number], 165.1, cm, 07/06/20 11:29:00 EDT, Height, 93.2, [...] 1 Refills, Maintenance, 04/01/20 14:07:00 EST, Capsule, [facility] #[id number], PLEASE DISPENSE IN BUBBLE/BLISTER PACK, 1 capsule By Mouth Daily,x90 days,Instr:PLEA... Start Date: 04/01/20 Stop Date: 09/28/20 Status: Ordered Ventolin HFA 108 mcg/inh inhalation aerosol with adapter 2 puffs, Inhalation, Every 4 hours, TAKE 2 PUFFS EVERY 4 HOURS IF NEEDED FOR WHEEZING, # 1 each, 5 Refills, Maintenance, 02/16/20 10:48:00 EST, Inhaler, [facility] #[id number], Partial fill uponpatient request if the prescription [...]
--- OUTSIDE RECORDS SUMMARY | 2022-11-20 09:40 | XMS_ITS | Continuity of Care Document ---
Author Name Unknown Organization [facility] Address [address] [place] [address], [address] [place] [address]- Care Team Providers Care Cup Trimming Machine Operator Name Role Phone Ishan PEÑA, [facility] Primary Care Physician Encounter [facility] Date(s): 01/24/22 - 02/23/22 [facility] [address] [place] [address], [address] [place], [place] [address] Allergies, Adverse Reactions, Alerts No Known Allergies Immunizations Given and Recorded Vaccine Date Status Refusal Reason influenza virus vaccine, inactivated 11/24/21 Loco rded influenza virus vaccine, inactivated 12/10/20 Loco rded [id number] bivalent booster vax 11/24/21 Recorded SARS-CoV-2 mRNA (vgfcsyx-avlt-kjunq) vax 05/26/21 Recorded tetanus/diphtheria/pertussis, acel(Tdap) 12/17/20 Recorded [...] 01/15/22 16:59:00 EST, Route to Pharmacy Electronically, [facility], Partial fill upon patient request if [...] MG DAILY, # 90 tablet, 1 Refills, [facility] #[id number], 159, cm, 07/26/21 11:39:00 EDT, Height, 93.2, kg, 05/04/20 10:09:00 EST, Dry We... 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 1 bottle., #1 each, 0 Refills, Maintenance, 03/28/21 11:42:00 EST, [facility] #[id number], Partial fill upon patient request if the prescription is for a lam... Start Date: 03/28/21 Status: Ordered gabapentin 300 mg oral capsule 300 mg, 1, capsule, By Mouth, 3 times a day, Start three days before your surgery., # 90 capsule, Refills 2, Tot. Refills 2, Maintenance, 02/20/22 9:52:00 EST, Route to Pharmacy Electronically, [facility] #[id number], Partial fill upon patient request if... Start Date: 02/20/22 Status: Ordered hydrochlorothiazide 25 mg oral tablet See Instructions, TAKE 1 TABLET BY MOUTH DAILY, # 90 tablet, Refills 0, Instructions Replace Required Details, Route to Pharmacy Electronically, [facility] #[id number], 159, cm, 07/26/21 11:39:00 EDT, Height, 93.2, kg, 05/04/20 10:09:00 EST, Dry... Start Date: 10/02/21 Status: Ordered lisinopril 20 mg oral tablet 1, tablet, By Mouth, Daily, OF LISINOPRIL., # 90 tablet, Refills 0, Route to Pharmacy Electronically, [facility] #[id number], 159, cm, 07/26/21 11:39:00 EDT, Height, 93.2, [...] 01/15/22 16:59:00 EST, Route to Pharmacy Electronically, [facility], Partial fill upon patient request if the [...] 1 Refills, Maintenance, 09/18/20 20:09:00 EDT, Capsule, [facility] #[id number], PLEASE DISPENSE IN BUBBLE/BLISTER PACK, 1 capsule [...] 5 Refills, Maintenance, 02/16/20 10:48:00 EST, Inhaler, [facility] #[id number], Partial fill uponpatient request if the prescription [...] Care Physician Member Role: PCP Address: Address: [address] [place] [address] [address] [place] [address]- Name: Jeanne Gallagher Position: [facility] Outreach Member Role: Lifetime Consulting Physician Name: Katerina Campos RN Position: [facility] RN Member Role: Primary Care Nurse Name: Bryanna Guzman RN Position: [facility] RN Member Role: Primary Care Nurse Care Team Related Persons Name: ADEN GARCIA Name: FRANICS GARCIA Address: [place]
--- OUTSIDE RECORDS SUMMARY | 2022-11-20 09:40 | XMS_ITS | Continuity of Care Document ---
Author Name Unknown Organization [facility] Address [address] [place] [address] [address], [address] [place] [address]- Care Team Providers Care Skin Specialist Name Role Phone Ishan PEÑA, [facility] Primary Care Physician Encounter [facility] [place] Date(s): 01/04/22 - 02/03/22 [facility] [address] [place] [address], [address] [place] [address]- Allergies, Adverse Reactions, Alerts No Known Allergies Immunizations Given and Recorded Vaccine Date Status Refusal Reason SARS-CoV-2 mRNA (txldrir-nhyi-rkmff) vax 05/26/21 Recorded tetanus/diphtheria/pertussis, acel(Tdap) 12/17/20 Recorded [...] EST, Route to Pharmacy Electronically, [facility], Partial fill upon patient request if [...] MG DAILY, # 90 tablet, 1 Refills, [facility] #[id number], 159, cm, 07/26/21 11:39:00 EDT, Height, 93.2, kg, 05/04/20 10:09:00 EST, Dry We... 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 1 bottle., #1 each, 0 Refills, Maintenance, 03/28/21 11:42:00 EST, [facility] #[id number], Partial fill upon patient request if the prescription is for a lam... Start Date: 03/28/21 Status: Ordered hydrochlorothiazide 25 mg oral tablet See Instructions, TAKE 1 TABLET BY MOUTH DAILY, # 90 tablet, Refills 0, Instructions Replace Required Details, Route to Pharmacy Electronically, [facility] #[id number], 159, cm, 07/26/21 11:39:00 EDT, Height, 93.2, kg, 05/04/20 10:09:00 EST, Dry... Start Date: 10/02/21 Status: Ordered lisinopril 20 mg oral tablet 1, tablet, By Mouth, Daily, OF LISINOPRIL., # 90 tablet, Refills 0, Route to Pharmacy Electronically, [facility] #[id number], 159, cm, 07/26/21 11:39:00 EDT, Height, 93.2, [...] 01/15/22 16:59:00 EST, Route to Pharmacy Electronically, [facility], Partial fill upon patient request if [...] 1 Refills, Maintenance, 09/18/20 20:09:00 EDT, Capsule, [facility] #[id number], PLEASE DISPENSE IN BUBBLE/BLISTER PACK, 1 capsule [...] 5 Refills, Maintenance, 02/16/20 10:48:00 EST, Inhaler, [facility] #[id number], Partial fill uponpatient request if the prescription [...] abuse Confirmed Active COVID-19 vaccine series completed- [facility] 03/2020 Confirmed Active Hyperlipidemia Confirmed Active Hypertension [...] Team Personnel Name: Ishan PEÑA, Jarod Position: [facility] Primary Care Physician Member Role: PCP Address: Address: [address] [facility] [address] [place] [address]- Name: Jeanne Gallagher Position: [facility] Outreach Member Role: Lifetime Consulting Physician Care Team Related Persons Name: ADEN GARCIA Name: FRANCIS GARCIA Address: home
--- OUTSIDE RECORDS SUMMARY | 2022-11-20 09:40 | XMS_ITS | Continuity of Care Document ---
Author Name Unknown Organization [facility] [place] [address] [place] [address]- Care Team Providers Care Pin Drafter Name Role Phone Jarod Olmstead MD Primary Care Physician Encounter 03/28/22 - 04/04/22 [facility] [address], [address] [place] [address]- Attending Physician: Jarod Olmstead MD Admitting Physician: Jarod Olmstead MD Referring Physician: Jarod Olmstead MD Allergies, Adverse Reactions, Alerts No Known Allergies Immunizations Given and Recorded Vaccine Date Status Refusal Reason influenza virus vaccine, inactivated 11/24/21 Loco rded influenza virus vaccine, inactivated 12/10/20 Loco rded [id number] bivalent booster vax 11/24/21 Recorded SARS-CoV-2 mRNA (iubftad-raes-dcgjc) vax 05/26/21 Recorded tetanus/diphtheria/pertussis, acel(Tdap) 12/17/20 Recorded [...] 01/15/22 16:59:00 EST, Route to Pharmacy Electronically, [facility], Partial fill upon patient [...] MG DAILY, # 90 tablet, 1 Refills, [facility] #[id number], 159, cm, 07/26/21 11:39:00 EDT, Height, 93.2, kg, 05/04/20 10:09:00 EST, Dry We... 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 1 bottle., #1 each, 0 Refills, Maintenance, 03/28/21 11:42:00 EST, [facility] #[id number], Partial fill upon patient request if the prescription is for a lam... Start Date: 03/28/21 Status: Ordered Colace sodium 100 mg oral capsule 100 mg, 1, capsule, By Mouth, 2 times a day, PRN, # 20 capsule, Refills 0, Tot. Refills 0, Maintenance, for constipation, 02/24/22 11:17:00 EST, Route to Pharmacy Electronically, [facility], Partial fill upon patient request if the presc... Start Date: 02/24/22 Status: Ordered gabapentin 300 mg oral capsule 300 mg, By Mouth, 3 times a day, # 63 tablet, Refills 0, Tot. Refills 0, Maintenance, 02/24/22 11:16:00 EST, Route to Pharmacy Electronically, [facility], Partial fill upon patient request if the prescription is for a schedule II opioid... Start Date: 02/24/22 Stop Date: 03/17/22 Status: Ordered hydrochlorothiazide 25 mg oral tablet See Instructions, TAKE 1 TABLET BY MOUTH DAILY, # 90 tablet, Refills 0, Instructions Replace Required Details, Route to Pharmacy Electronically, [facility] #[id number], 159, cm, 07/26/21 11:39:00 EDT, Height, 93.2, kg, 05/04/20 10:09:00 EST, Dry... Start Date: 10/02/21 Status: Ordered ibuprofen 600 mg oral tablet 600 mg, 1, tablet, By Mouth, 3 times a day, PRN, for 30 days, # 90 tablet, Refills 0, Tot. Refills 0, Acute 04/19/22 11:51:00 EST, Pain , Moderate, 03/20/22 11:51:00 EST, Route to Pharmacy Electronically, [facility] #[id number], Partial fill upon patient... Start Date: [...] 1 Refills, Maintenance, 09/18/20 20:09:00 EDT, Capsule, [facility] #[id number], PLEASE DISPENSE IN BUBBLE/BLISTER PACK, 1 capsule [...] 5 Refills, Maintenance, 02/16/20 10:48:00 EST, Inhaler, [facility] #[id number], Partial fill uponpatient request if the prescription [...] Exam Date Time Procedure Performing Provider Status 03/28/22 1:48 PM Dexa Bone Density (Axial) Abigail Rodriguez ly; Auth (Verified) Notes: (Dexa Bone Density (Axial)) Reason For Exam: Screening for Osteoporosis RESULT: Dexa Bone Density (Axial) Name:ADIN KO Age:76 years Sex:Female Ethnicity:White Date of :1945 Reason: Screening for Osteoporosis Referring Provider:Jarod Olmstead MD Study:Dexa Bone Density (Axial) Bone Density: Region BMD T-Score Z-Score Classification AP Spine 0.828 -2.0 0.6 Osteopenia TOTAL HIP 0.580 -3.0 -1.0 Osteoporosis FEM NECK 0.448 -3.6 -1.4 Osteoporosis 10-year Fracture Risk: Fracture Risk Not Reported: FRAX not reported because: Some T-score for Spine Total or Hip Total or Femoral Neck at or below -2.5 Impression: The patient has osteoporosis as determined by WHO criteria. WSN: [id number] Ordering Physician: Jarod Olmstead Dictated By: Mitul Hernández MD Dictated Date/Time: 03/29/22 4:50 pm Reviewed By: Mitul Hernández MD Signed By: Mitul Hernández MD Signed Date/Time: 03/29/22 4:50 pm Transcribed By: JOSEP Transcribed Date/Time: 03/29/22 4:49 pm Social History Social History Type Response Tobacco Use: quit 1993 1-2pp d 31yrs. Sex DXA Skeletal system.axial Views for bone density * [facility]ers[facility] , CIS S: TRANSCRIBE Mitul Hernández MD: VERIFY Event Display: Result: Authored Date: [id number] Name:ADIN KO Age:76 years Sex:Female Ethnicity:White Date of :1945 Reason: Screening for Osteoporosis Referring Provider:Jarod Olmstead MD Study:Dexa Bone Density (Axial) Bone Density: Region BMD T-Score Z-Score Classification AP Spine 0.828 -2.0 0.6 Osteopenia TOTAL HIP 0.580 -3.0 -1.0 Osteoporosis FEM NECK 0.448 -3.6 -1.4 Osteoporosis 10-year Fracture Risk: Fracture Risk Not Reported: FRAX not reported because: Some T-score for Spine Total or Hip Total or Femoral Neck at or below -2.5 Impression: The patient has osteoporosis as determined by WHO criteria. WSN: [id number] Ordering Physician: Jarod Olmstead Dictated By: Mitul Hernández MD Dictated Date/Time: 03/29/22 4:50 pm Reviewed By: Mitul Hernández MD Signed By: Mitul Hernández MD Signed Date/Time: 03/29/22 4:50 pm Transcribed By: CSMatilde Transcribed Date/Time: 03/29/22 4:49 pm Patient Care team information Care Team Personnel Name: Jarod Olmstead MD Position: [facility] Primary Care Physician Member Role: PCP Address: Address: [address] [place] [address] Name: Wen Stoll RN Position: S RN Member Role: Primary Care Nurse Name: Jeanne Gallagher Position: S Outreach Member Role: Lifetime Consulting Physician Name: Katerina Campos RN Position: S RN Member Role: Primary Care Nurse Name: Bryanna Guzman RN Position: S RN Member Role: Primary Care Nurse Care Team Related Persons Name: ADEN GARCIA Name: FRANCIS GARCIA Address: [place]
--- OUTSIDE RECORDS SUMMARY | 2022-11-20 09:40 | XMS_ITS | Continuity of Care Document ---
Author Name Unknown Organization [facility] Address [address] [address]- Care Team Providers Care Hose Maker Name Role Phone Erik PEÑA, Kirsten Jauregui Primary Care Physician [place] [facility] 12/[place]/19 [facility] [address] [address] Attending Physician: Lucy Montaño Admitting Physician: [...] 07/03/19 10:38:00 EDT, Route to Pharmacy Electronically, [facility] #[id number], 165.1, cm, 04/24/19 8:48:00 EST, Height Start Date: 07/03/19 Stop Date: 12/30/19 Status: Ordered Lipitor 40 mg oral tablet 1 tablet = 40 mg, By Mouth, Daily, # 90 tablet, 1 Refills, Maintenance, 07/03/19 10:23:00 EDT, Tablet, [facility] #[id number], 165.1, cm, 04/24/19 8:48:00 EST, Height Start Date: 07/03/19 Stop Date: 12/30/19 Status: Ordered lisinopril 20 mg oral tablet 20 mg, 1, tablet, By Mouth, Daily, # 90 tablet, Refills 1, Tot. Refills 1, Maintenance, 10/29/19 14:56:00 EDT, Route to Pharmacy Electronically, [facility] #72851, 165.1, cm, 10/28/19 9:59:00 EDT, Height Start Date: 10/29/19 Stop Date: 04/26/20 Status: Ordered metoprolol 50 mg oral tablet, extended release 50 mg, 1, tablet, By Mouth, Daily, # 90 tablet, Refills 0, Tot. Refills 0, Maintenance, 10/08/19 20:19:00 EDT, Route to Pharmacy Electronically, [facility] #31057, 165.1, cm, 04/24/19 8:48:00 EST, Height Start [...]
--- OUTSIDE RECORDS SUMMARY | 2022-11-20 09:40 | XMS_ITS | Continuity of Care Document ---
Author Name Unknown Organization [facility] Address [address] [place] [address] [address] [place] [address]- Care Team Providers Care Hides Soaker Name Role Phone Erik PEÑA, Kirsten Jauregui Primary Care Physician ( [phone] Encounter [facility] Date(s): 08/01/20 - 08/08/[address] [place] [address]- Attending Physician: Luis PEÑA, Shaan Referring Physician: [...] 1 Refills, Maintenance, 07/22/20 14:03:00 EDT, Tablet, [facility] #[id number], Partial fill upon patient request if the prescr... Start Date: 07/22/20 Status: Ordered cholecalciferol 4000 intl units oral tablet = 100 mcg, By Mouth, Daily, # 90 tablet, 1 Refills, Maintenance, 02/10/20 16:38:00 EST, [facility] #[id number], Partial fill upon patient request if the [...] 07/09/20 14:57:00 EDT, Route to Pharmacy Electronically, [facility] #[id number], 165.1, cm, 07/06/20 11:29:00 EDT, Height, 93.2, kg, 05/04/20 10:09:00 ESTDr... Start Date: 07/09/20 Stop Date: 01/05/21 Status: Ordered Lipitor 40 mg oral tablet 1 tablet = 40 mg, By Mouth, Daily, Take 1 tablet of 40 mg with 1 tablet of 20 mg for total 60 mg daily, # 90 tablet, 1 Refills, Maintenance, 07/22/20 14:03:00 EDT, Tablet, [facility] #[id number], 158, cm, 07/22/20 13:04:00 EDT, Height, 93.2, kg,... Start Date: 07/22/20 Stop Date: 01/18/21 Status: Ordered lisinopril 20 mg oral tablet 20 mg, 1, tablet, By Mouth, Daily, # 90 tablet, Refills 1, Tot. Refills 1, Maintenance, 10/29/19 14:56:00 EDT, Route to Pharmacy Electronically, [facility] #[id number], 165.1, cm, 10/28/19 9:59:00 EDT, Height Start [...] 07/09/20 14:57:00 EDT, Route to Pharmacy Electronically, [facility] #[id number], 165.1, cm, 07/06/20 11:29:00 EDT, Height, 93.2, [...] 1 Refills, Maintenance, 04/01/20 14:07:00 EST, Capsule, [facility] #06144, PLEASE DISPENSE IN BUBBLE/BLISTER PACK, 1 capsule By Mouth Daily,x90 days,Instr:PLEA... Start Date: 04/01/20 Stop Date: 09/28/20 Status: Ordered Ventolin HFA 108 mcg/inh inhalation aerosol with adapter 2 puffs, Inhalation, Every 4 hours, TAKE 2 PUFFS EVERY 4 HOURS IF NEEDED FOR WHEEZING, # 1 each, 5 Refills, Maintenance, 02/16/20 10:48:00 EST, Inhaler, [facility][id number], Partial fill uponpatient request if the prescription [...] abuse(Confirmed) Active COVID-19 vaccine series comp leted- Lycera 03/2020(Confirmed) Active Hyperlipidemia(Confirmed) Active Hypertension(Confirmed) Active Urinary [...] oldest [Reference Range]: 1 Height 158 cm (08/01/20 11:06 AM) Weight 92.5 kg (08/01/20 11:06 AM) Oxygen Saturation [94-100 %] 97 % (08/01/20 11:06 AM) Pulse Rate [55-90 bpm] 58 bpm (08/01/20 11:06 AM) Body Mass Index [18.5-24.99] 37.05 *>HHI* (08/01/20 11:06 AM) Blood Pressure [90-138/55-84 mm Hg] 144/ 72mm Hg *H* (08/01/20 11:06 AM) Respiratory Rate [16-30 br/min] 14 br/mi n *L* (08/01/20 11:06 AM) Blood pressure sites Arm, right (08/01/20 11:06 AM) Weight Obtained Via Standing scale (08/01/20 11:06 AM) Social History Social History Type Response Tobacco Use: quit 1993 1-2pp d 31yrs. Sex
--- OUTSIDE RECORDS SUMMARY | 2022-11-20 09:40 | XMS_ITS | Continuity of Care Document ---
Author Name Unknown Organization [facility] Address [address] [place] [address]- Care Team Providers Care Acute Care Physical Therapist Name Role Phone Erik PEÑA, Kirsten Jauregui Primary Care Physician Encounter [facility] [place] Date(s): 10/29/19 - 11/05/19 [facility] [address] [place] [address]- [facility] Attending Physician: Kirsten Valencia MD Allergies, Adverse [...] 10/08/19 20:16:00 EDT, Route to Pharmacy Electronically, [facility] #[id number],... Start Date: 10/08/19 Stop Date: 12/07/19 Status: [...] 07/03/19 10:38:00 EDT, Route to Pharmacy Electronically, [facility] #[id number], 165.1, cm, 04/24/19 8:48:00 EST, Height Start Date: 07/03/19 Stop Date: 12/30/19 Status: Ordered Lipitor 40 mg oral tablet 1 tablet = 40 mg, By Mouth, Daily, # 90 tablet, 1 Refills, Maintenance, 07/03/19 10:23:00 EDT, Tablet, [facility] #26111, 165.1, cm, 04/24/19 8:48:00 EST, Height Start Date: 07/03/19 Stop Date: 12/30/19 Status: Ordered lisinopril 20 mg oral tablet 20 mg, 1, tablet, By Mouth, Daily, # 90 tablet, Refills 1, Tot. Refills 1, Maintenance, 10/29/19 14:56:00 EDT, Route to Pharmacy Electronically, [facility] #[id number], 165.1, cm, 10/28/19 9:59:00 EDT, Height Start Date: 10/29/19 Stop Date: 04/26/20 Status: Ordered metoprolol 50 mg oral tablet, extended release 50 mg, 1, tablet, By Mouth, Daily, # 90 tablet, Refills 0, Tot. Refills 0, Maintenance, 10/08/19 20:19:00 EDT, Route to Pharmacy Electronically, [facility] #[id number], 165.1, cm, 04/24/19 8:48:00 EST, Height Start [...]
--- OUTSIDE RECORDS SUMMARY | 2022-11-20 09:41 | XMS_ITS | Continuity of Care Document ---
Author Name Unknown Organization [facility] Address [address] [address]- Care Team Providers Care Career Counselor Name Role Phone Erik PEÑA, Kirsten Jauregui Primary Care Physician Encounter [facility] Date(s): 11/25/20 - 12/25/20 [facility] [address] [address]- Attending Physician: Lucy Montaño Admitting Physician: Lucy [...] 1 Refills, Maintenance, 07/22/20 14:03:00 EDT, Tablet, [facility] #[id number], Partial fill upon patient request if the prescr... Start Date: 07/22/20 Status: Ordered cholecalciferol 4000 intl units oral tablet = 100 mcg, By Mouth, Daily, # 90 tablet, 1 Refills, Maintenance, 02/10/20 16:38:00 EST, [facility] #[id number], Partial fill upon patient request if the [...] 07/09/20 14:57:00 EDT, Route to Pharmacy Electronically, [facility] #[id number], 165.1, cm, 07/06/20 11:29:00 EDT, Height, 93.2, kg, 05/04/20 10:09:00 ESTDr... Start Date: 07/09/20 Stop Date: 01/05/21 Status: Ordered Lipitor 40 mg oral tablet 1 tablet = 40 mg, By Mouth, Daily, Take 1 tablet of 40 mg with 1 tablet of 20 mg for total 60 mg daily, # 90 tablet, 1 Refills, Maintenance, 07/22/20 14:03:00 EDT, Tablet, [facility] #55719, 158, cm, 07/22/20 13:04:00 EDT, Height, 93.2, kg,... Start Date: 07/22/20 Stop Date: 01/18/21 Status: Ordered lisinopril 20 mg oral tablet 1, tablet, By Mouth, Daily, # 90 tablet, Refills 1, Route to Pharmacy Electronically, [facility] #[id number], 158, cm, 08/01/20 11:06:00 EDT, Height, 93.2, kg, 05/04/20 10:09:00 EST, Dry Weight Start Date: 10/24/20 Status: Ordered metoprolol 50 mg oral tablet, extended release 50 mg, 1, tablet, By Mouth, Daily, # 90 tablet, Refills 1, Tot. Refills 1, Maintenance, 07/09/20 14:57:00 EDT, Route to Pharmacy Electronically, [facility] #68856, 165.1, cm, 07/06/20 11:29:00 EDT, Height, 93.2, [...] 1 Refills, Maintenance, 09/18/20 20:09:00 EDT, Capsule, [facility] #00952, PLEASE DISPENSE IN BUBBLE/BLISTER PACK, 1 capsule By Mouth 2 times a day,x9... Start Date: 09/18/20 Stop Date: 03/17/21 Status: Ordered Ventolin HFA 108 mcg/inh inhalation aerosol with adapter 2 puffs, Inhalation, Every 4 hours, TAKE 2 PUFFS EVERY 4 HOURS IF NEEDED FOR WHEEZING, # 1 each, 5 Refills, Maintenance, 02/16/20 10:48:00 EST, Inhaler, [facility] #[id number], Partial fill uponpatient request if the prescription [...]
--- OUTSIDE RECORDS SUMMARY | 2022-11-20 09:41 | XMS_ITS | Continuity of Care Document ---
Author Name Unknown Organization [facility] Address [address] [place] [address]- Care Team Providers Care Private Branch Exchange Installer Name Role Phone Ishan PEÑA, [facility] Primary Care Physician [facility] Date(s): 10/16/22 - 11/15/22 [facility] [address] [place] [address]- Allergies, Adverse Reactions, Alerts No Known Allergies Immunizations Given and Recorded Vaccine Date Status Refusal Reason influenza virus vaccine, inactivated 11/24/21 Loco rded influenza virus vaccine, inactivated 12/10/20 Loco rded [id number] bivalent booster vax 11/24/21 Recorded SARS-CoV-2 mRNA (ehkbixi-skom-zoasn) vax 05/26/21 Recorded tetanus/diphtheria/pertussis, acel(Tdap) 12/17/20 Recorded [...] 2 Refills, Maintenance, 08/02/22 10:40:00 EDT, [facility], 160, cm, 07/25/22 16:17:00 EDT, [...] 2 Refills, Maintenance, 08/02/22 10:40:00 EDT, [facility], 160, cm, 07/25/22 16:17:00 EDT, Height, 87.6, kg, 02/22/22 17:27:00 EST, Dry Weight Start Date: 08/02/22 Status: Ordered Rick topical emulsion See Instructions, Daily, # 250 mL, 0 Refills, Maintenance, 07/13/22 15:36:00 EDT, [id number], Partial fill upon patient request if the prescription is for a schedule II opioid drug.,Daily, 160, cm, 04/30/22 13:34:00 EST, Height, 87.6... Start Date: 07/13/22 Status: Ordered barium sulfate 2% oral suspension See Instructions, Please dispense 2 450 mls bottles to equal 900 mls. Please follow the intructionsprovided, # 2 each, 0 Refills, Maintenance, 11/06/22 13:38:00 EDT, [facility]3, Partial fillupon patient request if the prescription is for a s... Start Date: 11/06/22 Status: Ordered Biafine topical emulsion See Instructions, PRN Prurigo Nodularis, apply to affected area twice a day as needed. 1 bottle., #1 each, 0 Refills, Maintenance, 06/06/22 12:47:00 EDT, [facility]/pharmacy #[id number], Partial fill upon patient request if the prescription is for a schedule II... Start Date: 06/06/22 Status: Ordered hydrochlorothiazide 25 mg oral tablet 1, tablet, By Mouth, Daily, R1., # 90 tablet, Refills 2, Maintenance, 08/02/22 10:40:00 EDT, [facility], 160, cm, 07/25/22 16:17:00 EDT, Height, 87.6, kg, 02/22/22 17:27:00 EST, Dry Weight Start Date: 08/02/22 Status: Ordered ibuprofen 600 mg oral tablet 1, tablet, By Mouth, 3 times a day, PRN, # 90 tablet, Refills 0, Tot. Refills 0, Maintenance, NEEDED FOR MODERATE PAIN, 07/13/22 15:37:00 EDT, Route to Pharmacy Electronically, [facility] #[id number], 160, cm, 04/30/22 13:34:00 EST, Height, 87... Start Date: 07/13/22 Status: Ordered metoprolol 25 mg oral tablet, extended release 25 mg, 1, tablet, By Mouth, Daily, # 90 tablet, Refills 3, Tot. Refills 3, Maintenance, 01/15/22 16:59:00 EST, Route to Pharmacy Electronically, [facility], Partial fill upon patient request [...] capsule, 3 Refills, Maintenance, 10/15/22 15:19:00 EDT, [email or web address], 90, TAKE 1 CAPSULE BY MOUTH TWICE A DAY WITH MEALS^1R1,1R4,160, cm, 08/27/22 12:06:00 EDT, Height, 88.3, kg, 0... Start Date: 10/15/22 Status: Ordered Stiolto Respimat 60 ACT 2.5 mcg-2.5 mcg/inh inhalation aerosol 2 puffs, Inhalation, Every 24 hours, # 1 each, 6 Refills, Maintenance, 08/13/22 14:22:00 EDT, Aerosol, [facility] #[id number], Partial fill upon patient request if the prescription is for a schedule II opioid drug., 160, cm, 08/13/22 14:12:00 EDT... Start Date: 08/13/22 Stop Date: 03/11/23 Status: Ordered Ventolin HFA 108 mcg/inh inhalation aerosol with adapter 2 puffs, Inhalation, Every 4 hours, PRN NEEDED FOR WHEEZING OR SHORTNESS OF BREATH/DYSPNEA, # 18Gm, 3 Refills, Maintenance, 08/02/22 10:40:00 EDT, [email or web address], 160, cm, 07/25/22 16:17:00 EDT, Height, [...] Team Personnel Name: Jarod Olmstead MD Position: [facility] Physician - Primary Care Member Role: PCP Address: Address: [address] [place] [address] [address] [place] [address]- Name: Wen Stoll RN Position: S RN Member Role: Primary Care Nurse Name: Jeanne Gallagher [place] Position: [facility] [place] Member Role: Lifetime Consulting Physician Name: Katerina Campos RN Position: S RN Member Role: Primary Care Nurse Name: Bryanna Guzman RN Position: [facility] RN Member Role: Primary Care Nurse Care Team Related Persons Name: ADEN GARCIA Name: JOSE FRANCIS Address: [place]
--- OUTSIDE RECORDS SUMMARY | 2022-11-20 09:41 | XMS_ITS | Continuity of Care Document ---
Author Name Unknown Organization [facility] Address [address] [place] [address]- Care Team Providers Care Race Engine Builder Name Role Phone Not on Staff, PCP Primary Care Physician Unavail able [facility]counter [facility] Date(s): 08/02/21 - 09/01/21 [facility] [address] [place] [address]- Allergies, Adverse Reactions, Alerts No Known Allergies Immunizations Given and Recorded Vaccine Date Status Refusal Reason SARS-CoV-2 mRNA (ubbezho-bnnp-qutjl) vax 05/26/21 Recorded tetanus/diphtheria/pertussis, acel(Tdap) 12/17/20 Recorded [...] MG DAILY, # 90 tablet, 1 Refills, [facility] #[id number], 159, cm, 07/26/21 11:39:00 EDT, Height, 93.2, kg, 05/04/20 10:09:00 EST, Dry We... 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 1 bottle., #1 each, 0 Refills, Maintenance, 03/28/21 11:42:00 EST, [facility] #[id number], Partial fill upon patient request if the prescription is for a lam... Start Date: 03/28/21 Status: Ordered hydrochlorothiazide 25 mg oral tablet 1, tablet, By Mouth, Daily, # 90 tablet, Refills 0, Route to Pharmacy Electronically, [facility] #[id number], 159, cm, 04/26/21 9:27:00 EST, Height, 93.2, kg, 05/04/20 10:09:00 EST, Dry Weight Start Date: 06/25/21 Status: Ordered lisinopril 20 mg oral tablet 20 mg, 1, tablet, By Mouth, Daily, with 5 mg to total 25 mg of lisinopril, # 90 tablet, Refills 1, Tot. Refills 1, Maintenance, 04/18/21 15:36:00 EST, Route to Pharmacy Electronically, [facility] #[id number], Partial fill upon patient request if... Start Date: 04/18/21 Stop Date: 10/15/21 Status: Ordered lisinopril 5 mg oral tablet 5 mg, 1, tablet, By Mouth, Daily, with 20 mg to total 25 mg daily, # 90 tablet, Refills 1, Tot. Refills 1, Maintenance, 04/18/21 15:37:00 EST, Route to Pharmacy Electronically, [facility] #[id number], Partial fill upon patient request if the pres... Start Date: 04/18/21 Stop Date: 10/15/21 Status: Ordered Metoprolol Succinate ER 50 mg oral tablet, extended release 1 tablet, By Mouth, Daily, # 90 tablet, 0 Refills, [facility] #[id number], 159, cm, 04/26/21 9:27:00 EST, Height, 93.2, [...] 1 Refills, Maintenance, 09/18/20 20:09:00 EDT, Capsule, [facility] #[id number], PLEASE DISPENSE IN BUBBLE/BLISTER PACK, 1 capsule By Mouth 2 times a day,x9... Start Date: 09/18/20 Stop Date: 03/17/21 Status: Ordered Ventolin HFA 108 mcg/inh inhalation aerosol with adapter 2 puffs, Inhalation, Every 4 hours, TAKE 2 PUFFS EVERY 4 HOURS IF NEEDED FOR WHEEZING, # 1 each, 5 Refills, Maintenance, 02/16/20 10:48:00 EST, Inhaler, [facility] #[id number], Partial fill uponpatient request if the prescription [...]
--- OUTSIDE RECORDS SUMMARY | 2022-11-20 09:41 | XMS_ITS | Continuity of Care Document ---
Author Name Unknown Organization [facility] Address [address] [place] [address]- Care Team Providers Care Stadium Manager Name Role Phone Ishan PEÑA, [facility] Primary [facility] Physician En[facility] [place] [id number] Date(s): 09/17/22 - 10/17/22 [facility] [address] [place] [address]- Attending Physician: Lucy Montaño Admitting Physician: Lucy Montaño Referring Physician: AdmtrLucy Allergies, Adverse Reactions, Alerts No Known Allergies Immunizations Given and Recorded Vaccine Date Status Refusal Reason influenza virus vaccine, inactivated 11/24/21 Loco rded influenza virus vaccine, inactivated 12/10/20 Loco rded [id number] bivalent booster vax 11/24/21 Recorded SARS-CoV-2 mRNA ([id number]-[id number]) vax 05/26/21 Recorded tetanus/diphtheria/pertussis, acel(Tdap) 12/17/20 Recorded [...] tablet, 2 Refills, Maintenance, 08/02/22 10:40:00 EDT, [facility], 160, cm, 07/25/22 16:17:00 [...] tablet, 2 Refills, Maintenance, 08/02/22 10:40:00 EDT, [facility], 160, cm, 07/25/22 16:17:00 EDT, Height, 87.6, kg, 02/22/22 17:27:00 EST, Dry Weight Start Date: 08/02/22 Status: Ordered Rick topical emulsion See Instructions, Daily, # 250 mL, 0 Refills, Maintenance, 07/13/22 15:36:00 EDT, [facility] #[id number], Partial fill upon patient request if the prescription is for a schedule II opioid drug.,Daily, 160, cm, 04/30/22 13:34:00 EST, Height, 87.6... Start Date: 07/13/22 Status: Ordered Biafine topical emulsion See Instructions, PRN Prurigo Nodularis, apply to affected area twice a day as needed. 1 bottle., #1 each, 0 Refills, Maintenance, 06/06/22 12:47:00 EDT, [facility]/pharmacy #[id number], Partial fill upon patient request if the prescription is for a schedule II... Start Date: 06/06/22 Status: Ordered hydrochlorothiazide 25 mg oral tablet 1, tablet, By Mouth, Daily, R1., # 90 tablet, Refills 2, Maintenance, 08/02/22 10:40:00 EDT, Route to Pharmacy Electronically, [facility], 160, cm, 07/25/22 16:17:00 EDT, Height, 87.6, kg, 02/22/22 17:27:00 EST, Dry Weight Start Date: 08/02/22 Status: Ordered ibuprofen 600 mg oral tablet 1, tablet, By Mouth, 3 times a day, PRN, # 90 tablet, Refills 0, Tot. Refills 0, Maintenance, NEEDED FOR MODERATE PAIN, 07/13/22 15:37:00 EDT, Route to Pharmacy Electronically, [facility] #[id number], 160, cm, 04/30/22 13:34:00 EST, Height, 87... Start Date: 07/13/22 Status: Ordered metoprolol 25 mg oral tablet, extended release 25 mg, 1, tablet, By Mouth, Daily, # 90 tablet, Refills 3, Tot. Refills 3, Maintenance, 01/15/22 16:59:00 EST, Route to Pharmacy Electronically, [facility], Partial fill upon patient request if [...] capsule, 3 Refills, Maintenance, 10/15/22 15:19:00 EDT, [facility], 90, TAKE 1 CAPSULE BY MOUTH TWICE A DAY WITH MEALS^1R1,1R4,160, cm, 08/27/22 12:06:00 EDT, Height, 88.3, kg, 0... Start Date: 10/15/22 Status: Ordered Stiolto Respimat 60 ACT 2.5 mcg-2.5 mcg/inh inhalation aerosol 2 puffs, Inhalation, Every 24 hours, # 1 each, 6 Refills, Maintenance, 08/13/22 14:22:00 EDT, Aerosol, [facility] #[id number], Partial fill upon patient request if the prescription is for a schedule II opioid drug., 160, cm, 08/13/22 14:12:00 EDT... Start Date: 08/13/22 Stop Date: 03/11/23 Status: Ordered Ventolin HFA 108 mcg/inh inhalation aerosol with adapter 2 puffs, Inhalation, Every 4 hours, PRN NEEDED FOR WHEEZING OR SHORTNESS OF BREATH/DYSPNEA, # 18Gm, 3 Refills, Maintenance, 08/02/22 10:40:00 EDT, [facility], 160, cm, 07/25/22 16:17:00 EDT, Height, [...] Team Personnel Name: Jarod Olmstead MD Position: [facility] Physician - Primary Care Member Role: PCP Address: Address: [address] [place] [address]- Name: Wen Stoll RN Position: S RN Member Role: Primary Care Nurse Name: Jeanne Gallagher [place] Position: [facility] [place] Member Role: Lifetime Consulting Physician Name: Katerina Campos RN Position: S RN Member Role: Primary Care Nurse Name: Bryanna Guzman RN Position: S RN Member Role: Primary Care Nurse Care Team Related Persons Name: ADEN GARCIA Name: FRANCIS GARCIA Address: [place]
--- OUTSIDE RECORDS SUMMARY | 2022-11-20 09:41 | XMS_ITS | Continuity of Care Document ---
Author Name Unknown Organization [facility] Address [address] [place] [address]- Care Team Providers Care High School Guidance Counselor Name Role Phone Erik PEÑA, Kirsten Jauregui Primary Care Physician ( [phone] Encounter [facility] Date(s): 10/10/20 - 11/09/20 [facility] [address] [place] [address]- Allergies, Adverse Reactions, Alerts Substance Reaction Severity [...] 1 Refills, Maintenance, 07/22/20 14:03:00 EDT, Tablet, [facility][id number], Partial fill upon patient request if the prescr... Start Date: 07/22/20 Status: Ordered cholecalciferol 4000 intl units oral tablet = 100 mcg, By Mouth, Daily, # 90 tablet, 1 Refills, Maintenance, 02/10/20 16:38:00 EST, [facility][id number], Partial fill upon patient request if the [...] 07/09/20 14:57:00 EDT, Route to Pharmacy Electronically, [facility] #[id number], 165.1, cm, 07/06/20 11:29:00 EDT, Height, 93.2, kg, 05/04/20 10:09:00 Dr.. DOMINIK. Start Date: 07/09/20 Stop Date: 01/05/21 Status: Ordered Lipitor 40 mg oral tablet 1 tablet = 40 mg, By Mouth, Daily, Take 1 tablet of 40 mg with 1 tablet of 20 mg for total 60 mg daily, # 90 tablet, 1 Refills, Maintenance, 07/22/20 14:03:00 EDT, Tablet, [facility] #[id number], 158, cm, 07/22/20 13:04:00 EDT, Height, 93.2, kg,... Start Date: 07/22/20 Stop Date: 01/18/21 Status: Ordered lisinopril 20 mg oral tablet 1, tablet, By Mouth, Daily, # 90 tablet, Refills 1, Route to Pharmacy Electronically, [facility] #[id number], 158, cm, 08/01/20 11:06:00 EDT, Height, 93.2, kg, 05/04/20 10:09:00 EST, Dry Weight Start Date: 10/24/20 Status: Ordered metoprolol 50 mg oral tablet, extended release 50 mg, 1, tablet, By Mouth, Daily, # 90 tablet, Refills 1, Tot. Refills 1, Maintenance, 07/09/20 14:57:00 EDT, Route to Pharmacy Electronically, [facility] #[id number], 165.1, cm, 07/06/20 11:29:00 EDT, Height, 93.2, kg, 05/04/20 10:09:00 EST, [facility] Start Date: 07/09/20 Stop Date: 01/05/21 Status: [...] 1 Refills, Maintenance, 09/18/20 20:09:00 EDT, Capsule, [facility] #[id number], PLEASE DISPENSE IN BUBBLE/BLISTER PACK, 1 capsule By Mouth 2 times a day,x9... Start Date: 09/18/20 Stop Date: 03/17/21 Status: Ordered Ventolin HFA 108 mcg/inh inhalation aerosol with adapter 2 puffs, Inhalation, Every 4 hours, TAKE 2 PUFFS EVERY 4 HOURS IF NEEDED FOR WHEEZING, # 1 each, 5 Refills, Maintenance, 02/16/20 10:48:00 EST, Inhaler, [facility] #[id number], Partial fill uponpatient request if the prescription [...]
--- OUTSIDE RECORDS SUMMARY | 2022-11-20 09:41 | XMS_ITS | Continuity of Care Document ---
Author Name Unknown Organization [facility] Address [address] [place] [address]- Care Team Providers Care Coal Gasification Technician Name Role Phone Ishan PEÑA, [facility] Primary Care Physician Encounter [facility] Date(s): 02/08/22 - 03/10/22 [facility] [address] [place] [address]- Allergies, Adverse Reactions, Alerts No Known Allergies Immunizations Given and Recorded Vaccine Date Status Refusal Reason influenza virus vaccine, inactivated 11/24/21 Loco rded influenza virus vaccine, inactivated 12/10/20 Loco rded [id number] bivalent booster vax 11/24/21 Recorded SARS-CoV-2 mRNA ([id number]-ktsf-wlayp) vax 05/26/21 Recorded tetanus/diphtheria/pertussis, acel(Tdap) 12/17/20 Recorded [...] EST, Route to Pharmacy Electronically, [facility], Partial fill upon patient request [...] MG DAILY, # 90 tablet, 1 Refills, [facility] #[id number], 159, cm, 07/26/21 11:39:00 EDT, Height, 93.2, kg, 05/04/20 10:09:00 EST, Dry We... 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 1 bottle., #1 each, 0 Refills, Maintenance, 03/28/21 11:42:00 EST, [facility] #[id number], Partial fill upon patient request if the prescription is for a lam... Start Date: 03/28/21 Status: Ordered Colace sodium 100 mg oral capsule 100 mg, 1, capsule, By Mouth, 2 times a day, PRN, # 20 capsule, Refills 0, Tot. Refills 0, Maintenance, for constipation, 02/24/22 11:17:00 EST, Route to Pharmacy Electronically, [facility], Partial fill upon patient request if the presc... Start Date: 02/24/22 Status: Ordered gabapentin 300 mg oral capsule 300 mg, By Mouth, 3 times a day, # 63 tablet, Refills 0, Tot. Refills 0, Maintenance, 02/24/22 11:16:00 EST, Route to Pharmacy Electronically, [facility], Partial fill upon patient request if the prescription is for a schedule II opioid... Start Date: 02/24/22 Stop Date: 03/17/22 Status: Ordered hydrochlorothiazide 25 mg oral tablet See Instructions, TAKE 1 TABLET BY MOUTH DAILY, # 90 tablet, Refills 0, Instructions Replace Required Details, Route to Pharmacy Electronically, [facility] #[id number], 159, cm, 07/26/21 11:39:00 EDT, Height, 93.2, kg, 05/04/20 10:09:00 EST, Dry... Start Date: 10/02/21 Status: Ordered lisinopril 20 mg oral tablet 1, tablet, By Mouth, Daily, OF LISINOPRIL., # 90 tablet, Refills 0, Route to Pharmacy Electronically, [facility] #[id number], 159, cm, 07/26/21 11:39:00 EDT, Height, 93.2, [...] EST, Route to Pharmacy Electronically, [facility], Partial fill upon patient request [...] 1 Refills, Maintenance, 09/18/20 20:09:00 EDT, Capsule, [facility] #[id number], PLEASE DISPENSE IN BUBBLE/BLISTER PACK, 1 capsule [...] 5 Refills, Maintenance, 02/16/20 10:48:00 EST, Inhaler, [facility] #[id number], Partial fill uponpatient request if the prescription [...] Team Personnel Name: Jarod Olmstead MD Position: [facility] Primary Care Physician Member Role: PCP Address: Address: [address] [place] [id number]- Name: Wen Stoll RN Position: S RN Member Role: Primary Care Nurse Name: Jeanne Gallagher Position: S Outreach Member Role: Lifetime Consulting Physician Name: Katerina Campos RN Position: S RN Member Role: Primary Care Nurse Name: Bryanna Guzman RN Position: S RN Member Role: Primary Care Nurse Care Team Related Persons Name: ADEN GARCIA Name: FRANCIS GARCIA Address: [place]
--- OUTSIDE RECORDS SUMMARY | 2022-11-20 09:41 | XMS_ITS | Continuity of Care Document ---
Author Name Unknown Organization [facility] Address [address] [place] [address]- Care Team Providers Care Golf Club Weigher Name Role Phone Erik PEÑA, iKrsten Jauregui Primary Care Physician [place] [facility] [place] 11/27/19 [facility] [address] [place] [address]- [facility] Allergies, Adverse Reactions, Alerts Substance Reaction Severity [...] 10/08/19 20:16:00 EDT, Route to Pharmacy Electronically, [facility] #[id number],... Start Date: 10/08/19 Stop Date: 12/07/19 Status: [...] 07/03/19 10:38:00 EDT, Route to Pharmacy Electronically, [facility] #[id number], 165.1, cm, 04/24/19 8:48:00 EST, Height Start Date: 07/03/19 Stop Date: 12/30/19 Status: Ordered Lipitor 40 mg oral tablet 1 tablet = 40 mg, By Mouth, Daily, # 90 tablet, 1 Refills, Maintenance, 07/03/19 10:23:00 EDT, Tablet, [facility] #[id number], 165.1, cm, 04/24/19 8:48:00 EST, Height Start Date: 07/03/19 Stop Date: 12/30/19 Status: Ordered lisinopril 20 mg oral tablet 20 mg, 1, tablet, By Mouth, Daily, # 90 tablet, Refills 1, Tot. Refills 1, Maintenance, 10/29/19 14:56:00 EDT, Route to Pharmacy Electronically, [facility] #[id number], 165.1, cm, 10/28/19 9:59:00 EDT, Height Start Date: 10/29/19 Stop Date: 04/26/20 Status: Ordered metoprolol 50 mg oral tablet, extended release 50 mg, 1, tablet, By Mouth, Daily, # 90 tablet, Refills 0, Tot. Refills 0, Maintenance, 10/08/19 20:19:00 EDT, Route to Pharmacy Electronically, [facility] #[id number], 165.1, cm, 04/24/19 8:48:00 EST, Height Start [...]
--- OUTSIDE RECORDS SUMMARY | 2022-11-20 09:41 | XMS_ITS | Continuity of Care Document ---
Author Name Unknown Organization [facility] Address [address] [place] [address]- Care Team Providers Care Metal Tube Cutter Name Role Phone Erik PEÑA, Kirsten Jauregui Primary Care Physician Encounter [facility] Date(s): 03/24/20 - 04/23/20 [facility] [address] [place] [address]- Allergies, Adverse Reactions, Alerts Substance Reaction Severity [...] 1 Refills, Maintenance, 04/20/20 16:09:00 EST, Tablet, [facility] #[id number], Partial fill upon patient request if the prescr... Start Date: 04/20/20 Status: Ordered cholecalciferol 4000 intl units oral tablet = 100 mcg, By Mouth, Daily, # 90 tablet, 1 Refills, Maintenance, 02/10/20 16:38:00 EST, [facility] #[id number], Partial fill upon patient request if the [...] 01/07/20 14:52:00 EST, Route to Pharmacy Electronically, [facility] #[id number], 165.1, cm, 12/10/19 10:57:00 EDT, Height Start Date: 01/07/20 Stop Date: 07/05/20 Status: Ordered Lipitor 40 mg oral tablet 1 tablet = 40 mg, By Mouth, Daily, Take 1 tablet of 40 mg with 1 tablet of 20 mg for total 60 mg daily, # 90 tablet, 1 Refills, Maintenance, 04/06/20 14:02:00 EST, Tablet, [facility] #[id number], 165.1, cm, 04/06/20 8:13:00 EST, Height Start Date: 04/06/20 Status: Ordered lisinopril 20 mg oral tablet 20 mg, 1, tablet, By Mouth, Daily, # 90 tablet, Refills 1, Tot. Refills 1, Maintenance, 10/29/19 14:56:00 EDT, Route to Pharmacy Electronically, [facility] #[id number], 165.1, cm, 10/28/19 9:59:00 EDT, Height Start Date: 10/29/19 Stop Date: 04/26/20 Status: Ordered metoprolol 50 mg oral tablet, extended release 50 mg, 1, tablet, By Mouth, Daily, # 90 tablet, Refills 1, Tot. Refills 1, Maintenance, 01/07/20 14:51:00 EST, Route to Pharmacy Electronically, [facility] #[id number], 165.1, cm, 12/10/19 10:57:00 EDT, Height Start [...] 1 Refills, Maintenance, 04/01/20 14:07:00 EST, Capsule, [facility] #[id number], PLEASE DISPENSE IN BUBBLE/BLISTER PACK, 1 capsule By Mouth Daily,x90 days,Instr:PLEA... Start Date: 04/01/20 Stop Date: 09/28/20 Status: Ordered Ventolin HFA 108 mcg/inh inhalation aerosol with adapter 2 puffs, Inhalation, Every 4 hours, TAKE 2 PUFFS EVERY 4 HOURS IF NEEDED FOR WHEEZING, # 1 each, 5 Refills, Maintenance, 02/16/20 10:48:00 EST, Inhaler, [facility] #[id number], Partial fill uponpatient request if the prescription [...]
--- OUTSIDE RECORDS SUMMARY | 2022-11-20 09:41 | XMS_ITS | Continuity of Care Document ---
Author Name Unknown Organization [facility] Address [address] [place] [address]- Care Team Providers Care Hotel General Manager Name Role Phone Erik PEÑA, Kirsten Jauregui Primary Care Physician [place] [facility] [place](s): 04/03/21 - 04/10/21 [facility] [address] [place] [address]- Encounter Diagnosis Prurigo nodularis- itchy unroofed nodules - dx by Dr Katharine Boyd [facility], 2013, rx Biafine topicalemulsion bid(Discharge Diagnosis) - 04/03/21 Hypertension(Discharge Diagnosis) - 04/03/21 Weight gain(Discharge Diagnosis) - 04/03/21 Depression with anxiety(Discharge Diagnosis) - 04/03/21 Attending Physician: Erik PEÑA, Kirsten Jauregui Allergies, [...] MG DAILY, # 90 tablet, 0 Refills, [facility] #[id number], 158, cm, 01/04/21 12:51:00 EST, Height, 93.2, kg, 05/04/20 10:09:00 EST, Dry Weight Start Date: 01/25/21 Status: Ordered Biafine topical emulsion See Instructions, PRN Prurigo Nodularis, apply to affected area twice a day as needed. 1 bottle., #1 each, 0 Refills, Maintenance, 03/28/21 11:42:00 EST, [facility] #[id number], Partial fill upon patient request if the prescription is for a lam... Start Date: 03/28/21 Status: Ordered hydrochlorothiazide 25 mg oral tablet 1, tablet, By Mouth, Daily, # 90 tablet, Refills 1, Route to Pharmacy Electronically, [facility] #[id number], 158, cm, 11/25/20 12:59:00 EDT, Height, 93.2, kg, 05/04/20 10:09:00 EST, Dry Weight Start Date: 12/30/20 Status: Ordered lisinopril 20 mg oral tablet 1, tablet, By Mouth, Daily, # 90 tablet, Refills 1, Route to Pharmacy Electronically, [facility] #[id number], 158, cm, 08/01/20 11:06:00 EDT, Height, 93.2, kg, 05/04/20 10:09:00 EST, Dry Weight Start Date: 10/24/20 Status: Ordered Metoprolol Succinate ER 50 mg oral tablet, extended release 1 tablet, By Mouth, Daily, # 90 tablet, 1 Refills, [facility] #[id number], 158, cm, 11/25/20 12:59:00 EDT, Height, 93.2, [...] 1 Refills, Maintenance, 09/18/20 20:09:00 EDT, Capsule, [facility] #[id number], PLEASE DISPENSE IN BUBBLE/BLISTER PACK, 1 capsule By Mouth 2 times a day,x9... Start Date: 09/18/20 Stop Date: 03/17/21 Status: Ordered Ventolin HFA 108 mcg/inh inhalation aerosol with adapter 2 puffs, Inhalation, Every 4 hours, TAKE 2 PUFFS EVERY 4 HOURS IF NEEDED FOR WHEEZING, # 1 each, 5 Refills, Maintenance, 02/16/20 10:48:00 EST, Inhaler, [facility] #[id number], Partial fill uponpatient request if the prescription [...] Effective Dates Health Status Clinical Service Informant Prurigo nodularis- itchy unroofed nodules - dx by Dr Katharine Navas, 2012, rx Biafine topical emulsion bid Discharge Diagnosis 04/03/21 Hypertension Discharge Diagnosis 04/03/21 Weight gain Discharge Diagnosis 04/03/21 Depression with anxiety Discharge Diagnosis 04/03/21 Vital Signs Most recent to oldest [Reference Range]: 1 Height 158 cm (04/03/21 3:11 PM) Weight 92 kg (04/03/21 3:11 PM) Oxygen Saturation [94-100 %] 97 % (04/03/21 3:11 PM) Pulse Rate [55-90 bpm] 59 bpm (04/03/21 3:11 PM) Body Mass Index [18.5-24.99] 36.85 *>HHI* (04/03/21 3:11 PM) Blood Pressure [90-138/55-84 mm Hg] 141/ 82mm Hg *H* (04/03/21 3:11 PM) Blood pressure sites Arm, left (04/03/21 3:11 PM) Social History Social History Type Response Tobacco Use: quit 1993 1-2pp d 31yrs. Sex
--- OUTSIDE RECORDS SUMMARY | 2022-11-20 09:41 | XMS_ITS | Continuity of Care Document ---
Author Name Unknown Organization [facility] Address [address] [place] [address], [address] [place] [address]- Care Team Providers Care Electric Welder Name Role Phone Ishan PEÑA, [facility] Primary Care Physician Encounter [facility] Date(s): 12/12/21 - 01/11/22 [facility] [address] [place] [address], [address] [place], [place] [address] Attending Physician: AdmLucy quiros Admitting Physician: AdmtrLucy Referring Physician: Admtr, Ar8 Allergies, Adverse Reactions, Alerts No Known Allergies Immunizations Given and Recorded Vaccine Date Status Refusal Reason SARS-CoV-2 mRNA ([id number]) vax 05/26/21 Recorded tetanus/diphtheria/pertussis, acel(Tdap) 12/17/20 Recorded [...] MG DAILY, # 90 tablet, 1 Refills, [facility] #[id number], 159, cm, 07/26/21 11:39:00 EDT, Height, 93.2, kg, 05/04/20 10:09:00 EST, Dry We... 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 1 bottle., #1 each, 0 Refills, Maintenance, 03/28/21 11:42:00 EST, [facility] #[id number], Partial fill upon patient request if the prescription is for a lam... Start Date: 03/28/21 Status: Ordered hydrochlorothiazide 25 mg oral tablet See Instructions, TAKE 1 TABLET BY MOUTH DAILY, # 90 tablet, Refills 0, Instructions Replace Required Details, Route to Pharmacy Electronically, [facility] #[id number], 159, cm, 07/26/21 11:39:00 EDT, Height, 93.2, kg, 05/04/20 10:09:00 EST, Dry... Start Date: 10/02/21 Status: Ordered lisinopril 20 mg oral tablet 1, tablet, By Mouth, Daily, OF LISINOPRIL., # 90 tablet, Refills 0, Route to Pharmacy Electronically, [facility] #[id number], 159, cm, 07/26/21 11:39:00 EDT, Height, 93.2, [...] Mouth, Daily, # 90 tablet, 0 Refills, [facility] #[id number], 159, cm, 04/26/21 9:27:00 EST, Height, 93.2, [...] 1 Refills, Maintenance, 09/18/20 20:09:00 EDT, Capsule, [facility] #[id number], PLEASE DISPENSE IN BUBBLE/BLISTER PACK, 1 capsule By Mouth 2 times a day,x9... Start Date: 09/18/20 Stop Date: 03/17/21 Status: Ordered Readi-Cat 2 oral suspension See Instructions, Oral Contrast 2 Bottles 450 ml each Dx: Hernia, # 900 mL, 0 Refills, Maintenance,11/01/21 15:08:00 EDT, [facility]acy #[id number], Partial fill upon patient request if the prescription isfor a schedule II opioid drug., Oral Contrast; 2... Start Date: 11/01/21 Status: Ordered Ventolin HFA 108 mcg/inh inhalation aerosol with adapter 2 puffs, Inhalation, Every 4 hours, TAKE 2 PUFFS EVERY 4 HOURS IF NEEDED FOR WHEEZING, # 1 each, 5 Refills, Maintenance, 02/16/20 10:48:00 EST, Inhaler, [facility] #[id number], Partial fill uponpatient request if the prescription [...] Team Personnel Name: Jarod Olmstead MD Position: [facility] Primary Care Physician Member Role: PCP Address: Address: [address] [place] [address] [address] [place] [address]- [place] Name: Jeanne Gallagher Position: [facility] Outreach Member Role: Lifetime Consulting Physician Care Team Related Persons Name: ADEN GARCIA Name: FRANCIS GARCIA Address: home
--- OUTSIDE RECORDS SUMMARY | 2022-11-20 09:41 | XMS_ITS | Continuity of Care Document ---
Author Name Unknown Organization [facility] Address [address] [place] [id number]- Care Team Providers Care Drier And Pulverizer Tender Name Role Phone Jarod Olmstead MD Primary Care Physician [place] [facility] [place]24/22 [facility] [address] [place] [address]- Attending Physician: Sylwia Elizabeth NP Admitting Physician: Clara CHAU, Sylwia Referring Physician: Jarod Olmstead MD Allergies, Adverse Reactions, Alerts No Known Allergies Immunizations Given and Recorded Vaccine Date Status Refusal Reason influenza virus vaccine, inactivated 11/24/21 Loco rded influenza virus vaccine, inactivated 12/10/20 Loco rded [id number] bivalent booster vax 11/24/21 Recorded SARS-CoV-2 mRNA ([id number]) vax 05/26/21 Recorded tetanus/diphtheria/pertussis, acel(Tdap) 12/17/20 Recorded [...] 01/15/22 16:59:00 EST, Route to Pharmacy Electronically, [facility], Partial fill upon patient request if the [...] MG DAILY, # 90 tablet, 1 Refills, [facility] #[id number], 159, cm, 07/26/21 11:39:00 EDT, Height, 93.2, kg, 05/04/20 10:09:00 EST, Dry We... 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 1 bottle., #1 each, 0 Refills, Maintenance, 03/28/21 11:42:00 EST, [facility] #[id number], Partial fill upon patient request if the prescription is for a lam... Start Date: 03/28/21 Status: Ordered ibuprofen 600 mg oral tablet 1, tablet, By Mouth, 3 times a day, PRN, # 90 tablet, Refills 0, Maintenance, NEEDED FOR MODERATE PAIN, 04/18/22 9:29:00 EST, Route to Pharmacy Electronically, [id number], 160, cm, 03/15/22 14:35:00 EST, Height, 87.6, kg, 02/22/22 17:27:00 EST... Start Date: 04/18/22 Status: Ordered metoprolol 25 mg oral tablet, extended release 25 mg, 1, tablet, By Mouth, Daily, # 90 tablet, Refills 3, Tot. Refills 3, Maintenance, 01/15/22 16:59:00 EST, Route to Pharmacy Electronically, [facility], Partial fill upon patient request [...] 1 Refills, Maintenance, 09/18/20 20:09:00 EDT, Capsule, [facility] #[id number], PLEASE DISPENSE IN BUBBLE/BLISTER PACK, 1 capsule [...] Team Personnel Name: Jarod Olmstead MD Position: [facility] Primary Care Physician Member Role: PCP Address: Address: [address] [place] [address] [address] [place] [address]- Name: Wen Stoll RN Position: [facility] RN Member Role: Primary Care Nurse Name: Jeanne Gallagher Position: [facility] Outreach Member Role: Lifetime Consulting Physician Name: Katerina Campos RN Position: [facility] RN Member Role: Primary Care Nurse Name: Bryanna Guzman RN Position: [facility] RN Member Role: Primary Care Nurse Care Team Related Persons Name: ADEN GARCIA Name: FRANCIS GARCIA Address: [place]
--- OUTSIDE RECORDS SUMMARY | 2022-11-20 09:41 | XMS_ITS | Continuity of Care Document ---
Author Name Unknown Organization [facility] Address [address] [place] [id number]- Care Team Providers Care Transit Planning Director Name Role Phone Ishan PEÑA, [facility] Primary Care Physician Encounter [facility] Date(s): 12/25/21 - 01/24/22 [facility] [address] [place] [id number] Allergies, Adverse Reactions, Alerts No Known Allergies Immunizations Given and Recorded Vaccine Date Status Refusal Reason SARS-CoV-2 mRNA ([id number]) vax 05/26/21 Recorded tetanus/diphtheria/pertussis, acel(Tdap) 12/17/20 Recorded [...] 01/15/22 16:59:00 EST, Route to Pharmacy Electronically, [facility], Partial fill upon patient request if [...] MG DAILY, # 90 tablet, 1 Refills, [facility] #[id number], 159, cm, 07/26/21 11:39:00 EDT, Height, 93.2, kg, 05/04/20 10:09:00 EST, Dry We... 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 1 bottle., #1 each, 0 Refills, Maintenance, 03/28/21 11:42:00 EST, [facility] #[id number], Partial fill upon patient request if the prescription is for a lam... Start Date: 03/28/21 Status: Ordered hydrochlorothiazide 25 mg oral tablet See Instructions, TAKE 1 TABLET BY MOUTH DAILY, # 90 tablet, Refills 0, Instructions Replace Required Details, Route to Pharmacy Electronically, [facility] #[id number], 159, cm, 07/26/21 11:39:00 EDT, Height, 93.2, kg, 05/04/20 10:09:00 EST, Dry... Start Date: 10/02/21 Status: Ordered lisinopril 20 mg oral tablet 1, tablet, By Mouth, Daily, OF LISINOPRIL., # 90 tablet, Refills 0, Route to Pharmacy Electronically, [facility] #[id number], 159, cm, 07/26/21 11:39:00 EDT, Height, 93.2, [...] 01/15/22 16:59:00 EST, Route to Pharmacy Electronically, [facility], Partial fill upon patient request if [...] 1 Refills, Maintenance, 09/18/20 20:09:00 EDT, Capsule, [facility] #[id number], PLEASE DISPENSE IN BUBBLE/BLISTER PACK, 1 capsule [...] 5 Refills, Maintenance, 02/16/20 10:48:00 EST, Inhaler, [facility] #[id number], Partial fill uponpatient request if the prescription [...] Active COVID-19 vaccine series started- 03/31 #1 Uncovet Confirmed Active Varicella Confirmed Active PVC (premature [...] Team Personnel Name: Jarod Olmstead MD Position: [facility] Primary Care Physician Member Role: PCP Address: Address: [address] [place] [address]- Name: Jeanne Gallagher Position: [facility] Outreach Member Role: Lifetime Consulting Physician Care Team Related Persons Name: ADEN GARCIA Name: FRANCIS GARCIA Address: home
--- OUTSIDE RECORDS SUMMARY | 2022-11-20 09:41 | XMS_ITS | Continuity of Care Document ---
Author Name Unknown Organization [facility] Address [address] [place] [address] [address] [place] [address]- Care Team Providers Care Insurance Verification Rep Name Role Phone Erik PEÑA, Kirsten Jauregui Primary Care Physician Encounter [facility] Date(s): 10/28/19 - 11/27/19 [facility] [address] [place] [address]- [facility] Attending Physician: Admishaan, Lucy Admitting Physician: AdmtrLucy [...] 10/08/19 20:16:00 EDT, Route to Pharmacy Electronically, [facility] #[id number],... Start Date: 10/08/19 Stop Date: 12/07/19 Status: [...] 07/03/19 10:38:00 EDT, Route to Pharmacy Electronically, [facility] #[id number], 165.1, cm, 04/24/19 8:48:00 EST, Height Start Date: 07/03/19 Stop Date: 12/30/19 Status: Ordered Lipitor 40 mg oral tablet 1 tablet = 40 mg, By Mouth, Daily, # 90 tablet, 1 Refills, Maintenance, 07/03/19 10:23:00 EDT, Tablet, [facility] #[id number], 165.1, cm, 04/24/19 8:48:00 EST, Height Start Date: 07/03/19 Stop Date: 12/30/19 Status: Ordered lisinopril 20 mg oral tablet 20 mg, 1, tablet, By Mouth, Daily, # 90 tablet, Refills 1, Tot. Refills 1, Maintenance, 10/29/19 14:56:00 EDT, Route to Pharmacy Electronically, [facility] #[id number], 165.1, cm, 10/28/19 9:59:00 EDT, Height Start Date: 10/29/19 Stop Date: 04/26/20 Status: Ordered metoprolol 50 mg oral tablet, extended release 50 mg, 1, tablet, By Mouth, Daily, # 90 tablet, Refills 0, Tot. Refills 0, Maintenance, 10/08/19 20:19:00 EDT, Route to Pharmacy Electronically, [facility] #[id number], 165.1, cm, 04/24/19 8:48:00 EST, Height Start [...]
--- OUTSIDE RECORDS SUMMARY | 2022-11-20 09:42 | XMS_ITS | Continuity of Care Document ---
Author Name Unknown Organization [facility] Address [address] [place] [address]- Care Team Providers Care Shake Out Worker Name Role Phone Erik PEÑA, Kirsten Jauregui Primary Care Physician [place] [facility] [place]): [place]09[place]21 [facility] [address] [place] [address]- Encounter Diagnosis COVID-19(Discharge Diagnosis) - 08/02/21 Attending Physician: Not on Staff, Attending MD Referring Physician: Erik PEÑA, Kirsten Jauregui Allergies, Adverse Reactions, Alerts No Known Allergies Immunizations Given and Recorded Vaccine Date Status Refusal Reason SARS-CoV-2 mRNA ([id number]) vax 05/26/21 Recorded tetanus/diphtheria/pertussis, acel(Tdap) 12/17/20 Recorded [...] MG DAILY, # 90 tablet, 1 Refills, [facility] #[id number], 159, cm, 07/26/21 11:39:00 EDT, Height, 93.2, kg, 05/04/20 10:09:00 EST, Dry We... 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 1 bottle., #1 each, 0 Refills, Maintenance, 03/28/21 11:42:00 EST, [facility] #[id number], Partial fill upon patient request if the prescription is for a lam... Start Date: 03/28/21 Status: Ordered hydrochlorothiazide 25 mg oral tablet 1, tablet, By Mouth, Daily, # 90 tablet, Refills 0, Route to Pharmacy Electronically, [facility] #[id number], 159, cm, 04/26/21 9:27:00 EST, Height, 93.2, kg, 05/04/20 10:09:00 EST, Dry Weight Start Date: 06/25/21 Status: Ordered lisinopril 20 mg oral tablet 20 mg, 1, tablet, By Mouth, Daily, with 5 mg to total 25 mg of lisinopril, # 90 tablet, Refills 1, Tot. Refills 1, Maintenance, 04/18/21 15:36:00 EST, Route to Pharmacy Electronically, [facility] #[id number], Partial fill upon patient request if... Start Date: 04/18/21 Stop Date: 10/15/21 Status: Ordered lisinopril 5 mg oral tablet 5 mg, 1, tablet, By Mouth, Daily, with 20 mg to total 25 mg daily, # 90 tablet, Refills 1, Tot. Refills 1, Maintenance, 04/18/21 15:37:00 EST, Route to Pharmacy Electronically, [facility] #[id number], Partial fill upon patient request if the pres... Start Date: 04/18/21 Stop Date: 10/15/21 Status: Ordered Metoprolol Succinate ER 50 mg oral tablet, extended release 1 tablet, By Mouth, Daily, # 90 tablet, 0 Refills, [facility] #[id number], 159, cm, 04/26/21 9:27:00 EST, Height, 93.2, [...] 1 Refills, Maintenance, 09/18/20 20:09:00 EDT, Capsule, [facility] #[id number], PLEASE DISPENSE IN BUBBLE/BLISTER PACK, 1 capsule By Mouth 2 times a day,x9... Start Date: 09/18/20 Stop Date: 03/17/21 Status: Ordered Ventolin HFA 108 mcg/inh inhalation aerosol with adapter 2 puffs, Inhalation, Every 4 hours, TAKE 2 PUFFS EVERY 4 HOURS IF NEEDED FOR WHEEZING, # 1 each, 5 Refills, Maintenance, 02/16/20 10:48:00 EST, Inhaler, [facility] #[id number], Partial fill uponpatient request if the prescription [...] Diagnosis Diagnosis Type Effective Dates Health Status Clini kiya Service Informant COVID-19 Discharge Diagnosis 08/02/21 Social History Social History Type Response Tobacco Use: quit 1993 1-2pp d 31yrs. Sex
[2022-11-20 09:48] LABS: MANUAL DIFF FLAG NO
[2022-11-20 09:55] LABS: Basophils Absolute Auto 0.1 X10*3/uL (0.0-0.2); Basophils Percent Auto 0.6 % (0-2); Eosinophils Absolute Auto 0.1 X10*3/uL (0.0-0.4); Hematocrit 37.2 % (37.0-47.0); Hemoglobin 11.9 g/dl (12.0-16.0); Imm Gran Abs Auto 0.05 X10*3/uL (0.00-0.03); Imm Gran Pct Auto 0.6 % (0.0-0.4); Lymphocytes Absolute Auto 0.9 X10*3/uL (1.2-4.9); Lymphocytes Percent Auto 11.2 % (20-40); Mean Corpuscular Hemoglobin 26.6 pg (27.0-33.0); Mean Platelet Volume 10.1 fL (9.4-12.3); Monocytes Absolute Auto 0.6 X10*3/uL (0.1-1.2); Monocytes Percent Auto 7.2 % (2-11); Neutrophils Absolute Auto 6.5 x10*3/uL (2.0-8.3); Neutrophils Percent Auto 79.4 % (45-73); Platelet Count 183 X10*3/uL (160-400); Red Blood Count 4.48 X10*6/uL (4.20-5.50); Red Cell Distribution Width 15.5 % (11.0-16.0); White Blood Count 8.2 X10*3/uL (4.8-10.8)
[2022-11-20 09:56] LABS: D Dimer High Sensitivity 319 NG/ML
[2022-11-20 10:01] LABS: Anion Gap 13 (12-20); Blood Urea Nitrogen 13 mg/dL (9-16); Calcium 9.3 mg/dL (8.4-10.2); Carbon Dioxide 24 mmol/L (22-29); Chloride 105 mmol/L (96-108); Creatinine Clr Calc Pharmacy 60.1; Estimated Glomerular Filt Rate > 60; Glucose Random 97 mg/dL (60-115); Potassium 3.5 mmol/L (3.3-5.1); Sodium 138 mmol/L (135-145)
[2022-11-20 10:22] LABS: Troponin-I High Sensitivity < 2.7 ng/L (<3.5-17.0)
[2022-11-20] MEDS: 0.9 % Sodium Chloride 1,000 ML 250 ML IVCONT (11:28)
[2022-11-20] MEDS: iohexoL 350 MG/ML 100 ML INFUS..BTL IV (11:30)
[2022-11-20 11:43] VITALS: BP 149/63; PULSE 65; RESP 12; O2SAT 98
--- NOTE | 2022-11-20 12:16 | PC.NURSE ---
pt resting comfortably, ambulated to BR independently. minimal chest pain, only when trying to take a deep breath
== END 2022-11-20 13:38 | disposition home or self-care (01) ==
PROVIDERS: Emergency Provider Emergency Medicine
DX: R07.89 Other chest pain (principal); R10.13 Epigastric pain; R91.8 Other nonspecific abnormal finding of lung field; R11.2 Nausea with vomiting, unspecified; Z79.899 Other long term (current) drug therapy
CPT/HCPCS: 36415; 71045; 71275; 80048; 84484; 85025; 85379; 93005; 96360; 96361; 99284; 99285; Q9967